=== PATIENT | male | born 1950 | race Caucasian/White ===

== ENCOUNTER 2017-03-13 11:40 | Emergency (ER) | payer MEDICARE, OTHER ==
[2017-03-13 11:40] VITALS: BMI 26.1
[2017-03-13 12:07] VITALS: BP 159/92; PULSE 76; RESP 20; TEMP 97.3; O2SAT 98
--- NOTE | 2017-03-13 12:34 | C.PDOC ---
History Of Present Illness 66 year old patient, with a past medical history of Diabetes, HTN, and renal transplant, presents to the ED requesting a dressing change and wound check for the right foot. Patient is status post first toe amputation on 03/08/17 at [facility]. Patient was advised to get IV antibiotics. Patient is s/p 2 doses at [facility]. Patient states he is pending a follow up appointment at [facility]. Patient denies fever. REQUESTING DRESSING CHANGE, WOUND CHECK R FOOT. S/P 1ST TOE AMPUTATION 03/08 @ [facility]. WAS ADVISED TO GET IV ABX, S/P 2 DOSES @ [facility]. PS PENDING APPOINTMENT FOR FU @ [facility]. NO FEVER. HO RENAL TRANSPLANT EXAM NAD NONTOXIC SKIN R FOOT S/P 1ST TOE AMPUTATION. SUTURES INTACT. +SEMIOPAQUE SLIMEY DC NO SMELL AT WOUND SITE. NO CELLULITIS. Time Seen by Provider: 03/13/17 12:15 Chief Complaint (Nursing): Lower Extremity Problem/Injury History Per: Patient History/Exam Limitations: no limitations Onset/Duration Of Symptoms: Other Current Symptoms Are (Timing): Still Present Location Of Injury: Right: Foot Quality Of Symptoms: Other Severity: None Pain Scale Rating Of: 0 Recent travel outside of the [place]: No Past Medical History Reviewed: Historical Data, Nursing Documentation, Vital Signs Vital Signs: Last Vital Signs Temp 97.3 F L 03/13/17 12:04 Pulse 76 03/13/17 12:04 Resp 20 03/13/17 12:04 BP 159/92 H 03/13/17 12:04 Pulse Ox 98 03/13/17 13:13 - Medical History PMH: Diabetes, HTN, End Stage Renal Disease Surgical History: CABG (2010) - [facility] Procedures CORONAR ARTERIOGR-2 CATH (08/17/13) DX ULTRASOUND-VASCULAR (03/04/13) HEMODIALYSIS (08/17/13) LEFT HEART CARDIAC CATH (08/17/13) LT HEART ANGIOCARDIOGRAM (08/17/13) TETANUS TOXOID ADMINIST (05/10/15) UP LIMB SFT TIS XRAY NEC (03/04/13) VENOUS CATHETERIZATION FOR RENAL DIALYSIS (03/04/13) Family History: States: Unknown Family Hx - Social History Hx Tobacco Use: No Hx Alcohol Use: No Hx Substance Use: No - Immunization History Hx Tetanus Toxoid Vaccination: Yes Hx Influenza Vaccination: Yes Hx Pneumococcal Vaccination: Yes (2013) Review Of Systems Except As Marked, All Systems Reviewed And Found Negative. Constitutional: Negative for: Fever Musculoskeletal: Positive for: Other (right foot wound check s/p 1st toe amputation) Physical Exam - Physical Exam Appears: Non-toxic, No Acute Distress Skin: Warm, Dry, Other (right foot is s/p 1st toe amputation. sutures are intact. (+)semiopaque, slimey discharge. no smell at wound site. no cellulitis.) Cardiovascular: Rhythm Regular Respiratory: Normal Breath Sounds, No Rales, No Rhonchi, No Wheezing ED Course And Treatment O2 Sat by Pulse Oximetry: 98 (room air) Pulse Ox Interpretation: Normal Progress - Re-Evaluation Re-evaluation Note: 03/13/17 12:50 D/W DR MCDANIELS SDE @ [facility]. STATES PT HAD VANCOMYCIN BEADS IMPLANTED , PROBABLE CAUSE OF SLIMEY DC. WILL FU OFFICE - Data Reviewed Data Reviewed: Old records - Continuity of Care Discussed pt. case with applications sales consultant/specialty: Podiatry Disposition Counseled Patient/Family Regarding: Diagnosis, Need For Followup - Disposition Referrals: YOUR,SDE [Other] Disposition: HOME/ ROUTINE Disposition Time: 12:54 Condition: IMPROVED Instructions: Chronic Wound Care (ED) - Clinical Impression Clinical Impression: Visit for wound check - Scribe Statement The provider has reviewed the documentation as recorded by the Scribe Rosalba Treviño Provider Attestation: All medical record entries made by the Scribe were at my direction and personally dictated by me. I have reviewed the chart and agree that the record accurately reflects my personal performance of the history, physical exam, medical decision making, and the department course for this patient. I have also personally directed, reviewed, and agree with the discharge instructions and disposition.
== END 2017-03-13 13:06 | disposition home or self-care (01) ==
LOC: C.ER 11:40
DX: Z48.01 Encounter for change or removal of surgical wound dressing (principal)

== ENCOUNTER 2017-03-27 08:51 | Day surgery (SDC) | payer MEDICARE, OTHER ==
--- NOTE | 2017-03-27 11:06 | CP.SDSHP ---
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 He is referred for PICC placement. Pt. Evaluated Today:Candidate for Anesthesia & Procedure: No - Date & Time Date: 03/27/17 Time: 10:25 Short Stay Discharge - Short Stay Discharge Admitting Diagnosis/Reason for Visit: ABX INFUSION Disposition: HOME/ ROUTINE
--- NOTE | 2017-03-27 11:08 | PCM.SURG1 ---
Surgeon's Initial Post Op Note - Surgeon's Notes Surgeon: Jos Menchaca MD Insurance Agency Sales Manager: NONE Type of Anesthesia: Local Pre-Operative Diagnosis: Poor venous access, subclavian vein occlusion. Operative Findings: Central venogram showed occlusion of the subclavian vein. Basilic and brachial veins are patent. Post-Operative Diagnosis: Poor venous access, subclavian vein occlusion. Operation Performed: 5 mm AIRCRAFT ENGINE MECHANIC SUPERVISOR venous : occluded subclavian vein. Superior venacavagram. Placement of a single lumen picc 5 fr, 39 cm. Tip in SVC. Specimen/Specimens Removed: None Estimated Blood Loss: EBL {In ML}: 5 Blood Products Given: N/A Drains Used: No Drains Post-Op Condition: Good Date of Surgery/Procedure: 03/27/17 Time of Surgery/Procedure: 11:00
[2017-03-27 12:22] VITALS: BP 138/50; PULSE 71; RESP 18; TEMP 97.2; O2SAT 98
== END 2017-03-27 12:29 | disposition home or self-care (01) ==
LOC: C.SPRAD 08:51
PROVIDERS: ATTEND Radiology Vascular & Interventional Radiology
DX: I82.B19 Acute embolism and thrombosis of unspecified subclavian vein (principal)

== ENCOUNTER 2017-04-13 11:31 | Inpatient (IN) | payer MEDICARE, OTHER ==
--- NOTE | 2017-04-13 13:00 | C.PDOC ---
History Of Present Illness The patient, a 66 y/o male with history of right kidney transplant, presents to the ED for evaluation of painful cellulitis to his right foot. He notes his pain is 10/10 severity throughout his entire right foot and radiates towards his mid-calf region. Patient states he had a resection of his right great toe due to the infection and has been going to an infusion center for IV antibiotics everyday and currently has PICC line in place. Patient states he referred to ED to undergo a CT to check for deep infection and possibly for further debridement. Patient states he is unable to follow up at [place] so presents to the ED for further evaluation. Patient denies fever, chills, nausea , vomiting, and headache. Time Seen by Provider: 04/13/17 11:49 Chief Complaint (Nursing): Lower Extremity Problem/Injury History Per: Patient History/Exam Limitations: no limitations Onset/Duration Of Symptoms: Days Current Symptoms Are (Timing): Still Present Severity: Severe Pain Scale Rating Of: 10 Additional History Per: Patient Past Medical History Reviewed: Historical Data, Nursing Documentation, Vital Signs Vital Signs: Last Vital Signs Temp 97.7 F 04/13/17 14:47 Pulse 66 04/13/17 14:47 Resp 18 04/13/17 14:47 BP 179/72 H 04/13/17 14:47 Pulse Ox 100 04/13/17 14:47 - Medical History PMH: Diabetes, HTN, End Stage Renal Disease Surgical History: CABG (2010) - [facility] Procedures CORONAR ARTERIOGR-2 CATH (08/17/13) DX ULTRASOUND-VASCULAR (03/04/13) HEMODIALYSIS (08/17/13) LEFT HEART CARDIAC CATH (08/17/13) LT HEART ANGIOCARDIOGRAM (08/17/13) TETANUS TOXOID ADMINIST (05/10/15) UP LIMB SFT TIS XRAY NEC (03/04/13) VENOUS CATHETERIZATION FOR RENAL DIALYSIS (03/04/13) Family History: States: Unknown Family Hx - Social History Hx Tobacco Use: No Hx Alcohol Use: No - Immunization History Hx Tetanus Toxoid Vaccination: Yes Hx Influenza Vaccination: Yes Hx Pneumococcal Vaccination: Yes (2013) Review Of Systems Constitutional: Negative for: Fever, Chills Gastrointestinal: Negative for: Nausea, Vomiting Musculoskeletal: Positive for: Foot Pain (right, radiating to mid-calf region ) Neurological: Negative for: Headache Physical Exam - Physical Exam Appears: Non-toxic, No Acute Distress Skin: Warm, Dry, Other (Right foot: +foul-odor with purulent discharge. open wound to medial instep with localized swelling,erythema and tenderness) Head: Atraumatic, Normacephalic Eye(s): bilateral: Normal Inspection Oral Mucosa: Moist Neck: Supple Chest: Symmetrical, No Deformity, No Tenderness Cardiovascular: Rhythm Regular, No Murmur Respiratory: Normal Breath Sounds, No Rales, No Rhonchi, No Wheezing Gastrointestinal/Abdominal: Soft, No Tenderness, No Guarding, No Rebound Extremity: Normal ROM, Tenderness (right medial instep ), Capillary Refill ( less than 2 seconds ), No Deformity, Swelling (right medial instep ), Other (+ amputated right great toe) Pulses: Left Dorsalis Pedis: Normal, Right Dorsalis Pedis: Normal Neurological/Psych: Normal Speech, Normal Cognition ED Course And Treatment - Laboratory Results Result Diagrams: 04/13/17 13:27 04/13/17 13:27 O2 Sat by Pulse Oximetry: 100 (on RA ) Pulse Ox Interpretation: Normal Medical Decision Making Medical Decision Making: Impression: 66 y/o male with right foot pain Plan: * labs * CT Lower Extremity * reassess and disposition Progress: labs and CT ordered and reviewed. Attempted to contact siding mechanic in [place], [facility] to reach. Case discussed with Dr. Bauer. ED OBSERVATION Date of observation admission: 04/13/17 Time of observation admission: 13:17 - Observation admission statement Patient is being placed in observation because:: placed in ED obs, pending Podiatry eval Disposition Discussed With DrErick: Tony Treviño Counseled Patient/Family Regarding: Studies Performed, Diagnosis - Disposition Disposition: HOSPITALIZED Disposition Time: 13:14 Condition: GUARDED - Clinical Impression Clinical Impression: Diabetic foot ulcer - Scribe Statement The provider has reviewed the documentation as recorded by the Scribe (Janki Treviño) Provider Attestation: All medical record entries made by the Scribe were at my direction and personally dictated by me. I have reviewed the chart and agree that the record accurately reflects my personal performance of the history, physical exam, medical decision making, and the department course for this patient. I have also personally directed, reviewed, and agree with the discharge instructions and disposition. Decision To Admit - Pt Status Changed To: Hospital Disposition Of: Inpatient - Admit Certification Admit to Inpatient:: After my assessment, the patient will require hospitalization for at least two midnights. This is because of the severity of symptoms shown, intensity of services needed, and/or the medical risk in this patient being treated as an outpatient. - InPatient: Physician Admission Certification: I certify that this patient requires 2 or more midnights of care for the following reason:: deep mid-foot abscess - . Bed Request Type: Regular Patient Diagnosis: Diabetic foot ulcer
[2017-04-13 13:33] LABS: BASO # 0.1 K/uL (0.0-0.2); BASO % 1.1 % (0.0-2.0); EOS # 0.2 K/uL (0.0-0.7); EOS % 3.5 % (0.0-4.0); HEMOGLOBIN 11.4 g/dL (12.0-18.0); LYMPH # 1.5 K/uL (1.0-4.3); LYMPH % 26.1 % (20.0-40.0); MEAN CELL VOLUME 84.3 fL (80.0-94.0); MEAN CORPUSCULAR HEMOGLOBIN 27.4 pg (27.0-31.0); MEAN CORPUSCULAR HGB CONC 32.5 g/dL (33.0-37.0); MEAN PLATELET VOLUME 7.3 fL (7.2-11.7); MONO # 0.6 K/uL (0.0-0.8); MONO % 11.5 % (0.0-10.0); NEUT # 3.2 K/uL (1.8-7.0); NEUT % 57.8 % (50.0-75.0); RBC 4.16 Mil/uL (4.40-5.90); RED CELL DISTRIBUTION WIDTH 14.5 % (11.5-14.5); WHITE BLOOD COUNT 5.6 K/uL (4.8-10.8)
[2017-04-13 13:38] LABS: VENOUS BLOOD GAS BASE EXCESS 0.3 mmol/L (0.0-2.0); VENOUS BLOOD GAS PCO2 45 mmHg (40-60); VENOUS BLOOD GAS PO2 40 mm/Hg (30-55); VENOUS BLOOD PH 7.37 (7.32-7.43)
--- NOTE | 2017-04-13 13:49 | CP.PCM.CON ---
History of Present Illness - History of Present Illness History of Present Illness: 66M with PMHx of kidney transplant, CAD, HTN, HLD, DM, Cataracts seen in the ED by podiatry for right foot s/p 1st ray resection and plantar medial arch circular ulceration with possible abscess formation. Pt states he had surgery on March [address] Jamison at [place] and has since been following up with him there. Pt states he goes to the infusion center to get antibiotics daily at [facility]. Pt states Dr. Jamison created the opening in the middle of his arch last because he suspected an abscess. Pt states that Dr. Jamison advised patient to go to the ED and have a CT scan to rule out the possibility of an abscess. Pt states he would rather come to this ED because it is closer to his home. PSHx: R 1st ray resection, coronary stents, CABG, R kidney transplant All: NKDA Social: denies cigarette use, denies alcohol use, denies drug use Review of Systems - Review of Systems All systems: reviewed and no additional remarkable complaints except (per HPI) Past Patient History - Infectious Disease Hx of Infectious Diseases: None - Past Medical History & Family History Past Medical History?: Yes - Past Social History Smoking Status: Never Smoked - CARDIAC Hx Hypertension: Yes - RENAL Type of Dialysis Access: right arm av shunt Date of Last Dialysis Treatment: 06/03/16 Hx Renal Failure: Yes Other/Comment: Patient doees not get dialysis anymore. He has a kidney transplant since June 04 2016. - HEMATOLOGICAL/ONCOLOGICAL Hx Blood Transfusions: Yes (No reaction) - MUSCULOSKELETAL/RHEUMATOLOGICAL Hx Musculoskeletal Disorders: Yes - SURGICAL HISTORY Hx Coronary Artery Bypass Graft: Yes (2010) - ANESTHESIA Hx Anesthesia: Yes Hx Anesthesia Reactions: No Hx Malignant Hyperthermia: No Meds Allergies/Adverse Reactions: Allergies Allergy/AdvReac Type Severity Reaction Status Date / Time No Known Allergies Allergy Verified 04/13/17 11:36 Physical Exam - Constitutional Appears: Well, Non-toxic, No Acute Distress - Extremities Exam Additional comments: Right lower extremity focused examination Vasc: DP/PT pulses palpable, temperature gradient warm to warm, CFT < 3 sec x 5 , mild edema noted to plantar medial arch in area of proximal open wound Derm: Surgical site noted s/p 1st ray resection with no malodor, no drainage, no purulence, no probe to bone noted. 1x1cm circular open ulceration noted at plantar medial arch with surrounding erythema, purulent drainage. No malodor, no fluctuance, no probe to bone. Neuro: Protective sensation grossly intact Ortho: Tenderness upon palpation of open wounds and wound periphery - Neurological Exam Neurological exam: Alert, Oriented x3 - Psychiatric Exam Psychiatric exam: Normal Affect, Normal Mood Results - Vital Signs Recent Vital Signs: Last Vital Signs Temp 97.4 F L 04/13/17 11:37 Pulse 70 04/13/17 11:37 Resp 16 04/13/17 11:37 BP 205/71 H 04/13/17 11:37 Pulse Ox 100 04/13/17 13:46 - Labs Result Diagrams: 04/13/17 13:27 04/13/17 13:27 Labs: Laboratory Results - last 24 hr 04/13/17 04/13/17 13:27 13:30 WBC 5.6 RBC 4.16 L Hgb 11.4 L Hct 35.1 MCV 84.3 MCH 27.4 MCHC 32.5 L RDW 14.5 Plt Count 216 MPV 7.3 Neut % (Auto) 57.8 Lymph % (Auto) 26.1 Bracken % (Auto) 11.5 H Eos % (Auto) 3.5 Baso % (Auto) 1.1 Neut # 3.2 Lymph # 1.5 Bracken # 0.6 Eos # 0.2 Baso # 0.1 pO2 40 VBG pH 7.37 VBG pCO2 45 VBG HCO3 24.5 VBG Total CO2 27.4 VBG O2 Sat (Calc) 81.1 H VBG Base Excess 0.3 VBG Potassium 4.6 Sodium 134.0 Chloride 102.0 Glucose 418 H* Lactate 1.3 FiO2 21.0 Crit Value Called To Dr dick Crit Value Called By [facility] Crit Value Read Back Y Blood Gas Notified Time 1335 Venous Blood Potassium 4.6 Assessment & Plan - Assessment and Plan (Free Text) Assessment: 66 y/o diabetic male with R foot s/p 1st ray resection with possible plantar medial midfoot abscess Plan: Pt seen and evaluated in ED by podiatry Discussed in detail with attending Dr. Taylor Labs and vitals reviewed- afebrile, WBC 5.6 X-rays R foot reviewed- negative for osteomyelitis 3-4cc purulent drainage elicited up on pressure to R plantar medial midfoot opening CT scan reviewed- possible abscess in R plantar medial midfoot ID consult placed for Dr. Jiang- IV abx recs appreciated MRI of RLE ordered Pt to go to OR Saturday for R foot I&D pending clearance Cardiac clearance requested- thank you Podiatry will continue to follow this patient Thank you for the consult - Date & Time Date: 04/13/17 Time: 14:30
[2017-04-13 14:05] LABS: ALBUMIN 3.4 g/dL (3.5-5.0)
[2017-04-13 14:07] LABS: GFR AFRICAN-AMERICAN > 60; GFR NON-AFRICAN AMERICAN > 60
[2017-04-13 14:08] LABS: ALB/GLOB RATIO 0.9 (1.0-2.1); ALT/SGPT 47 U/L (21-72); AST/SGOT 26 U/L (17-59); BLOOD UREA NITROGEN 13 mg/dL (9-20)
[2017-04-13 14:09] LABS: CALCIUM 9.3 mg/dl (8.6-10.4)
--- NOTE | 2017-04-13 14:39 | CT ---
PROCEDURE: CT of the right foot without contrast. HISTORY: right foot ulcer, osteo? COMPARISON: Comparison is made to the previous x-ray of the right foot dated 01/17/2016 TECHNIQUE: Axial coronal and sagittal CT images of the right foot were obtained without IV contrast administration. FINDINGS: The patient is status post amputation through the mid shaft of the 1st metatarsal bone since the previous exam. There is no CT evidence of acute osteomyelitis at the amputation stump. No evidence of destructive bony lesion in the rest of the right foot. Heterogeneous soft tissue density and soft tissue swelling seen at the plantar aspect of the 1st and 2nd metatarsal bones. There is subcutaneous collection at the plantar aspect of the midfoot at the level of the 2nd and 3rd metatarsal bone measures approximately 3.5 centimeter in the transverse diameter and 1.5 centimeter in thickness. The possibility of abscess formation should be considered. There is also subcutaneous air seen at the plantar aspect of the proximal to mid foot. Diffuse soft tissue edema and skin thickening also seen at the blew plantar aspect of the right foot. Vascular calcifications seen. IMPRESSION: No definite CT evidence of acute osteomyelitis. 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 Soft tissue swelling and suspicious for subcutaneous fluid collection at the plantar aspect of the mid foot. The possibility of abscess formation should be considered.
--- NOTE | 2017-04-13 16:33 | CP.PCM.HP ---
<Godwin Damian R - Last Filed: 04/13/17 20:09> History of Present Illness - History of Present Illness History of Present Illness: PMD: Dr Bauer Code Status: Full Code, no living will, no advanced directive; designates son Karen [phone] as his health care proxy CC: My foot doctor told me to come here HPI: Mr Davis is a 66 yr old man who is s/p right big toe amputation 02/2017 and was referred by his political science chair to come to the [facility] ED for further evaluation of his right foot. The patient states that there has been periodic clear discharge and foul smell emanating from the amputation site since his surgery. He followed up with his political science chair 2 days ago who advised him to go to [place] ED however the patient preferred to come to [facility] ED due to proximity to his home. The patient has been receiving antibiotics daily via right arm PICC line at the [facility] infusion center since his surgery. The patient denies pain, fever, chills. PMD: Dr Bauer Ditch Repairer: Dr Aguirre Etcher Apprentice Photoengraving: Dr Brown (sp?) PMHx: CAD, HTN, HLD, DM, Cataracts b/l PSHx: Right kidney transplant - 2016 Coronary stent placement x4 - 2013 Coronary graft placement 2011 Intraocular lens implantation b/l due to cataracts - 2011 Emergent drainage of left Eye retinal hemorrhage - 2010 Medications: Tacrolimus 1mg po bid mycophenolate 360mg po bid multivitamin po daily coreg 12.5mg po bid crestor 20mg po daily sensipar 30mg po daily aspirin 81mg po daily amlodipine 10mg po daily magnesium oxide 400mg po bid omeprazole 20mg po daily SocialHx: denies smoking, denies alcohol, denies illicit drug use FamHx: Mother: HTN, DM; Father: HTN, DM; Brother: HTN, DM; 2 Sisters: HTN, DM Code Status: Full Code Present on Admission - Present on Admission Any Indicators Present on Admission: No Past Patient History - Infectious Disease Hx of Infectious Diseases: None - Past Medical History & Family History Past Medical History?: Yes - Past Social History Smoking Status: Never Smoked - CARDIAC Hx Hypertension: Yes - RENAL Type of Dialysis Access: right arm av shunt Date of Last Dialysis Treatment: 06/03/16 Hx Renal Failure: Yes Other/Comment: Patient doees not get dialysis anymore. He has a kidney transplant since June 04 2016. - HEMATOLOGICAL/ONCOLOGICAL Hx Blood Transfusions: Yes (No reaction) - MUSCULOSKELETAL/RHEUMATOLOGICAL Hx Musculoskeletal Disorders: Yes - SURGICAL HISTORY Hx Coronary Artery Bypass Graft: Yes (2010) - ANESTHESIA Hx Anesthesia: Yes Hx Anesthesia Reactions: No Hx Malignant Hyperthermia: No Meds Allergies/Adverse Reactions: Allergies Allergy/AdvReac Type Severity Reaction Status Date / Time No Known Allergies Allergy Verified 04/13/17 11:36 Physical Exam - Constitutional Appears: Well, Non-toxic, No Acute Distress - Head Exam Head Exam: ATRAUMATIC, NORMAL INSPECTION, NORMOCEPHALIC - Eye Exam Additional comments: decreased vision. s/p b/l lens insertion 2/2 to cataracts. - ENT Exam ENT Exam: Mucous Membranes Moist - Neck Exam Neck exam: Positive for: Full Rom, Normal Inspection - Respiratory Exam Respiratory Exam: Clear to Auscultation Bilateral, NORMAL BREATHING PATTERN. absent: Rales, Rhonchi, Wheezes - Cardiovascular Exam Cardiovascular Exam: REGULAR RHYTHM, Systolic Murmur - GI/Abdominal Exam GI & Abdominal Exam: Normal Bowel Sounds, Soft. absent: Tenderness - Rectal Exam Rectal Exam: Deferred - Extremities Exam Additional comments: edema of right leg > left leg, of recent onset chronic venous insufficiency, changes likely 2/2 vein harvesting for his cardiac graft procedure - Neurological Exam Neurological exam: Alert, Oriented x3 - Psychiatric Exam Psychiatric exam: Normal Affect, Normal Mood - Skin Skin Exam: Dry, Intact, Normal Color, Warm Results - Vital Signs Recent Vital Signs: Last Vital Signs Temp 97.4 F L 04/13/17 15:57 Pulse 69 04/13/17 15:57 Resp 18 04/13/17 15:57 BP 184/81 H 04/13/17 16:03 Pulse Ox 100 04/13/17 15:57 - Labs Result Diagrams: 04/13/17 13:27 04/13/17 13:27 Labs: Laboratory Results - last 24 hr 04/13/17 04/13/17 04/13/17 13:27 13:27 13:30 WBC 5.6 RBC 4.16 L Hgb 11.4 L Hct 35.1 MCV 84.3 MCH 27.4 MCHC 32.5 L RDW 14.5 Plt Count 216 MPV 7.3 Neut % (Auto) 57.8 Lymph % (Auto) 26.1 [place] % (Auto) 11.5 H Eos % (Auto) 3.5 Baso % (Auto) 1.1 Neut # 3.2 Lymph # 1.5 [place] # 0.6 Eos # 0.2 Baso # 0.1 pO2 40 VBG pH 7.37 VBG pCO2 45 VBG HCO3 24.5 VBG Total CO2 27.4 VBG O2 Sat (Calc) 81.1 H VBG Base Excess 0.3 VBG Potassium 4.6 Glucose 418 H* Lactate 1.3 FiO2 21.0 Crit Value Called To Dr dick Crit Value Called By [facility] Crit Value Read Back Y Blood Gas Notified Time 1335 Sodium 134 134.0 Potassium 4.4 Chloride 99 102.0 Carbon Dioxide 22 Anion Gap 18 BUN 13 Creatinine 0.7 L Est GFR ( Amer) > 60 Est GFR (Non-Af Amer) > 60 Random Glucose 398 H Calcium 9.3 Total Bilirubin 0.5 AST 26 ALT 47 Alkaline Phosphatase 147 H Total Protein 7.0 Albumin 3.4 L Globulin 3.6 Albumin/Globulin Ratio 0.9 L Venous Blood Potassium 4.6 Assessment & Plan (1) Abscess of right foot Assessment and Plan: 04/13: Podiatry, Dr Taylor, consulted. Infectious Disease, Dr Jiang, consulted. 04/13: Zosyn 3.375 gm iv q6. Vancomycin 1gm iv q12. Vancomycin trough 5:30am . 04/13: esr, f/u 04/13: venous duplex scan b/l due to right leg swelling, new onset of 2 days ago Status: Acute (2) Diabetes mellitus Assessment and Plan: 04/12: RISS - High. Accuchecks ACHS. Status: Acute (3) Hypertension Assessment and Plan: coreg 12.5mg po bid amlodipine 10mg po daily Status: Acute (4) CAD (coronary artery disease) Assessment and Plan: 04/12: Cardiology consul, Dr. Aguirre, for cardiac clearance 04/12: aspirin 81mg po once daily - on hold 04/12: EKG ordered Status: Acute (5) Renal transplant, status post Assessment and Plan: 04/12: Tacrolimus 1mg po bid. Mycophenolate 360mg po bid. Valcyte 450mg po bid. Sensipar 30mg po once a day. Status: Acute (6) HLD (hyperlipidemia) Assessment and Plan: crestor 20mg po qhs Status: Acute (7) Prophylactic measure Assessment and Plan: multivitamin po once a day pepcid 20mg po bid magnesium oxide 400mg po bid heparin 5000u sc q8 scd on left leg renal diet 2gran Na, low carb, low fat florastor 250mg po bid Status: Acute <Tony Treviño - Last Filed: 04/13/17 20:51> Results - Vital Signs Recent Vital Signs: Last Vital Signs Temp 97.3 F L 04/13/17 17:00 Pulse 73 04/13/17 17:00 Resp 20 04/13/17 20:31 BP 159/66 H 04/13/17 17:00 Pulse Ox 99 04/13/17 17:00 - Labs Result Diagrams: 04/13/17 13:27 04/13/17 13:27 Labs: Laboratory Results - last 24 hr 04/13/17 04/13/17 04/13/17 13:27 13:27 13:30 WBC 5.6 RBC 4.16 L Hgb 11.4 L Hct 35.1 MCV 84.3 MCH 27.4 MCHC 32.5 L RDW 14.5 Plt Count 216 MPV 7.3 Neut % (Auto) 57.8 Lymph % (Auto) 26.1 [place] % (Auto) 11.5 H Eos % (Auto) 3.5 Baso % (Auto) 1.1 Neut # 3.2 Lymph # 1.5 [place] # 0.6 Eos # 0.2 Baso # 0.1 pO2 40 VBG pH 7.37 VBG pCO2 45 VBG HCO3 24.5 VBG Total CO2 27.4 VBG O2 Sat (Calc) 81.1 H VBG Base Excess 0.3 VBG Potassium 4.6 Glucose 418 H* Lactate 1.3 FiO2 21.0 Crit Value Called To Dr dick Crit Value Called By [facility] Crit Value Read Back Y Blood Gas Notified Time 1335 Sodium 134 134.0 Potassium 4.4 Chloride 99 102.0 Carbon Dioxide 22 Anion Gap 18 BUN 13 Creatinine 0.7 L Est GFR ( Amer) > 60 Est GFR (Non-Af Amer) > 60 POC Glucose (mg/dL) Random Glucose 398 H Calcium 9.3 Total Bilirubin 0.5 AST 26 ALT 47 Alkaline Phosphatase 147 H Total Protein 7.0 Albumin 3.4 L Globulin 3.6 Albumin/Globulin Ratio 0.9 L Venous Blood Potassium 4.6 04/13/17 04/13/17 16:40 17:19 WBC RBC Hgb Hct MCV MCH MCHC RDW Plt Count MPV Neut % (Auto) Lymph % (Auto) [place] % (Auto) Eos % (Auto) Baso % (Auto) Neut # Lymph # [place] # Eos # Baso # pO2 35 VBG pH 7.39 VBG pCO2 42 VBG HCO3 24.3 VBG Total CO2 26.7 VBG O2 Sat (Calc) 74.3 H VBG Base Excess 0.3 VBG Potassium 4.4 Glucose 314 H Lactate 1.5 FiO2 Crit Value Called To Crit Value Called By Crit Value Read Back Blood Gas Notified Time Sodium 136.0 Potassium Chloride 105.0 Carbon Dioxide Anion Gap BUN Creatinine Est GFR ( Amer) Est GFR (Non-Af Amer) POC Glucose (mg/dL) 296 H Random Glucose Calcium Total Bilirubin AST ALT Alkaline Phosphatase Total Protein Albumin Globulin Albumin/Globulin Ratio Venous Blood Potassium 4.4 Attending/Attestation - Attestation I have personally seen and examined this patient.: Yes I have fully participated in the care of the patient.: Yes I have reviewed all pertinent clinical information: Yes Notes (Text): 04/13/17 20:49 Patient was seen and examined at 6:45 PM History, Exam, Assessment and Plan were thoroughly gone over with the Resident Please also note that patient revealed that his Ditch Repairer Dr. Aguirre performed "some tests" about 6 months ago as per patient. Therefore we will await Dr. Aguirre input as to whether patient is cleared from a Cardiology standpoint for likely debridement of the Right Foot. Tony Treviño D.O.
[2017-04-13 16:50] LABS: VENOUS BLOOD GAS BASE EXCESS 0.3 mmol/L (0.0-2.0); VENOUS BLOOD GAS PCO2 42 mmHg (40-60); VENOUS BLOOD GAS PO2 35 mm/Hg (30-55); VENOUS BLOOD PH 7.39 (7.32-7.43)
--- NOTE | 2017-04-13 17:20 | RAD ---
PROCEDURE: Right Foot Radiographs. HISTORY: right foot infection with possible abscess COMPARISON: Comparison is made to 01/17/2016 FINDINGS: BONES: Interval amputation through the mid shaft of the 1st metatarsal bone since the previous exam. JOINTS: Normal. SOFT TISSUES: Vascular calcification. Mild soft tissue swelling seen at the medial aspect of the distal right foot. . OTHER FINDINGS: None. IMPRESSION: Status post amputation through the mid shaft of the 1st metatarsal bone. Soft tissue swelling. No definite evidence of soft tissue pneumatosis.
--- NOTE | 2017-04-13 17:24 | RAD ---
HISTORY: PICC Line placement COMPARISON: Comparison is made to 03/16/2017 FINDINGS: LUNGS: No active pulmonary disease. PLEURA: No significant pleural effusion identified, no pneumothorax apparent. CARDIOVASCULAR: Normal. OSSEOUS STRUCTURES: Sternotomy changes are again noted. VISUALIZED UPPER ABDOMEN: Normal. OTHER FINDINGS: Right-sided PICC line is again seen in place IMPRESSION: No active disease. No significant interval change.
[2017-04-13] MEDS: Saccharomyces Boulardi 250 mg Cap PO SCH (18:31)
[2017-04-13] MEDS: Magnesium Oxide 400 mg Tab UD PO SCH (18:32)
[2017-04-13] MEDS: Piperacillin/Tazobact 3.375 GM in Sodium Chloride 100 ML IVPB SCH (18:39)
[2017-04-13] MEDS: Vancomycin 1 gm/NS 200 ml 1 GM/200 ML BAG IVPB SCH (18:45)
[2017-04-13] MEDS: (Novolin R) Insulin Human Regular 100 units/ml vial SC SCH (22:02)
--- NOTE | 2017-04-13 23:08 | CP.PCM.CON ---
Past Patient History - Infectious Disease Hx of Infectious Diseases: None - Past Medical History & Family History Past Medical History?: Yes - Past Social History Smoking Status: Never Smoked - CARDIAC Hx Hypertension: Yes - NEUROLOGICAL Hx Neurological Disorder: No - HEENT Hx HEENT Problems: Yes Other/Comment: LENS IMPLANTATION B/L CATARACT (2011) - RENAL Type of Dialysis Access: right arm av shunt Date of Last Dialysis Treatment: 06/03/16 Hx Renal Failure: Yes Other/Comment: Patient doees not get dialysis anymore. He has a kidney transplant since June 04 2016. - HEMATOLOGICAL/ONCOLOGICAL Hx Blood Transfusions: Yes (No reaction) - INTEGUMENTARY Hx Dermatological Problems: No - MUSCULOSKELETAL/RHEUMATOLOGICAL Hx Musculoskeletal Disorders: Yes - PSYCHIATRIC Hx Substance Use: No - SURGICAL HISTORY Hx Coronary Artery Bypass Graft: Yes (2010) - ANESTHESIA Hx Anesthesia: Yes Hx Anesthesia Reactions: No Hx Malignant Hyperthermia: No Meds Allergies/Adverse Reactions: Allergies Allergy/AdvReac Type Severity Reaction Status Date / Time No Known Allergies Allergy Verified 04/13/17 11:36 - Medications Medications: Current Medications Cinacalcet (Sensipar) 30 mg PO DAILY [facility] Famotidine (Pepcid) 20 mg PO BID [facility] Last Admin: 04/13/17 18:31 Dose: 20 mg Heparin Sodium (Porcine) (Heparin) 5,000 units SC Q8H [facility] Last Admin: 04/13/17 22:01 Dose: 5,000 units Piperacillin Sod/Tazobactam (Sod 3.375 gm/ Sodium Chloride) 100 mls @ 200 mls/ hr IVPB Q6H [facility] Last Admin: 04/13/17 18:39 Dose: 200 mls/hr Vancomycin/Sodium Chloride (Vancocin) 1 gm in 200 mls @ 133.333 mls/hr IVPB Q12H [facility] Stop: 04/18/17 19:31 Last Admin: 04/13/17 18:45 Dose: 133.333 mls/hr Insulin Human Regular (Novolin R) 0 unit SC ACHS [facility] PRN Reason: Protocol Last Admin: 04/13/17 22:02 Dose: 2 unit Magnesium Oxide (Mag-Ox) 400 mg PO BID [facility] Last Admin: 04/13/17 18:32 Dose: 400 mg Multivitamins (Hexavitamin) 1 tab PO DAILY [facility] Mycophenolate Mofetil (Cellcept Cap) 360 mg PO BID [facility] Rosuvastatin Calcium (Crestor) 20 mg PO HS [facility] Last Admin: 04/13/17 22:01 Dose: 20 mg Saccharomyces Boulardii (Florastor) 250 mg PO BID [facility] Last Admin: 04/13/17 18:31 Dose: 250 mg Tacrolimus (Prograf Cap) 1 mg PO Q12 [facility] Last Admin: 04/13/17 22:01 Dose: 1 mg Results - Vital Signs Recent Vital Signs: Last Vital Signs Temp 97.3 F L 04/13/17 17:00 Pulse 73 04/13/17 17:00 Resp 20 04/13/17 20:31 BP 159/66 H 04/13/17 17:00 Pulse Ox 99 04/13/17 17:00 - Labs Result Diagrams: 04/13/17 13:27 04/13/17 13:27 Labs: Laboratory Results - last 24 hr 04/13/17 04/13/17 04/13/17 13:27 13:27 13:30 WBC 5.6 RBC 4.16 L Hgb 11.4 L Hct 35.1 MCV 84.3 MCH 27.4 MCHC 32.5 L RDW 14.5 Plt Count 216 MPV 7.3 Neut % (Auto) 57.8 Lymph % (Auto) 26.1 [place] % (Auto) 11.5 H Eos % (Auto) 3.5 Baso % (Auto) 1.1 Neut # 3.2 Lymph # 1.5 [place] # 0.6 Eos # 0.2 Baso # 0.1 ESR pO2 40 VBG pH 7.37 VBG pCO2 45 VBG HCO3 24.5 VBG Total CO2 27.4 VBG O2 Sat (Calc) 81.1 H VBG Base Excess 0.3 VBG Potassium 4.6 Glucose 418 H* Lactate 1.3 FiO2 21.0 Crit Value Called To Dr dick Crit Value Called By [facility] Crit Value Read Back Y Blood Gas Notified Time 1335 Sodium 134 134.0 Potassium 4.4 Chloride 99 102.0 Carbon Dioxide 22 Anion Gap 18 BUN 13 Creatinine 0.7 L Est GFR ( Amer) > 60 Est GFR (Non-Af Amer) > 60 POC Glucose (mg/dL) Random Glucose 398 H Calcium 9.3 Total Bilirubin 0.5 AST 26 ALT 47 Alkaline Phosphatase 147 H Total Protein 7.0 Albumin 3.4 L Globulin 3.6 Albumin/Globulin Ratio 0.9 L Venous Blood Potassium 4.6 04/13/17 04/13/17 04/13/17 16:40 17:19 21:18 WBC RBC Hgb Hct MCV MCH MCHC RDW Plt Count MPV Neut % (Auto) Lymph % (Auto) [place] % (Auto) Eos % (Auto) Baso % (Auto) Neut # Lymph # [place] # Eos # Baso # ESR 31 H pO2 35 VBG pH 7.39 VBG pCO2 42 VBG HCO3 24.3 VBG Total CO2 26.7 VBG O2 Sat (Calc) 74.3 H VBG Base Excess 0.3 VBG Potassium 4.4 Glucose 314 H Lactate 1.5 FiO2 Crit Value Called To Crit Value Called By Crit Value Read Back Blood Gas Notified Time Sodium 136.0 Potassium Chloride 105.0 Carbon Dioxide Anion Gap BUN Creatinine Est GFR ( Amer) Est GFR (Non-Af Amer) POC Glucose (mg/dL) 296 H Random Glucose Calcium Total Bilirubin AST ALT Alkaline Phosphatase Total Protein Albumin Globulin Albumin/Globulin Ratio Venous Blood Potassium 4.4 04/13/17 21:22 WBC RBC Hgb Hct MCV MCH MCHC RDW Plt Count MPV Neut % (Auto) Lymph % (Auto) [place] % (Auto) Eos % (Auto) Baso % (Auto) Neut # Lymph # [place] # Eos # Baso # ESR pO2 VBG pH VBG pCO2 VBG HCO3 VBG Total CO2 VBG O2 Sat (Calc) VBG Base Excess VBG Potassium Glucose Lactate FiO2 Crit Value Called To Crit Value Called By Crit Value Read Back Blood Gas Notified Time Sodium Potassium Chloride Carbon Dioxide Anion Gap BUN Creatinine Est GFR ( Amer) Est GFR (Non-Af Amer) POC Glucose (mg/dL) 330 H Random Glucose Calcium Total Bilirubin AST ALT Alkaline Phosphatase Total Protein Albumin Globulin Albumin/Globulin Ratio Venous Blood Potassium
[2017-04-14] MEDS: Piperacillin/Tazobact 3.375 GM in Sodium Chloride 100 ML IVPB SCH ×4 (00:11→18:19)
[2017-04-14] MEDS: Vancomycin 1 gm/NS 200 ml 1 GM/200 ML BAG IVPB SCH ×2 (07:10→19:28)
--- NOTE | 2017-04-14 08:09 | RAD ---
PROCEDURE: CHEST RADIOGRAPH, 1 VIEW HISTORY: need lateral view of chest COMPARISON: Comparison is made to 03/16/2017 and 04/13/2017 FINDINGS: LUNGS: Small bibasilar opacities likely atelectasis. PLEURA: No pneumothorax or pleural fluid seen. CARDIOVASCULAR: The cardiac silhouette is prominent in size. Coronary artery calcification are seen. OSSEOUS STRUCTURES: No significant abnormalities. VISUALIZED UPPER ABDOMEN: Normal. OTHER FINDINGS: None. IMPRESSION: Small bibasilar opacities likely atelectasis
[2017-04-14] MEDS: (Novolin R) Insulin Human Regular 100 units/ml vial SC SCH ×4 (09:23→22:12)
--- NOTE | 2017-04-14 09:37 | CP.PCM.PN ---
<Godwin Damian R - Last Filed: 04/14/17 15:27> Subjective - Date & Time of Evaluation Date of Evaluation: 04/14/17 Time of Evaluation: 10:30 - Subjective Subjective: Patient was seen and examined at bedside. Patient was updated on the plan regarding the OR tomorrow for I&D of his right foot abscess. Patient complained of mild pain to his right foot and ankle. He had not other complaints. He denied fever, nausea, vomiting, abdominal pain, chest pain, chills, cough, bleeding, discharge from wound site. Objective - Vital Signs/Intake and Output Vital Signs (last 24 hours): Temp Pulse Resp BP Pulse Ox 98.0 F 75 20 133/58 L 98 04/14/17 08:26 04/14/17 08:26 04/14/17 08:26 04/14/17 08:26 04/14/17 08:26 Intake and Output: 04/14/17 04/14/17 06:59 18:59 Intake Total 890 Output Total 200 Balance 690 - Medications Medications: Current Medications Cinacalcet (Sensipar) 30 mg PO DAILY [facility] Famotidine (Pepcid) 20 mg PO BID [facility] Last Admin: 04/13/17 18:31 Dose: 20 mg Heparin Sodium (Porcine) (Heparin) 5,000 units SC Q8H [facility] Last Admin: 04/14/17 06:01 Dose: 5,000 units Piperacillin Sod/Tazobactam (Sod 3.375 gm/ Sodium Chloride) 100 mls @ 200 mls/ hr IVPB Q6H [facility] Last Admin: 04/14/17 06:02 Dose: 200 mls/hr Vancomycin/Sodium Chloride (Vancocin) 1 gm in 200 mls @ 133.333 mls/hr IVPB Q12H [facility] Stop: 04/18/17 19:31 Last Admin: 04/14/17 07:10 Dose: 133.333 mls/hr Insulin Human Regular (Novolin R) 0 unit SC ACHS [facility] PRN Reason: Protocol Last Admin: 04/14/17 09:23 Dose: 6 unit Magnesium Oxide (Mag-Ox) 400 mg PO BID [facility] Last Admin: 04/13/17 18:32 Dose: 400 mg Multivitamins (Hexavitamin) 1 tab PO DAILY [facility] Mycophenolate Mofetil (Cellcept Cap) 360 mg PO BID [facility] Rosuvastatin Calcium (Crestor) 20 mg PO HS [facility] Last Admin: 04/13/17 22:01 Dose: 20 mg Saccharomyces Boulardii (Florastor) 250 mg PO BID [facility] Last Admin: 04/13/17 18:31 Dose: 250 mg Tacrolimus (Prograf Cap) 1 mg PO Q12 [facility] Last Admin: 04/13/17 22:01 Dose: 1 mg - Labs Labs: 04/13/17 13:27 04/13/17 13:27 - Constitutional Appears: Well, Non-toxic, No Acute Distress - Head Exam Head Exam: ATRAUMATIC, NORMAL INSPECTION, NORMOCEPHALIC - Eye Exam Eye Exam: EOMI, Normal appearance, PERRL Pupil Exam: absent: NORMAL ACCOMODATION Additional comments: s/p b/l lens insertion 2/2 to cataracts. - ENT Exam ENT Exam: Mucous Membranes Moist, Normal Exam - Neck Exam Neck Exam: Full ROM, Normal Inspection. absent: Lymphadenopathy - Respiratory Exam Respiratory Exam: Clear to Ausculation Bilateral, NORMAL BREATHING PATTERN - Cardiovascular Exam Cardiovascular Exam: REGULAR RHYTHM, +S1, +S2, Murmur - GI/Abdominal Exam GI & Abdominal Exam: Soft, Normal Bowel Sounds. absent: Tenderness - Rectal Exam Rectal Exam: Deferred - Extremities Exam Extremities Exam: Normal Capillary Refill, Pedal Edema Additional comments: edema of right leg > left leg, of recent onset Dressing to foot appears c/d/i. For a more right foot focused exam please see Podiatry note - Neurological Exam Neurological Exam: Alert, Awake, Oriented x3 - Psychiatric Exam Psychiatric exam: Normal Affect, Normal Mood - Skin Additional comments: chronic venous insufficiency, changes likely 2/2 vein harvesting for his cardiac graft procedure Assessment and Plan (1) Abscess of right foot Status: Acute (2) Diabetes mellitus Status: Acute (3) Hypertension Status: Acute (4) CAD (coronary artery disease) Status: Acute (5) Renal transplant, status post Status: Acute (6) HLD (hyperlipidemia) Status: Acute (7) Prophylactic measure Status: Acute - Assessment and Plan (Free Text) Assessment: (1) Abscess of right foot Assessment and Plan: 04/14: wound culture -> gram negative ruslan. MRI's not available on at [facility] ([facility] Plan, per podiatry note, is for OR tomorrow afternoon with Dr. Taylor for I&D of right foot abscess. Dr Aguirre has given cardiac clearance. Will keep NPO after midnight. Will hold levemir and stop heparin prior to OR. 04/13: Podiatry, Dr Taylor, consulted. Infectious Disease, Dr Jiang, consulted. 04/13: Zosyn 3.375 gm iv q6. Vancomycin 1gm iv q12. Vancomycin trough 5:30am . 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 Soft tissue swelling. No definite evidence of soft tissue pneumatosis. 04/13: LE CT: No definite CT evidence of acute osteomyelitis. 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 Soft tissue swelling and suspicious for subcutaneous fluid collection at the plantar aspect of the mid foot. The possibility of abscess formation should be considered. Status: Acute (2) Diabetes mellitus Assessment and Plan: 04/12: RISS - High. Accuchecks ACHS. Status: Acute (3) Hypertension Assessment and Plan: coreg 12.5mg po bid amlodipine 10mg po daily Status: Acute (4) CAD (coronary artery disease) Assessment and Plan: 04/12: Cardiology consul, Dr. Aguirre, for cardiac clearance 04/12: aspirin 81mg po once daily - on hold 04/12: EKG ordered Status: Acute (5) Renal transplant, status post Assessment and Plan: 04/12: Tacrolimus 1mg po bid. Mycophenolate 360mg po bid. Valcyte 450mg po bid. Sensipar 30mg po once a day. Status: Acute (6) HLD (hyperlipidemia) Assessment and Plan: crestor 20mg po qhs Status: Acute (7) Prophylactic measure Assessment and Plan: multivitamin po once a day pepcid 20mg po bid magnesium oxide 400mg po bid heparin 5000u sc q8 scd on left leg renal diet 2gran Na, low carb, low fat florastor 250mg po bid Status: Acute <Tony Treviño - Last Filed: 04/14/17 20:07> Objective - Vital Signs/Intake and Output Vital Signs (last 24 hours): Temp Pulse Resp BP Pulse Ox 97.9 F 76 20 151/68 H 98 04/14/17 15:00 04/14/17 15:00 04/14/17 15:00 04/14/17 15:00 04/14/17 15:00 Intake and Output: 04/14/1717 18:59 06:59 Intake Total 900 Output Total 300 Balance 600 - Medications Medications: Current Medications Cinacalcet (Sensipar) 30 mg PO DAILY [facility] Last Admin: 04/14/17 09:39 Dose: 30 mg Famotidine (Pepcid) 20 mg PO BID [facility] Last Admin: 04/14/17 18:19 Dose: 20 mg Heparin Sodium (Porcine) (Heparin) 5,000 units SC Q8H [facility] Stop: 04/14/17 23:59 Last Admin: 04/14/17 15:31 Dose: 5,000 units Piperacillin Sod/Tazobactam (Sod 3.375 gm/ Sodium Chloride) 100 mls @ 200 mls/ hr IVPB Q6H [facility] Last Admin: 04/14/17 18:19 Dose: 200 mls/hr Vancomycin/Sodium Chloride (Vancocin) 1 gm in 200 mls @ 133.333 mls/hr IVPB Q12H [facility] Stop: 04/18/17 19:31 Last Admin: 04/14/17 19:28 Dose: 133.333 mls/hr Insulin Detemir (Levemir) 37 unit SC HS [facility] Insulin Detemir (Levemir) 37 unit SC ACB [facility] Insulin Human Regular (Novolin R) 0 unit SC ACHS [facility] PRN Reason: Protocol Last Admin: 04/14/17 16:38 Dose: Not Given Magnesium Oxide (Mag-Ox) 400 mg PO BID [facility] Last Admin: 04/14/17 19:28 Dose: 400 mg Multivitamins (Hexavitamin) 1 tab PO DAILY [facility] Last Admin: 04/14/17 09:39 Dose: 1 tab Mycophenolate Mofetil (Cellcept Cap) 360 mg PO BID [facility] Rosuvastatin Calcium (Crestor) 20 mg PO HS [facility] Last Admin: 04/13/17 22:01 Dose: 20 mg Saccharomyces Boulardii (Florastor) 250 mg PO BID [facility] Last Admin: 04/14/17 18:19 Dose: 250 mg Tacrolimus (Prograf Cap) 1 mg PO Q12 [facility] Last Admin: 04/14/17 13:21 Dose: 1 mg - Labs Labs: 04/14/17 10:50 04/14/17 10:50 Attending/Attestation - Attestation I have personally seen and examined this patient.: Yes I have fully participated in the care of the patient.: Yes I have reviewed all pertinent clinical information, including history, physical exam and plan: Yes Notes (Text): 04/14/17 19:54 Patient was seen and examined at 9:50 AM 04/14/17. Please note that patient is NOT on Valcyte. Notified today that MRIs are not performed at this hospital on Sundays therefore MRI Right Foot will be done 04/15/17. For his history of DM 1 as his Insulin not carried by our pharmacy I have added Levemir based upon weight (1 Unit per Kg per day). Therefore based upon a weight of 75 kg he will require 75 Units in 24 hours. Therefore Levemir 37 units SC AC Breakfast and Levemir 37 units SC HS was ordered. However, as patient is scheduled for OR for I&D of the Right Foot 04/15/17, this should be reordered after patient comes back from the OR on 04/15/17 morning. Heparin will be discontinued after tonight 04/14/17 dose at 10 PM. This should be reordered after patient achieves hemostasis after Right Foot I&D and if ok with Podiatry Team. Vascular Surgeon Consult Dr. Stephan Allison was also ordered for recommendations on feasibility of Right Foot Amputation should this be required. I spoke with Road Manager Dr. Aguirre (who also follows patient as an outpatient) and he has cleared patient from Cardiology standpoint for I&D of Right Foot on 04/15/17 and patient is also cleared from a Medicine standpoint as well. 04/14/17 20:05
[2017-04-14] MEDS: Multiple Vitamins Tab PO SCH (09:39)
[2017-04-14] MEDS: Saccharomyces Boulardi 250 mg Cap PO SCH ×2 (09:40→18:19)
[2017-04-14 10:54] LABS: BASO % 0.9 % (0.0-2.0); EOS # 0.3 K/uL (0.0-0.7); HEMOGLOBIN 11.4 g/dL (12.0-18.0); LYMPH # 1.3 K/uL (1.0-4.3); LYMPH % 25.2 % (20.0-40.0); MEAN CELL VOLUME 83.4 fL (80.0-94.0); MEAN CORPUSCULAR HEMOGLOBIN 27.7 pg (27.0-31.0); MEAN CORPUSCULAR HGB CONC 33.2 g/dL (33.0-37.0); MEAN PLATELET VOLUME 7.2 fL (7.2-11.7); MONO # 0.5 K/uL (0.0-0.8); MONO % 8.9 % (0.0-10.0); NEUT # 3.1 K/uL (1.8-7.0); NRBC % 0.1 % (0.0-2.0); RBC 4.12 Mil/uL (4.40-5.90); RED CELL DISTRIBUTION WIDTH 14.3 % (11.5-14.5); WHITE BLOOD COUNT 5.2 K/uL (4.8-10.8)
[2017-04-14 11:01] LABS: ALBUMIN 3.2 g/dL (3.5-5.0)
[2017-04-14 11:03] LABS: GFR AFRICAN-AMERICAN > 60; GFR NON-AFRICAN AMERICAN > 60
[2017-04-14 11:04] LABS: ALT/SGPT 44 U/L (21-72); AST/SGOT 17 U/L (17-59); BLOOD UREA NITROGEN 14 mg/dL (9-20)
[2017-04-14 11:05] LABS: CALCIUM 9.3 mg/dl (8.6-10.4); MAGNESIUM 1.5 mg/dL (1.6-2.3)
[2017-04-14] MEDS: Magnesium Oxide 400 mg Tab UD PO SCH ×2 (11:45→19:28)
--- NOTE | 2017-04-14 13:07 | CP.PCM.PN ---
Subjective - Date & Time of Evaluation Date of Evaluation: 04/14/17 Time of Evaluation: 12:30 - Subjective Subjective: 66 yo male pt seen at bedside today regarding right diabetic foot infection. Pt is pleasant and conversational. Pt seen resting comfortably in bed at time of visit. Does complain of some mild pain to the foot today. Denies f/n/v/c/sob/cp at this time. Says he is concerned about his foot today. Objective - Vital Signs/Intake and Output Vital Signs (last 24 hours): Temp Pulse Resp BP Pulse Ox 98.0 F 75 20 133/58 L 98 04/14/17 08:26 04/14/17 08:26 04/14/17 08:26 04/14/17 08:26 04/14/17 08:26 Intake and Output: 04/14/17 04/14/17 06:59 18:59 Intake Total 890 Output Total 200 Balance 690 - Medications Medications: Current Medications Cinacalcet (Sensipar) 30 mg PO DAILY [facility] Last Admin: 04/14/17 09:39 Dose: 30 mg Famotidine (Pepcid) 20 mg PO BID [facility] Last Admin: 04/14/17 09:40 Dose: 20 mg Heparin Sodium (Porcine) (Heparin) 5,000 units SC Q8H [facility] Last Admin: 04/14/17 06:01 Dose: 5,000 units Piperacillin Sod/Tazobactam (Sod 3.375 gm/ Sodium Chloride) 100 mls @ 200 mls/ hr IVPB Q6H [facility] Last Admin: 04/14/17 12:40 Dose: 200 mls/hr Vancomycin/Sodium Chloride (Vancocin) 1 gm in 200 mls @ 133.333 mls/hr IVPB Q12H [facility] Stop: 04/18/17 19:31 Last Admin: 04/14/17 07:10 Dose: 133.333 mls/hr Insulin Detemir (Levemir) 37 unit SC HS [facility] Insulin Detemir (Levemir) 37 unit SC ACB [facility] Insulin Human Regular (Novolin R) 0 unit SC ACHS [facility] PRN Reason: Protocol Last Admin: 04/14/17 11:35 Dose: 6 unit Magnesium Oxide (Mag-Ox) 400 mg PO BID [facility] Last Admin: 04/14/17 11:45 Dose: 400 mg Multivitamins (Hexavitamin) 1 tab PO DAILY [facility] Last Admin: 04/14/17 09:39 Dose: 1 tab Mycophenolate Mofetil (Cellcept Cap) 360 mg PO BID [facility] Rosuvastatin Calcium (Crestor) 20 mg PO HS [facility] Last Admin: 04/13/17 22:01 Dose: 20 mg Saccharomyces Boulardii (Florastor) 250 mg PO BID [facility] Last Admin: 04/14/17 09:40 Dose: 250 mg Tacrolimus (Prograf Cap) 1 mg PO Q12 [facility] Last Admin: 04/14/17 12:53 Dose: Not Given - Labs Labs: 04/14/17 10:50 04/14/17 10:50 - Constitutional Appears: Non-toxic, No Acute Distress - Extremities Exam Extremities Exam: absent: Calf Tenderness Additional comments: Right foot focused: Dressing to foot appears c/d/i. Vasc: DP/PT pulses palpable, skim temp runs warm to warm, CFT < 3 sec x 5, moderate edema noted to plantar medial arch in area of proximal open wound Derm: Surgical site noted s/p 1st ray resection with no malodor, no drainage, no purulence, no probe to bone noted. 1x1cm circular open ulceration noted at plantar medial arch with surrounding erythema, 3 cc purulent drainage noted on compression, neg prob to bone, medial arch does feel fluctuant Neuro: protective pedal sensation is diminished however pt is sensate to pain Ortho: Tenderness upon palpation of open wounds and wound periphery - Neurological Exam Neurological Exam: Alert, Awake, Oriented x3 - Psychiatric Exam Psychiatric exam: Normal Affect, Normal Mood Assessment and Plan - Assessment and Plan (Free Text) Assessment: 66 y/o diabetic male with R foot s/p 1st ray resection w/ abscess of right foot Plan: Pt S&E at bedside Plan discussed in detail with attendings Dr. Taylor and Dr. Yvette Treviño Chart labs and vitals reviewed: afebrile, WBC 5.2 today, ESR 30 X-rays R foot reviewed- negative for osteomyelitis Low ext CT: no definitive evidence of acute OM, + soft tissue edema with subcutaneous fluid collection MRI right foot: pending c/w IV abx as per Dr Jiang. Plan for OR tomorrow afternoon with Dr. Taylor for I&D of right foot abscess pending cardiac clx (Dr. Aguirre) NPO past midnight Podiatry will follow.
--- NOTE | 2017-04-14 15:50 | CP.PCM.CON ---
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 The patient states that there has been periodic clear discharge and foul smell emanating from the amputation site since his surgery. He followed up with his elementary school counselor 2 days ago who advised him to go to [facility] however the patient preferred to come to [facility] ED due to proximity to his home. The patient has been receiving antibiotics daily via right arm PICC line at the [facility] since his surgery. The patient denies pain, fever, chills. PMD: Dr Bauer Cradle Slide Maker: Dr Aguirre Engineering Illustrator: PMHx: CAD, HTN, HLD, DM, Cataracts b/l PSHx: Right kidney transplant - 2016 Coronary stent placement x4 - 2013 Coronary graft placement 2011 Intraocular lens implantation b/l due to cataracts - 2011 Emergent drainage of left Eye retinal hemorrhage - 2010 Medications: Tacrolimus 1mg po bid mycophenolate 360mg po bid multivitamin po daily coreg 12.5mg po bid crestor 20mg po daily sensipar 30mg po daily aspirin 81mg po daily amlodipine 10mg po daily magnesium oxide 400mg po bid omeprazole 20mg po daily SocialHx: denies smoking, denies alcohol, denies illicit drug use FamHx: Mother: HTN, DM; Father: HTN, DM; Brother: HTN, DM; 2 Sisters: HTN, DM Code Status: Full Code Review of Systems - Review of Systems All systems: reviewed and no additional remarkable complaints except - Constitutional Constitutional: As Per HPI - EENT Eyes: absent: As Per HPI, Blind Spots, Blurred Vision, Change in Vision, Decreased Night Vision, Diplopia, Discharge, Dry Eye, Exophthalmos, Floaters, Irritation, Itchy Eyes, Loss of Peripheral Vision, Pain, Photophobia, Requires Corrective Lenses, Sees Flashes, Spots in Vision, Tunnel Vision, Other Visual Disturbances, Loss of Vision, Other Ears: absent: As Per HPI, Decreased Hearing, Ear Discharge, Ear Pain, Tinnitus, Abnormal Hearing, Disequilibrium, Dizziness, Other Nose/Mouth/Throat: absent: As Per HPI, Epistaxis, Nasal Congestion, Nasal Discharge, Nasal Obstruction, Nasal Trauma, Nose Pain, Post Nasal Drip, Sinus Pain, Sinus Pressure, Bleeding Gums, Change in Voice, Dental Pain, Dry Mouth, Dysphagia, Halitosis, Hoarsness, Lip Swelling, Mouth Lesions, Mouth Pain, Odynophagia, Sore Throat, Throat Swelling, Tongue Swelling, Facial Pain, Neck Pain, Neck Mass, Other - Cardiovascular Cardiovascular: absent: As Per HPI, Acrocyanosis, Chest Pain, Chest Pain at Rest , Chest Pain with Activity, Claudication, Diaphoresis, Dyspnea, Dyspnea on Exertion, Edema, Irregular Heart Rhythm, Pain Radiating to Arm/Neck/Jaw, Leg Edema, Leg Ulcers, Lightheadedness, Orthopnea, Palpitations, Paroxysmal Nocturnal Dyspnea, Pedal Edema, Radiating Pain, Rapid Heart Rate, Slow Heart Rate, Syncope, Other - Respiratory Respiratory: absent: As Per HPI, Cough, Dyspnea, Hemoptysis, Dyspnea on Exertion , Wheezing, Snoring, Stridor, Pain on Inspiration, Chest Congestion, Excessive Mucous Production, Change in Mucous Color, Pain with Coughing, Other - Gastrointestinal Gastrointestinal: absent: As Per HPI, Abdominal Pain, Belching, Bloating, Change in Bowel Habits, Change in Stool Character, Coffee Ground Emesis, Constipation, Cramping, Diarrhea, Dyspepsia, Dysphagia, Early Satiety, Excessive Flatus, Fecal Incontinence, Heartburn, Hematemesis, Hematochezia, Loose Stools, Melena, Nausea, Odynophagia, Temesmus, Vomiting, Other - Genitourinary Genitourinary: absent: As Per HPI, Change in Urinary Stream, Difficulty Urinating, Dysuria, Flank Pain, Hematuria, Pyuria, Nocturia, Urinary Incontinence, Urinary Frequency, Urinary Hesitance, Urinary Urgency, Voiding Freq/Small Amts, Freq UTI, Hx Renal/Bladder Calculi, Hx /Renal Surgery, Bladder Distension, Other - Musculoskeletal Musculoskeletal: As Per HPI - Integumentary Integumentary: As Per HPI, Skin Pain, Wounds - Neurological Neurological: As Per HPI, Abnormal Gait - Psychiatric Psychiatric: absent: As Per HPI, Abnormal Sleep Pattern, Anhedonia, Anxiety, Auditory Hallucinations, Behavioral Changes, Change in Appetite, Change in Libido, Confusion, Depression, Difficulty Concentrating, Hallucinations, Homicidal Ideation, Hopelessness, Irritability, Memory Loss, Mood Swings, Panic Attacks, Paranoia, Suicidal Ideation, Visual Hallucinations, Tactile Hallucinations, Other - Endocrine Endocrine: absent: As Per HPI, Change in Body Appearance, Change in Libido, Cold Intolorance, Deepening of Voice, Excessive Sweating, Fatigue, Flushing, Heat Intolorance, Increase in Ring/Shoe/Hat Size, Palpitations, Polydipsia, Polyphagia, Polyuria, Other - Hematologic/Lymphatic Hematologic: absent: As Per HPI, Easy Bleeding, Easy Bruising, Lymphadenopathy, Other Past Patient History - Infectious Disease Hx of Infectious Diseases: None - Past Medical History & Family History Past Medical History?: Yes - Past Social History Smoking Status: Never Smoked - CARDIAC Hx Hypertension: Yes - NEUROLOGICAL Hx Neurological Disorder: No - HEENT Hx HEENT Problems: Yes Other/Comment: LENS IMPLANTATION B/L CATARACT (2011) - RENAL Type of Dialysis Access: right arm av shunt Date of Last Dialysis Treatment: 06/03/16 Hx Renal Failure: Yes Other/Comment: Patient doees not get dialysis anymore. He has a kidney transplant since June 04 2016. - HEMATOLOGICAL/ONCOLOGICAL Hx Blood Transfusions: Yes (No reaction) - INTEGUMENTARY Hx Dermatological Problems: No - MUSCULOSKELETAL/RHEUMATOLOGICAL Hx Musculoskeletal Disorders: Yes - PSYCHIATRIC Hx Substance Use: No - SURGICAL HISTORY Hx Coronary Artery Bypass Graft: Yes (2010) - ANESTHESIA Hx Anesthesia: Yes Hx Anesthesia Reactions: No Hx Malignant Hyperthermia: No Meds Allergies/Adverse Reactions: Allergies Allergy/AdvReac Type Severity Reaction Status Date / Time No Known Allergies Allergy Verified 04/13/17 11:36 - Medications Medications: Current Medications Cinacalcet (Sensipar) 30 mg PO DAILY [facility] Last Admin: 04/14/17 09:39 Dose: 30 mg Famotidine (Pepcid) 20 mg PO BID [facility] Last Admin: 04/14/17 09:40 Dose: 20 mg Heparin Sodium (Porcine) (Heparin) 5,000 units SC Q8H [facility] Last Admin: 04/14/17 15:31 Dose: 5,000 units Piperacillin Sod/Tazobactam (Sod 3.375 gm/ Sodium Chloride) 100 mls @ 200 mls/ hr IVPB Q6H [facility] Last Admin: 04/14/17 12:40 Dose: 200 mls/hr Vancomycin/Sodium Chloride (Vancocin) 1 gm in 200 mls @ 133.333 mls/hr IVPB Q12H [facility] Stop: 04/18/17 19:31 Last Admin: 04/14/17 07:10 Dose: 133.333 mls/hr Insulin Detemir (Levemir) 37 unit SC HS [facility] Insulin Detemir (Levemir) 37 unit SC ACB [facility] Insulin Human Regular (Novolin R) 0 unit SC ACHS [facility] PRN Reason: Protocol Last Admin: 04/14/17 11:35 Dose: 6 unit Magnesium Oxide (Mag-Ox) 400 mg PO BID [facility] Last Admin: 04/14/17 11:45 Dose: 400 mg Multivitamins (Hexavitamin) 1 tab PO DAILY [facility] Last Admin: 04/14/17 09:39 Dose: 1 tab Mycophenolate Mofetil (Cellcept Cap) 360 mg PO BID [facility] Rosuvastatin Calcium (Crestor) 20 mg PO HS [facility] Last Admin: 04/13/17 22:01 Dose: 20 mg Saccharomyces Boulardii (Florastor) 250 mg PO BID [facility] Last Admin: 04/14/17 09:40 Dose: 250 mg Tacrolimus (Prograf Cap) 1 mg PO Q12 [facility] Last Admin: 04/14/17 13:21 Dose: 1 mg Physical Exam - Constitutional Appears: Non-toxic, Chronically Ill - Head Exam Head Exam: NORMOCEPHALIC - Eye Exam Eye Exam: PERRL. absent: Scleral icterus - ENT Exam ENT Exam: Mucous Membranes Dry, Normal External Ear Exam, Normal Oropharynx - Neck Exam Neck exam: Negative for: Lymphadenopathy, Thyromegaly - Respiratory Exam Respiratory Exam: Decreased Breath Sounds, Clear to Auscultation Bilateral - Cardiovascular Exam Cardiovascular Exam: REGULAR RHYTHM, +S1, +S2 - GI/Abdominal Exam GI & Abdominal Exam: Diminished Bowel Sounds, Soft. absent: Tenderness - Rectal Exam Rectal Exam: Deferred - Exam Exam: NORMAL INSPECTION - Extremities Exam Extremities exam: Positive for: pedal pulses present. Negative for: calf tenderness Additional comments: Right lower extremity focused examination Vasc: DP/PT pulses palpable, temperature gradient warm to warm, CFT < 3 sec x 5 , mild edema noted to plantar medial arch in area of proximal open wound Derm: Surgical site noted s/p 1st ray resection with no malodor, no drainage, no purulence, no probe to bone noted. 1x1cm circular open ulceration noted at plantar medial arch with surrounding erythema, purulent drainage. No malodor, no fluctuance, no probe to bone. Neuro: Protective sensation grossly intact Ortho: Tenderness upon palpation of open wounds and wound periphery - Back Exam Back exam: absent: CVA tenderness (L), CVA tenderness (R), paraspinal tenderness - Neurological Exam Neurological exam: Alert, CN II-XII Intact, Oriented x3, Reflexes Normal - Psychiatric Exam Psychiatric exam: Normal Mood - Skin Skin Exam: Dry Results - Vital Signs Recent Vital Signs: Last Vital Signs Temp 98.0 F 04/14/17 08:26 Pulse 75 04/14/17 08:26 Resp 20 04/14/17 08:26 BP 133/58 L 04/14/17 08:26 Pulse Ox 98 04/14/17 08:26 - Labs Result Diagrams: 04/14/17 10:50 04/14/17 10:50 Labs: Laboratory Results - last 24 hr 04/13/17 04/13/17 04/13/17 16:40 17:19 21:18 WBC RBC Hgb Hct MCV MCH MCHC RDW Plt Count MPV Neut % (Auto) Lymph % (Auto) [place] % (Auto) Eos % (Auto) Baso % (Auto) Neut # Lymph # Grand # Eos # Baso # ESR 31 H pO2 35 VBG pH 7.39 VBG pCO2 42 VBG HCO3 24.3 VBG Total CO2 26.7 VBG O2 Sat (Calc) 74.3 H VBG Base Excess 0.3 VBG Potassium 4.4 Sodium 136.0 Chloride 105.0 Glucose 314 H Lactate 1.5 Potassium Carbon Dioxide Anion Gap BUN Creatinine Est GFR ( Amer) Est GFR (Non-Af Amer) POC Glucose (mg/dL) 296 H Random Glucose Calcium Phosphorus Magnesium Total Bilirubin AST ALT Alkaline Phosphatase Total Protein Albumin Globulin Albumin/Globulin Ratio Venous Blood Potassium 4.4 04/13/17 04/14/17 04/14/17 21:22 07:08 10:50 WBC 5.2 RBC 4.12 L Hgb 11.4 L Hct 34.4 L MCV 83.4 MCH 27.7 MCHC 33.2 RDW 14.3 Plt Count 183 MPV 7.2 Neut % (Auto) 60.0 Lymph % (Auto) 25.2 [place] % (Auto) 8.9 Eos % (Auto) 5.0 H Baso % (Auto) 0.9 Neut # 3.1 Lymph # 1.3 [place] # 0.5 Eos # 0.3 Baso # 0.0 ESR 30 H pO2 VBG pH VBG pCO2 VBG HCO3 VBG Total CO2 VBG O2 Sat (Calc) VBG Base Excess VBG Potassium Sodium Chloride Glucose Lactate Potassium Carbon Dioxide Anion Gap BUN Creatinine Est GFR ( Amer) Est GFR (Non-Af Amer) POC Glucose (mg/dL) 330 H 262 H Random Glucose Calcium Phosphorus Magnesium Total Bilirubin AST ALT Alkaline Phosphatase Total Protein Albumin Globulin Albumin/Globulin Ratio Venous Blood Potassium 04/14/17 04/14/17 10:50 11:27 WBC RBC Hgb Hct MCV MCH MCHC RDW Plt Count MPV Neut % (Auto) Lymph % (Auto) [place] % (Auto) Eos % (Auto) Baso % (Auto) Neut # Lymph # [place] # Eos # Baso # ESR pO2 VBG pH VBG pCO2 VBG HCO3 VBG Total CO2 VBG O2 Sat (Calc) VBG Base Excess VBG Potassium Sodium 135 Chloride 100 Glucose Lactate Potassium 4.2 Carbon Dioxide 24 Anion Gap 16 BUN 14 Creatinine 0.7 L Est GFR ( Amer) > 60 Est GFR (Non-Af Amer) > 60 POC Glucose (mg/dL) 233 H Random Glucose 312 H Calcium 9.3 Phosphorus 2.3 L Magnesium 1.5 L Total Bilirubin 0.6 AST 17 D ALT 44 Alkaline Phosphatase 123 Total Protein 6.5 Albumin 3.2 L Globulin 3.3 Albumin/Globulin Ratio 1.0 Venous Blood Potassium Assessment & Plan (1) Abscess of right foot Status: Acute (2) CAD (coronary artery disease) Status: Acute (3) Diabetes mellitus Status: Acute (4) Diabetic foot ulcer Status: Acute (5) Renal transplant, status post Status: Acute - Assessment and Plan (Free Text) Assessment: await cultures and MRI right consider vascular consult and arterial dopplers cont empiric iv antibiotics may need debridement prognosis for limb salvage guarded
--- NOTE | 2017-04-14 19:46 | CP.PCM.PN ---
Subjective - Date & Time of Evaluation Date of Evaluation: 04/14/17 Time of Evaluation: 18:30 - Subjective Subjective: Patient seen and evaluated Denies chest pain and dyspnea Since last Coronary revascularization patient without cardiac symptoms Normal EF This patient assessed as low risk for cardiac events for Foot debrediment or Incission and drainage surgey under local or general anaesthesia Discussed with the patient Thank you Objective - Vital Signs/Intake and Output Vital Signs (last 24 hours): Temp Pulse Resp BP Pulse Ox 97.9 F 76 20 151/68 H 98 04/14/17 15:00 04/14/17 15:00 04/14/17 15:00 04/14/17 15:00 04/14/17 15:00 Intake and Output: 04/14/17 04/15/17 18:59 06:59 Intake Total 900 Output Total 300 Balance 600 - Medications Medications: Current Medications Cinacalcet (Sensipar) 30 mg PO DAILY [facility] Last Admin: 04/14/17 09:39 Dose: 30 mg Famotidine (Pepcid) 20 mg PO BID [facility] Last Admin: 04/14/17 18:19 Dose: 20 mg Heparin Sodium (Porcine) (Heparin) 5,000 units SC Q8H [facility] Stop: 04/14/17 23:59 Last Admin: 04/14/17 15:31 Dose: 5,000 units Piperacillin Sod/Tazobactam (Sod 3.375 gm/ Sodium Chloride) 100 mls @ 200 mls/ hr IVPB Q6H [facility] Last Admin: 04/14/17 18:19 Dose: 200 mls/hr Vancomycin/Sodium Chloride (Vancocin) 1 gm in 200 mls @ 133.333 mls/hr IVPB Q12H [facility] Stop: 04/18/17 19:31 Last Admin: 04/14/17 19:28 Dose: 133.333 mls/hr Insulin Detemir (Levemir) 37 unit SC HS [facility] Insulin Detemir (Levemir) 37 unit SC ACB [facility] Insulin Human Regular (Novolin R) 0 unit SC ACHS [facility] PRN Reason: Protocol Last Admin: 04/14/17 16:38 Dose: Not Given Magnesium Oxide (Mag-Ox) 400 mg PO BID [facility] Last Admin: 04/14/17 19:28 Dose: 400 mg Multivitamins (Hexavitamin) 1 tab PO DAILY [facility] Last Admin: 04/14/17 09:39 Dose: 1 tab Mycophenolate Mofetil (Cellcept Cap) 360 mg PO BID [facility] Rosuvastatin Calcium (Crestor) 20 mg PO HS [facility] Last Admin: 04/13/17 22:01 Dose: 20 mg Saccharomyces Boulardii (Florastor) 250 mg PO BID [facility] Last Admin: 04/14/17 18:19 Dose: 250 mg Tacrolimus (Prograf Cap) 1 mg PO Q12 [facility] Last Admin: 04/14/17 13:21 Dose: 1 mg - Labs Labs: 04/14/17 10:50 04/14/17 10:50
[2017-04-14] MEDS ORDERED: Insulin Detemir 100 units/ml Vial (Levemir) SC SCH (22:00)
[2017-04-15] MEDS: Piperacillin/Tazobact 3.375 GM in Sodium Chloride 100 ML IVPB SCH ×4 (00:36→18:00)
[2017-04-15 06:57] LABS: INR 1.1; PROTHROMBIN TIME 11.8 SECONDS (9.7-12.2)
--- NOTE | 2017-04-15 06:57 | CP.PCM.CON ---
History of Present Illness - History of Present Illness History of Present Illness: Surgery: Dr. Allison CC: R foot abscess HPI: 66M with PMHx of kidney transplant, CAD, HTN, HLD, DM, Cataracts presents to have RLE evaluated. Pt underwent right great toe amputation with Dr. Jamison on March 09 at [place]. Pt states that following the surgery he's had continuous drainage from the surgical site. Pt states that the drainage and thick and has an odor. He denies F/C. He states that he's been going to infusion center at [facility] daily for abx treatment. Pt is scheduled for I&D of the foot w. podiatry today. An MRI has been ordered to r/o osteomyelitis. Surgery has been consulted for vascular assessment. PMH: kidney transplant, CAD, HTN, HLD, DM, Cataracts PSHx: R 1st ray resection, coronary stents, CABG, R kidney transplant NKDA Meds: MAR reviewed Social: No ETOH/tobacco/drugs Fhx: non-contributory Review of Systems - Review of Systems All systems: reviewed and no additional remarkable complaints except (HPI) Past Patient History - Infectious Disease Hx of Infectious Diseases: None - Past Medical History & Family History Past Medical History?: Yes - Past Social History Smoking Status: Never Smoked - CARDIAC Hx Hypertension: Yes - NEUROLOGICAL Hx Neurological Disorder: No - HEENT Hx HEENT Problems: Yes Other/Comment: LENS IMPLANTATION B/L CATARACT (2011) - RENAL Type of Dialysis Access: right arm av shunt Date of Last Dialysis Treatment: 06/03/16 Hx Renal Failure: Yes Other/Comment: Patient doees not get dialysis anymore. He has a kidney transplant since June 04 2016. - HEMATOLOGICAL/ONCOLOGICAL Hx Blood Transfusions: Yes (No reaction) - INTEGUMENTARY Hx Dermatological Problems: No - MUSCULOSKELETAL/RHEUMATOLOGICAL Hx Musculoskeletal Disorders: Yes - PSYCHIATRIC Hx Substance Use: No - SURGICAL HISTORY Hx Coronary Artery Bypass Graft: Yes (2010) - ANESTHESIA Hx Anesthesia: Yes Hx Anesthesia Reactions: No Hx Malignant Hyperthermia: No Meds Allergies/Adverse Reactions: Allergies Allergy/AdvReac Type Severity Reaction Status Date / Time No Known Allergies Allergy Verified 04/13/17 11:36 - Medications Medications: Current Medications Amlodipine Besylate (Norvasc) 1 mg PO DAILY [facility] Aspirin (Ecotrin) 1 mg PO DAILY [facility] Carvedilol (Coreg) 12.5 mg PO BID [facility] Cinacalcet (Sensipar) 30 mg PO DAILY [facility] Last Admin: 04/14/17 09:39 Dose: 30 mg Famotidine (Pepcid) 20 mg PO BID [facility] Last Admin: 04/14/17 18:19 Dose: 20 mg Piperacillin Sod/Tazobactam (Sod 3.375 gm/ Sodium Chloride) 100 mls @ 200 mls/ hr IVPB Q6H [facility] Last Admin: 04/15/17 05:57 Dose: 200 mls/hr Vancomycin/Sodium Chloride (Vancocin) 1 gm in 200 mls @ 133.333 mls/hr IVPB Q12H [facility] Stop: 04/18/17 19:31 Last Admin: 04/14/17 19:28 Dose: 133.333 mls/hr Insulin Human Regular (Novolin R) 0 unit SC ACHS [facility] PRN Reason: Protocol Last Admin: 04/14/17 22:12 Dose: Not Given Magnesium Oxide (Mag-Ox) 400 mg PO BID [facility] Last Admin: 04/14/17 19:28 Dose: 400 mg Multivitamins (Hexavitamin) 1 tab PO DAILY [facility] Last Admin: 04/14/17 09:39 Dose: 1 tab Mycophenolate Mofetil (Cellcept Cap) 360 mg PO BID [facility] Rosuvastatin Calcium (Crestor) 20 mg PO HS [facility] Last Admin: 04/14/17 22:07 Dose: 20 mg Saccharomyces Boulardii (Florastor) 250 mg PO BID [facility] Last Admin: 04/14/17 18:19 Dose: 250 mg Tacrolimus (Prograf Cap) 1 mg PO Q12 [facility] Last Admin: 04/14/17 22:08 Dose: 1 mg Physical Exam - Constitutional Appears: Non-toxic, In Acute Distress - Head Exam Head Exam: ATRAUMATIC, NORMOCEPHALIC - Eye Exam Eye Exam: EOMI - ENT Exam ENT Exam: Mucous Membranes Moist, Normal External Ear Exam - Neck Exam Neck exam: Positive for: Full Rom - Respiratory Exam Respiratory Exam: NORMAL BREATHING PATTERN. absent: Accessory Muscle Use, Respiratory Distress - Extremities Exam Additional comments: RLE, dressing in place, C/D/I, leg warm, sensation/motor fxn intact. - Neurological Exam Neurological exam: Alert, Oriented x3 Results - Vital Signs Recent Vital Signs: Last Vital Signs Temp 98.5 F 04/14/17 23:31 Pulse 84 04/14/17 23:31 Resp 20 04/14/17 23:31 BP 154/63 H 04/14/17 23:31 Pulse Ox 96 04/14/17 23:31 - Labs Result Diagrams: 04/14/17 10:50 04/14/17 10:50 Labs: Laboratory Results - last 24 hr 04/14/17 04/14/17 04/14/17 07:08 10:50 10:50 WBC 5.2 RBC 4.12 L Hgb 11.4 L Hct 34.4 L MCV 83.4 MCH 27.7 MCHC 33.2 RDW 14.3 Plt Count 183 MPV 7.2 Neut % (Auto) 60.0 Lymph % (Auto) 25.2 [place] % (Auto) 8.9 Eos % (Auto) 5.0 H Baso % (Auto) 0.9 Neut # 3.1 Lymph # 1.3 [place] # 0.5 Eos # 0.3 Baso # 0.0 ESR 30 H Sodium 135 Potassium 4.2 Chloride 100 Carbon Dioxide 24 Anion Gap 16 BUN 14 Creatinine 0.7 L Est GFR ( Amer) > 60 Est GFR (Non-Af Amer) > 60 POC Glucose (mg/dL) 262 H Random Glucose 312 H Calcium 9.3 Phosphorus 2.3 L Magnesium 1.5 L Total Bilirubin 0.6 AST 17 D ALT 44 Alkaline Phosphatase 123 Total Protein 6.5 Albumin 3.2 L Globulin 3.3 Albumin/Globulin Ratio 1.0 04/14/17 04/14/17 04/14/17 11:27 16:16 17:28 WBC RBC Hgb Hct MCV MCH MCHC RDW Plt Count MPV Neut % (Auto) Lymph % (Auto) [place] % (Auto) Eos % (Auto) Baso % (Auto) Neut # Lymph # [place] # Eos # Baso # ESR Sodium Potassium Chloride Carbon Dioxide Anion Gap BUN Creatinine Est GFR ( Amer) Est GFR (Non-Af Amer) POC Glucose (mg/dL) 233 H 72 110 Random Glucose Calcium Phosphorus Magnesium Total Bilirubin AST ALT Alkaline Phosphatase Total Protein Albumin Globulin Albumin/Globulin Ratio 04/14/17 04/15/17 21:12 01:46 WBC RBC Hgb Hct MCV MCH MCHC RDW Plt Count MPV Neut % (Auto) Lymph % (Auto) [place] % (Auto) Eos % (Auto) Baso % (Auto) Neut # Lymph # [place] # Eos # Baso # ESR Sodium Potassium Chloride Carbon Dioxide Anion Gap BUN Creatinine Est GFR ( Amer) Est GFR (Non-Af Amer) POC Glucose (mg/dL) 243 H 248 H Random Glucose Calcium Phosphorus Magnesium Total Bilirubin AST ALT Alkaline Phosphatase Total Protein Albumin Globulin Albumin/Globulin Ratio Assessment & Plan - Assessment and Plan (Free Text) Assessment: 66M w. abscess of R foot -To [place] w. podiatry for I&D today -F/U arterial studies -will d/w attending Mami PGY3
[2017-04-15 07:00] LABS: BASO % 0.9 % (0.0-2.0); EOS # 0.3 K/uL (0.0-0.7); EOS % 5.9 % (0.0-4.0); HEMOGLOBIN 12.1 g/dL (12.0-18.0); LYMPH # 1.6 K/uL (1.0-4.3); LYMPH % 30.2 % (20.0-40.0); MEAN CORPUSCULAR HEMOGLOBIN 27.7 pg (27.0-31.0); MEAN CORPUSCULAR HGB CONC 33.4 g/dL (33.0-37.0); MEAN PLATELET VOLUME 7.3 fL (7.2-11.7); MONO # 0.6 K/uL (0.0-0.8); MONO % 10.6 % (0.0-10.0); NEUT # 2.8 K/uL (1.8-7.0); NEUT % 52.4 % (50.0-75.0); NRBC % 0.1 % (0.0-2.0); RBC 4.38 Mil/uL (4.40-5.90); RED CELL DISTRIBUTION WIDTH 14.4 % (11.5-14.5); WHITE BLOOD COUNT 5.3 K/uL (4.8-10.8)
[2017-04-15 07:05] LABS: ALBUMIN 3.3 g/dL (3.5-5.0); ALT/SGPT 43 U/L (21-72); AST/SGOT 15 U/L (17-59); BLOOD UREA NITROGEN 12 mg/dL (9-20); CALCIUM 9.3 mg/dl (8.6-10.4); GFR AFRICAN-AMERICAN > 60; GFR NON-AFRICAN AMERICAN > 60; MAGNESIUM 1.5 mg/dL (1.6-2.3)
[2017-04-15] MEDS ORDERED: Insulin Detemir 100 units/ml Vial (Levemir) SC SCH (07:30)
[2017-04-15] MEDS: Vancomycin 1 gm/NS 200 ml 1 GM/200 ML BAG IVPB SCH ×3 (07:30→20:29)
[2017-04-15] MEDS: (Novolin R) Insulin Human Regular 100 units/ml vial SC SCH ×4 (07:34→21:41)
[2017-04-15] MEDS: Multiple Vitamins Tab PO SCH (10:05)
[2017-04-15] MEDS: Saccharomyces Boulardi 250 mg Cap PO SCH ×2 (10:05→20:25)
[2017-04-15] MEDS: Magnesium Oxide 400 mg Tab UD PO SCH ×2 (10:05→20:27)
--- NOTE | 2017-04-15 10:15 | CP.PCM.PN ---
Subjective - Date & Time of Evaluation Date of Evaluation: 04/15/17 Time of Evaluation: 09:20 - Subjective Subjective: Medicine note ( PGY 1) : Dr. Brown's service Patient was seen and examined. Patient reports that his symptom is improving. Patient denies chest pain, sob, nausea, vomiting, fever and chills. Patient is tolerating diet and able to ambulate. Objective - Vital Signs/Intake and Output Vital Signs (last 24 hours): Temp Pulse Resp BP Pulse Ox 97.4 F L 82 20 137/74 98 04/15/17 08:34 04/15/17 08:34 04/15/17 08:34 04/15/17 08:34 04/15/17 08:34 Intake and Output: 04/15/17 04/15/17 06:59 18:59 Intake Total 200 Balance 200 - Medications Medications: Current Medications Amlodipine Besylate (Norvasc) 5 mg PO DAILY [facility] Last Admin: 04/15/17 09:40 Dose: 5 mg Aspirin (Ecotrin) 81 mg PO DAILY [facility] Last Admin: 04/15/17 10:05 Dose: Not Given Carvedilol (Coreg) 12.5 mg PO BID [facility] Last Admin: 04/15/17 10:04 Dose: Not Given Cinacalcet (Sensipar) 30 mg PO DAILY [facility] Last Admin: 04/15/17 10:05 Dose: Not Given Famotidine (Pepcid) 20 mg PO BID [facility] Last Admin: 04/15/17 10:05 Dose: Not Given Piperacillin Sod/Tazobactam (Sod 3.375 gm/ Sodium Chloride) 100 mls @ 200 mls/ hr IVPB Q6H [facility] Last Admin: 04/15/17 05:57 Dose: 200 mls/hr Vancomycin/Sodium Chloride (Vancocin) 1 gm in 200 mls @ 133.333 mls/hr IVPB Q12H [facility] Stop: 04/18/17 19:31 Last Admin: 04/14/17 19:28 Dose: 133.333 mls/hr Insulin Human Regular (Novolin R) 0 unit SC ACHS [facility] PRN Reason: Protocol Last Admin: 04/15/17 07:34 Dose: Not Given Magnesium Oxide (Mag-Ox) 400 mg PO BID [facility] Last Admin: 04/15/17 10:05 Dose: Not Given Multivitamins (Hexavitamin) 1 tab PO DAILY [facility] Last Admin: 04/15/17 10:05 Dose: Not Given Mycophenolate Mofetil (Cellcept Cap) 360 mg PO BID [facility] Rosuvastatin Calcium (Crestor) 20 mg PO HS [facility] Last Admin: 04/14/17 22:07 Dose: 20 mg Saccharomyces Boulardii (Florastor) 250 mg PO BID [facility] Last Admin: 04/15/17 10:05 Dose: Not Given Tacrolimus (Prograf Cap) 1 mg PO Q12 [facility] Last Admin: 04/15/17 10:05 Dose: Not Given - Labs Labs: 04/15/17 06:00 04/15/17 06:38 PT 11.8 SECONDS (9.7-12.2) 04/15/17 06:00 INR 1.1 04/15/17 06:00 APTT 30 SECONDS (21-34) 04/15/17 06:00 - Constitutional Appears: Well, No Acute Distress - Head Exam Head Exam: NORMAL INSPECTION - Eye Exam Eye Exam: EOMI, Normal appearance - ENT Exam ENT Exam: Mucous Membranes Moist, Normal Exam - Respiratory Exam Respiratory Exam: Clear to Ausculation Bilateral, NORMAL BREATHING PATTERN - Cardiovascular Exam Cardiovascular Exam: REGULAR RHYTHM, +S1, +S2 - GI/Abdominal Exam GI & Abdominal Exam: Soft, Normal Bowel Sounds - Extremities Exam Extremities Exam: Tenderness - Neurological Exam Neurological Exam: Alert, Awake, Oriented x3 - Psychiatric Exam Psychiatric exam: Normal Affect, Normal Mood - Skin Skin Exam: Dry, Normal Color, Warm Assessment and Plan (1) Abscess of right foot Assessment & Plan: On admission: Afebrile WBC: WNL Wound culture: (+) for proteus mirabilis Blood culture: no growth to date (04/13/17) : Chest X-ray: Small opacities likely atelactasis (04/13/17) Foot X-ray: 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 Soft tissue swelling. No definite evidence of soft tissue pneumatosis. (04/13/17) Lower Extremity CT: No definite CT evidence of acute osteomyelitis. 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 Soft tissue swelling and suspicious for subcutaneous fluid collection at the plantar aspect of the mid foot. The possibility of abscess formation should be considered. (04/13/17)Duplex scan of lower extremity: No evidence of deep or superficial venous thrombosis b/l (04/15/17) Lower extremity U/S: No evidence of hemodynamically significant arterial insufficiency (04/15/17) Lower extremity MRI: Resection of the 1st digit to the metatarsal base. Signal abnormality within the residual marrow of the 1st metatarsal base demonstrating decreased T1 signal and increased STIR signal concerning for acute osteomyelitis. * Prominent fluid and air collection seen within the volar medial midfoot measuring 7.3 x 2.5 x 1.4 centimeters suggestive for an abscess with possible gas gangrene and or phlegmonous collection. * Signal changes seen centered at the 2nd and 3rd MTP joint spaces with signal abnormality seen at the heads of the 2nd and 3rd metatarsal bones and corresponding 2nd and 3rd bases of the proximal phalanges with patchy decreased T1 signal and increased STIR signal suggestive for acute and or developing acute osteomyelitic changes, this is most prominent at the 2nd MTP joint space. Fluid and edema noted within the joint spaces at these levels. * Signal abnormality with patchy decreased T1 signal and increased STIR signal seen at the lateral aspect of the cuboid bone at its volar aspect suggestive for acute and or developing acute osteomyelitis. * Fraying with increased signal seen at the visualized Lisfranc ligament suggest for partial tearing and or moderate grade sprain * Degenerative changes noted at the base of the 2nd metatarsal bone and corresponding middle cuneiform bone suggestive for degenerative changes * On the axial sequences, there is signal abnormality within the 5th middle and distal phalanges with increased STIR signal. It is unclear whether this is the sequelae of failure of fat suppression versus developing acute infectious and or inflammatory changes. Clinical correlation * Minimal nonspecific patchy reactive edema seen at the base the 4th metatarsal bone and distal aspect of the cuboid bone and lateral aspect of the medial cuneiform bone, nonspecific Podiatry Consult ( Dr. Taylor)----> Help appreciated * S/P I&D day 0 ID consult (Dr. Jiang) ---> help appreciated * Zosyn 3.375gm IV Q6H (started 04/13/17) * Vanco 1gm IVPB q12H ( Started 04/13/17) Status: Acute (2) Diabetes mellitus Assessment & Plan: 04/12: RISS - High. Accuchecks ACHS Monitor Status: Acute (3) History of coronary artery disease Assessment & Plan: 04/12: Cardiology consul, Dr. Aguirre, for cardiac clearance 04/12: aspirin 81mg po once daily - on hold 04/12: EKG ordered Cardiac stent x4 (2012) Coronary graft (2010) Status: Acute (4) Renal transplant, status post Assessment & Plan: Right kidney transplant (2015) Tacrolimus 1mg po bid. Mycophenolate 360mg po bid. Sensipar 30mg po once a day. Status: Acute (5) HLD (hyperlipidemia) Assessment & Plan: Crestor 20mg po qhs Status: Acute (6) Prophylactic measure Assessment & Plan: scd on left leg multivitamin po once a day pepcid 20mg po bid magnesium oxide 400mg po bid heparin 5000u sc q8 renal diet 2gran Na, low carb, low fat florastor 250mg po bid Status: Acute
--- NOTE | 2017-04-15 11:28 | CP.PCM.PN ---
Objective - Vital Signs/Intake and Output Vital Signs (last 24 hours): Temp Pulse Resp BP Pulse Ox 97.4 F L 82 20 137/74 98 04/15/17 08:34 04/15/17 08:34 04/15/17 08:34 04/15/17 08:34 04/15/17 08:34 Intake and Output: 04/15/17 04/15/17 06:59 18:59 Intake Total 200 Balance 200 - Medications Medications: Current Medications Amlodipine Besylate (Norvasc) 5 mg PO DAILY [facility] Last Admin: 04/15/17 09:40 Dose: 5 mg Aspirin (Ecotrin) 81 mg PO DAILY [facility] Last Admin: 04/15/17 10:05 Dose: Not Given Carvedilol (Coreg) 12.5 mg PO BID [facility] Last Admin: 04/15/17 10:04 Dose: Not Given Cinacalcet (Sensipar) 30 mg PO DAILY [facility] Last Admin: 04/15/17 10:05 Dose: Not Given Famotidine (Pepcid) 20 mg PO BID [facility] Last Admin: 04/15/17 10:05 Dose: Not Given Piperacillin Sod/Tazobactam (Sod 3.375 gm/ Sodium Chloride) 100 mls @ 200 mls/ hr IVPB Q6H [facility] Last Admin: 04/15/17 05:57 Dose: 200 mls/hr Vancomycin/Sodium Chloride (Vancocin) 1 gm in 200 mls @ 133.333 mls/hr IVPB Q12H [facility] Stop: 04/18/17 19:31 Last Admin: 04/14/17 19:28 Dose: 133.333 mls/hr Insulin Human Regular (Novolin R) 0 unit SC [facility] PRN Reason: Protocol Last Admin: 04/15/17 07:34 Dose: Not Given Magnesium Oxide (Mag-Ox) 400 mg PO BID [facility] Last Admin: 04/15/17 10:05 Dose: Not Given Multivitamins (Hexavitamin) 1 tab PO DAILY [facility] Last Admin: 04/15/17 10:05 Dose: Not Given Mycophenolate Mofetil (Cellcept Cap) 360 mg PO BID [facility] Rosuvastatin Calcium (Crestor) 20 mg PO HS [facility] Last Admin: 04/14/17 22:07 Dose: 20 mg Saccharomyces Boulardii (Florastor) 250 mg PO BID [facility] Last Admin: 04/15/17 10:05 Dose: Not Given Tacrolimus (Prograf Cap) 1 mg PO Q12 [facility] Last Admin: 04/15/17 10:05 Dose: Not Given - Labs Labs: 04/15/17 06:00 04/15/17 06:38 PT 11.8 SECONDS (9.7-12.2) 04/15/17 06:00 INR 1.1 04/15/17 06:00 APTT 30 SECONDS (21-34) 04/15/17 06:00
--- NOTE | 2017-04-15 12:34 | CP.PCM.PN ---
Subjective - Date & Time of Evaluation Date of Evaluation: 04/15/17 Time of Evaluation: 09:00 - Subjective Subjective: wound growing gram neg- proteus Objective - Vital Signs/Intake and Output Vital Signs (last 24 hours): Temp Pulse Resp BP Pulse Ox 97.4 F L 82 20 137/74 98 04/15/17 08:34 04/15/17 08:34 04/15/17 08:34 04/15/17 08:34 04/15/17 08:34 Intake and Output: 04/15/17 04/15/17 06:59 18:59 Intake Total 200 Balance 200 - Medications Medications: Current Medications Amlodipine Besylate (Norvasc) 5 mg PO DAILY [facility] Last Admin: 04/15/17 09:40 Dose: 5 mg Aspirin (Ecotrin) 81 mg PO DAILY [facility] Last Admin: 04/15/17 10:05 Dose: Not Given Carvedilol (Coreg) 12.5 mg PO BID [facility] Last Admin: 04/15/17 10:04 Dose: Not Given Cinacalcet (Sensipar) 30 mg PO DAILY [facility] Last Admin: 04/15/17 10:05 Dose: Not Given Famotidine (Pepcid) 20 mg PO BID [facility] Last Admin: 04/15/17 10:05 Dose: Not Given Piperacillin Sod/Tazobactam (Sod 3.375 gm/ Sodium Chloride) 100 mls @ 200 mls/ hr IVPB Q6H [facility] Last Admin: 04/15/17 05:57 Dose: 200 mls/hr Vancomycin/Sodium Chloride (Vancocin) 1 gm in 200 mls @ 133.333 mls/hr IVPB Q12H [facility] Stop: 04/18/17 19:31 Last Admin: 04/15/17 07:30 Dose: 133.333 mls/hr Insulin Human Regular (Novolin R) 0 unit SC ACHS [facility] PRN Reason: Protocol Last Admin: 04/15/17 07:34 Dose: Not Given Magnesium Oxide (Mag-Ox) 400 mg PO BID [facility] Last Admin: 04/15/17 10:05 Dose: Not Given Multivitamins (Hexavitamin) 1 tab PO DAILY [facility] Last Admin: 04/15/17 10:05 Dose: Not Given Mycophenolate Mofetil (Cellcept Cap) 360 mg PO BID [facility] Rosuvastatin Calcium (Crestor) 20 mg PO [facility] Last Admin: 04/14/17 22:07 Dose: 20 mg Saccharomyces Boulardii (Florastor) 250 mg PO BID [facility] Last Admin: 04/15/17 10:05 Dose: Not Given Tacrolimus (Prograf Cap) 1 mg PO Q12 [facility] Last Admin: 04/15/17 10:05 Dose: Not Given - Labs Labs: 04/15/17 06:00 04/15/17 06:38 PT 11.8 SECONDS (9.7-12.2) 04/15/17 06:00 INR 1.1 04/15/17 06:00 APTT 30 SECONDS (21-34) 04/15/17 06:00 - Constitutional Appears: Non-toxic, Chronically Ill - Head Exam Head Exam: NORMOCEPHALIC - Eye Exam Eye Exam: PERRL - ENT Exam ENT Exam: Mucous Membranes Dry - Neck Exam Neck Exam: absent: Lymphadenopathy - Respiratory Exam Respiratory Exam: Decreased Breath Sounds, Clear to Ausculation Bilateral - Cardiovascular Exam Cardiovascular Exam: REGULAR RHYTHM Assessment and Plan (1) Abscess of right foot Status: Acute (2) CAD (coronary artery disease) Status: Acute (3) Diabetes mellitus Status: Acute (4) Diabetic foot ulcer Status: Acute (5) Renal transplant, status post Status: Acute
--- NOTE | 2017-04-15 13:25 | VASCLAB ---
PROCEDURE: Lower Extremity Venous Duplex Exam. HISTORY: right leg swelling onset 2 days ago PRIORS: None. TECHNIQUE: Bilateral common femoral, femoral, popliteal and posterior tibial, peroneal and great saphenous veins were evaluated. Flow was assessed with color Doppler, compressibility, assessment of phasic flow and augmentation response. Report prepared by Sarkis Yanez, JADE, RVT FINDINGS: RIGHT: 1. Common Femoral Vein: 1.1. Compressibility - Fully compressible: Thrombus - None : Flow - Phasic: Augmentation -Normal: Reflux - None. 2. Femoral Vein: 2.1. Compressibility - Fully compressible: Thrombus - None : Flow - Phasic: Augmentation -Normal: Reflux - None. 3. Popliteal Vein: 3.1. Compressibility - Fully compressible: Thrombus - None : Flow - Phasic: Augmentation -Normal: Reflux - None. 4. Posterior Tibial Vein: 4.1. Compressibility - Fully compressible: Thrombus - None: Flow - Phasic: Augmentation -Normal: Reflux - None. 5. Peroneal Vein: 5.1. Compressibility - Fully compressible: Thrombus - None: Flow - Phasic: Augmentation -Normal: Reflux - None. 6. Great Saphenous Vein: 6.1. Compressibility - Fully compressible: Thrombus - None: Flow - Phasic: Augmentation - Normal: Reflux - None. LEFT: 1. Common Femoral Vein: 1.1. Compressibility - Fully compressible: Thrombus - None: Flow - Phasic: Augmentation -Normal: Reflux - None. 2. Femoral Vein: 2.1. Compressibility - Fully compressible: Thrombus - None: Flow - Phasic: Augmentation -Normal: Reflux - None. 3. Popliteal Vein: 3.1. Compressibility - Fully compressible: Thrombus - None : Flow - Phasic: Augmentation -Normal: Reflux - None. 4. Posterior Tibial Vein: 4.1. Compressibility - Fully compressible: Thrombus - None: Flow - Phasic: Augmentation -Normal: Reflux - None. 5. Peroneal Vein: 5.1. Compressibility - Fully compressible: Thrombus - None: Flow - Phasic: Augmentation -Normal: Reflux - None. 6. Great Saphenous Vein: 6.1. Compressibility - : Thrombus - : Flow - : Augmentation - : Reflux - . OTHER FINDINGS: Right: None significant. Left: The left greater saphenous vein has been previously removed. IMPRESSION: Right: No evidence of deep or superficial vein thrombosis of the right lower extremity. Normal valve function noted of the right side. Left: No evidence of deep or superficial vein thrombosis of the left lower extremity. Normal valve function noted of the left side.
--- NOTE | 2017-04-15 13:31 | VASCLAB ---
STUDY DESCRIPTION: HISTORY: PVD PRIORS: None. TECHNIQUE: Pulse volume recording waveforms and segmental pressures of bilateral lower extremities at multiple levels were obtained. Ankle Brachial Indices (ABIs) were calculated. Report prepared by JADE Trevino, RVT RIGHT LOWER EXTREMITY: * Brachial artery: Pressure - 164 mmHg. * High thigh: Pressure - 220 mmHg: Ratio - NC: PVR waveform - Pulsatile * Low thigh: Pressure - 196 mmHg: Ratio - 1.20 PVR waveform: Pulsatile * Calf: Pressure - 250 mmHg: Ratio - 1.25 PVR waveform: Pulsatile * Posterior tibial Artery: Pressure - 192 mmHg: Ratio - 1.17 PVR waveform: Pulsatile * Dorsalis pedis Artery: Pressure - 170 mmHg: Ratio - 1.04 PVR waveform: Pulsatile * Great toe: Pressure - mmHg: Ratio - PVR waveform: Ankle brachial index (DIANE): 1.17 LEFT LOWER EXTREMITY: * Brachial artery: Pressure - mmHg. * High thigh: Pressure - 204 mmHg: Ratio - 1.24: PVR waveform - Pulsatile * Low thigh: Pressure - 206 mmHg: Ratio - 1.26 PVR waveform: Pulsatile * Calf: Pressure - 220 mmHg: Ratio - NC PVR waveform: Pulsatile * Posterior tibial Artery: Pressure - 191 mmHg: Ratio - 1.16 PVR waveform: Pulsatile * Dorsalis pedis Artery: Pressure - 196 mmHg: Ratio - 1.20 PVR waveform: Pulsatile * Great toe: Pressure - mmHg: Ratio - PVR waveform: Ankle brachial index (DIANE): 1.20 OTHER FINDINGS: Right: Left: IMPRESSION: Right: There was no evidence of hemodynamically significant arterial insufficiency in the right lower extremity. Left: There was no evidence of hemodynamically significant arterial insufficiency in the left lower extremity.
--- NOTE | 2017-04-15 13:49 | MRI ---
MRI right foot History: Abscess. Evaluate for osteomyelitis. Comparison: X-ray dated 04/13/2017 Findings: Prominent fluid and air collection seen within the volar medial midfoot measuring 7.3 x 2.5 x 1.4 centimeters suggestive for an abscess with possible gas gangrene and or phlegmonous collection. Resection of the 1st digit to the metatarsal base. Signal abnormality within the residual marrow of the 1st metatarsal base demonstrating decreased T1 signal and increased STIR signal concerning for acute osteomyelitis. Signal changes seen centered at the 2nd and 3rd MTP joint spaces with signal abnormality seen at the heads of the 2nd and 3rd metatarsal bones and corresponding 2nd and 3rd bases of the proximal phalanges with patchy decreased T1 signal and increased STIR signal suggestive for acute and or developing acute osteomyelitic changes, this is most prominent at the 2nd MTP joint space. Fluid and edema noted within the joint spaces at these levels. Signal abnormality with patchy decreased T1 signal and increased STIR signal seen at the lateral aspect of the cuboid bone at its volar aspect suggestive for acute and or developing acute osteomyelitis. Fraying with increased signal seen at the visualized Lisfranc ligament suggest for partial tearing and or moderate grade sprain. Degenerative changes noted at the base of the 2nd metatarsal bone and corresponding middle cuneiform bone suggestive for degenerative changes. On the axial sequences, there is signal abnormality within the 5th middle and distal phalanges with increased STIR signal. It is unclear whether this is the sequelae of failure of fat suppression versus developing acute infectious and or inflammatory changes. Clinical correlation. Minimal nonspecific patchy reactive edema seen at the base the 4th metatarsal bone and distal aspect of the cuboid bone and lateral aspect of the medial cuneiform bone, nonspecific. Disruption of the 1st flexor tendon likely postsurgical. Impression: 1. Prominent fluid and air collection seen within the volar medial midfoot measuring 7.3 x 2.5 x 1.4 centimeters suggestive for an abscess with possible gas gangrene and or phlegmonous collection. 2. Resection of the 1st digit to the metatarsal base. Signal abnormality within the residual marrow of the 1st metatarsal base demonstrating decreased T1 signal and increased STIR signal concerning for acute osteomyelitis. 3. Signal changes seen centered at the 2nd and 3rd MTP joint spaces with signal abnormality seen at the heads of the 2nd and 3rd metatarsal bones and corresponding 2nd and 3rd bases of the proximal phalanges with patchy decreased T1 signal and increased STIR signal suggestive for acute and or developing acute osteomyelitic changes, this is most prominent at the 2nd MTP joint space. Fluid and edema noted within the joint spaces at these levels. 4. Signal abnormality with patchy decreased T1 signal and increased STIR signal seen at the lateral aspect of the cuboid bone at its volar aspect suggestive for acute and or developing acute osteomyelitis. 5. Fraying with increased signal seen at the visualized Lisfranc ligament suggest for partial tearing and or moderate grade sprain. 6. Degenerative changes noted at the base of the 2nd metatarsal bone and corresponding middle cuneiform bone suggestive for degenerative changes. 7. On the axial sequences, there is signal abnormality within the 5th middle and distal phalanges with increased STIR signal. It is unclear whether this is the sequelae of failure of fat suppression versus developing acute infectious and or inflammatory changes. Clinical correlation. 8. Disruption of the 1st flexor tendon likely postsurgical. 9.Minimal nonspecific patchy reactive edema seen at the base the 4th metatarsal bone and distal aspect of the cuboid bone and lateral aspect of the medial cuneiform bone, nonspecific.
[2017-04-15] MEDS ORDERED: Bacitracin 150,000 UNIT in Sodium Chloride 0.9% Irrig 3,000 ML IR SCH (15:15)
[2017-04-15] MEDS ORDERED: Sodium Chloride 0.9% 1,000 ML IV ONE (16:20)
[2017-04-15] MEDS ORDERED: Bupivacaine HCl 0.5% PF (10 ml) Inj ONE (16:31)
[2017-04-15] MEDS ORDERED: Lidocaine 1% Inj (20ml) ONE (16:31)
[2017-04-15] MEDS ORDERED: Midazolam 2 MG/2 ML VIAL ONE ×2 (16:34→17:38)
[2017-04-15] MEDS ORDERED: Propofol 10 mg/ml Inj (20 ML) ONE ×2 (16:35→17:39)
[2017-04-15] MEDS ORDERED: HYDROmorphone 0.5 mg/0.5 ml ISec IVP PRN ×2 (17:28→18:15)
--- NOTE | 2017-04-15 17:55 | CP.PCM.PN ---
Objective - Vital Signs/Intake and Output Vital Signs (last 24 hours): Temp Pulse Resp BP Pulse Ox 97.4 F L 82 20 137/74 98 04/15/17 08:34 04/15/17 08:34 04/15/17 08:34 04/15/17 08:34 04/15/17 08:34 - Medications Medications: Current Medications Amlodipine Besylate (Norvasc) 5 mg PO DAILY [facility] Last Admin: 04/15/17 09:40 Dose: 5 mg Aspirin (Ecotrin) 81 mg PO DAILY [facility] Last Admin: 04/15/17 10:05 Dose: Not Given Carvedilol (Coreg) 12.5 mg PO BID [facility] Last Admin: 04/15/17 10:04 Dose: Not Given Cinacalcet (Sensipar) 30 mg PO DAILY [facility] Last Admin: 04/15/17 10:05 Dose: Not Given Famotidine (Pepcid) 20 mg PO BID [facility] Last Admin: 04/15/17 10:05 Dose: Not Given Home Med (Patient's Own Control Medication) 360 tab PO BID [facility] Hydromorphone HCl (Dilaudid) 0.5 mg IVP Q15M PRN PRN Reason: Pain, severe (8-10) Stop: 04/15/17 19:00 Piperacillin Sod/Tazobactam (Sod 3.375 gm/ Sodium Chloride) 100 mls @ 200 mls/ hr IVPB Q6H [facility] Last Admin: 04/15/17 12:52 Dose: 200 mls/hr Vancomycin/Sodium Chloride (Vancocin) 1 gm in 200 mls @ 133.333 mls/hr IVPB Q12H [facility] Stop: 04/18/17 19:31 Last Admin: 04/15/17 13:14 Dose: Not Given Insulin Human Regular (Novolin R) 0 unit SC ACHS [facility] PRN Reason: Protocol Last Admin: 04/15/17 17:10 Dose: Not Given Magnesium Oxide (Mag-Ox) 400 mg PO BID [facility] Last Admin: 04/15/17 10:05 Dose: Not Given Multivitamins (Hexavitamin) 1 tab PO DAILY [facility] Last Admin: 04/15/17 10:05 Dose: Not Given Ondansetron HCl (Zofran Inj) 4 mg IVP ONCE PRN PRN Reason: Nausea/Vomiting Stop: 04/15/17 19:17 Rosuvastatin Calcium (Crestor) 20 mg PO HS [facility] Last Admin: 04/14/17 22:07 Dose: 20 mg Saccharomyces Boulardii (Florastor) 250 mg PO BID [facility] Last Admin: 04/15/17 10:05 Dose: Not Given Tacrolimus (Prograf Cap) 1 mg PO Q12 [facility] Last Admin: 04/15/17 10:05 Dose: Not Given - Labs Labs: PT 11.8 SECONDS (9.7-12.2) 04/15/17 06:00 INR 1.1 04/15/17 06:00 APTT 30 SECONDS (21-34) 04/15/17 06:00
[2017-04-15] MEDS ORDERED: Patient's Own Control Med PO SCH (18:00)
[2017-04-15] MEDS ORDERED: Sodium Chloride 0.9% 500 ML IV ONE (18:04)
[2017-04-15] MEDS ORDERED: Oxycodone/Acetaminophen 5/325 mg Tab PO PRN ×2 (18:25)
--- NOTE | 2017-04-15 18:32 | PCM.SURG1 ---
Surgeon's Initial Post Op Note - Surgeon's Notes Surgeon: Dr. Brandi Taylor Sole Rougher: Dr. Salas PGY-2, Dr. Arambula PGY-1 Type of Anesthesia: IV Sedation, Local Anesthesia Administered By: Dr. Mtz Pre-Operative Diagnosis: right foot abscess Operative Findings: see dictation. 20mL 1% lidocaine plain, 0.5%marcaine plain. 10mL 0.5%marcaine plain. 3-0 nylon. MARYAM drain. surgiccel Post-Operative Diagnosis: right foot gas gangrene Operation Performed: right foot incision and drainage with resection of 1st metatarsal Specimen/Specimens Removed: bone Estimated Blood Loss: EBL {In ML}: 600 Blood Products Given: N/A Drains Used: [place] Post-Op Condition: Good Date of Surgery/Procedure: 04/15/17 Time of Surgery/Procedure: 16:00
[2017-04-15 19:36] LABS: HEMOGLOBIN 10.6 g/dL (12.0-18.0)
--- NOTE | 2017-04-15 23:00 | CP.PCM.PN ---
Subjective - Date & Time of Evaluation Date of Evaluation: 04/15/17 Time of Evaluation: 08:30 - Subjective Subjective: Patient seen and evaluated For surgery today Objective - Vital Signs/Intake and Output Vital Signs (last 24 hours): Temp Pulse Resp BP Pulse Ox 98.0 F 71 18 114/71 100 04/15/17 20:00 04/15/17 20:00 04/15/17 20:00 04/15/17 20:26 04/15/17 20:00 Intake and Output: 04/15/17 04/16/17 18:59 06:59 Output Total 0 Balance 0 - Medications Medications: Current Medications Acetaminophen (Tylenol 325mg Tab) 650 mg PO Q6 PRN PRN Reason: Pain, Mild (1-3) Amlodipine Besylate (Norvasc) 5 mg PO DAILY [facility] Last Admin: 04/15/17 09:40 Dose: 5 mg Aspirin (Ecotrin) 81 mg PO DAILY [facility] Last Admin: 04/15/17 10:05 Dose: Not Given Carvedilol (Coreg) 12.5 mg PO BID [facility] Last Admin: 04/15/17 20:26 Dose: 12.5 mg Cinacalcet (Sensipar) 30 mg PO DAILY [facility] Last Admin: 04/15/17 10:05 Dose: Not Given Famotidine (Pepcid) 20 mg PO BID [facility] Last Admin: 04/15/17 20:26 Dose: 20 mg Home Med (Patient's Own Control Medication) 360 tab PO BID [facility] Piperacillin Sod/Tazobactam (Sod 3.375 gm/ Sodium Chloride) 100 mls @ 200 mls/ hr IVPB Q6H [facility] Last Admin: 04/15/17 18:00 Dose: 100 mls Vancomycin/Sodium Chloride (Vancocin) 1 gm in 200 mls @ 133.333 mls/hr IVPB Q12H [facility] Stop: 04/18/17 19:31 Last Admin: 04/15/17 20:29 Dose: 133.333 mls/hr Insulin Human Regular (Novolin R) 0 unit SC ACHS [facility] PRN Reason: Protocol Last Admin: 04/15/17 21:41 Dose: Not Given Magnesium Oxide (Mag-Ox) 400 mg PO BID [facility] Last Admin: 04/15/17 20:27 Dose: 400 mg Multivitamins (Hexavitamin) 1 tab PO DAILY [facility] Last Admin: 04/15/17 10:05 Dose: Not Given Oxycodone/Acetaminophen (Percocet 5/325 Mg Tab) 1 tab PO Q4H PRN PRN Reason: Pain, moderate (4-7) Stop: 04/18/17 18:26 Oxycodone/Acetaminophen (Percocet 5/325 Mg Tab) 2 tab PO Q4H PRN PRN Reason: Pain, severe (8-10) Stop: 04/18/17 18:26 Rosuvastatin Calcium (Crestor) 20 mg PO HS [facility] Last Admin: 04/15/17 21:41 Dose: 20 mg Saccharomyces Boulardii (Florastor) 250 mg PO BID [facility] Last Admin: 04/15/17 20:25 Dose: 250 mg Tacrolimus (Prograf Cap) 1 mg PO Q12 [facility] Last Admin: 04/15/17 21:41 Dose: 1 mg - Labs Labs: 04/15/17 19:33 PT 11.8 SECONDS (9.7-12.2) 04/15/17 06:00 INR 1.1 04/15/17 06:00 APTT 30 SECONDS (21-34) 04/15/17 06:00
[2017-04-16 00:11] VITALS: RESP 20
[2017-04-16] MEDS: Piperacillin/Tazobact 3.375 GM in Sodium Chloride 100 ML IVPB SCH ×4 (00:21→18:02)
[2017-04-16] MEDS: (Novolin R) Insulin Human Regular 100 units/ml vial SC SCH ×4 (08:13→22:19)
--- NOTE | 2017-04-16 08:31 | CP.PCM.PN ---
Subjective - Date & Time of Evaluation Date of Evaluation: 04/16/17 Time of Evaluation: 07:30 - Subjective Subjective: Vascular sx progress note for Dr. Wandy Campbell, PGY-1 Pt S & E at bedside. Pt reports that surgical intervention with podiatry yesterday. Pt w/o complaints at this time. Denies N/V/F/C, SOB, CP, ab pain, leg pain, changes in sensation. Objective - Vital Signs/Intake and Output Vital Signs (last 24 hours): Temp Pulse Resp BP Pulse Ox 97.9 F 81 20 134/78 96 04/16/17 08:00 04/16/17 08:00 04/16/17 08:00 04/16/17 08:00 04/16/17 08:00 Intake and Output: 04/16/17 04/16/17 06:59 18:59 Intake Total 380 Balance 380 - Medications Medications: Current Medications Acetaminophen (Tylenol 325mg Tab) 650 mg PO Q6 PRN PRN Reason: Pain, Mild (1-3) Amlodipine Besylate (Norvasc) 5 mg PO DAILY [facility] Last Admin: 04/15/17 09:40 Dose: 5 mg Aspirin (Ecotrin) 81 mg PO DAILY [facility] Last Admin: 04/15/17 10:05 Dose: Not Given Carvedilol (Coreg) 12.5 mg PO BID [facility] Last Admin: 04/15/17 20:26 Dose: 12.5 mg Cinacalcet (Sensipar) 30 mg PO DAILY [facility] Last Admin: 04/15/17 10:05 Dose: Not Given Famotidine (Pepcid) 20 mg PO BID [facility] Last Admin: 04/15/17 20:26 Dose: 20 mg Home Med (Patient's Own Control Medication) 360 tab PO BID [facility] Piperacillin Sod/Tazobactam (Sod 3.375 gm/ Sodium Chloride) 100 mls @ 200 mls/ hr IVPB Q6H [facility] Last Admin: 04/16/17 05:40 Dose: 200 mls/hr Vancomycin/Sodium Chloride (Vancocin) 1 gm in 200 mls @ 133.333 mls/hr IVPB Q12H [facility] Stop: 04/18/17 19:31 Last Admin: 04/15/17 20:29 Dose: 133.333 mls/hr Insulin Human Regular (Novolin R) 0 unit SC [facility] PRN Reason: Protocol Last Admin: 04/16/17 08:13 Dose: 8 unit Magnesium Oxide (Mag-Ox) 400 mg PO BID [facility] Last Admin: 04/15/17 20:27 Dose: 400 mg Multivitamins (Hexavitamin) 1 tab PO DAILY [facility] Last Admin: 04/15/17 10:05 Dose: Not Given Oxycodone/Acetaminophen (Percocet 5/325 Mg Tab) 1 tab PO Q4H PRN PRN Reason: Pain, moderate (4-7) Stop: 04/18/17 18:26 Last Admin: 04/16/17 00:26 Dose: 1 tab Oxycodone/Acetaminophen (Percocet 5/325 Mg Tab) 2 tab PO Q4H PRN PRN Reason: Pain, severe (8-10) Stop: 04/18/17 18:26 Rosuvastatin Calcium (Crestor) 20 mg PO HS [facility] Last Admin: 04/15/17 21:41 Dose: 20 mg Saccharomyces Boulardii (Florastor) 250 mg PO BID [facility] Last Admin: 04/15/17 20:25 Dose: 250 mg Tacrolimus (Prograf Cap) 1 mg PO Q12 [facility] Last Admin: 04/15/17 21:41 Dose: 1 mg - Labs Labs: 04/15/17 19:33 PT 11.8 SECONDS (9.7-12.2) 04/15/17 06:00 INR 1.1 04/15/17 06:00 APTT 30 SECONDS (21-34) 04/15/17 06:00 - Constitutional Appears: Non-toxic, No Acute Distress - Head Exam Head Exam: ATRAUMATIC, NORMAL INSPECTION, NORMOCEPHALIC - Eye Exam Eye Exam: EOMI, Normal appearance - ENT Exam ENT Exam: Mucous Membranes Moist, Normal Exam - Neck Exam Neck Exam: Full ROM - Respiratory Exam Respiratory Exam: Clear to Ausculation Bilateral, NORMAL BREATHING PATTERN - Cardiovascular Exam Cardiovascular Exam: REGULAR RHYTHM - GI/Abdominal Exam GI & Abdominal Exam: Soft, Normal Bowel Sounds. absent: Tenderness - Extremities Exam Extremities Exam: absent: Tenderness Additional comments: Right foot/ankle with dressing place- C/D/I, MARYAM dressing with ~5 cc dark sanginous output, palpable popliteal pulse over RLE. - Neurological Exam Neurological Exam: Alert, Awake, CN II-XII Intact, Oriented x3 - Psychiatric Exam Psychiatric exam: Normal Affect, Normal Mood - Skin Skin Exam: Dry, Normal Color, Warm Assessment and Plan - Assessment and Plan (Free Text) Assessment: 66M w/Right foot abscess s/p I & D with podiatry POD#1 Plan: -DIANE 1.2 for left, 1.17 for right lower extremity -No hemodynamic compromise identified on study -No vascular surgical intervention at this time -Wound care as per podiatry -Pain mgmt as per primary team BRY attending Shannan, PGY-1
[2017-04-16 08:42] LABS: BASO # 0.1 K/uL (0.0-0.2); BASO % 0.6 % (0.0-2.0); EOS # 0.2 K/uL (0.0-0.7); EOS % 1.9 % (0.0-4.0); HEMOGLOBIN 9.6 g/dL (12.0-18.0); LYMPH # 1.7 K/uL (1.0-4.3); LYMPH % 20.1 % (20.0-40.0); MEAN CELL VOLUME 83.7 fL (80.0-94.0); MEAN CORPUSCULAR HEMOGLOBIN 27.5 pg (27.0-31.0); MEAN CORPUSCULAR HGB CONC 32.9 g/dL (33.0-37.0); MEAN PLATELET VOLUME 7.5 fL (7.2-11.7); MONO # 0.7 K/uL (0.0-0.8); MONO % 8.5 % (0.0-10.0); NEUT # 5.8 K/uL (1.8-7.0); NEUT % 68.9 % (50.0-75.0); RBC 3.5 Mil/uL (4.40-5.90); RED CELL DISTRIBUTION WIDTH 14.4 % (11.5-14.5); WHITE BLOOD COUNT 8.5 K/uL (4.8-10.8)
[2017-04-16 08:57] LABS: AST/SGOT 17 U/L (17-59); GFR AFRICAN-AMERICAN > 60; GFR NON-AFRICAN AMERICAN > 60
[2017-04-16 08:58] LABS: ALT/SGPT 39 U/L (21-72); BLOOD UREA NITROGEN 18 mg/dL (9-20); MAGNESIUM 1.6 mg/dL (1.6-2.3)
--- NOTE | 2017-04-16 10:07 | CP.PCM.PN ---
Subjective - Date & Time of Evaluation Date of Evaluation: 04/16/17 Time of Evaluation: 10:04 - Subjective Subjective: 66 yo male pt seen at bedside today 1 day s/p right foot I&D with first metatarsal resection. Patient denies any acute events overnight. He denies any pain in his foot overnight. Patient's dressing and drain remains intact to right foot. Denies f/n/v/c/sob/cp at this time. Objective - Vital Signs/Intake and Output Vital Signs (last 24 hours): Temp Pulse Resp BP Pulse Ox 97.9 F 81 20 134/78 96 04/16/17 08:00 04/16/17 08:00 04/16/17 08:00 04/16/17 08:00 04/16/17 08:00 Intake and Output: 04/16/17 04/16/17 06:59 18:59 Intake Total 380 Balance 380 - Medications Medications: Current Medications Acetaminophen (Tylenol 325mg Tab) 650 mg PO Q6 PRN PRN Reason: Pain, Mild (1-3) Amlodipine Besylate (Norvasc) 5 mg PO DAILY [facility] Last Admin: 04/15/17 09:40 Dose: 5 mg Aspirin (Ecotrin) 81 mg PO DAILY [facility] Last Admin: 04/15/17 10:05 Dose: Not Given Carvedilol (Coreg) 12.5 mg PO BID [facility] Last Admin: 04/15/17 20:26 Dose: 12.5 mg Cinacalcet (Sensipar) 30 mg PO DAILY [facility] Last Admin: 04/15/17 10:05 Dose: Not Given Famotidine (Pepcid) 20 mg PO BID [facility] Last Admin: 04/15/17 20:26 Dose: 20 mg Home Med (Patient's Own Control Medication) 360 tab PO BID [facility] Piperacillin Sod/Tazobactam (Sod 3.375 gm/ Sodium Chloride) 100 mls @ 200 mls/ hr IVPB Q6H [facility] Last Admin: 04/16/17 05:40 Dose: 200 mls/hr Vancomycin/Sodium Chloride (Vancocin) 1 gm in 200 mls @ 133.333 mls/hr IVPB Q12H [facility] Stop: 04/18/17 19:31 Last Admin: 04/15/17 20:29 Dose: 133.333 mls/hr Insulin Human Regular (Novolin R) 0 unit SC ACHS [facility] PRN Reason: Protocol Last Admin: 04/16/17 08:13 Dose: 8 unit Magnesium Oxide (Mag-Ox) 400 mg PO BID [facility] Last Admin: 04/15/17 20:27 Dose: 400 mg Multivitamins (Hexavitamin) 1 tab PO DAILY [facility] Last Admin: 04/15/17 10:05 Dose: Not Given Oxycodone/Acetaminophen (Percocet 5/325 Mg Tab) 1 tab PO Q4H PRN PRN Reason: Pain, moderate (4-7) Stop: 04/18/17 18:26 Last Admin: 04/16/17 00:26 Dose: 1 tab Oxycodone/Acetaminophen (Percocet 5/325 Mg Tab) 2 tab PO Q4H PRN PRN Reason: Pain, severe (8-10) Stop: 04/18/17 18:26 Rosuvastatin Calcium (Crestor) 20 mg PO HS [facility] Last Admin: 04/15/17 21:41 Dose: 20 mg Saccharomyces Boulardii (Florastor) 250 mg PO BID [facility] Last Admin: 04/15/17 20:25 Dose: 250 mg Tacrolimus (Prograf Cap) 1 mg PO Q12 [facility] Last Admin: 04/15/17 21:41 Dose: 1 mg - Labs Labs: 04/16/17 08:22 04/16/17 08:22 PT 11.8 SECONDS (9.7-12.2) 04/15/17 06:00 INR 1.1 04/15/17 06:00 APTT 30 SECONDS (21-34) 04/15/17 06:00 - Constitutional Appears: Well, Non-toxic, No Acute Distress - Extremities Exam Additional comments: Right foot focused: Dressing to foot appears c/d/i. Vasc: DP/PT pulses palpable, skim temp runs warm to warm, CFT < 3 sec x 5, moderate edema noted to plantar medial arch in area of proximal open wound Derm: surgical incision site intact, sutures intact, localized edema and erythema along incision site, drain intact, no purulence, no malodor, no active bleeding, no ascending cellulitis, no fluctuance Neuro: protective pedal sensation is diminished however pt is sensate to pain Ortho: Tenderness upon palpation of open wounds and wound periphery - Neurological Exam Neurological Exam: Alert, Awake, Oriented x3 - Psychiatric Exam Psychiatric exam: Normal Affect, Normal Mood Assessment and Plan - Assessment and Plan (Free Text) Assessment: 66 y/o diabetic male with R foot 1 day s/p 1st ray resection with incision and drainage Plan: Pt S&E at bedside Plan discussed in detail with attendings Dr. Taylor Chart labs and vitals reviewed: afebrile, WBC 8.5 today dressing to right foot applied with gauze, kerlix, ABD, BEATRIS, drain in place c/w IV abx as per Dr Jiang. monitor H&H Podiatry will follow.
[2017-04-16] MEDS: Magnesium Oxide 400 mg Tab UD PO SCH ×2 (11:09→18:02)
[2017-04-16] MEDS: Multiple Vitamins Tab PO SCH (11:09)
[2017-04-16] MEDS: Saccharomyces Boulardi 250 mg Cap PO SCH ×2 (11:15→18:00)
[2017-04-16] MEDS ORDERED: (Novolin R) Insulin Human Regular 100 units/ml vial SC ONE (12:20)
[2017-04-16] MEDS: Vancomycin 1 gm/NS 200 ml 1 GM/200 ML BAG IVPB SCH ×2 (12:32→19:53)
--- NOTE | 2017-04-16 12:32 | CP.PCM.PN ---
Subjective - Date & Time of Evaluation Date of Evaluation: 04/16/17 Time of Evaluation: 08:00 - Subjective Subjective: s/p right foot I&D with first metatarsal resection. MRI reviewed cont iv rx Objective - Vital Signs/Intake and Output Vital Signs (last 24 hours): Temp Pulse Resp BP Pulse Ox 97.9 F 81 20 134/78 96 04/16/17 08:00 04/16/17 08:00 04/16/17 08:00 04/16/17 11:09 04/16/17 08:00 Intake and Output: 04/16/17 04/16/17 06:59 18:59 Intake Total 380 Balance 380 - Medications Medications: Current Medications Acetaminophen (Tylenol 325mg Tab) 650 mg PO Q6 PRN PRN Reason: Pain, Mild (1-3) Amlodipine Besylate (Norvasc) 5 mg PO DAILY [facility] Last Admin: 04/16/17 11:10 Dose: 5 mg Aspirin (Ecotrin) 81 mg PO DAILY [facility] Last Admin: 04/16/17 11:09 Dose: 81 mg Carvedilol (Coreg) 12.5 mg PO BID [facility] Last Admin: 04/16/17 11:09 Dose: 12.5 mg Cinacalcet (Sensipar) 30 mg PO DAILY [facility] Last Admin: 04/16/17 11:09 Dose: 30 mg Famotidine (Pepcid) 20 mg PO BID [facility] Last Admin: 04/16/17 11:10 Dose: 20 mg Home Med (Patient's Own Control Medication) 360 tab PO BID [facility] Piperacillin Sod/Tazobactam (Sod 3.375 gm/ Sodium Chloride) 100 mls @ 200 mls/ hr IVPB Q6H [facility] Last Admin: 04/16/17 05:40 Dose: 200 mls/hr Vancomycin/Sodium Chloride (Vancocin) 1 gm in 200 mls @ 133.333 mls/hr IVPB Q12H [facility] Stop: 04/18/17 19:31 Last Admin: 04/15/17 20:29 Dose: 133.333 mls/hr Insulin Human Regular (Novolin R) 0 unit SC ACHS [facility] PRN Reason: Protocol Last Admin: 04/16/17 08:13 Dose: 8 unit Magnesium Oxide (Mag-Ox) 400 mg PO BID [facility] Last Admin: 04/16/17 11:09 Dose: 400 mg Multivitamins (Hexavitamin) 1 tab PO DAILY [facility] Last Admin: 04/16/17 11:09 Dose: 1 tab Oxycodone/Acetaminophen (Percocet 5/325 Mg Tab) 1 tab PO Q4H PRN PRN Reason: Pain, moderate (4-7) Stop: 04/18/17 18:26 Last Admin: 04/16/17 00:26 Dose: 1 tab Oxycodone/Acetaminophen (Percocet 5/325 Mg Tab) 2 tab PO Q4H PRN PRN Reason: Pain, severe (8-10) Stop: 04/18/17 18:26 Rosuvastatin Calcium (Crestor) 20 mg PO HS [facility] Last Admin: 04/15/17 21:41 Dose: 20 mg Saccharomyces Boulardii (Florastor) 250 mg PO BID [facility] Last Admin: 04/16/17 11:15 Dose: 250 mg Tacrolimus (Prograf Cap) 1 mg PO Q12 [facility] Last Admin: 04/16/17 11:10 Dose: 1 mg - Labs Labs: 04/16/17 08:22 04/16/17 08:22 PT 11.8 SECONDS (9.7-12.2) 04/15/17 06:00 INR 1.1 04/15/17 06:00 APTT 30 SECONDS (21-34) 04/15/17 06:00 - Constitutional Appears: Non-toxic, Chronically Ill - Head Exam Head Exam: NORMOCEPHALIC - Eye Exam Eye Exam: PERRL. absent: Scleral icterus - ENT Exam ENT Exam: Mucous Membranes Dry, Normal External Ear Exam - Neck Exam Neck Exam: absent: Lymphadenopathy - Respiratory Exam Respiratory Exam: Decreased Breath Sounds, Clear to Ausculation Bilateral - Cardiovascular Exam Cardiovascular Exam: REGULAR RHYTHM, +S1, +S2 - GI/Abdominal Exam GI & Abdominal Exam: Distended, Soft Assessment and Plan (1) Abscess of right foot Status: Acute (2) CAD (coronary artery disease) Status: Acute (3) Diabetes mellitus Status: Acute (4) Diabetic foot ulcer Status: Acute (5) Renal transplant, status post Status: Acute
--- NOTE | 2017-04-16 15:08 | CP.PCM.PN ---
Subjective - Date & Time of Evaluation Date of Evaluation: 04/16/17 Time of Evaluation: 07:30 - Subjective Subjective: Medicine note ( PGY 1) : Dr. Brown's Service Patient was seen and examined at bedside. Patient is s/p day 1 of I&D and resection of the first metatarsal. Patient was resting comfortably in his bed while his right foot dressing was being changed by podiatry resident. Patient states that he is doing well and had no acute events overnight. Patient denies chest pain, sob, fever, chills, nausea and vomiting but admits to very minimal pain at the incision site. Objective - Vital Signs/Intake and Output Vital Signs (last 24 hours): Temp Pulse Resp BP Pulse Ox 97.9 F 81 20 134/78 96 04/16/17 08:00 04/16/17 08:00 04/16/17 08:00 04/16/17 11:09 04/16/17 08:00 Intake and Output: 04/16/17 04/16/17 06:59 18:59 Intake Total 1160 Balance 1160 - Medications Medications: Current Medications Acetaminophen (Tylenol 325mg Tab) 650 mg PO Q6 PRN PRN Reason: Pain, Mild (1-3) Amlodipine Besylate (Norvasc) 5 mg PO DAILY [facility] Last Admin: 04/16/17 11:10 Dose: 5 mg Aspirin (Ecotrin) 81 mg PO DAILY [facility] Last Admin: 04/16/17 11:09 Dose: 81 mg Carvedilol (Coreg) 12.5 mg PO BID [facility] Last Admin: 04/16/17 11:09 Dose: 12.5 mg Cinacalcet (Sensipar) 30 mg PO DAILY [facility] Last Admin: 04/16/17 11:09 Dose: 30 mg Famotidine (Pepcid) 20 mg PO BID [facility] Last Admin: 04/16/17 11:10 Dose: 20 mg Home Med (Patient's Own Control Medication) 360 tab PO BID [facility] Piperacillin Sod/Tazobactam (Sod 3.375 gm/ Sodium Chloride) 100 mls @ 200 mls/ hr IVPB Q6H [facility] Last Admin: 04/16/17 12:33 Dose: 200 mls/hr Vancomycin/Sodium Chloride (Vancocin) 1 gm in 200 mls @ 133.333 mls/hr IVPB Q12H [facility] Stop: 04/18/17 19:31 Last Admin: 04/16/17 12:32 Dose: 133.333 mls/hr Insulin Human Regular (Novolin R) 0 unit SC ACHS [facility] PRN Reason: Protocol Last Admin: 04/16/17 12:32 Dose: 12 unit Magnesium Oxide (Mag-Ox) 400 mg PO BID [facility] Last Admin: 04/16/17 11:09 Dose: 400 mg Multivitamins (Hexavitamin) 1 tab PO DAILY [facility] Last Admin: 04/16/17 11:09 Dose: 1 tab Oxycodone/Acetaminophen (Percocet 5/325 Mg Tab) 1 tab PO Q4H PRN PRN Reason: Pain, moderate (4-7) Stop: 04/18/17 18:26 Last Admin: 04/16/17 00:26 Dose: 1 tab Oxycodone/Acetaminophen (Percocet 5/325 Mg Tab) 2 tab PO Q4H PRN PRN Reason: Pain, severe (8-10) Stop: 04/18/17 18:26 Rosuvastatin Calcium (Crestor) 20 mg PO HS [facility] Last Admin: 04/15/17 21:41 Dose: 20 mg Saccharomyces Boulardii (Florastor) 250 mg PO BID [facility] Last Admin: 04/16/17 11:15 Dose: 250 mg Tacrolimus (Prograf Cap) 1 mg PO Q12 [facility] Last Admin: 04/16/17 11:10 Dose: 1 mg - Labs Labs: 04/16/17 08:22 04/16/17 08:22 PT 11.8 SECONDS (9.7-12.2) 04/15/17 06:00 INR 1.1 04/15/17 06:00 APTT 30 SECONDS (21-34) 04/15/17 06:00 - Constitutional Appears: Well, No Acute Distress - Head Exam Head Exam: ATRAUMATIC - Eye Exam Eye Exam: EOMI, Normal appearance - ENT Exam ENT Exam: Mucous Membranes Moist, Normal Exam - Respiratory Exam Respiratory Exam: Clear to Ausculation Bilateral, NORMAL BREATHING PATTERN - Cardiovascular Exam Cardiovascular Exam: REGULAR RHYTHM, +S1, +S2, Murmur - GI/Abdominal Exam GI & Abdominal Exam: Soft, Normal Bowel Sounds - Neurological Exam Neurological Exam: Alert, Awake, Oriented x3 - Psychiatric Exam Psychiatric exam: Normal Affect, Normal Mood - Skin Skin Exam: Dry, Normal Color, Warm Assessment and Plan (1) Osteomyelitis of right foot Assessment & Plan: Stable Osteomyelitis of the right hallux On admission: Afebrile WBC: WNL Wound culture: (+) for proteus mirabilis Blood culture: no growth to date (04/13/17) : Chest X-ray: Small opacities likely atelactasis (04/13/17) Foot X-ray: Status post amputation through the mid shaft of the 1st metatarsal bone. Soft tissue swelling. No definite evidence of soft tissue pneumatosis. (04/13/17) Lower Extremity CT: No definite CT evidence of acute osteomyelitis. 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 Soft tissue swelling and suspicious for subcutaneous fluid collection at the plantar aspect of the mid foot. The possibility of abscess formation should be considered. (04/13/17)Duplex scan of lower extremity: No evidence of deep or superficial venous thrombosis b/l (04/15/17) Lower extremity U/S: No evidence of hemodynamically significant arterial insufficiency (04/15/17) Lower extremity MRI: Resection of the 1st digit to the metatarsal base. Signal abnormality within the residual marrow of the 1st metatarsal base demonstrating decreased T1 signal and increased STIR signal concerning for acute osteomyelitis. * Prominent fluid and air collection seen within the volar medial midfoot measuring 7.3 x 2.5 x 1.4 centimeters suggestive for an abscess with possible gas gangrene and or phlegmonous collection. * Signal changes seen centered at the 2nd and 3rd MTP joint spaces with signal abnormality seen at the heads of the 2nd and 3rd metatarsal bones and corresponding 2nd and 3rd bases of the proximal phalanges with patchy decreased T1 signal and increased STIR signal suggestive for acute and or developing acute osteomyelitic changes, this is most prominent at the 2nd MTP joint space. Fluid and edema noted within the joint spaces at these levels. * Signal abnormality with patchy decreased T1 signal and increased STIR signal seen at the lateral aspect of the cuboid bone at its volar aspect suggestive for acute and or developing acute osteomyelitis. * Fraying with increased signal seen at the visualized Lisfranc ligament suggest for partial tearing and or moderate grade sprain * Degenerative changes noted at the base of the 2nd metatarsal bone and corresponding middle cuneiform bone suggestive for degenerative changes * On the axial sequences, there is signal abnormality within the 5th middle and distal phalanges with increased STIR signal. It is unclear whether this is the sequelae of failure of fat suppression versus developing acute infectious and or inflammatory changes. Clinical correlation * Minimal nonspecific patchy reactive edema seen at the base the 4th metatarsal bone and distal aspect of the cuboid bone and lateral aspect of the medial cuneiform bone, nonspecific Podiatry Consult (Dr. Taylor)----> Help appreciated * S/P I&D and first metatarsal resection day 0 (04/15/17) * S/P I&D and first metatarsal resection day 1 (04/16/17) - Continue to monitor H/H due to blood loss during procedure. H/H is stable as of 04/16/17 Surgery Consult (Dr. Allison): Help appreciated * DIANE 1.2 for left, 1.17 for right lower extremity * No hemodynamic compromise identified on study * No vascular surgical intervention at this time * Wound care as per podiatry * Pain management as per primary team ID consult (Dr. Jiang) ---> help appreciated * Zosyn 3.375gm IV Q6H (started 04/13/17) * Vanco 1gm IVPB q12H ( Started 04/13/17) Status: Acute (2) Diabetes mellitus Assessment & Plan: 04/12: Accuchecks ACHS RISS - High. Started on home medication Novolog 70/30 12 units TIDAC (04/16/17) Monitor Status: Acute (3) History of coronary artery disease Assessment & Plan: 04/12: Cardiology consul, Dr. Aguirre, for cardiac clearance 04/12: aspirin 81mg po once daily - on hold 08/17/13: Echocardiogram: EF 60-65%, Aortic valve sclerosis moderate with no regurgitation. Borderline left ventricular hypertrophy Cardiac stent x4 (2012) Coronary graft x3 (2010) Status: Acute (4) Renal transplant, status post Assessment & Plan: Right kidney transplant (2016) Tacrolimus 1mg po bid. Mycophenolate 360mg po bid. Sensipar 30mg po once a day. Status: Acute (5) HLD (hyperlipidemia) Assessment & Plan: Crestor 20mg po qhs Status: Acute (6) Prophylactic measure Assessment & Plan: SCD on left leg multivitamin po once a day pepcid 20mg po bid magnesium oxide 400mg po bid heparin 5000u sc q8 renal diet 2gran Na, low carb, low fat florastor 250mg po bid Status: Acute
--- NOTE | 2017-04-16 22:42 | CP.PCM.PN ---
Subjective - Date & Time of Evaluation Date of Evaluation: 04/16/17 Time of Evaluation: 15:05 - Subjective Subjective: Patient seen and evaluated Denies chest pain and dyspnea s/p foot surgery No cardiac events noted Objective - Vital Signs/Intake and Output Vital Signs (last 24 hours): Temp Pulse Resp BP Pulse Ox 98.4 F 76 20 121/49 L 99 04/16/17 15:00 04/16/17 15:00 04/16/17 15:00 04/16/17 18:01 04/16/17 15:00 Intake and Output: 04/16/17 04/17/17 18:59 06:59 Intake Total 1160 Output Total 20 Balance 1140 - Medications Medications: Current Medications Acetaminophen (Tylenol 325mg Tab) 650 mg PO Q6 PRN PRN Reason: Pain, Mild (1-3) Amlodipine Besylate (Norvasc) 5 mg PO DAILY [facility] Last Admin: 04/16/17 11:10 Dose: 5 mg Aspirin (Ecotrin) 81 mg PO DAILY [facility] Last Admin: 04/16/17 11:09 Dose: 81 mg Carvedilol (Coreg) 12.5 mg PO BID [facility] Last Admin: 04/16/17 18:01 Dose: 12.5 mg Cinacalcet (Sensipar) 30 mg PO DAILY [facility] Last Admin: 04/16/17 11:09 Dose: 30 mg Famotidine (Pepcid) 20 mg PO BID [facility] Last Admin: 04/16/17 18:01 Dose: 20 mg Home Med (Patient's Own Control Medication) 360 tab PO BID [facility] Piperacillin Sod/Tazobactam (Sod 3.375 gm/ Sodium Chloride) 100 mls @ 200 mls/ hr IVPB Q6H [facility] Last Admin: 04/16/17 18:02 Dose: 200 mls/hr Vancomycin/Sodium Chloride (Vancocin) 1 gm in 200 mls @ 133.333 mls/hr IVPB Q12H [facility] Stop: 04/18/17 19:31 Last Admin: 04/16/17 19:53 Dose: 133.333 mls/hr Insulin Aspart (Novolog Mix 70/30 (70/30 Units/Ml)) 12 units SC TIDAC [facility] Insulin Human Regular (Novolin R) 0 unit SC ACHS [facility] PRN Reason: Protocol Last Admin: 07/18/17 22:19 Dose: Not Given Magnesium Oxide (Mag-Ox) 400 mg PO BID [facility] Last Admin: 04/16/17 18:02 Dose: 400 mg Multivitamins (Hexavitamin) 1 tab PO DAILY [facility] Last Admin: 04/16/17 11:09 Dose: 1 tab Oxycodone/Acetaminophen (Percocet 5/325 Mg Tab) 1 tab PO Q4H PRN PRN Reason: Pain, moderate (4-7) Stop: 04/18/17 18:26 Last Admin: 04/16/17 00:26 Dose: 1 tab Oxycodone/Acetaminophen (Percocet 5/325 Mg Tab) 2 tab PO Q4H PRN PRN Reason: Pain, severe (8-10) Stop: 04/18/17 18:26 Rosuvastatin Calcium (Crestor) 20 mg PO HS [facility] Last Admin: 04/16/17 22:01 Dose: 20 mg Saccharomyces Boulardii (Florastor) 250 mg PO BID [facility] Last Admin: 04/16/17 18:00 Dose: 250 mg Tacrolimus (Prograf Cap) 1 mg PO Q12 [facility] Last Admin: 04/16/17 22:01 Dose: 1 mg - Labs Labs: 04/16/17 08:22 04/16/17 08:22 PT 11.8 SECONDS (9.7-12.2) 04/15/17 06:00 INR 1.1 04/15/17 06:00 APTT 30 SECONDS (21-34) 04/15/17 06:00
--- NOTE | 2017-04-16 23:05 | OP ---
PROCEDURE DATE: 04/15/2017 PREOPERATIVE DIAGNOSIS: Right foot abscess with osteomyelitis of the first metatarsal. POSTOPERATIVE DIAGNOSIS: Right foot abscess with osteomyelitis of the first metatarsal. PROCEDURE: Right foot incision and drainage with partial first ray resection. SURGEON: Dr. Tyalor. PACKAGING SALES REPRESENTATIVE: 1. Kristina Salas, CURTM, PGY2. 2. Uriel Arambula DPM, PGY1. TYPE OF ANESTHESIA: IV sedation with local. ANESTHESIA ADMINISTERED BY: Dr. Mtz. INDICATIONS: The patient is a 66-year-old male with the above diagnosis. The patient has exhausted all conservative treatment at this time and now requires surgical intervention. The patient signed the consent after careful explanation of risks, benefits, complications and alternatives for surgical procedure. No guarantees were given or implied. PREPARATION: The patient was brought to the operating room and placed on the operating room table in a supine position. A time out was performed for identification of the correct patient and procedure. After induction of IV sedation, the patient received a total of 20 mL of 1:1 mixture of 1% lidocaine plain and 0.5% Marcaine plain in a local block type fashion at the right foot. Once local anesthesia was achieved, the right foot was then prepped and draped in a normal sterile manner and the procedure began. DESCRIPTION OF PROCEDURE: Right foot partial first ray resection. Attention was then directed to the right first metatarsal around 8 cm linear longitudinal incision was made on the medial aspect of the right foot down to level of medial cuneiform extending distally to the digits using a #15 blade. The incision was then extended down to the subcutaneous layer down to the level of bone. Using a bone cramp to stabilize the first metatarsal, the first metatarsal was then disarticulated from the foot at the level of the medial cuneiform. This specimen was then passed from the operative field and sent to pathology. Using a #15 blade, all necrotic and nonviable tissue was excisionally debrided from the surgical site. Due to bleeding, Surgicel was then applied topically for hemostasis. The surgical site was then irrigated with copious amount of normal saline. The skin was then reapproximated with 3-0 Nylon. MARYAM drain was then inserted at the proximal incision site to allow for drainage. 10 mL of 0.5% Marcaine was then injected around the surgical incision site. The right foot was then dressed with Adaptic, 4x4 gauze, Juliet, Ced, ABD, and ____. POSTOPERATIVE CONDITION: The patient tolerated the anesthesia and procedure well and was escorted to the recovery room with vital signs stable and neurovascular status intact to right foot. The patient is to remain nonweightbearing to the right foot and podiatry will continue to follow the patient while and will follow with Dr. Taylor upon discharge. Kristina Salas DPM
[2017-04-17] MEDS: Piperacillin/Tazobact 3.375 GM in Sodium Chloride 100 ML IVPB SCH ×4 (00:21→18:41)
[2017-04-17 08:19] LABS: BASO # 0.1 K/uL (0.0-0.2); BASO % 0.8 % (0.0-2.0); EOS # 0.2 K/uL (0.0-0.7); EOS % 2.7 % (0.0-4.0); HEMOGLOBIN 9.1 g/dL (12.0-18.0); LYMPH # 1.6 K/uL (1.0-4.3); LYMPH % 24.8 % (20.0-40.0); MEAN CELL VOLUME 83.4 fL (80.0-94.0); MEAN CORPUSCULAR HEMOGLOBIN 27.9 pg (27.0-31.0); MEAN CORPUSCULAR HGB CONC 33.5 g/dL (33.0-37.0); MEAN PLATELET VOLUME 7.7 fL (7.2-11.7); MONO # 0.6 K/uL (0.0-0.8); MONO % 9.9 % (0.0-10.0); NEUT # 3.9 K/uL (1.8-7.0); NEUT % 61.8 % (50.0-75.0); RBC 3.24 Mil/uL (4.40-5.90); RED CELL DISTRIBUTION WIDTH 14.2 % (11.5-14.5); WHITE BLOOD COUNT 6.3 K/uL (4.8-10.8)
[2017-04-17 08:42] LABS: AST/SGOT 23 U/L (17-59); GFR AFRICAN-AMERICAN > 60; GFR NON-AFRICAN AMERICAN > 60
[2017-04-17 08:43] LABS: ALT/SGPT 44 U/L (21-72); BLOOD UREA NITROGEN 10 mg/dL (9-20); CALCIUM 9.1 mg/dl (8.6-10.4); MAGNESIUM 1.6 mg/dL (1.6-2.3)
[2017-04-17] MEDS: Magnesium Oxide 400 mg Tab UD PO SCH ×2 (09:32→18:26)
[2017-04-17] MEDS: Multiple Vitamins Tab PO SCH (09:32)
[2017-04-17] MEDS: Saccharomyces Boulardi 250 mg Cap PO SCH ×2 (09:33→18:23)
[2017-04-17] MEDS: (Novolin R) Insulin Human Regular 100 units/ml vial SC SCH ×4 (09:35→22:33)
[2017-04-17] MEDS: Vancomycin 1 gm/NS 200 ml 1 GM/200 ML BAG IVPB SCH (09:37)
--- NOTE | 2017-04-17 11:03 | CP.PCM.PN ---
Subjective - Date & Time of Evaluation Date of Evaluation: 04/17/17 Time of Evaluation: 11:00 - Subjective Subjective: 66 yo male pt seen at bedside today 2 days s/p right foot I&D with first metatarsal resection. Patient denies any acute events overnight. He denies any pain in his foot overnight. Patient's dressing and drain remains intact to right foot. Denies f/n/v/c/sob/cp at this time. Objective - Vital Signs/Intake and Output Vital Signs (last 24 hours): Temp Pulse Resp BP Pulse Ox 98.1 F 78 20 156/84 H 97 04/17/17 07:32 04/17/17 07:32 04/17/17 07:32 04/17/17 09:32 04/17/17 07:32 Intake and Output: 04/17/17 04/17/17 06:59 18:59 Intake Total 380 Output Total 820 Balance -440 - Medications Medications: Current Medications Acetaminophen (Tylenol 325mg Tab) 650 mg PO Q6 PRN PRN Reason: Pain, Mild (1-3) Amlodipine Besylate (Norvasc) 5 mg PO DAILY [facility] Last Admin: 04/17/17 09:33 Dose: 5 mg Aspirin (Ecotrin) 81 mg PO DAILY [facility] Last Admin: 04/17/17 09:32 Dose: 81 mg Carvedilol (Coreg) 12.5 mg PO BID [facility] Last Admin: 04/17/17 09:32 Dose: 12.5 mg Cinacalcet (Sensipar) 30 mg PO DAILY [facility] Last Admin: 04/17/17 09:34 Dose: 30 mg Famotidine (Pepcid) 20 mg PO BID [facility] Last Admin: 04/17/17 09:32 Dose: 20 mg Home Med (Patient's Own Control Medication) 360 tab PO BID [facility] Piperacillin Sod/Tazobactam (Sod 3.375 gm/ Sodium Chloride) 100 mls @ 200 mls/ hr IVPB Q6H [facility] Last Admin: 04/17/17 05:56 Dose: 200 mls/hr Vancomycin/Sodium Chloride (Vancocin) 1 gm in 200 mls @ 133.333 mls/hr IVPB Q12H [facility] Stop: 04/18/17 19:31 Last Admin: 04/17/17 09:37 Dose: 133.333 mls/hr Insulin Aspart (Novolog Mix 70/30 (70/30 Units/Ml)) 12 units SC TIDAC [facility] Insulin Human Regular (Novolin R) 0 unit SC ACHS [facility] PRN Reason: Protocol Last Admin: 04/17/17 09:35 Dose: 6 unit Magnesium Oxide (Mag-Ox) 400 mg PO BID [facility] Last Admin: 04/17/17 09:32 Dose: 400 mg Multivitamins (Hexavitamin) 1 tab PO DAILY [facility] Last Admin: 04/17/17 09:32 Dose: 1 tab Oxycodone/Acetaminophen (Percocet 5/325 Mg Tab) 1 tab PO Q4H PRN PRN Reason: Pain, moderate (4-7) Stop: 04/18/17 18:26 Last Admin: 04/16/17 00:26 Dose: 1 tab Oxycodone/Acetaminophen (Percocet 5/325 Mg Tab) 2 tab PO Q4H PRN PRN Reason: Pain, severe (8-10) Stop: 04/18/17 18:26 Rosuvastatin Calcium (Crestor) 20 mg PO HS [facility] Last Admin: 04/16/17 22:01 Dose: 20 mg Saccharomyces Boulardii (Florastor) 250 mg PO BID [facility] Last Admin: 04/17/17 09:33 Dose: 250 mg Tacrolimus (Prograf Cap) 1 mg PO Q12 [facility] Last Admin: 04/17/17 09:32 Dose: 1 mg - Labs Labs: 04/17/17 08:05 04/17/17 08:05 PT 11.8 SECONDS (9.7-12.2) 04/15/17 06:00 INR 1.1 04/15/17 06:00 APTT 30 SECONDS (21-34) 04/15/17 06:00 - Constitutional Appears: Well, Non-toxic, No Acute Distress - Extremities Exam Additional comments: Right foot focused: Dressing to foot appears c/d/i. Vasc: DP/PT pulses palpable, skim temp runs warm to warm, CFT < 3 sec x 5, moderate edema noted to plantar medial arch in area of proximal open wound Derm: surgical incision site intact, sutures intact, localized edema along incision site, drain intact, no purulence, no malodor, no active bleeding, no ascending cellulitis, no fluctuance Neuro: protective pedal sensation is diminished however pt is sensate to pain Ortho: Tenderness upon palpation of open wounds and wound periphery - Neurological Exam Neurological Exam: Alert, Awake, Oriented x3 - Psychiatric Exam Psychiatric exam: Normal Affect, Normal Mood Assessment and Plan - Assessment and Plan (Free Text) Assessment: 66 y/o diabetic male with R foot 2 day s/p 1st ray resection with incision and drainage Plan: Pt S&E at bedside Plan discussed in detail with attendings Dr. Taylor Chart labs and vitals reviewed: afebrile, WBC 6.3 today dressing to right foot applied with gauze, kerlix, ABD, BEATRIS, drain in place 20CC of serosanguinous fluid noted in drain overnight drain remains in place, will remove tomorrow picc line in place- will need prolonged IV abx as per ID recommendations monitor H&H Podiatry will follow.
[2017-04-17] MEDS: (Novolog Mix 70/30) Insulin Aspart/Insulin Aspar 100 units/ml SC SCH ×3 (12:17→18:26)
--- NOTE | 2017-04-17 12:39 | CP.PCM.PN ---
<Bautista Cee - Last Filed: 04/17/17 19:45> Subjective - Date & Time of Evaluation Date of Evaluation: 04/17/17 Time of Evaluation: 12:37 - Subjective Subjective: PGY-[address] Hercules's Service: Patient was seen and examined at bedside. Nursing reports no acute events overnight. Patient is POD#2 day 2 of I&D and resection of the first metatarsal. He is found in no acute distress and resting comfortably in bed. Patient is feeling well overall but he states that he is still experiencing pain in the right foot when tries to move his leg and ambulate to the bathroom, therefore, patient states that he tries not to move his leg if necessary. Patient states that he is eating and sleeping well. Patient denies chest pain, sob, fever, chills, nausea and vomiting but admits to very minimal pain at the incision site. Objective - Vital Signs/Intake and Output Vital Signs (last 24 hours): Temp Pulse Resp BP Pulse Ox 98.1 F 78 20 156/84 H 97 04/17/17 07:32 04/17/17 07:32 04/17/17 07:32 04/17/17 09:32 04/17/17 07:32 Intake and Output: 04/17/17 04/17/17 06:59 18:59 Intake Total 380 Output Total 820 Balance -440 - Medications Medications: Current Medications Acetaminophen (Tylenol 325mg Tab) 650 mg PO Q6 PRN PRN Reason: Pain, Mild (1-3) Amlodipine Besylate (Norvasc) 5 mg PO DAILY [facility] Last Admin: 04/17/17 09:33 Dose: 5 mg Aspirin (Ecotrin) 81 mg PO DAILY [facility] Last Admin: 04/17/17 09:32 Dose: 81 mg Carvedilol (Coreg) 12.5 mg PO BID [facility] Last Admin: 04/17/17 09:32 Dose: 12.5 mg Cinacalcet (Sensipar) 30 mg PO DAILY [facility] Last Admin: 04/17/17 09:34 Dose: 30 mg Famotidine (Pepcid) 20 mg PO BID [facility] Last Admin: 04/17/17 09:32 Dose: 20 mg Heparin Sodium (Porcine) (Heparin) 5,000 units SC Q12H [facility] Home Med (Patient's Own Control Medication) 360 tab PO BID [facility] Piperacillin Sod/Tazobactam (Sod 3.375 gm/ Sodium Chloride) 100 mls @ 200 mls/ hr IVPB Q6H [facility] Last Admin: 04/17/17 12:19 Dose: 200 mls/hr Vancomycin/Sodium Chloride (Vancocin) 1 gm in 200 mls @ 133.333 mls/hr IVPB Q12H [facility] Stop: 04/18/17 19:31 Last Admin: 04/17/17 09:37 Dose: 133.333 mls/hr Insulin Aspart (Novolog Mix 70/30 (70/30 Units/Ml)) 12 units SC TIDAC [facility] Last Admin: 04/17/17 12:17 Dose: Not Given Insulin Human Regular (Novolin R) 0 unit SC ACHS [facility] PRN Reason: Protocol Last Admin: 04/17/17 12:21 Dose: 10 unit Magnesium Oxide (Mag-Ox) 400 mg PO BID [facility] Last Admin: 04/17/17 09:32 Dose: 400 mg Multivitamins (Hexavitamin) 1 tab PO DAILY [facility] Last Admin: 04/17/17 09:32 Dose: 1 tab Oxycodone/Acetaminophen (Percocet 5/325 Mg Tab) 1 tab PO Q4H PRN PRN Reason: Pain, moderate (4-7) Stop: 04/18/17 18:26 Last Admin: 04/16/17 00:26 Dose: 1 tab Oxycodone/Acetaminophen (Percocet 5/325 Mg Tab) 2 tab PO Q4H PRN PRN Reason: Pain, severe (8-10) Stop: 04/18/17 18:26 Rosuvastatin Calcium (Crestor) 20 mg PO HS [facility] Last Admin: 04/16/17 22:01 Dose: 20 mg Saccharomyces Boulardii (Florastor) 250 mg PO BID [facility] Last Admin: 04/17/17 09:33 Dose: 250 mg Tacrolimus (Prograf Cap) 1 mg PO Q12 [facility] Last Admin: 04/17/17 09:32 Dose: 1 mg - Labs Labs: 04/17/17 08:05 04/17/17 08:05 PT 11.8 SECONDS (9.7-12.2) 04/15/17 06:00 INR 1.1 04/15/17 06:00 APTT 30 SECONDS (21-34) 04/15/17 06:00 - Constitutional Appears: Non-toxic, No Acute Distress - Head Exam Head Exam: ATRAUMATIC, NORMAL INSPECTION, NORMOCEPHALIC - Eye Exam Eye Exam: EOMI, Normal appearance Pupil Exam: PERRL - ENT Exam ENT Exam: Mucous Membranes Moist - Neck Exam Neck Exam: Full ROM - Respiratory Exam Respiratory Exam: Clear to Ausculation Bilateral, NORMAL BREATHING PATTERN - Cardiovascular Exam Cardiovascular Exam: REGULAR RHYTHM, +S1, +S2 - GI/Abdominal Exam GI & Abdominal Exam: Soft, Normal Bowel Sounds. absent: Tenderness - Extremities Exam Extremities Exam: Normal Inspection - Back Exam Back Exam: absent: CVA tenderness (L), CVA tenderness (R) - Neurological Exam Neurological Exam: Alert, Awake, Oriented x3 Additional comments: Dressing on right foot. Recently changed, C/D/I. Pt able to wiggle toes on command and light touch intact on right foot and through dermatomes tested to knee. MARYAM bulb drain noted with 20CC of serosanguinous fluid overnight per nursing - Psychiatric Exam Psychiatric exam: Normal Affect, Normal Mood - Skin Skin Exam: Normal Color, Warm Assessment and Plan - Assessment and Plan (Free Text) Plan: (1) Osteomyelitis of right foot Assessment & Plan: Osteomyelitis of the right hallux Afebrile, No leukocytosis Wound culture (04/13/17): (+) for proteus mirabilis - repeat wound culture (04/15/17): + for proteus mirabilis and gram positive cocci Blood culture (04/13/17): no growth x 3 days (04/13/17) Foot X-ray: Status post amputation through the mid shaft of the 1st metatarsal bone. Soft tissue swelling. No definite evidence of soft tissue pneumatosis. (04/13/17) Lower Extremity CT: No definite CT evidence of acute osteomyelitis. 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 Soft tissue swelling and suspicious for subcutaneous fluid collection at the plantar aspect of the mid foot. The possibility of abscess formation should be considered. (04/13/17)Duplex scan of lower extremity: No evidence of deep or superficial venous thrombosis b/l (04/15/17) Lower extremity U/S: No evidence of hemodynamically significant arterial insufficiency (04/15/17) Lower extremity MRI: Resection of the 1st digit to the metatarsal base. Signal abnormality within the residual marrow of the 1st metatarsal base demonstrating decreased T1 signal and increased STIR signal concerning for acute osteomyelitis. * Prominent fluid and air collection seen within the volar medial midfoot measuring 7.3 x 2.5 x 1.4 centimeters suggestive for an abscess with possible gas gangrene and or phlegmonous collection. * Signal changes seen centered at the 2nd and 3rd MTP joint spaces with signal abnormality seen at the heads of the 2nd and 3rd metatarsal bones and corresponding 2nd and 3rd bases of the proximal phalanges with patchy decreased T1 signal and increased STIR signal suggestive for acute and or developing acute osteomyelitic changes, this is most prominent at the 2nd MTP joint space. Fluid and edema noted within the joint spaces at these levels. * Signal abnormality with patchy decreased T1 signal and increased STIR signal seen at the lateral aspect of the cuboid bone at its volar aspect suggestive for acute and or developing acute osteomyelitis. * Fraying with increased signal seen at the visualized Lisfranc ligament suggest for partial tearing and or moderate grade sprain * Degenerative changes noted at the base of the 2nd metatarsal bone and corresponding middle cuneiform bone suggestive for degenerative changes * On the axial sequences, there is signal abnormality within the 5th middle and distal phalanges with increased STIR signal. It is unclear whether this is the sequelae of failure of fat suppression versus developing acute infectious and or inflammatory changes. Clinical correlation * Minimal nonspecific patchy reactive edema seen at the base the 4th metatarsal bone and distal aspect of the cuboid bone and lateral aspect of the medial cuneiform bone, nonspecific Podiatry Consult (Dr. Taylor)----> Help appreciated * S/P I&D and first metatarsal resection day 0 (04/15/17) * S/P I&D and first metatarsal resection day 1 (04/16/17) Surgery Consult (Dr. Allison): Help appreciated * DIANE 1.2 for left, 1.17 for right lower extremity * No hemodynamic compromise identified on study * No vascular surgical intervention at this time * Wound care as per podiatry * Pain management as per primary team ID consult (Dr. Jiang) ---> help appreciated PICC Line placed for chcf antibiotics * Zosyn 3.375gm IV Q6H (started 04/13/17) * Vanco 1gm IVPB q12H ( Started 04/13/17) Status: Acute (2) Diabetes mellitus Assessment & Plan: Accuchecks ACHS RISS - High Started on home medication Novolog 70/30 12 units TIDAC (04/16/17) f/u A1C (3) History of coronary artery disease Assessment & Plan: 04/12: Cardiology consul, Dr. Aguirre, for cardiac clearance - low risk for procedure 08/17/13: Echocardiogram: EF 60-65%, Aortic valve sclerosis moderate with no regurgitation. Borderline left ventricular hypertrophy Cardiac stent x4 (2012) Coronary graft x3 (2010) Status: Acute (4) Renal transplant, status post Assessment & Plan: Right kidney transplant (2015) Nephro consult: Dr. Butterfield, help appreciated -f/u tacrolimus level Tacrolimus 1mg po bid. Mycophenolate 360mg po bid. Sensipar 30mg po once a day. Status: Acute (5) HLD (hyperlipidemia) Assessment & Plan: Crestor 20mg po qhs Status: Acute (6) Prophylactic measure Assessment & Plan: SCD on left leg multivitamin po once a day pepcid 20mg po bid magnesium oxide 400mg po bid heparin 5000u sc q8 renal diet 2gran Na, low carb, low fat florastor 250mg po bid Status: Acute <Roxanne Hercules V - Last Filed: 04/17/17 20:00> Objective - Vital Signs/Intake and Output Vital Signs (last 24 hours): Temp Pulse Resp BP Pulse Ox 98.1 F 78 20 156/84 H 97 04/17/17 07:32 04/17/17 07:32 04/17/17 07:32 04/17/17 13:45 04/17/17 07:32 Intake and Output: 04/17/17 04/17/17 06:59 18:59 Intake Total 380 Output Total 820 Balance -440 - Medications Medications: Current Medications Acetaminophen (Tylenol 325mg Tab) 650 mg PO Q6 PRN PRN Reason: Pain, Mild (1-3) Amlodipine Besylate (Norvasc) 5 mg PO DAILY [facility] Last Admin: 04/17/17 09:33 Dose: 5 mg Aspirin (Ecotrin) 81 mg PO DAILY [facility] Last Admin: 04/17/17 09:32 Dose: 81 mg Carvedilol (Coreg) 12.5 mg PO BID [facility] Last Admin: 04/17/17 09:32 Dose: 12.5 mg Cinacalcet (Sensipar) 30 mg PO DAILY [facility] Last Admin: 04/17/17 09:34 Dose: 30 mg Famotidine (Pepcid) 20 mg PO BID [facility] Last Admin: 04/17/17 09:32 Dose: 20 mg Home Med (Patient's Own Control Medication) 360 tab PO BID [facility] Piperacillin Sod/Tazobactam (Sod 3.375 gm/ Sodium Chloride) 100 mls @ 200 mls/ hr IVPB Q6H [facility] Last Admin: 04/17/17 12:19 Dose: 200 mls/hr Vancomycin/Sodium Chloride (Vancocin) 1 gm in 200 mls @ 133.333 mls/hr IVPB Q12H [facility] Stop: 04/18/17 19:31 Last Admin: 04/17/17 09:37 Dose: 133.333 mls/hr Insulin Aspart (Novolog Mix 70/30 (70/30 Units/Ml)) 12 units SC TIDAC [facility] Last Admin: 04/17/17 13:36 Dose: 12 units Insulin Human Regular (Novolin R) 0 unit SC ACHS [facility] PRN Reason: Protocol Last Admin: 04/17/17 12:21 Dose: 10 unit Magnesium Oxide (Mag-Ox) 400 mg PO BID [facility] Last Admin: 04/17/17 09:32 Dose: 400 mg Multivitamins (Hexavitamin) 1 tab PO DAILY [facility] Last Admin: 04/17/17 09:32 Dose: 1 tab Oxycodone/Acetaminophen (Percocet 5/325 Mg Tab) 1 tab PO Q4H PRN PRN Reason: Pain, moderate (4-7) Stop: 04/18/17 18:26 Last Admin: 04/16/17 00:26 Dose: 1 tab Oxycodone/Acetaminophen (Percocet 5/325 Mg Tab) 2 tab PO Q4H PRN PRN Reason: Pain, severe (8-10) Stop: 04/18/17 18:26 Rosuvastatin Calcium (Crestor) 20 mg PO HS [facility] Last Admin: 04/16/17 22:01 Dose: 20 mg Saccharomyces Boulardii (Florastor) 250 mg PO BID [facility] Last Admin: 04/17/17 09:33 Dose: 250 mg Tacrolimus (Prograf Cap) 1 mg PO Q12 [facility] Last Admin: 04/17/17 09:32 Dose: 1 mg - Labs Labs: 04/17/17 08:05 04/17/17 08:05 PT 11.8 SECONDS (9.7-12.2) 04/15/17 06:00 INR 1.1 04/15/17 06:00 APTT 30 SECONDS (21-34) 04/15/17 06:00 Attending/Attestation - Attestation I have personally seen and examined this patient.: Yes I have fully participated in the care of the patient.: Yes I have reviewed all pertinent clinical information, including history, physical exam and plan: Yes Notes (Text): Patient seen, examined, and case discussed with day-time resident. Patient has prior PICC line wherein he reports he had received IV abx a month prior to his resection. Patient is s/p right foot abscess with osteomyelitis of the first metatarsal POD 2; 04/15/17 Wound culture (prelim): Proteus Mirabilis; Gram positive cocci. Patient is currently on day five of IV antibiotics. Awaiting finalization of wound culture from 04/15/17. Patient has a PICC line. Awaiting final culture to determine antibiotic therapy-->Discussed with ID given finalization; recommended Meropenem IV; Cipro has interaction for immunosuppresant drug Nephrology consult placed; discussed with Dr. Lee. 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 Assessment/Plan (1) Osteomyelitis of right foot Assessment & Plan: Review of Imaging: (04/13/17) Chest X-ray: Small opacities likely atelactasis (04/13/17) Foot X-ray: Status post amputation through the mid shaft of the 1st metatarsal bone. Soft tissue swelling. No definite evidence of soft tissue pneumatosis. (04/13/17) Lower Extremity CT: No definite CT evidence of acute osteomyelitis. 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 Soft tissue swelling and suspicious for subcutaneous fluid collection at the plantar aspect of the mid foot. The possibility of abscess formation should be considered. (04/13/17) Duplex scan of lower extremity: No evidence of deep or superficial venous thrombosis b/l (04/15/17) Lower extremity U/S: No evidence of hemodynamically significant arterial insufficiency (04/15/17) Lower extremity MRI: Resection of the 1st digit to the metatarsal base. Signal abnormality within the residual marrow of the 1st metatarsal base demonstrating decreased T1 signal and increased STIR signal concerning for acute osteomyelitis. * Prominent fluid and air collection seen within the volar medial midfoot measuring 7.3 x 2.5 x 1.4 centimeters suggestive for an abscess with possible gas gangrene and or phlegmonous collection. * Signal changes seen centered at the 2nd and 3rd MTP joint spaces with signal abnormality seen at the heads of the 2nd and 3rd metatarsal bones and corresponding 2nd and 3rd bases of the proximal phalanges with patchy decreased T1 signal and increased STIR signal suggestive for acute and or developing acute osteomyelitic changes, this is most prominent at the 2nd MTP joint space. Fluid and edema noted within the joint spaces at these levels. * Signal abnormality with patchy decreased T1 signal and increased STIR signal seen at the lateral aspect of the cuboid bone at its volar aspect suggestive for acute and or developing acute osteomyelitis. * Fraying with increased signal seen at the visualized Lisfranc ligament suggest for partial tearing and or moderate grade sprain * Degenerative changes noted at the base of the 2nd metatarsal bone and corresponding middle cuneiform bone suggestive for degenerative changes * On the axial sequences, there is signal abnormality within the 5th middle and distal phalanges with increased STIR signal. It is unclear whether this is the sequelae of failure of fat suppression versus developing acute infectious and or inflammatory changes. Clinical correlation * Minimal nonspecific patchy reactive edema seen at the base the 4th metatarsal bone and distal aspect of the cuboid bone and lateral aspect of the medial cuneiform bone, nonspecific Podiatry Consult (Dr. Taylor)----> Help appreciated * s/p right foot abscess with osteomyelitis of the first metatarsal POD 2 * 04/13/17 Wound Culture: Proteus Mirabilis * 04/15/17 Wound culture: Proteus Mirabilis; Gram positive cocci-->resistant to ampicillin/rocephin; ID recommended for Meropenem or Invanz * 04/13/17 Blood Culture X2: No growth after 3 days X2 Surgery Consult (Dr. Allison): Help appreciated * DIANE 1.2 for left, 1.17 for right lower extremity * No hemodynamic compromise identified on study * No vascular surgical intervention at this time * Wound care as per podiatry * Pain management as per primary team Infectious disease consult (Dr. Jiang) ---> help appreciated * Zosyn 3.375gm IV Q6H (started 04/13/17; day 5 * Vancomycin 1gm IVPB q12H ( Started 04/13/17; day 5) * Will discontinue-->Ordered for Meropenem IV by infectious disease Pain PRN: * Percocet 5/325mg 1 tab PO Q 4hour PRN moderate * Percocet 5/325 2 tab PO Q 4hour PRN severe pain Status: Acute (2) Diabetes mellitus Assessment & Plan: * Pending [id number] * Accuchecks ACHS * Novolog 70/30 12 units TIDAC * Carbohydrate consistent diet Status: Chronic (3) History of coronary artery disease Assessment & Plan: * Cardiology consult, Dr. Aguirre, for cardiac clearance * Per cardiology, patient is low risk for cardiac events for Foot debrediment or Incission and drainage surgey under local or general anaesthesia * 08/17/13: Echocardiogram: EF 60-65%, Aortic valve sclerosis moderate with no regurgitation. Borderline left ventricular hypertrophy * Cardiac stent x4 (2012) * Coronary graft x3 (2010) * Aspirin 81mg Po daily * Coreg 12.5mg PO bid * Norvasc 5mg PO daily Status: Chronic (4) Renal transplant, status post Assessment & Plan: * Nephrology (Dr. Lee) on board-->help appreciated * Right kidney transplant (2015) * Tacrolimus 1mg po bid. * Mycophenolate 360mg po bid. * Sensipar 30mg po once a day. Status: Chronic (5) HLD (hyperlipidemia) Assessment & Plan: * Crestor 20mg po qhs Status: Chronic (6) Anemia Assessment & Plan: * Monitor H/H Status: Chronic (7) Prophylactic measure Assessment & Plan: * SCD on left leg * multivitamin po once a day * pepcid 20mg po bid for GI ppx * Heparin 5000u sc [id number] for DVT ppx * Moderate carb consistent diet * florastor 250mg po bid * PICC line * Case management: patient accepted for [facility] Status: Acute Disposition: Awaiting final wound culture from 04/15/17 to determine antibiotics and duration of antibiotics to cover for osteomyelitis; ID suggesting Meropenem or Ivanz.
--- NOTE | 2017-04-17 18:39 | CP.PCM.PN ---
Subjective - Date & Time of Evaluation Date of Evaluation: 04/17/17 Time of Evaluation: 08:00 - Subjective Subjective: s/p debridement gangrene of foot rx in progress cultures pending Objective - Vital Signs/Intake and Output Vital Signs (last 24 hours): Temp Pulse Resp BP Pulse Ox 98.0 F 79 20 142/68 96 04/17/17 17:00 04/17/17 17:00 04/17/17 17:00 04/17/17 18:23 04/17/17 17:00 Intake and Output: 04/17/17 04/17/17 06:59 18:59 Intake Total 1180 Output Total 825 Balance 355 - Medications Medications: Current Medications Acetaminophen (Tylenol 325mg Tab) 650 mg PO Q6 PRN PRN Reason: Pain, Mild (1-3) Amlodipine Besylate (Norvasc) 5 mg PO DAILY [facility] Last Admin: 04/17/17 09:33 Dose: 5 mg Aspirin (Ecotrin) 81 mg PO DAILY [facility] Last Admin: 04/17/17 09:32 Dose: 81 mg Carvedilol (Coreg) 12.5 mg PO BID [facility] Last Admin: 04/17/17 18:23 Dose: 12.5 mg Cinacalcet (Sensipar) 30 mg PO DAILY [facility] Last Admin: 04/17/17 09:34 Dose: 30 mg Famotidine (Pepcid) 20 mg PO BID [facility] Last Admin: 04/17/17 18:26 Dose: 20 mg Home Med (Patient's Own Control Medication) 360 tab PO BID [facility] Piperacillin Sod/Tazobactam (Sod 3.375 gm/ Sodium Chloride) 100 mls @ 200 mls/ hr IVPB Q6H [facility] Last Admin: 04/17/17 12:19 Dose: 200 mls/hr Vancomycin/Sodium Chloride (Vancocin) 1 gm in 200 mls @ 133.333 mls/hr IVPB Q12H [facility] Stop: 04/18/17 19:31 Last Admin: 04/17/17 09:37 Dose: 133.333 mls/hr Magnesium Sulfate/Dextrose (Magnesium Sulfate 1 Gm/100 Ml D5w) 1 gm in 100 mls @ 200 mls/hr IVPB ONCE ONE Stop: 04/17/17 18:20 Insulin Aspart (Novolog Mix 70/30 (70/30 Units/Ml)) 12 units SC TIDAC [facility] Last Admin: 04/17/17 18:26 Dose: 12 units Insulin Human Regular (Novolin R) 0 unit SC ACHS [facility] PRN Reason: Protocol Last Admin: 04/17/17 18:27 Dose: 2 unit Magnesium Oxide (Mag-Ox) 400 mg PO BID [facility] Last Admin: 04/17/17 18:26 Dose: 400 mg Multivitamins (Hexavitamin) 1 tab PO DAILY [facility] Last Admin: 04/17/17 09:32 Dose: 1 tab Oxycodone/Acetaminophen (Percocet 5/325 Mg Tab) 1 tab PO Q4H PRN PRN Reason: Pain, moderate (4-7) Stop: 04/18/17 18:26 Last Admin: 04/16/17 00:26 Dose: 1 tab Oxycodone/Acetaminophen (Percocet 5/325 Mg Tab) 2 tab PO Q4H PRN PRN Reason: Pain, severe (8-10) Stop: 04/18/17 18:26 Rosuvastatin Calcium (Crestor) 20 mg PO HS [facility] Last Admin: 04/16/17 22:01 Dose: 20 mg Saccharomyces Boulardii (Florastor) 250 mg PO BID [facility] Last Admin: 04/17/17 18:23 Dose: 250 mg Tacrolimus (Prograf Cap) 1 mg PO Q12 [facility] Last Admin: 04/17/17 09:32 Dose: 1 mg - Labs Labs: 04/17/17 08:05 04/17/17 08:05 PT 11.8 SECONDS (9.7-12.2) 04/15/17 06:00 INR 1.1 04/15/17 06:00 APTT 30 SECONDS (21-34) 04/15/17 06:00 - Constitutional Appears: Non-toxic, Chronically Ill - Head Exam Head Exam: NORMOCEPHALIC - Eye Exam Eye Exam: PERRL. absent: Scleral icterus - ENT Exam ENT Exam: Mucous Membranes Dry - Neck Exam Neck Exam: absent: Lymphadenopathy - Respiratory Exam Respiratory Exam: Decreased Breath Sounds, Clear to Ausculation Bilateral - Cardiovascular Exam Cardiovascular Exam: REGULAR RHYTHM - GI/Abdominal Exam GI & Abdominal Exam: Distended, Soft - Rectal Exam Rectal Exam: Deferred - Exam Exam: NORMAL INSPECTION - Extremities Exam Extremities Exam: Pedal Edema. absent: Calf Tenderness, Tenderness Assessment and Plan (1) Abscess of right foot Status: Deleted (2) CAD (coronary artery disease) Status: Acute (3) Diabetes mellitus Status: Acute (4) Diabetic foot ulcer Status: Acute (5) Renal transplant, status post Status: Acute
[2017-04-17] MEDS ORDERED: Magnesium Sulfate 1 gm in D5W 1 GM/100 ML BAG IVPB ONE (19:15)
[2017-04-17] MEDS ORDERED: Ciprofloxacin 400mg/200ml D5W 400 MG/200 ML BAG IVPB SCH (19:30)
--- NOTE | 2017-04-17 21:03 | CP.PCM.CON ---
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/2016), admitted with R foot recurrent infection; nephrology service being consulted for transplant immunosuppression management; Patient underwent R 1st toe amputation last month (at [facility]) and subsequently underwent plantar arch surgical opening due to concern for abcess formation; patient reports having been on daily IV rocephin since that time but continued having whitish drainage from surgical site and was advised to come to ED; MRI of R foot showed large air/fluid collection suspicious for gas gangrene; furthermore, 1st MTP base, and 2nd and 3rd MTP joint spaces showed signal abnormalities concerning for acute osteomyelitis; Patient therefore underwent I&D of abcess as well as 1st ray partial resection of R foot 2 days ago; Wound cultures are growing Proteus, resistant to cipro; Patient otherwise denies fevers/chills; says he is compliant with all his meds; Denies ever having rejection of renal allograft; denies BK nephropathy or CMV viremia; says his allograft has been functioning well and has been on stable immunosuppression regimen; Review of Systems - Constitutional Constitutional: absent: Chills, Fever - EENT Eyes: absent: Change in Vision Nose/Mouth/Throat: Sinus Pain. absent: Sore Throat - Cardiovascular Cardiovascular: absent: Chest Pain, Dyspnea on Exertion, Leg Edema - Respiratory Respiratory: absent: Cough - Gastrointestinal Gastrointestinal: absent: Diarrhea, Nausea, Vomiting - Genitourinary Genitourinary: Urinary Frequency. absent: Change in Urinary Stream, Difficulty Urinating - Integumentary Integumentary: absent: Pruritus, Rash - Neurological Neurological: absent: Dizziness, Headaches - Hematologic/Lymphatic Hematologic: absent: Easy Bruising Past Patient History - Infectious Disease Hx of Infectious Diseases: None - Past Medical History & Family History Past Medical History?: Yes Pertinent Family History: Parents - htn, dm - Past Social History Smoking Status: Never Smoked - CARDIAC Hx Cardiac Disorders: Yes (CABG, CAD) Hx Hypertension: Yes - NEUROLOGICAL Hx Neurological Disorder: No - HEENT Hx HEENT Problems: Yes Other/Comment: LENS IMPLANTATION B/L CATARACT (2011) - RENAL Hx Renal Failure: Yes (ESRD) - ENDOCRINE/METABOLIC Hx Diabetes Mellitus Type 2: Yes - HEMATOLOGICAL/ONCOLOGICAL Hx Blood Transfusions: Yes (No reaction) - INTEGUMENTARY Hx Dermatological Problems: No - MUSCULOSKELETAL/RHEUMATOLOGICAL Hx Musculoskeletal Disorders: Yes - PSYCHIATRIC Hx Substance Use: No - SURGICAL HISTORY Hx Coronary Artery Bypass Graft: Yes (2010) - ANESTHESIA Hx Anesthesia: Yes Hx Anesthesia Reactions: No Hx Malignant Hyperthermia: No Meds Allergies/Adverse Reactions: Allergies Allergy/AdvReac Type Severity Reaction Status Date / Time No Known Allergies Allergy Verified 04/13/17 11:36 - Medications Medications: Current Medications Acetaminophen (Tylenol 325mg Tab) 650 mg PO Q6 PRN PRN Reason: Pain, Mild (1-3) Amlodipine Besylate (Norvasc) 5 mg PO DAILY [facility] Last Admin: 04/17/17 09:33 Dose: 5 mg Aspirin (Ecotrin) 81 mg PO DAILY [facility] Last Admin: 04/17/17 09:32 Dose: 81 mg Carvedilol (Coreg) 12.5 mg PO BID [facility] Last Admin: 04/17/17 18:23 Dose: 12.5 mg Cinacalcet (Sensipar) 30 mg PO DAILY [facility] Last Admin: 04/17/17 09:34 Dose: 30 mg Famotidine (Pepcid) 20 mg PO BID [facility] Last Admin: 04/17/17 18:26 Dose: 20 mg Home Med (Patient's Own Control Medication) 360 tab PO BID [facility] Insulin Aspart (Novolog Mix 70/30 (70/30 Units/Ml)) 12 units SC TIDAC [facility] Last Admin: 04/17/17 18:26 Dose: 12 units Insulin Human Regular (Novolin R) 0 unit SC ACHS [facility] PRN Reason: Protocol Last Admin: 04/17/17 18:27 Dose: 2 unit Magnesium Oxide (Mag-Ox) 400 mg PO BID [facility] Last Admin: 04/17/17 18:26 Dose: 400 mg Multivitamins (Hexavitamin) 1 tab PO DAILY [facility] Last Admin: 04/17/17 09:32 Dose: 1 tab Oxycodone/Acetaminophen (Percocet 5/325 Mg Tab) 1 tab PO Q4H PRN PRN Reason: Pain, moderate (4-7) Stop: 04/18/17 18:26 Last Admin: 04/16/17 00:26 Dose: 1 tab Oxycodone/Acetaminophen (Percocet 5/325 Mg Tab) 2 tab PO Q4H PRN PRN Reason: Pain, severe (8-10) Stop: 04/18/17 18:26 Rosuvastatin Calcium (Crestor) 20 mg PO HS [facility] Last Admin: 04/16/17 22:01 Dose: 20 mg Saccharomyces Boulardii (Florastor) 250 mg PO BID [facility] Last Admin: 04/17/17 18:23 Dose: 250 mg Tacrolimus (Prograf Cap) 1 mg PO Q12 [facility] Last Admin: 04/17/17 09:32 Dose: 1 mg Physical Exam - Constitutional Appears: Non-toxic, No Acute Distress - Head Exam Head Exam: NORMOCEPHALIC - Eye Exam Eye Exam: Normal appearance. absent: Scleral icterus - ENT Exam ENT Exam: Mucous Membranes Moist - Neck Exam Neck exam: Positive for: Normal Inspection. Negative for: Lymphadenopathy - Respiratory Exam Respiratory Exam: Clear to Auscultation Bilateral, NORMAL BREATHING PATTERN - Cardiovascular Exam Cardiovascular Exam: RRR, +S1, +S2 - GI/Abdominal Exam GI & Abdominal Exam: Soft. absent: Distended - Exam Exam: absent: Bladder Distension - Extremities Exam Extremities exam: Positive for: normal capillary refill Additional comments: no leg edema; - Neurological Exam Neurological exam: Alert - Psychiatric Exam Psychiatric exam: Normal Affect, Normal Mood - Skin Skin Exam: Normal Color, Warm Results - Vital Signs Recent Vital Signs: Last Vital Signs Temp 98.0 F 04/17/17 17:00 Pulse 79 04/17/17 17:00 Resp 20 04/17/17 17:00 BP 142/68 04/17/17 18:23 Pulse Ox 96 04/17/17 17:00 - Labs Result Diagrams: 04/18/17 06:26 04/17/17 08:05 Labs: Laboratory Results - last 24 hr 04/16/17 04/17/17 04/17/17 21:06 07:13 08:05 WBC 6.3 RBC 3.24 L Hgb 9.1 L Hct 27.0 L MCV 83.4 MCH 27.9 MCHC 33.5 RDW 14.2 Plt Count 189 MPV 7.7 Neut % (Auto) 61.8 Lymph % (Auto) 24.8 [place] % (Auto) 9.9 Eos % (Auto) 2.7 Baso % (Auto) 0.8 Neut # 3.9 Lymph # 1.6 Erie # 0.6 Eos # 0.2 Baso # 0.1 Sodium Potassium Chloride Carbon Dioxide Anion Gap BUN Creatinine Est GFR ( Amer) Est GFR (Non-Af Amer) POC Glucose (mg/dL) 179 H 279 H Random Glucose Calcium Phosphorus Magnesium Total Bilirubin AST ALT Alkaline Phosphatase Total Protein Albumin Globulin Albumin/Globulin Ratio 04/17/17 04/17/17 04/17/17 08:05 08:51 11:22 WBC RBC Hgb Hct MCV MCH MCHC RDW Plt Count MPV Neut % (Auto) Lymph % (Auto) [place] % (Auto) Eos % (Auto) Baso % (Auto) Neut # Lymph # [place] # Eos # Baso # Sodium 137 Potassium 4.1 Chloride 101 Carbon Dioxide 23 Anion Gap 17 BUN 10 Creatinine 0.8 Est GFR ( Amer) > 60 Est GFR (Non-Af Amer) > 60 POC Glucose (mg/dL) 265 H 388 H Random Glucose 223 H Calcium 9.1 Phosphorus 2.2 L Magnesium 1.6 Total Bilirubin 0.6 AST 23 ALT 44 Alkaline Phosphatase 104 Total Protein 6.2 L Albumin 3.0 L Globulin 3.1 Albumin/Globulin Ratio 1.0 04/17/17 16:07 WBC RBC Hgb Hct MCV MCH MCHC RDW Plt Count MPV Neut % (Auto) Lymph % (Auto) [place] % (Auto) Eos % (Auto) Baso % (Auto) Neut # Lymph # [place] # Eos # Baso # Sodium Potassium Chloride Carbon Dioxide Anion Gap BUN Creatinine Est GFR ( Amer) Est GFR (Non-Af Amer) POC Glucose (mg/dL) 199 H Random Glucose Calcium Phosphorus Magnesium Total Bilirubin AST ALT Alkaline Phosphatase Total Protein Albumin Globulin Albumin/Globulin Ratio - Imaging and Cardiology Chest x-ray Status: Image reviewed by me Additional comment: CXR clear; Assessment & Plan - Assessment and Plan (Free Text) Assessment: 1- s/p Renal Allograft - Renal function appears well; stable electrolyte and volume status; reports no episodes of rejection; continue to monitor renal function daily in the setting of being on multiple antibiotics; 2- Transplant immunosuppression - On tacrolimus 1 mg q12h and myfortic 360 mg q12h, prednisone free; patient with severe R foot infection and osteomyelitis, now s/p I&D of abcess, but will likely need care home IV antibiotics for osteomyelitis; still having serosanguinous drainage (20 cc reported in drain); -continue tacrolimus as above -holding myfortic for now, will discuss with ID/podiatry regarding any further abcess; 3- HTN - BP mildly elevated but may be due to pain; continue norvasc 5 mg daily and coreg 12.5 mg bid; 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
--- NOTE | 2017-04-17 22:19 | CP.PCM.PN ---
Subjective - Date & Time of Evaluation Date of Evaluation: 04/17/17 Time of Evaluation: 08:00 - Subjective Subjective: Patient seen and evaluated No cardiac events Objective - Vital Signs/Intake and Output Vital Signs (last 24 hours): Temp Pulse Resp BP Pulse Ox 98.0 F 79 20 142/68 96 04/17/17 17:00 04/17/17 17:00 04/17/17 17:00 04/17/17 18:23 04/17/17 17:00 Intake and Output: 04/17/17 04/18/17 18:59 06:59 Intake Total 1180 Output Total 825 Balance 355 - Medications Medications: Current Medications Acetaminophen (Tylenol 325mg Tab) 650 mg PO Q6 PRN PRN Reason: Pain, Mild (1-3) Amlodipine Besylate (Norvasc) 5 mg PO DAILY [facility] Last Admin: 04/17/17 09:33 Dose: 5 mg Aspirin (Ecotrin) 81 mg PO DAILY [facility] Last Admin: 04/17/17 09:32 Dose: 81 mg Carvedilol (Coreg) 12.5 mg PO BID [facility] Last Admin: 04/17/17 18:23 Dose: 12.5 mg Cinacalcet (Sensipar) 30 mg PO DAILY [facility] Last Admin: 04/17/17 09:34 Dose: 30 mg Famotidine (Pepcid) 20 mg PO BID [facility] Last Admin: 04/17/17 18:26 Dose: 20 mg Home Med (Patient's Own Control Medication) 360 tab PO BID [facility] Meropenem 500 mg/ Sodium (Chloride) 100 mls @ 100 mls/hr IVPB Q6H [facility] Insulin Aspart (Novolog Mix 70/30 (70/30 Units/Ml)) 12 units SC TIDAC [facility] Last Admin: 04/17/17 18:26 Dose: 12 units Insulin Human Regular (Novolin R) 0 unit SC ACHS [facility] PRN Reason: Protocol Last Admin: 04/17/17 18:27 Dose: 2 unit Magnesium Oxide (Mag-Ox) 400 mg PO BID [facility] Last Admin: 04/17/17 18:26 Dose: 400 mg Multivitamins (Hexavitamin) 1 tab PO DAILY [facility] Last Admin: 04/17/17 09:32 Dose: 1 tab Oxycodone/Acetaminophen (Percocet 5/325 Mg Tab) 1 tab PO Q4H PRN PRN Reason: Pain, moderate (4-7) Stop: 04/18/17 18:26 Last Admin: 04/16/17 00:26 Dose: 1 tab Oxycodone/Acetaminophen (Percocet 5/325 Mg Tab) 2 tab PO Q4H PRN PRN Reason: Pain, severe (8-10) Stop: 04/18/17 18:26 Rosuvastatin Calcium (Crestor) 20 mg PO HS [facility] Last Admin: 04/16/17 22:01 Dose: 20 mg Saccharomyces Boulardii (Florastor) 250 mg PO BID [facility] Last Admin: 04/17/17 18:23 Dose: 250 mg Tacrolimus (Prograf Cap) 1 mg PO Q12 [facility] Last Admin: 04/17/17 09:32 Dose: 1 mg - Labs Labs: 04/17/17 08:05 04/17/17 08:05 PT 11.8 SECONDS (9.7-12.2) 04/15/17 06:00 INR 1.1 04/15/17 06:00 APTT 30 SECONDS (21-34) 04/15/17 06:00
[2017-04-17] MEDS: Meropenem 500 MG in Sodium Chloride 0.9% 100 ML IVPB SCH (22:33)
[2017-04-18] MEDS: Meropenem 500 MG in Sodium Chloride 0.9% 100 ML IVPB SCH ×3 (04:06→17:14)
[2017-04-18 06:37] LABS: BASO % 0.7 % (0.0-2.0); EOS # 0.3 K/uL (0.0-0.7); EOS % 4.8 % (0.0-4.0); HEMOGLOBIN 9.1 g/dL (12.0-18.0); LYMPH # 1.5 K/uL (1.0-4.3); LYMPH % 25.6 % (20.0-40.0); MEAN CELL VOLUME 82.9 fL (80.0-94.0); MEAN CORPUSCULAR HEMOGLOBIN 28.2 pg (27.0-31.0); MEAN PLATELET VOLUME 7.5 fL (7.2-11.7); MONO # 0.7 K/uL (0.0-0.8); MONO % 11.4 % (0.0-10.0); NEUT # 3.3 K/uL (1.8-7.0); NEUT % 57.5 % (50.0-75.0); NRBC % 0.1 % (0.0-2.0); RBC 3.23 Mil/uL (4.40-5.90); RED CELL DISTRIBUTION WIDTH 14.8 % (11.5-14.5); WHITE BLOOD COUNT 5.8 K/uL (4.8-10.8)
[2017-04-18 07:28] LABS: ALB/GLOB RATIO 0.9 (1.0-2.1); GFR AFRICAN-AMERICAN > 60; GFR NON-AFRICAN AMERICAN > 60
[2017-04-18 07:29] LABS: ALT/SGPT 47 U/L (21-72); AST/SGOT 22 U/L (17-59); BLOOD UREA NITROGEN 7 mg/dL (9-20); CALCIUM 9.4 mg/dl (8.6-10.4)
[2017-04-18 07:30] LABS: MAGNESIUM 1.8 mg/dL (1.6-2.3)
--- NOTE | 2017-04-18 07:39 | CP.PCM.PN ---
Subjective - Date & Time of Evaluation Date of Evaluation: 04/18/17 Time of Evaluation: 07:34 - Subjective Subjective: PGY-[address] Hercules's Service: Patient was seen and examined at bedside. Nursing reports no acute events overnight. Patient is POD#2 day 3 of I&D and resection of the first metatarsal. Objective - Vital Signs/Intake and Output Vital Signs (last 24 hours): Temp Pulse Resp BP Pulse Ox 98.1 F 85 20 146/76 95 04/17/17 23:45 04/17/17 23:45 04/17/17 23:45 04/17/17 23:45 04/17/17 23:45 Intake and Output: 04/18/17 04/18/17 06:59 18:59 Intake Total 1000 Output Total 2 Balance 998 - Medications Medications: Current Medications Acetaminophen (Tylenol 325mg Tab) 650 mg PO Q6 PRN PRN Reason: Pain, Mild (1-3) Last Admin: 04/17/17 22:26 Dose: 650 mg Amlodipine Besylate (Norvasc) 5 mg PO DAILY [facility] Last Admin: 04/17/17 09:33 Dose: 5 mg Aspirin (Ecotrin) 81 mg PO DAILY [facility] Last Admin: 04/17/17 09:32 Dose: 81 mg Carvedilol (Coreg) 12.5 mg PO BID [facility] Last Admin: 04/17/17 18:23 Dose: 12.5 mg Cinacalcet (Sensipar) 30 mg PO DAILY [facility] Last Admin: 04/17/17 09:34 Dose: 30 mg Famotidine (Pepcid) 20 mg PO BID [facility] Last Admin: 04/17/17 18:26 Dose: 20 mg Home Med (Patient's Own Control Medication) 360 tab PO BID [facility] Meropenem 500 mg/ Sodium (Chloride) 100 mls @ 100 mls/hr IVPB Q6H [facility] Last Admin: 04/18/17 04:06 Dose: 100 mls/hr Insulin Aspart (Novolog Mix 70/30 (70/30 Units/Ml)) 12 units SC TIDAC [facility] Last Admin: 04/17/17 18:26 Dose: 12 units Insulin Human Regular (Novolin R) 0 unit SC ACHS [facility] PRN Reason: Protocol Last Admin: 04/17/17 22:33 Dose: 2 unit Magnesium Oxide (Mag-Ox) 400 mg PO BID [facility] Last Admin: 04/17/17 18:26 Dose: 400 mg Multivitamins (Hexavitamin) 1 tab PO DAILY [facility] Last Admin: 04/17/17 09:32 Dose: 1 tab Oxycodone/Acetaminophen (Percocet 5/325 Mg Tab) 1 tab PO Q4H PRN PRN Reason: Pain, moderate (4-7) Stop: 04/18/17 18:26 Last Admin: 04/16/17 00:26 Dose: 1 tab Oxycodone/Acetaminophen (Percocet 5/325 Mg Tab) 2 tab PO Q4H PRN PRN Reason: Pain, severe (8-10) Stop: 04/18/17 18:26 Rosuvastatin Calcium (Crestor) 20 mg PO HS [facility] Last Admin: 04/17/17 22:28 Dose: 20 mg Saccharomyces Boulardii (Florastor) 250 mg PO BID [facility] Last Admin: 04/17/17 18:23 Dose: 250 mg Tacrolimus (Prograf Cap) 1 mg PO Q12 [facility] Last Admin: 04/17/17 22:28 Dose: 1 mg - Labs Labs: 04/18/17 06:26 04/17/17 08:05 PT 11.8 SECONDS (9.7-12.2) 04/15/17 06:00 INR 1.1 04/15/17 06:00 APTT 30 SECONDS (21-34) 04/15/17 06:00 - Constitutional Appears: Non-toxic, No Acute Distress - Head Exam Head Exam: ATRAUMATIC, NORMOCEPHALIC - Eye Exam Eye Exam: EOMI. absent: Scleral icterus Pupil Exam: PERRL - ENT Exam ENT Exam: Mucous Membranes Moist - Neck Exam Neck Exam: absent: Lymphadenopathy - Respiratory Exam Respiratory Exam: Clear to Ausculation Bilateral, NORMAL BREATHING PATTERN. absent: Rales, Rhonchi, Wheezes - Cardiovascular Exam Cardiovascular Exam: REGULAR RHYTHM, +S1, +S2 - Extremities Exam Additional comments: MARYAM bulb drain removed this AM - Neurological Exam Neurological Exam: Alert, Awake, Oriented x3 - Psychiatric Exam Psychiatric exam: Normal Affect, Normal Mood - Skin Skin Exam: Normal Color, Warm Assessment and Plan - Assessment and Plan (Free Text) Plan: (1) Osteomyelitis of right foot Assessment & Plan: Osteomyelitis of the right hallux Afebrile, No leukocytosis Wound culture (04/13/17): (+) for proteus mirabilis - repeat wound culture (04/15/17): + for proteus mirabilis and gram positive cocci Blood culture (04/13/17): no growth x 3 days (04/13/17) Foot X-ray: Status post amputation through the mid shaft of the 1st metatarsal bone. Soft tissue swelling. No definite evidence of soft tissue pneumatosis. (04/13/17) Lower Extremity CT: No definite CT evidence of acute osteomyelitis. 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 Soft tissue swelling and suspicious for subcutaneous fluid collection at the plantar aspect of the mid foot. The possibility of abscess formation should be considered. (04/13/17)Duplex scan of lower extremity: No evidence of deep or superficial venous thrombosis b/l (04/15/17) Lower extremity U/S: No evidence of hemodynamically significant arterial insufficiency (04/15/17) Lower extremity MRI: Resection of the 1st digit to the metatarsal base. Signal abnormality within the residual marrow of the 1st metatarsal base demonstrating decreased T1 signal and increased STIR signal concerning for acute osteomyelitis. * Prominent fluid and air collection seen within the volar medial midfoot measuring 7.3 x 2.5 x 1.4 centimeters suggestive for an abscess with possible gas gangrene and or phlegmonous collection. * Signal changes seen centered at the 2nd and 3rd MTP joint spaces with signal abnormality seen at the heads of the 2nd and 3rd metatarsal bones and corresponding 2nd and 3rd bases of the proximal phalanges with patchy decreased T1 signal and increased STIR signal suggestive for acute and or developing acute osteomyelitic changes, this is most prominent at the 2nd MTP joint space. Fluid and edema noted within the joint spaces at these levels. * Signal abnormality with patchy decreased T1 signal and increased STIR signal seen at the lateral aspect of the cuboid bone at its volar aspect suggestive for acute and or developing acute osteomyelitis. * Fraying with increased signal seen at the visualized Lisfranc ligament suggest for partial tearing and or moderate grade sprain * Degenerative changes noted at the base of the 2nd metatarsal bone and corresponding middle cuneiform bone suggestive for degenerative changes * On the axial sequences, there is signal abnormality within the 5th middle and distal phalanges with increased STIR signal. It is unclear whether this is the sequelae of failure of fat suppression versus developing acute infectious and or inflammatory changes. Clinical correlation * Minimal nonspecific patchy reactive edema seen at the base the 4th metatarsal bone and distal aspect of the cuboid bone and lateral aspect of the medial cuneiform bone, nonspecific Podiatry Consult (Dr. Taylor)----> Help appreciated * S/P I&D and first metatarsal resection day 0 (04/15/17) * S/P I&D and first metatarsal resection day 1 (04/16/17) Surgery Consult (Dr. Allison): Help appreciated * DIANE 1.2 for left, 1.17 for right lower extremity * No hemodynamic compromise identified on study * No vascular surgical intervention at this time * Wound care as per podiatry * Pain management as per primary team ID consult (Dr. Jiang) ---> help appreciated PICC Line placed for mcfp antibiotics Start Merrem 500mg IVPB Q6H (first dose 04/17) * Discontinued Zosyn, Vanco Status: Acute (2) Diabetes mellitus Assessment & Plan: Accuchecks ACHS RISS - High Started on home medication Novolog 70/30 12 units TIDAC (04/16/17) f/u A1C (3) History of coronary artery disease Assessment & Plan: 04/12: Cardiology consul, Dr. Aguirre, for cardiac clearance - low risk for procedure 08/17/13: Echocardiogram: EF 60-65%, Aortic valve sclerosis moderate with no regurgitation. Borderline left ventricular hypertrophy Cardiac stent x4 (2012) Coronary graft x3 (2010) Status: Acute (4) Renal transplant, status post Assessment & Plan: Right kidney transplant (2016) Nephro consult: Dr. Butterfield, help appreciated -f/u tacrolimus level Tacrolimus 1mg po bid. Mycophenolate 360mg po bid. Sensipar 30mg po once a day. Status: Acute (5) HLD (hyperlipidemia) Assessment & Plan: Crestor 20mg po qhs Status: Acute (6) Prophylactic measure Assessment & Plan: SCD on left leg multivitamin po once a day pepcid 20mg po bid magnesium oxide 400mg po bid heparin 5000u sc q8 renal diet 2gran Na, low carb, low fat florastor 250mg po bid Status: Acute
--- NOTE | 2017-04-18 08:01 | CP.PCM.PN ---
Subjective - Date & Time of Evaluation Date of Evaluation: 04/18/17 Time of Evaluation: 07:58 - Subjective Subjective: 66 yo male pt seen at bedside today 3 days s/p right foot I&D with first metatarsal resection. Patient denies any acute events overnight. He denies any pain in his foot overnight. Patient's dressing and drain remains intact to right foot. Denies f/n/v/c/sob/cp at this time. Objective - Vital Signs/Intake and Output Vital Signs (last 24 hours): Temp Pulse Resp BP Pulse Ox 98.1 F 85 20 146/76 95 04/17/17 23:45 04/17/17 23:45 04/17/17 23:45 04/17/17 23:45 04/17/17 23:45 Intake and Output: 04/18/17 04/18/17 06:59 18:59 Intake Total 1000 280 Output Total 2 805 Balance 998 -525 - Medications Medications: Current Medications Acetaminophen (Tylenol 325mg Tab) 650 mg PO Q6 PRN PRN Reason: Pain, Mild (1-3) Last Admin: 04/17/17 22:26 Dose: 650 mg Amlodipine Besylate (Norvasc) 5 mg PO DAILY [facility] Last Admin: 04/17/17 09:33 Dose: 5 mg Aspirin (Ecotrin) 81 mg PO DAILY [facility] Last Admin: 04/17/17 09:32 Dose: 81 mg Carvedilol (Coreg) 12.5 mg PO BID [facility] Last Admin: 04/17/17 18:23 Dose: 12.5 mg Cinacalcet (Sensipar) 30 mg PO DAILY [facility] Last Admin: 04/17/17 09:34 Dose: 30 mg Famotidine (Pepcid) 20 mg PO BID [facility] Last Admin: 04/17/17 18:26 Dose: 20 mg Home Med (Patient's Own Control Medication) 360 tab PO BID [facility] Meropenem 500 mg/ Sodium (Chloride) 100 mls @ 100 mls/hr IVPB Q6H [facility] Last Admin: 04/18/17 04:06 Dose: 100 mls/hr Insulin Aspart (Novolog Mix 70/30 (70/30 Units/Ml)) 15 units SC TIDAC [facility] Insulin Human Regular (Novolin R) 0 unit SC ACHS [facility] PRN Reason: Protocol Last Admin: 04/17/17 22:33 Dose: 2 unit Magnesium Oxide (Mag-Ox) 400 mg PO BID [facility] Last Admin: 04/17/17 18:26 Dose: 400 mg Multivitamins (Hexavitamin) 1 tab PO DAILY [facility] Last Admin: 04/17/17 09:32 Dose: 1 tab Oxycodone/Acetaminophen (Percocet 5/325 Mg Tab) 1 tab PO Q4H PRN PRN Reason: Pain, moderate (4-7) Stop: 04/18/17 18:26 Last Admin: 04/16/17 00:26 Dose: 1 tab Oxycodone/Acetaminophen (Percocet 5/325 Mg Tab) 2 tab PO Q4H PRN PRN Reason: Pain, severe (8-10) Stop: 04/18/17 18:26 Rosuvastatin Calcium (Crestor) 20 mg PO HS [facility] Last Admin: 04/17/17 22:28 Dose: 20 mg Saccharomyces Boulardii (Florastor) 250 mg PO BID [facility] Last Admin: 04/17/17 18:23 Dose: 250 mg Tacrolimus (Prograf Cap) 1 mg PO Q12 [facility] Last Admin: 04/17/17 22:28 Dose: 1 mg - Labs Labs: 04/18/17 06:26 04/18/17 06:26 PT 11.8 SECONDS (9.7-12.2) 04/15/17 06:00 INR 1.1 04/15/17 06:00 APTT 30 SECONDS (21-34) 04/15/17 06:00 - Constitutional Appears: Well, Non-toxic, No Acute Distress - Extremities Exam Additional comments: Right foot focused: Dressing to foot appears c/d/i. Vasc: DP/PT pulses palpable, skim temp runs warm to warm, CFT < 3 sec x 5, moderate edema noted to plantar medial arch in area of proximal open wound Derm: surgical incision site intact, sutures intact, localized edema along incision site, drain intact, no purulence, no malodor, no active bleeding, no ascending cellulitis, no fluctuance Neuro: protective pedal sensation is diminished however pt is sensate to pain Ortho: Tenderness upon palpation of open wounds and wound periphery - Neurological Exam Neurological Exam: Alert, Awake, Oriented x3 - Psychiatric Exam Psychiatric exam: Normal Affect, Normal Mood Assessment and Plan - Assessment and Plan (Free Text) Assessment: 66 y/o diabetic male with R foot 3 days s/p 1st ray resection with incision and drainage Plan: Pt S&E at bedside Plan discussed in detail with attendings Dr. Taylor Chart labs and vitals reviewed: afebrile, WBC 5.8 today 5CC of serosanguinous drainage noted overnight Drain pulled this am dressing to right foot applied with betadine, gauze, kerlix, ABD, BEATRIS picc line in place- started on merrem yesterday as per ID patient stable from podiatry standpoint patient to follow up at [facility] podiatry clinic on 04/22/[address] Taylor patient to keep dresisng c/d/i. Podiatry will follow.
[2017-04-18] MEDS: (Novolog Mix 70/30) Insulin Aspart/Insulin Aspar 100 units/ml SC SCH ×3 (08:22→17:12)
[2017-04-18] MEDS: (Novolin R) Insulin Human Regular 100 units/ml vial SC SCH ×3 (08:22→17:12)
[2017-04-18] MEDS: Multiple Vitamins Tab PO SCH (10:17)
[2017-04-18] MEDS: Magnesium Oxide 400 mg Tab UD PO SCH ×2 (10:17→17:38)
[2017-04-18] MEDS: Saccharomyces Boulardi 250 mg Cap PO SCH ×2 (10:17→17:38)
[2017-04-18 16:55] VITALS: PULSE 75; TEMP 97.8; O2SAT 96
[2017-04-18 17:39] VITALS: BP 161/70
--- NOTE | 2017-04-18 19:15 | CP.PCM.PN ---
Subjective - Date & Time of Evaluation Date of Evaluation: 04/18/17 Time of Evaluation: 13:00 - Subjective Subjective: Patient feeling well; says wound drainage had been decreasing, drain removed earlier; Objective - Vital Signs/Intake and Output Vital Signs (last 24 hours): Temp Pulse Resp BP Pulse Ox 97.8 F 75 20 161/70 H 96 04/18/17 16:00 04/18/17 16:00 04/18/17 16:00 04/18/17 17:39 04/18/17 16:00 Intake and Output: 04/18/17 04/19/17 18:59 06:59 Intake Total 280 Output Total 805 Balance -525 - Medications Medications: Current Medications Acetaminophen (Tylenol 325mg Tab) 650 mg PO Q6 PRN PRN Reason: Pain, Mild (1-3) Last Admin: 04/17/17 22:26 Dose: 650 mg Amlodipine Besylate (Norvasc) 5 mg PO DAILY [facility] Last Admin: 04/18/17 10:17 Dose: 5 mg Aspirin (Ecotrin) 81 mg PO DAILY [facility] Last Admin: 04/18/17 10:17 Dose: 81 mg Carvedilol (Coreg) 12.5 mg PO BID [facility] Last Admin: 04/18/17 17:39 Dose: 12.5 mg Cinacalcet (Sensipar) 30 mg PO DAILY [facility] Last Admin: 04/18/17 10:00 Dose: 30 mg Famotidine (Pepcid) 20 mg PO BID [facility] Last Admin: 04/18/17 17:38 Dose: 20 mg Home Med (Patient's Own Control Medication) 360 tab PO BID [facility] Meropenem 500 mg/ Sodium (Chloride) 100 mls @ 100 mls/hr IVPB Q6H [facility] Last Admin: 04/18/17 17:14 Dose: 100 mls/hr Insulin Aspart (Novolog Mix 70/30 (70/30 Units/Ml)) 15 units SC TIDAC [facility] Last Admin: 04/18/17 17:12 Dose: Not Given Insulin Human Regular (Novolin R) 0 unit SC ACHS [facility] PRN Reason: Protocol Last Admin: 04/18/17 17:12 Dose: Not Given Magnesium Oxide (Mag-Ox) 400 mg PO BID [facility] Last Admin: 04/18/17 17:38 Dose: 400 mg Multivitamins (Hexavitamin) 1 tab PO DAILY [facility] Last Admin: 04/18/17 10:17 Dose: 1 tab Rosuvastatin Calcium (Crestor) 20 mg PO HS [facility] Last Admin: 04/17/17 22:28 Dose: 20 mg Saccharomyces Boulardii (Florastor) 250 mg PO BID [facility] Last Admin: 04/18/17 17:38 Dose: 250 mg Tacrolimus (Prograf Cap) 1 mg PO Q12 [facility] Last Admin: 04/18/17 10:17 Dose: 1 mg - Labs Labs: 04/18/17 06:26 04/18/17 06:26 PT 11.8 SECONDS (9.7-12.2) 04/15/17 06:00 INR 1.1 04/15/17 06:00 APTT 30 SECONDS (21-34) 04/15/17 06:00 - Constitutional Appears: Well, No Acute Distress - Head Exam Head Exam: NORMAL INSPECTION - Eye Exam Eye Exam: Normal appearance. absent: Scleral icterus - ENT Exam ENT Exam: Mucous Membranes Moist - Respiratory Exam Respiratory Exam: Clear to Ausculation Bilateral, NORMAL BREATHING PATTERN. absent: Rales, Rhonchi, Wheezes, Respiratory Distress - Cardiovascular Exam Cardiovascular Exam: REGULAR RHYTHM, +S1, +S2 - GI/Abdominal Exam GI & Abdominal Exam: Soft. absent: Distended, Tenderness - Exam Exam: absent: Bladder Distension - Extremities Exam Extremities Exam: Normal Capillary Refill Additional comments: no leg edema; L foot wound bandage dry; L upper arm AVF with good thrill, good radial pulse; - Neurological Exam Neurological Exam: Alert, Awake - Psychiatric Exam Psychiatric exam: Normal Affect, Normal Mood - Skin Skin Exam: Normal Color, Warm. absent: Cyanosis Assessment and Plan (1) Immunosuppressive management encounter following kidney transplant Assessment & Plan: Patient on tacrolimus 1 mg q12h and myfortic 360 mg q12h; as wound infection appears controlled, continue same regimen; Status: Chronic (2) Diabetes mellitus Assessment & Plan: Sugars elevated in setting of osteomyelitis; patient advised to keep strict glycemic control to avoid microvascular diabetic related changes and for better infection treatment; Status: Chronic (3) Hypertension Assessment & Plan: BP controlled; continue current anti-htn regimen (coreg 12.5 mg bid and amlodipine 5 mg daily); Status: Chronic (4) Osteomyelitis of right foot Assessment & Plan: On meropenem 500 mg q6h, no renal dose adjustment needed; Status: Acute (5) Renal transplant, status post Assessment & Plan: Stable allograft status; good renal function; continue to monitor serum creatinine periodically; Status: Chronic (6) Hyperparathyroidism Assessment & Plan: Tertiary, on cinacalcet 30 mg daily, continue same; Status: Chronic
--- NOTE | 2017-04-18 19:40 | CP.PCM.DIS ---
Provider - Provider Date of Admission: 04/15/17 15:18 Attending physician: Roxanne Hercules DO Primary care physician: Dr. Bauer Consults: Dr. Taylor (podiatry) Dr. Jiang (ID) Dr. Butterfield (nephrology) Dr. Allison ([facility]) Dr. Aguirre (cardiology) Time Spent in preparation of Discharge (in minutes): 45 Diagnosis - Discharge Diagnosis (1) Diabetic foot ulcer Status: Chronic Comment: see hosptial course (2) Osteomyelitis of right foot Status: Acute Comment: see hospital course (3) Diabetes mellitus Status: Chronic Hospital Course - Lab Results Lab Results: Micro Results 04/15/17 18:30 Foot - Right Gram Stain - Final 04/15/17 18:30 Foot - Right Wound Culture - Final Proteus Mirabilis Enterococcus Faecalis Most Recent Lab Values WBC 5.8 K/uL (4.8-10.8) 04/18/17 06:26 RBC 3.23 Mil/uL (4.40-5.90) L 04/18/17 06:26 Hgb 9.1 g/dL (12.0-18.0) L 04/18/17 06:26 Hct 26.8 % (35.0-51.0) L 04/18/17 06:26 MCV 82.9 fL (80.0-94.0) 04/18/17 06:26 MCH 28.2 pg (27.0-31.0) 04/18/17 06:26 MCHC 34.0 g/dL (33.0-37.0) 04/18/17 06:26 RDW 14.8 % (11.5-14.5) H 04/18/17 06:26 Plt Count 181 K/uL (130-400) 04/18/17 06:26 MPV 7.5 fL (7.2-11.7) 04/18/17 06:26 Neut % (Auto) 57.5 % (50.0-75.0) 04/18/17 06:26 Lymph % (Auto) 25.6 % (20.0-40.0) 04/18/17 06:26 Ford % (Auto) 11.4 % (0.0-10.0) H 04/18/17 06:26 Eos % (Auto) 4.8 % (0.0-4.0) H 04/18/17 06:26 Baso % (Auto) 0.7 % (0.0-2.0) 04/18/17 06:26 Neut # 3.3 K/uL (1.8-7.0) 04/18/17 06:26 Lymph # 1.5 K/uL (1.0-4.3) 04/18/17 06:26 Ford # 0.7 K/uL (0.0-0.8) 04/18/17 06:26 Eos # 0.3 K/uL (0.0-0.7) 04/18/17 06:26 Baso # 0.0 K/uL (0.0-0.2) 04/18/17 06:26 ESR 30 mm/hr (0-15) H 04/14/17 10:50 PT 11.8 SECONDS (9.7-12.2) 04/15/17 06:00 INR 1.1 04/15/17 06:00 APTT 30 SECONDS (21-34) 04/15/17 06:00 pO2 35 mm/Hg (30-55) 04/13/17 16:40 VBG pH 7.39 (7.32-7.43) 04/13/17 16:40 VBG pCO2 42 mmHg (40-60) 04/13/17 16:40 VBG HCO3 24.3 mmol/L 04/13/17 16:40 VBG Total CO2 26.7 mmol/L (22-28) 04/13/17 16:40 VBG O2 Sat (Calc) 74.3 % (40-65) H 04/13/17 16:40 VBG Base Excess 0.3 mmol/L (0.0-2.0) 04/13/17 16:40 VBG Potassium 4.4 mmol/L (3.6-5.2) 04/13/17 16:40 Sodium 136.0 mmol/l (132-148) 04/13/17 16:40 Chloride 105.0 mmol/L (98-107) 04/13/17 16:40 Glucose 314 mg/dl (75-110) H 04/13/17 16:40 Lactate 1.5 mmol/L (0.7-2.1) 04/13/17 16:40 FiO2 21.0 % 04/13/17 13:30 Crit Value Called To Dr dick 04/13/17 13:30 Crit Value Called By Nirmal jurado 04/13/17 13:30 Crit Value Read Back Y 04/13/17 13:30 Blood Gas Notified Time 1335 04/13/17 13:30 Sodium 139 mmol/L (132-148) 04/18/17 06:26 Potassium 3.9 mmol/L (3.6-5.2) 04/18/17 06:26 Chloride 103 mmol/L (98-107) 04/18/17 06:26 Carbon Dioxide 24 mmol/L (22-30) 04/18/17 06:26 Anion Gap 16 (10-20) 04/18/17 06:26 BUN 7 mg/dL (9-20) L 04/18/17 06:26 Creatinine 0.7 MG/DL (0.8-1.5) L 04/18/17 06:26 Est GFR ( Amer) > 60 04/18/17 06:26 Est GFR (Non-Af Amer) > 60 04/18/17 06:26 POC Glucose (mg/dL) 185 mg/dL (65-110) H 04/18/17 17:43 Random Glucose 170 mg/dL (75-110) H 04/18/17 06:26 Calcium 9.4 mg/dl (8.6-10.4) 04/18/17 06:26 Phosphorus 2.9 mg/dL (2.5-4.5) 04/18/17 06:26 Magnesium 1.8 mg/dL (1.6-2.3) 04/18/17 06:26 Total Bilirubin 0.5 mg/dL (0.2-1.3) 04/18/17 06:26 AST 22 U/L (17-59) 04/18/17 06:26 ALT 47 U/L (21-72) 04/18/17 06:26 Alkaline Phosphatase 101 U/L (38-126) 04/18/17 06:26 Total Protein 6.2 g/dL (6.3-8.3) L 04/18/17 06:26 Albumin 3.0 g/dL (3.5-5.0) L 04/18/17 06:26 Globulin 3.2 gm/dL (2.2-3.9) 04/18/17 06:26 Albumin/Globulin Ratio 0.9 (1.0-2.1) L 04/18/17 06:26 Venous Blood Potassium 4.4 mmol/L (3.6-5.2) 04/13/17 16:40 Vancomycin Trough 10.8 ug/mL (5.0-10.0) H 04/16/17 08:22 Blood Type O NEGATIVE 04/15/17 20:17 Antibody Screen Negative 04/15/17 20:17 - Hospital Course Hospital Course: On admission: CC: My foot doctor told me to come here HPI: Mr Davis is a 66 yr old man who is s/p right big toe amputation 02/2017 and was referred by his training and development assistant to come to the [facility] ED for further evaluation of his right foot. The patient states that there has been periodic clear discharge and foul smell emanating from the amputation site since his surgery. He followed up with his training and development assistant 2 days ago who advised him to go to [facility] however the patient preferred to come to [facility] ED due to proximity to his home. The patient has been receiving antibiotics daily via right arm PICC line at the [facility] infusion center since his surgery. The patient denies pain, fever, chills. PMD: Dr Bauer Slat Basket Maker: Dr Aguirre Automatic Quilling Machine Operator: Dr Brown (sp?) PMHx: CAD, HTN, HLD, DM, Cataracts b/l PSHx: Right kidney transplant - 2016 Coronary stent placement x4 - 2013 Coronary graft placement 2011 Intraocular lens implantation b/l due to cataracts - 2012 Emergent drainage of left Eye retinal hemorrhage - 2010 Medications: Tacrolimus 1mg po bid mycophenolate 360mg po bid multivitamin po daily coreg 12.5mg po bid crestor 20mg po daily sensipar 30mg po daily aspirin 81mg po daily amlodipine 10mg po daily magnesium oxide 400mg po bid omeprazole 20mg po daily SocialHx: denies smoking, denies alcohol, denies illicit drug use FamHx: Mother: HTN, DM; Father: HTN, DM; Brother: HTN, DM; 2 Sisters: HTN, DM Code Status: Full Code Hospital course: Pt admitted 04/13 for right foot non-healing ulcer s/p big toe amputation in . Dr. Taylor, Podiatry, and Dr. Jiang, ID, consulted. Pt started on IV Zosyn and Vanco. consulted for cardiac clearance. XR and CT showed no definite osteomyelitis. Vasuclar surgery consulted for right foot hemodynamic evaluation. DIANE WNL, pulses intact, so no vascular surgical intervention performed. Pt had I&D on 04/[address] Taylor. MRI showed multiple areas of signal abnormalities suggesting osteomyletis at several points in pt foot (see EMR MRI report). Wound culture positive for proteus mirabils, gram positive cocci. Pt started on Merrem by Dr. Jiang which he will continue at [facility] for 6 weeks. Pt deemed stable for discharge on 04/18/17. Pts chronic conditions of hypertension, CAD, and renal transplant immunosuppression treated with patients home meds. For renal transplant pt takes tacrolimus and mycophenolate, valcyte, and sensipar. Discharge Exam - Additional Findings Additional findings: - Constitutional Appears: Non-toxic, No Acute Distress - Head Exam Head Exam: ATRAUMATIC, NORMOCEPHALIC - Eye Exam Eye Exam: EOMI. absent: Scleral icterus Pupil Exam: PERRL - ENT Exam ENT Exam: Mucous Membranes Moist - Neck Exam Neck Exam: absent: Lymphadenopathy - Respiratory Exam Respiratory Exam: Clear to Ausculation Bilateral, NORMAL BREATHING PATTERN. absent: Rales, Rhonchi, Wheezes - Cardiovascular Exam Cardiovascular Exam: REGULAR RHYTHM, +S1, +S2 - Extremities Exam Additional comments: MARYAM bulb drain removed this AM DP/PT pulses palpable on right foot; pt able to feel sensation of touch at exposed toes. No signs of active drainage - Neurological Exam Neurological Exam: Alert, Awake, Oriented x3 - Psychiatric Exam Psychiatric exam: Normal Affect, Normal Mood - Skin Skin Exam: Normal Color, Warm Discharge Plan - Follow Up Plan Condition: GUARDED Disposition: REHAB FACILITY/REHAB UNIT Instructions: Diabetic Foot Care (DC), Meal Planning with Diabetes Exchanges ( DC), Diabetic Foot Ulcers (DC) Additional Instructions: Patient stable for discharge to [facility] when bed available for Dr. Hercules. He will continue his home meds as per medical reconciliation. He will be prescribed the IV antibiotic Merrem for 6 weeks. Patient should follow up with the Podiatry Clinic at [facility]. He has an appointment on Saturday, April 22 and will need transport from [facility] to [facility] for 9 AM appointment He is advised to return to the emergency department if symptoms return or worsen. These instructions were given to the pt, and pts family at bedside, in [place]. Patient expressed verbal understanding of these instructions. PICC line in place and functioning. Prescribed medications: Merrem 500mg IV Daily, x 6 weeks
== END 2017-04-18 19:05 | DRG 987 ==
LOC: C.ER 11:31 → C.9OBSV 13:17 → C.9E 13:17 → C.3T 15:49 → OBSVTOIN 04-15 15:18
PROVIDERS: ADMIT Hospitalist; ATTEND Hospitalist
PROC: 0Y9M00Z Drainage of Right Foot with Drainage Device, Open Approach (ICD-10-PCS; 2017-04-15)
PROC: 0QTN0ZZ Resection of Right Metatarsal, Open Approach (ICD-10-PCS; principal; 2017-04-15 20:30)
DX: E11.69 Type 2 diabetes mellitus with other specified complication (principal); A48.0 Gas gangrene; M86.171 Other acute osteomyelitis, right ankle and foot; E11.628 Type 2 diabetes mellitus with other skin complications; E11.22 Type 2 diabetes mellitus with diabetic chronic kidney disease; I12.0 Hypertensive chronic kidney disease with stage 5 chronic kidney disease or end stage renal disease; L03.115 Cellulitis of right lower limb; N18.6 End stage renal disease; Z94.0 Kidney transplant status; Z99.2 Dependence on renal dialysis; Z79.4 Long term (current) use of insulin; E10.621 Type 1 diabetes mellitus with foot ulcer; L97.509 Non-pressure chronic ulcer of other part of unspecified foot with unspecified severity; E78.5 Hyperlipidemia, unspecified; I25.10 Atherosclerotic heart disease of native coronary artery without angina pectoris; B96.4 Proteus (mirabilis) (morganii) as the cause of diseases classified elsewhere; Z95.1 Presence of aortocoronary bypass graft; E21.2 Other hyperparathyroidism; D64.9 Anemia, unspecified

== ENCOUNTER 2017-06-20 06:29 | Day surgery (SDC) | payer MEDICARE, OTHER ==
[2017-06-19 13:39] VITALS: BMI 27.1
[2017-06-20] MEDS ORDERED: Midazolam 2 MG/2 ML VIAL ONE (07:36)
[2017-06-20] MEDS ORDERED: Propofol 10 mg/ml Inj (20 ML) ONE (07:36)
--- NOTE | 2017-06-20 07:36 | CP.PCM.PN ---
Subjective - Date & Time of Evaluation Date of Evaluation: 06/20/17 Time of Evaluation: 07:33 - Subjective Subjective: 67 y/o diabetic male seen in [facility] prior to right foot I&D at 7:45AM with Dr. Taylor. Pt confirms NPO status after midnight last night. Pt is feeling generally well today. Pt denies any F/C/N/V/SOB. Objective - Vital Signs/Intake and Output Vital Signs (last 24 hours): Temp Pulse Resp BP Pulse Ox 97.6 F 70 18 113/67 99 06/20/17 06:44 06/20/17 06:44 06/20/17 06:44 06/20/17 06:44 06/20/17 06:44 - Constitutional Appears: Well, Non-toxic, No Acute Distress - Extremities Exam Additional comments: Dressing to R foot is clean, dry and intact - Neurological Exam Neurological Exam: Alert, Awake, Oriented x3 - Psychiatric Exam Psychiatric exam: Normal Affect, Normal Mood Assessment and Plan - Assessment and Plan (Free Text) Assessment: 67 y/o male in [facility] for incision and drainage of right midfoot plantar abscess secondary to DM Plan: Pt seen and evaluated in [facility] Pt NPO status confirmed All questions and concerns of patient addressed and answered Dressing to R foot clean dry and intact upon arrival to hospital Pt to be D/C later today following recovery from anesthesia Pt to F/U in [facility] podiatry clinic with Dr. Taylor within 1 week
[2017-06-20] MEDS ORDERED: Lidocaine 2% Inj (20ml) ONE (07:42)
[2017-06-20] MEDS ORDERED: Bupivacaine 0.5% Inj(30mL) ONE (07:42)
[2017-06-20] MEDS ORDERED: ceFAZolin IV 1 gm in Dextrose 1 GM/50 ML BAG IVPB ONE (07:43)
[2017-06-20] MEDS ORDERED: Lactated Ringer's 1,000 ML IV ONE (07:57)
[2017-06-20] MEDS ORDERED: Lidocaine Hydrochloride 5 ML INJ ONE (08:14)
[2017-06-20] MEDS ORDERED: Bacitracin 50,000 UNIT in Sodium Chloride 0.9% Irrig 1,000 ML IR SCH (08:15)
[2017-06-20] MEDS ORDERED: HYDROmorphone 0.5 mg/0.5 ml ISec IVP PRN (08:58)
--- NOTE | 2017-06-20 09:56 | PCM.SURG1 ---
Surgeon's Initial Post Op Note - Surgeon's Notes Surgeon: Dr. Brandi Taylor Melting Operator: Ela Wallace PGY-1, Tommy Espino PGY-3 Type of Anesthesia: IV Sedation, Local Anesthesia Administered By: Dr. Castellanos Pre-Operative Diagnosis: right foot abscess Operative Findings: see operative report. I: 15 cc 1:1 mixture 2% Lidocaine and 0.5% Marcaine plain. M: 2-0 prolene Post-Operative Diagnosis: same Operation Performed: I&D of R foot abscess Specimen/Specimens Removed: none Estimated Blood Loss: EBL {In ML}: 15 Blood Products Given: N/A Drains Used: No Drains Post-Op Condition: Good Date of Surgery/Procedure: 06/20/17 Time of Surgery/Procedure: 08:00
[2017-06-20] MEDS ORDERED: Oxycodone/Acetaminophen 5/325 mg Tab PO PRN ×2 (11:00)
[2017-06-20 12:36] VITALS: O2SAT 100
[2017-06-20 12:40] VITALS: BP 129/59; PULSE 61; RESP 18; TEMP 97.7
--- NOTE | 2017-06-22 06:05 | OP ---
PROCEDURE DATE: 06/20/2017 PREOPERATIVE DIAGNOSIS: Right foot abscess. POSTOPERATIVE DIAGNOSIS: Right foot abscess. NAME OF PROCEDURE: I and D of abscess of right foot. SURGEON: Brandi Taylor DPM FRONT DESK LEAD: Ela Wallace DPM TYPE OF ANESTHESIA: IV sedation with local. ANESTHESIOLOGIST: Kieran Castellanos MD INDICATIONS: The patient is a 67-year-old male with the above diagnosis. The patient has exhausted all conservative treatment at this time and now requires surgical intervention. The patient signed the consent after careful explanation of risks, benefits, complications and alternatives for surgical procedure. No guarantees were given nor implied. DESCRIPTION OF PROCEDURE: The patient was brought into the operating room and placed on the operating room table in a supine position. Time out was performed for identification of the correct patient and procedure. After induction of IV sedation, the patient received a total of 15 mL of 1:1 mixture of 2% lidocaine plain and 0.5% Marcaine plain in Sams block fashion to the right forefoot. Once local anesthesia was achieved, the right foot was then prepped and draped in normal sterile manner. No tourniquet was used during the procedure. Incision and drainage of abscess of right foot: Attention was directed to the medial aspect of the right forefoot at the site of the abscess. Next, using a #15 blade, a Y-shaped incision was made with the long arm of the Y measuring approximately 2.5 cm in the shorter arm and approximately 1 cm each in length. The incision was deepened to subcutaneous tissue using a #15 blade and hemostat. All vital neurovascular structures were ligated and cauterized as necessary. A wound culture was obtained and sent for pathology. Pressure was applied, but no drainage was exuded from the tissue. Subcutaneous tissue appeared healthy and granular. A pulse lavage was utilized to copiously irrigate the abscess site using Bacitracin and saline solution. A second wound culture was taken to obtain a proximal margin. The wound was then dressed and Betadine soaked Adaptic, 4 x 4 gauze, Kerlix and an german bandage after skin edges were approximated with 2-0 Prolene suture. POSTOPERATIVE CONDITION: The patient tolerated the anesthesia and procedure well and was escorted to the recovery room with vital signs stable and neurovascular status intact to the right foot. The patient will follow up with Dr. Taylor in [facility] within one week. Ela Wallace DPM Brandi Taylor DPM
== END 2017-06-20 11:18 | disposition home or self-care (01) ==
LOC: C.SDS 06:29
PROVIDERS: ATTEND Podiatrist Foot & Ankle Surgery
DX: E11.628 Type 2 diabetes mellitus with other skin complications (principal); L02.611 Cutaneous abscess of right foot; B95.61 Methicillin susceptible Staphylococcus aureus infection as the cause of diseases classified elsewhere
CPT/HCPCS: 10061; 82948; 87070; 87181; 97116; 97161; G8978; G8979; G8980; J0690; J2250; J2704; J3010; J7120

== ENCOUNTER 2017-07-08 14:27 | Emergency (ER) | payer MEDICARE, OTHER ==
[2017-07-08] MEDS ORDERED: Dextrose 50% SYRINGE Inj (50 ml) ONE (14:35)
[2017-07-08] MEDS ORDERED: Dextrose 50% SYRINGE Inj (50 ml) IVP STA (14:42)
--- NOTE | 2017-07-08 14:42 | C.PDOC ---
History Of Present Illness 67 Y/O MALE BROUGHT TO ER STATUS POST RAPID RESPONSE IN THE CLINIC. PT FOUND TO BE DIAPHORETIC, ALTERED MENTAL. HISTORY OF DIABETES. PT GIVEN ORANGE JUICE AND SUGAR TABLETS, WITH MINIMAL IMPROVEMENT, AND POST FINGERSTICK 40. Time Seen by Provider: 07/08/17 14:39 Chief Complaint (Nursing): Dizziness/Lightheaded History Per: Patient History/Exam Limitations: clinical condition Onset/Duration Of Symptoms: Hrs Current Symptoms Are (Timing): Still Present Current Diabetic Medications: Insulin Treatment Prior To Provider Evaluation: Other (SUGAR TABS, ORANGE JUICE) Recent travel outside of the [place]: No Past Medical History Reviewed: Historical Data, Nursing Documentation, Vital Signs Vital Signs: Last Vital Signs Temp 97.9 F 07/08/17 14:38 Pulse 67 07/08/17 15:53 Resp 20 07/08/17 15:53 BP 153/79 H 07/08/17 15:53 Pulse Ox 97 07/08/17 15:53 - Medical History PMH: Anemia, Diabetes, HTN, End Stage Renal Disease, Chronic Kidney Disease ( kidney transplant 2014) Surgical History: CABG (2010), Coronary Stent (x4 (2012)), Endoscopy Denies: Appendectomy - [facility] CORONAR ARTERIOGR-2 CATH (08/17/13) DRAINAGE OF RIGHT FOOT WITH DRAINAGE DEVICE, OPEN APPROACH (04/15/17) DX ULTRASOUND-VASCULAR (03/04/13) HEMODIALYSIS (08/17/13) LEFT HEART CARDIAC CATH (08/17/13) LT HEART ANGIOCARDIOGRAM (08/17/13) RESECTION OF RIGHT METATARSAL, OPEN APPROACH (04/15/17) TETANUS TOXOID ADMINIST (05/10/15) UP LIMB SFT TIS XRAY NEC (03/04/13) VENOUS CATHETERIZATION FOR RENAL DIALYSIS (03/04/13) Family History: States: Unknown Family Hx - Social History Hx Tobacco Use: No Hx Alcohol Use: No Hx Substance Use: No - Immunization History Hx Tetanus Toxoid Vaccination: Yes Hx Influenza Vaccination: Yes Hx Pneumococcal Vaccination: Yes (2013) Review Of Systems Review Of Systems: ROS cannot be obtained secondary to pt's inabilty to answer questions. Physical Exam - Physical Exam Appears: Non-toxic, Other ( AAO X 3, SLURRED SPEECH) Skin: Warm, Diaphoretic Head: Atraumatic, Normacephalic Chest: Symmetrical Cardiovascular: Rhythm Regular Respiratory: Normal Breath Sounds, No Rales, No Rhonchi, No Wheezing Gastrointestinal/Abdominal: Soft, No Tenderness Extremity: Normal ROM, Other (WRAPPING TO RIGHT FOOT) Neurological/Psych: Oriented x3 ED Course And Treatment O2 Sat by Pulse Oximetry: 98 (BPM) Progress - Re-Evaluation Re-evaluation Note: 07/08/17 14:35 STATUS POST D50, MUCH IMPROVED VS. INITIAL, CLEAR SPEECH AND THOUGHT, IMPROVED INTERACTION. PT STATES HE GAVE HIMSELF INSULIN AROUND 1100, STATES FIRST SYRINGE APPEARED DEFECTIVE AND GAVE HIMSELF A SECOND DOSE. ALSO NOTES HE ATE A FULL LUNCH. NO FEVER, CP. (+) CHRONIC ULCER RIGHT FOOT. 07/08/17 16:26 EXAM [facility] PRIOR APPEARS COMFORTABLE NAD. DC - Data Reviewed Data Reviewed: Lab, Diagnostic imaging, EKG, Old records - Critical Care Citical Care: Excluding Proc Time Critical Care Time: 90 minutes Disposition Counseled Patient/Family Regarding: Diagnosis, Need For Followup - Disposition Referrals: [facility] [Outside] at [facility] [Outside] Disposition: HOME/ ROUTINE Disposition Time: 16:26 Condition: IMPROVED Instructions: Diabetic Hypoglycemia (ED) Forms: [facility] (Divehi) - Clinical Impression Clinical Impression: Hypoglycemia - Scribe Statement The provider has reviewed the documentation as recorded by the Scribadan Cason All medical record entries made by the Scribe were at my direction and personally dictated by me. I have reviewed the chart and agree that the record accurately reflects my personal performance of the history, physical exam, medical decision making, and the department course for this patient. I have also personally directed, reviewed, and agree with the discharge instructions and disposition.
[2017-07-08 14:44] VITALS: TEMP 97.9
[2017-07-08 14:45] VITALS: BMI 27.4
[2017-07-08 15:58] VITALS: BP 153/79; PULSE 67; RESP 20
[2017-07-08 16:27] VITALS: O2SAT 98
== END 2017-07-08 16:47 | disposition home or self-care (01) ==
LOC: C.ER 14:27
DX: E11.649 Type 2 diabetes mellitus with hypoglycemia without coma (principal); Z79.4 Long term (current) use of insulin

== ENCOUNTER 2017-08-31 13:31 | Emergency (ER) | payer MEDICARE, OTHER ==
[2017-08-31 13:32] VITALS: BMI 27.4
[2017-08-31 13:50] VITALS: BP 137/54; PULSE 65; RESP 18; TEMP 97.2; O2SAT 100
--- NOTE | 2017-08-31 13:51 | C.PDOC ---
History Of Present Illness 67 year old male with a Hx of DM, kidney transplant is brought to the ED after passing out due to his sugar being low. Patient states that while at the store he started feeling dizzy, tried to eat some candy and chocolate went back home and passed out. He states he does not remember anything after getting home until he realized he was in the hospital. Patient states his brother yesterday and because of that he has not been eating anything since then. Upon arrival to the ED patient states he is feeling better is AOx3 and has wrapped healing wound on his right foot. Patient denies sweats, headache, head injury, nausea, vomit, abdominal pain. Time Seen by Provider: 08/31/17 13:37 Chief Complaint (Nursing): Dizziness/Lightheaded History Per: Patient, EMS History/Exam Limitations: no limitations Onset/Duration Of Symptoms: Hrs Current Symptoms Are (Timing): Gone Number Of Syncopal Episodes: 1 Activity At Onset Of Symptoms: Standing Associated Symptoms Preceding Syncopal Episode: Lightheadedness Seizure Or Post-ictal Symptoms: None Possible Causative Factor(s): Decreased PO Intake Fall Associated With With Symptoms: No Recent travel outside of the [place]: No Additional History Per: Patient, EMS Past Medical History Reviewed: Historical Data, Nursing Documentation, Vital Signs Vital Signs: Last Vital Signs Temp 97.2 F L 08/31/17 13:40 Pulse 65 08/31/17 13:40 Resp 18 08/31/17 13:40 BP 137/54 L 08/31/17 13:40 Pulse Ox 100 08/31/17 14:03 - Medical History PMH: Anemia, Diabetes, HTN, End Stage Renal Disease, Chronic Kidney Disease ( kidney transplant 2014) Denies: Atrial Fibrillation Surgical History: CABG (2010), Coronary Stent (x4 (2013)), Endoscopy Denies: Appendectomy - [facility] Procedures CORONAR ARTERIOGR-2 CATH (08/17/13) DRAINAGE OF RIGHT FOOT WITH DRAINAGE DEVICE, OPEN APPROACH (04/15/17) DX ULTRASOUND-VASCULAR (03/04/13) HEMODIALYSIS (08/17/13) LEFT HEART CARDIAC CATH (08/17/13) LT HEART ANGIOCARDIOGRAM (08/17/13) RESECTION OF RIGHT METATARSAL, OPEN APPROACH (04/15/17) TETANUS TOXOID ADMINIST (05/10/15) UP LIMB SFT TIS XRAY NEC (03/04/13) VENOUS CATHETERIZATION FOR RENAL DIALYSIS (03/04/13) Family History: States: Unknown Family Hx - Social History Hx Tobacco Use: No Hx Alcohol Use: No Hx Substance Use: No - Immunization History Hx Tetanus Toxoid Vaccination: Yes Hx Influenza Vaccination: Yes Hx Pneumococcal Vaccination: Yes (2013) Review Of Systems Constitutional: Negative for: Fever, Chills, Sweats Eyes: Negative for: Vision Change Cardiovascular: Negative for: Chest Pain, Palpitations Respiratory: Negative for: Cough, Shortness of Breath Gastrointestinal: Negative for: Nausea, Vomiting, Abdominal Pain Musculoskeletal: Negative for: Neck Pain Skin: Negative for: Rash Neurological: Negative for: Weakness, Numbness, Headache Physical Exam - Physical Exam Appears: Non-toxic, No Acute Distress Skin: Normal Color, Warm, Dry Head: Atraumatic, Normacephalic Eye(s): bilateral: Normal Inspection, PERRL, EOMI Ear(s): Bilateral: Normal Nose: No Discharge, No Deformity Oral Mucosa: Moist, No Drooling Throat: Normal, No Erythema, No Exudate Neck: Normal ROM, Supple Chest: Symmetrical Cardiovascular: Rhythm Regular, No Murmur Respiratory: Normal Breath Sounds, No Rales, No Rhonchi, No Wheezing Gastrointestinal/Abdominal: Soft, No Tenderness, No Mass, No Distention, No Guarding, No Rebound Back: No CVA Tenderness Extremity: Normal ROM, No Calf Tenderness, No Deformity, No Swelling, Other ( wrapped healing wound to rigth foot) Neurological/Psych: Oriented x3, Normal Speech, Normal Cognition, Normal Motor, Normal Sensation ED Course And Treatment - Laboratory Results Result Diagrams: 08/31/17 14:01 08/31/17 14:01 O2 Sat by Pulse Oximetry: 100 (On RA) Pulse Ox Interpretation: Normal Progress Note: Plan: -EKG ordered. -Blood work ordered Disposition Doctor Will See Patient In The: Office Counseled Patient/Family Regarding: Diagnosis, Need For Followup - Disposition Disposition: HOME/ ROUTINE Disposition Time: 14:40 Condition: STABLE Forms: [facility] (Slovenian) - Clinical Impression Clinical Impression: Hypoglycemia, Hypoglycemia due to insulin - Scribe Statement The provider has reviewed the documentation as recorded by the Scribe Montana Duque All medical record entries made by the Scribadan were at my direction and personally dictated by me. I have reviewed the chart and agree that the record accurately reflects my personal performance of the history, physical exam, medical decision making, and the department course for this patient. I have also personally directed, reviewed, and agree with the discharge instructions and disposition.
[2017-08-31 14:10] LABS: BASO # 0.1 K/uL (0.0-0.2); BASO % 0.7 % (0.0-2.0); EOS # 0.2 K/uL (0.0-0.7); EOS % 2.5 % (0.0-4.0); HEMATOCRIT 40.3 % (35.0-51.0); LYMPH # 1.1 K/uL (1.0-4.3); LYMPH % 13.6 % (20.0-40.0); MEAN CORPUSCULAR HEMOGLOBIN 29.5 pg (27.0-31.0); MEAN CORPUSCULAR HGB CONC 34.3 g/dL (33.0-37.0); MEAN PLATELET VOLUME 7.5 fL (7.2-11.7); MONO # 0.5 K/uL (0.0-0.8); MONO % 6.3 % (0.0-10.0); NRBC % 0.1 % (0.0-2.0); RED CELL DISTRIBUTION WIDTH 14.4 % (11.5-14.5); WHITE BLOOD COUNT 8.2 K/uL (4.8-10.8)
[2017-08-31 14:22] LABS: ALKALINE PHOSPHATASE 102 U/L (38-126); ALT/SGPT 49 U/L (21-72); AST/SGOT 28 U/L (17-59); BILIRUBIN,TOTAL 0.7 mg/dL (0.2-1.3); BLOOD UREA NITROGEN 16 mg/dL (9-20); CALCIUM 9.1 mg/dl (8.6-10.4); CARBON DIOXIDE 30 mmol/L (22-30); CHLORIDE 105 mmol/L (98-107); GFR AFRICAN-AMERICAN > 60; GLUCOSE,RANDOM 127 mg/dL (75-110); POTASSIUM 4.6 mmol/L (3.6-5.2); SODIUM 141 mmol/L (132-148); TOTAL PROTEIN 8.4 g/dL (6.3-8.3)
== END 2017-08-31 15:02 | disposition home or self-care (01) ==
LOC: C.ER 13:31
DX: E11.649 Type 2 diabetes mellitus with hypoglycemia without coma (principal); T38.3X5A Adverse effect of insulin and oral hypoglycemic [antidiabetic] drugs, initial encounter; I12.0 Hypertensive chronic kidney disease with stage 5 chronic kidney disease or end stage renal disease; N18.6 End stage renal disease; Z94.0 Kidney transplant status

== ENCOUNTER 2017-12-11 21:49 | Emergency (ER) | payer MEDICARE, OTHER ==
[2017-12-11 21:49] VITALS: BMI 27.4
[2017-12-11 23:35] LABS: BASO # 0.1 K/uL (0.0-0.2); BASO % 0.8 % (0.0-2.0); EOS # 0.3 K/uL (0.0-0.7); EOS % 4.6 % (0.0-4.0); HEMOGLOBIN 13.6 g/dL (12.0-18.0); LYMPH # 1.5 K/uL (1.0-4.3); LYMPH % 20.4 % (20.0-40.0); MEAN CELL VOLUME 85.4 fL (80.0-94.0); MEAN CORPUSCULAR HEMOGLOBIN 29.7 pg (27.0-31.0); MEAN CORPUSCULAR HGB CONC 34.7 g/dL (33.0-37.0); MONO # 0.8 K/uL (0.0-0.8); MONO % 10.2 % (0.0-10.0); NEUT # 4.7 K/uL (1.8-7.0); NRBC % 0.1 % (0.0-2.0); RBC 4.58 Mil/uL (4.40-5.90); RED CELL DISTRIBUTION WIDTH 13.9 % (11.5-14.5); WHITE BLOOD COUNT 7.4 K/uL (4.8-10.8)
--- NOTE | 2017-12-11 23:40 | CP.PCM.CON ---
History of Present Illness - History of Present Illness History of Present Illness: 67 year old male with PMHx DM2 with multiple ulcerations to b/l feet with subsequent osteomyelitis seen at bedside complaining of a wound to his right second digit. Patient states that three days ago he noticed a blister on the dorsal aspect of his toe after walking in new shoes. This morning while inspecting his foot he noticed that the blister had popped and that there was a wound present on the foot. Patient states that he noticed moderate amounts of serous drainage from the wound. He denies any periwound erythema, malodor, purulent drainage or other clinical signs of infection. He states that he dressed the wound with betadine and DSD before coming to the ED. He states that his last blood sugar reading was 115 mg/dL this morning. Per patient's chart, previous wound cultures have been positive for MRSA. Patient denies any further pedal complaints at this time. Denies any recent systemic signs of infection including N/V/F/C/CP/SOB/D. Denies posterior calf pain when squeezed. 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) Hx Cataracts: Yes (bilat iol ) - RENAL Hx Chronic Kidney Disease: Yes (kidney transplant 2014) - HEMATOLOGICAL/ONCOLOGICAL Hx Anemia: Yes - INTEGUMENTARY Hx Dermatological Problems: Yes (ulcer right foot) - MUSCULOSKELETAL/RHEUMATOLOGICAL Hx Musculoskeletal Disorders: Yes Hx Back Pain: Yes - GASTROINTESTINAL Hx Gastrointestinal Disorders: Yes Hx Gastroesophageal Reflux: Yes - GENITOURINARY/GYNECOLOGICAL Hx Genitourinary Disorders: No - PSYCHIATRIC Hx Psychophysiologic Disorder: No Hx Substance Use: No - SURGICAL HISTORY Hx Appendectomy: No Hx Coronary Artery Bypass Graft: Yes (2010) Hx Coronary Stent: Yes (x4 (2013)) - ANESTHESIA Hx Anesthesia: Yes Hx Anesthesia Reactions: No Hx Malignant Hyperthermia: No Meds Home Medications: Home Medication List Medication Instructions Recorded Confirmed Type Clindamycin [Cleocin] 300 mg PO TID #21 cap 12/12/17 Rx Allergies/Adverse Reactions: Allergies Allergy/AdvReac Type Severity Reaction Status Date / Time No Known Allergies Allergy Verified 08/31/17 13:42 Physical Exam - Constitutional Appears: Well, Non-toxic, No Acute Distress - Extremities Exam Additional comments: LE focused exam: Vasc- DP pulses palpable 1/4 b/l. Skin temperature warm to warm from proximal to distal. CFT < 3 seconds to all digits b/l. Moderate edema noted to right second digit. Neuro: Epicritic and protective sensation grossly diminished b/l Derm: Open wound with macerated border measuring roughly 1 cm x 1 cm and probing to bone noted to dorsal aspect of patient's right second digit. Moderate serous drainage noted to wound. No purulent drainage, malodor, periwound erythema or other clinical signs of infection noted. Multiple cicatrix noted to b/l feet secondary to digital amputation, bypass procedures and healed wounds noted. Subdermal hematoma noted to plantar right foot at level of second metatarsal head, stable. Otherwise no other open lesions, wounds maceration, xerosis, abnormal pigmentations or abnormal growths noted b/ l. MSK: No POP to ulceration site of right second digit. Fully healed first ray resection noted to right foot. - Neurological Exam Neurological exam: Alert, Oriented x3 - Psychiatric Exam Psychiatric exam: Normal Affect, Normal Mood Results - Vital Signs Recent Vital Signs: Last Vital Signs Temp 97.2 F L 12/11/17 22:04 Pulse 77 12/11/17 22:04 Resp 18 12/11/17 22:04 BP 165/73 H 12/11/17 22:04 Pulse Ox 98 12/11/17 22:04 - Labs Result Diagrams: 12/11/17 23:33 Assessment & Plan - Assessment and Plan (Free Text) Assessment: 67 year old male with PMHx diabetes seen for ulceration of dorsal right second digit x 3 days Plan: Patient seen and evaluated Plan discussed with attending Dr. Taylor Afebrile, absent leukocytosis Xray of right foot displayed no acute evidence of OM to second digit Wound cx taken and sent to lab Patient's foot cleansed with saline and dressed with betadine, DSD Rx Clindamycin 300 mg TID dispensed x 7 days because previous wound cx (+) for MRSA with resistance to Bactrim Patient advised to purchase probiotics and eat lots of yogurt while taking Clindamycin Patient advised to where surgical shoe that had previously been dispensed to him on his right foot at all times while ambulating Patient instructed on how to change his dressings properly and instructed to change dressings daily Patient to follow up in Podiatry clinic with Dr. Taylor at [facility] on - Date & Time Date: 12/11/17 Time: 23:30
--- NOTE | 2017-12-12 00:13 | C.PDOC ---
History Of Present Illness 67 year old male presents to the ED for evaluation of a wound noted to the dorsum of his left 2nd toe for the past 3 days. Patient notes he started wearing new sneakers and has had some rubbing. Patient has history of peripheral neuropathy, DM, and HTN. Surgical history includes left great toe amputation. Patient denies fever, chills, or direct injury/trauma to the affected area. Time Seen by Provider: 12/11/17 22:28 Chief Complaint (Nursing): Lower Extremity Problem/Injury History Per: Patient History/Exam Limitations: no limitations Onset/Duration Of Symptoms: Days (3) Current Symptoms Are (Timing): Still Present Additional History Per: Patient - Ankle/Foot Description Of Injury: denies: Fell, Struck With Object, Struck Against Object, Twisted Past Medical History Reviewed: Historical Data, Nursing Documentation, Vital Signs Vital Signs: Last Vital Signs Temp 97.6 F 12/12/17 01:10 Pulse 76 12/12/17 01:10 Resp 20 12/12/17 01:10 BP 152/68 H 12/12/17 01:10 Pulse Ox 96 12/12/17 01:10 - Medical History PMH: Anemia, Diabetes, HTN, End Stage Renal Disease, Chronic Kidney Disease ( kidney transplant 2014) Denies: Atrial Fibrillation Surgical History: CABG (2010), Coronary Stent (x4 (2012)), Endoscopy Denies: Appendectomy - [facility] Procedures CORONAR ARTERIOGR-2 CATH (08/17/13) DRAINAGE OF RIGHT FOOT WITH DRAINAGE DEVICE, OPEN APPROACH (04/15/17) DX ULTRASOUND-VASCULAR (03/04/13) HEMODIALYSIS (08/17/13) LEFT HEART CARDIAC CATH (08/17/13) LT HEART ANGIOCARDIOGRAM (08/17/13) RESECTION OF RIGHT METATARSAL, OPEN APPROACH (04/15/17) TETANUS TOXOID ADMINIST (05/10/15) UP LIMB SFT TIS XRAY NEC (03/04/13) VENOUS CATHETERIZATION FOR RENAL DIALYSIS (03/04/13) Family History: States: Unknown Family Hx - Social History Hx Tobacco Use: No Hx Alcohol Use: No Hx Substance Use: No - Immunization History Hx Tetanus Toxoid Vaccination: Yes Hx Influenza Vaccination: Yes Hx Pneumococcal Vaccination: Yes (2013) Review Of Systems Constitutional: Negative for: Fever, Chills Skin: Positive for: Other (wound to dorsum of left 2nd toe ) Physical Exam - Physical Exam Appears: Non-toxic, No Acute Distress Skin: Normal Color, Warm, Dry, Other (1x1cm ulcer to dorsal aspect of left 2nd toe ) Extremity: Normal ROM, Capillary Refill (less than 2 seconds ) Neurological/Psych: Oriented x3, Normal Speech, Normal Cognition Gait: Steady ED Course And Treatment - Laboratory Results Result Diagrams: 12/11/17 23:33 O2 Sat by Pulse Oximetry: 98 (on RA) Pulse Ox Interpretation: Normal - Other Rad left foot 2nd digit X-Ray: Interpreted by Me (neg) Progress Note: Left second digit XR ordered. Results are negative. Patient's WBC count is within normal limits. Patient was evaluated by podiatry resident at bedside. Wound culture obtained and found to be positive for MRSA, resistent to Bactrim and sensitive to Clindamycin. Medical Decision Making Medical Decision Making: L 2nd toe dorsum wound/ulcer seen and eval by Podiatry Dada, much appreciated outpatient Clinda Rx by Pod and opt f/u planned for Saturday w Dr. Taylor's office. Disposition Doctor Will See Patient In The: Office Counseled Patient/Family Regarding: Studies Performed, Diagnosis - Disposition Referrals: Guillermo Taylor DPM [Medical Doctor] - Disposition: HOME/ ROUTINE Disposition Time: 00:12 Condition: GOOD Additional Instructions: sigue Clindamycin 300 mg rubio veces al connie por 7 sprague Sigue con Dra Taylor en jenkins oficina el Lunes [place]al Pepcid 20 mg en la noche para la molestia del estomado debido al Clindamycina. Continue Clindamycin 300 mg three times a day for 7 days follow-up with Dr. Taylor in her office on Saturday- Take Pepcid 20 mg at night in case of stomach irritation from the Clindamycin. Prescriptions: Clindamycin [Cleocin] 300 mg PO TID #21 cap Instructions: Diabetic Foot Ulcers (ED) Forms: [facility] (Bulgarian) Print Language: MACEDONIAN - Clinical Impression Clinical Impression: Diabetic foot ulcer - Scribe Statement The provider has reviewed the documentation as recorded by the Scribe (Janki Treviño) Provider Attestation: All medical record entries made by the Scribe were at my direction and personally dictated by me. I have reviewed the chart and agree that the record accurately reflects my personal performance of the history, physical exam, medical decision making, and the department course for this patient. I have also personally directed, reviewed, and agree with the discharge instructions and disposition.
[2017-12-12 01:12] VITALS: BP 152/68; PULSE 76; RESP 20; TEMP 97.6
[2017-12-12 06:41] VITALS: O2SAT 98
--- NOTE | 2017-12-12 08:40 | RAD ---
PROCEDURE: HISTORY: L 2nd toe infected COMPARISON: 04/13/2017 TECHNIQUE: Three views FINDINGS: Second hammertoe -dorsal superficial ulcer noted. No subjacent periosteal reaction or cortical interruption to suggest osteomyelitis. Dorsal and medial subluxation 2nd proximal phalanx relative to 2nd metatarsal Interval amputation -medial cuneiform- 1st metatarsal base level. Atherosclerotic vascular calcifications present. . Ossific debris near interval amputation level IMPRESSION: No osteomyelitis appreciated. Soft tissue ulcer and cellulitis changes.
== END 2017-12-12 01:12 | disposition home or self-care (01) ==
LOC: C.ER 21:49
DX: E11.621 Type 2 diabetes mellitus with foot ulcer (principal); I12.0 Hypertensive chronic kidney disease with stage 5 chronic kidney disease or end stage renal disease; N18.6 End stage renal disease; Z94.0 Kidney transplant status

== ENCOUNTER 2017-12-24 16:42 | Inpatient (IN) | payer MEDICARE, OTHER ==
[2017-12-24 16:43] VITALS: BMI 27.4
[2017-12-24] MEDS ORDERED: Piperacillin/Tazobact 3.375 GM in Sodium Chloride 100 ML IVPB STA (19:22)
--- NOTE | 2017-12-24 19:25 | C.PDOC ---
History Of Present Illness 67 yo male, hx of dm, presnts with toe pain. as pe rpt, sent by unbundler for eval. pt had ulcer, not improving outpt. no fevers, no other complaints. pt has h/o of toe amputation. Time Seen by Provider: 12/24/17 19:15 Chief Complaint (Nursing): Lower Extremity Problem/Injury Past Medical History Reviewed: Historical Data, Nursing Documentation, Vital Signs Vital Signs: Last Vital Signs Temp 97.4 F L 12/24/17 16:46 Pulse 78 12/24/17 16:46 Resp 20 12/24/17 16:46 BP 164/73 H 12/24/17 16:46 Pulse Ox 99 12/24/17 19:25 - Medical History PMH: Anemia, Diabetes, HTN, Hypercholesterolemia, End Stage Renal Disease, Chronic Kidney Disease (kidney transplant 2014) Denies: Atrial Fibrillation Surgical History: CABG (2010), Coronary Stent (x4 (2012)), Endoscopy Denies: Appendectomy - [facility] Procedures CORONAR ARTERIOGR-2 CATH (08/17/13) DRAINAGE OF RIGHT FOOT WITH DRAINAGE DEVICE, OPEN APPROACH (04/15/17) DX ULTRASOUND-VASCULAR (03/04/13) HEMODIALYSIS (08/17/13) LEFT HEART CARDIAC CATH (08/17/13) LT HEART ANGIOCARDIOGRAM (08/17/13) RESECTION OF RIGHT METATARSAL, OPEN APPROACH (04/15/17) TETANUS TOXOID ADMINIST (05/10/15) UP LIMB SFT TIS XRAY NEC (03/04/13) VENOUS CATHETERIZATION FOR RENAL DIALYSIS (03/04/13) Family History: States: Unknown Family Hx - Social History Hx Tobacco Use: No Hx Alcohol Use: No Hx Substance Use: No - Immunization History Hx Tetanus Toxoid Vaccination: Yes Hx Influenza Vaccination: Yes (2017) Hx Pneumococcal Vaccination: Yes (2013) Review Of Systems Musculoskeletal: Positive for: Foot Pain Physical Exam - Physical Exam Appears: Well, No Acute Distress Skin: Normal Color, Warm, Dry Eye(s): bilateral: Normal Inspection, PERRL, EOMI Nose: Normal Throat: Normal Neck: Normal Cardiovascular: Rhythm Regular Respiratory: Normal Breath Sounds Gastrointestinal/Abdominal: Normal Exam Back: Normal Inspection Extremity: Normal ROM, Other (2nd toe purlent dc ulcer, right) ED Course And Treatment - Laboratory Results Result Diagrams: 12/24/17 19:45 12/24/17 19:45 O2 Sat by Pulse Oximetry: 99 Medical Decision Making Medical Decision Making: ro osteo- labs imaging pending labs unremarkable. not imnproving outpt. discussed with dr bauer. accepts Disposition - Disposition Disposition: HOSPITALIZED Disposition Time: 20:53 Condition: STABLE - Clinical Impression Clinical Impression: Diabetic foot ulcer Decision To Admit - Pt Status Changed To: Hospital Disposition Of: Inpatient - Admit Certification Admit to Inpatient:: After my assessment, the patient will require hospitalization for at least two midnights. This is because of the severity of symptoms shown, intensity of services needed, and/or the medical risk in this patient being treated as an outpatient. - InPatient: Physician Admission Certification: I certify that this patient requires 2 or more midnights of care for the following reason:: failure of outpt - . Bed Request Type: Regular Admitting Physician: Cori Bauer Patient Diagnosis: Diabetic foot ulcer
[2017-12-24] MEDS ORDERED: Vancomycin 1 gm/NS 200 ml 1 GM/200 ML BAG IVPB STA (19:40)
[2017-12-24 19:48] LABS: BASO # 0.1 K/uL (0.0-0.2); BASO % 0.7 % (0.0-2.0); EOS # 0.3 K/uL (0.0-0.7); EOS % 3.5 % (0.0-4.0); HEMOGLOBIN 12.8 g/dL (12.0-18.0); LYMPH # 1.7 K/uL (1.0-4.3); LYMPH % 21.5 % (20.0-40.0); MEAN CELL VOLUME 85.2 fL (80.0-94.0); MEAN CORPUSCULAR HEMOGLOBIN 29.7 pg (27.0-31.0); MEAN CORPUSCULAR HGB CONC 34.9 g/dL (33.0-37.0); MEAN PLATELET VOLUME 8.1 fL (7.2-11.7); MONO # 0.8 K/uL (0.0-0.8); MONO % 10.5 % (0.0-10.0); NEUT # 4.9 K/uL (1.8-7.0); NEUT % 63.8 % (50.0-75.0); NRBC % 0.1 % (0.0-2.0); RBC 4.32 Mil/uL (4.40-5.90); RED CELL DISTRIBUTION WIDTH 13.4 % (11.5-14.5); WHITE BLOOD COUNT 7.7 K/uL (4.8-10.8)
[2017-12-24 19:56] LABS: INR 1.2; PROTHROMBIN TIME 13.1 SECONDS (9.7-12.2)
[2017-12-24 20:01] LABS: ALB/GLOB RATIO 1.2 (1.0-2.1); ALT/SGPT 36 U/L (21-72); AST/SGOT 20 U/L (17-59); BLOOD UREA NITROGEN 27 mg/dL (9-20); CALCIUM 9.2 mg/dl (8.6-10.4); GFR AFRICAN-AMERICAN > 60; GFR NON-AFRICAN AMERICAN > 60
[2017-12-24] MEDS: (Lantus) Insulin Glargine, Recombinant SC SCH (22:34)
[2017-12-25] MEDS: Piperacillin/Tazobact 3.375 GM in Sodium Chloride 0.9% 100 ML IVPB SCH ×3 (03:52→16:00)
--- NOTE | 2017-12-25 08:08 | RAD ---
PROCEDURE: Right Foot Radiographs. HISTORY: toe swelling COMPARISON: Right foot radiographs dated 12/11/2017. FINDINGS: BONES: First digit transmetatarsal amputation redemonstrated. Erosive change with questionable periosteal reaction at the head of the 2nd proximal phalanx. JOINTS: Stable appearance of median 2nd digit subluxation at the level of the metatarsophalangeal joint. Hammertoe deformities. SOFT TISSUES: Dorsal ulcer overlying 2nd digit proximal interphalangeal joint. OTHER FINDINGS: Inferior plantar calcaneal spur. Trace Achilles enthesophyte. IMPRESSION: Soft tissue ulcer overlying the 2nd proximal interphalangeal joint with subjacent erosive change in the head of the 2nd proximal phalanx and questionable periosteal reaction suspicious for osteomyelitis. Contrast-enhanced MRI of the forefoot or nuclear medicine three-phase bone scan can be obtained for further evaluation as clinically warranted. Patient admitted.
--- NOTE | 2017-12-25 08:53 | CP.PCM.CON ---
History of Present Illness - History of Present Illness History of Present Illness: INFECTIOUS DISEASE CONSULT; HPI; 67-year-old male with history of diabetes mellitus-2, HTN, hypercholesterolemia , chronic kidney disease S/P right kidney transplant 2014 on immunosuppressive medications including Prograf 1 mg by mouth twice a day was admitted on 12/24/17 after podiatry saw him and referred him to the ER for nonhealing ulcer on the second toe right foot. Patient's reports that he wants new shoes and walked too much which may have exacerbated or precipitated a small ulcer to form in his second digit right foot. Patient has history of amputation of the first big toe in 2016. Patient has been taking by mouth antibiotics at home with no improvement. X-rays of the right foot showed first digit TM-amputation with erosive changes and periosteal reaction head of the second proximal phalanx suspicious for osteomyelitis. Patient was empirically started on IV antibiotics as noted.presently on IV Zosyn /and received 1 dose of vancomycin 1 g on 12/24/16. Infectious disease consultation requested by PMD for possible osteomyelitis right foot second digit. PMH: Anemia, Diabetes, HTN, Hypercholesterolemia, End Stage Renal Disease, Chronic Kidney Disease (kidney transplant 2014) Denies: Atrial Fibrillation Surgical History: CABG (2010), Coronary Stent (x4 (2012)), Endoscopy Denies: Appendectomy - [facility] Procedures CORONAR ARTERIOGR-2 CATH (08/17/13) DRAINAGE OF RIGHT FOOT WITH DRAINAGE DEVICE, OPEN APPROACH (04/15/17) DX ULTRASOUND-VASCULAR (03/04/13) HEMODIALYSIS (08/17/13) LEFT HEART CARDIAC CATH (08/17/13) LT HEART ANGIOCARDIOGRAM (08/17/13) RESECTION OF RIGHT METATARSAL, OPEN APPROACH (04/15/17) TETANUS TOXOID ADMINIST (05/10/15) UP LIMB SFT TIS XRAY NEC (03/04/13) VENOUS CATHETERIZATION FOR RENAL DIALYSIS (03/04/13) Family History: States: Unknown Family Hx - Social History Hx Tobacco Use: No Hx Alcohol Use: No Hx Substance Use: No - Immunization History Hx Tetanus Toxoid Vaccination: Yes Hx Influenza Vaccination: Yes (2016) Hx Pneumococcal Vaccination: Yes (2013) ALLERGY; NKA MEDS; SEE MARS. ON IV ZOSYN 3.375 EVERY 6 HOURLY.12/24/17 PATIENT GOT 1 DOSE OF VANCOMYCIN 1 G 12/24/17. Review of Systems - Constitutional Constitutional: absent: Chills, Fever - EENT Eyes: Loss of Vision (left eye blind.) Nose/Mouth/Throat: absent: Mouth Lesions, Odynophagia - Cardiovascular Cardiovascular: Pedal Edema. absent: Chest Pain, Dyspnea - Respiratory Respiratory: absent: Cough - Gastrointestinal Gastrointestinal: absent: Abdominal Pain, Diarrhea, Nausea, Vomiting - Genitourinary Genitourinary: absent: Dysuria, Urinary Frequency, Freq UTI - Integumentary Integumentary: Skin Ulcer (right foot second digit.) - Neurological Neurological: absent: Headaches, Paresthesias - Hematologic/Lymphatic Hematologic: As Per HPI. absent: Easy Bleeding, Easy Bruising Past Patient History - Infectious Disease Hx of Infectious Diseases: None - Past Medical History & Family History Past Medical History?: Yes - Past Social History Smoking Status: Never Smoked - CARDIAC Hx Atrial Fibrillation: No Hx Hypercholesterolemia: Yes Hx Hypertension: Yes - PULMONARY Hx Respiratory Disorders: No - NEUROLOGICAL Hx Neurological Disorder: No - HEENT Hx HEENT Problems: Yes (retina problem bleeding ) Hx Blind: Yes (left eye) Hx Cataracts: Yes (bilat iol ) - RENAL Hx Chronic Kidney Disease: Yes (kidney transplant 2014) Hx Dialysis: Yes (2012) Type of Dialysis Access: lt.av shunt - ENDOCRINE/METABOLIC Hx Endocrine Disorders: Yes Hx Diabetes Mellitus Type 2: Yes - HEMATOLOGICAL/ONCOLOGICAL Hx Anemia: Yes Hx Blood Transfusions: Yes Hx Blood Transfusion Reaction: No - INTEGUMENTARY Hx Dermatological Problems: Yes (ulcer right foot) - MUSCULOSKELETAL/RHEUMATOLOGICAL Hx Falls: No - GASTROINTESTINAL Hx Gastrointestinal Disorders: Yes Hx Gastroesophageal Reflux: Yes - GENITOURINARY/GYNECOLOGICAL Hx Genitourinary Disorders: No - PSYCHIATRIC Hx Substance Use: No - SURGICAL HISTORY Hx Appendectomy: Yes Hx Coronary Artery Bypass Graft: Yes (2009) Hx Coronary Stent: Yes (x4 (2013)) Hx Kidney Transplant: Yes (2015) - ANESTHESIA Hx Anesthesia: Yes Hx Anesthesia Reactions: No Hx Malignant Hyperthermia: No Meds Allergies/Adverse Reactions: Allergies Allergy/AdvReac Type Severity Reaction Status Date / Time No Known Allergies Allergy Verified 12/24/17 16:51 - Medications Medications: Current Medications Acetaminophen (Tylenol 325mg Tab) 325 mg PO Q6H PRN PRN Reason: Pain, Mild (1-3) Amlodipine Besylate (Norvasc) 5 mg PO DAILY [facility] Aspirin (Ecotrin) 81 mg PO DAILY [facility] Carvedilol (Coreg) 12.5 mg PO BID [facility] Cinacalcet (Sensipar) 30 mg PO HS [facility] Last Admin: 12/24/17 22:33 Dose: 30 mg Gabapentin (Neurontin) 300 mg PO DAILY [facility] Heparin Sodium (Porcine) (Heparin) 5,000 units SC Q8 [facility] Last Admin: 12/25/17 05:06 Dose: 5,000 units Home Med (Insulin Lispro Protamin/Lispro [Humalog Mix 75-25 Kwikpen]) 10 units SC TID [facility] Piperacillin Sod/Tazobactam (Sod 3.375 gm/ Sodium Chloride) 100 mls @ 200 mls/ hr IVPB Q6H [facility] PRN Reason: Protocol Last Admin: 12/25/17 03:52 Dose: 200 mls/hr Insulin Glargine (Lantus) 20 unit SC [facility] Last Admin: 12/24/17 22:34 Dose: 20 u Losartan Potassium (Cozaar) 50 mg PO DAILY [facility] Magnesium Oxide (Mag-Ox) 400 mg PO BID [facility] Pantoprazole Sodium (Protonix Ec Tab) 40 mg PO DAILY [facility] Rosuvastatin Calcium (Crestor) 20 mg PO [facility] Last Admin: 12/24/17 22:38 Dose: 20 mg Tacrolimus (Prograf Cap) 1 mg PO Q12 [facility] Last Admin: 12/24/17 22:33 Dose: 1 mg Physical Exam - Constitutional Appears: No Acute Distress - Eye Exam Eye Exam: EOMI, PERRL - ENT Exam ENT Exam: Normal Oropharynx - Neck Exam Neck exam: Positive for: Normal Inspection - Respiratory Exam Respiratory Exam: Clear to Auscultation Bilateral - Cardiovascular Exam Cardiovascular Exam: REGULAR RHYTHM, +S1, +S2 - GI/Abdominal Exam GI & Abdominal Exam: Normal Bowel Sounds, Soft. absent: Organomegaly (scar of surgery right side.) - Extremities Exam Extremities exam: Positive for: pedal edema, pedal pulses present. Negative for : calf tenderness Additional comments: right foot with an ulceration on the second digit with seropurulent drainage. First digit Trans- metatarsal amputation. Mild edema and soft tissue edema foot noted. Pedal pulses weak. - Neurological Exam Neurological exam: Alert, CN II-XII Intact, Oriented x3, Reflexes Normal - Psychiatric Exam Psychiatric exam: Normal Mood - Skin Skin Exam: Normal Color, Warm Results - Vital Signs Recent Vital Signs: Last Vital Signs Temp 98.0 F 12/25/17 07:53 Pulse 79 12/25/17 07:53 Resp 20 12/25/17 07:53 BP 127/80 12/25/17 07:53 Pulse Ox 98 12/25/17 07:53 - Labs Result Diagrams: 12/24/17 19:45 12/24/17 19:45 Labs: Laboratory Results - last 24 hr 12/24/17 12/24/17 12/24/17 19:45 19:45 19:45 WBC 7.7 RBC 4.32 L Hgb 12.8 Hct 36.8 MCV 85.2 MCH 29.7 MCHC 34.9 RDW 13.4 Plt Count 191 MPV 8.1 Neut % (Auto) 63.8 Lymph % (Auto) 21.5 [place] % (Auto) 10.5 H Eos % (Auto) 3.5 Baso % (Auto) 0.7 Neut # (Auto) 4.9 Lymph # (Auto) 1.7 [place] # (Auto) 0.8 Eos # (Auto) 0.3 Baso # (Auto) 0.1 PT 13.1 H INR 1.2 APTT 31 Sodium 138 Potassium 5.0 Chloride 99 Carbon Dioxide 27 Anion Gap 17 BUN 27 H Creatinine 0.8 Est GFR ( Amer) > 60 Est GFR (Non-Af Amer) > 60 POC Glucose (mg/dL) Random Glucose 348 H Calcium 9.2 Total Bilirubin 0.7 AST 20 ALT 36 Alkaline Phosphatase 122 Total Protein 7.4 Albumin 4.0 Globulin 3.4 Albumin/Globulin Ratio 1.2 12/24/17 12/25/17 22:18 07:21 WBC RBC Hgb Hct MCV MCH MCHC RDW Plt Count MPV Neut % (Auto) Lymph % (Auto) [place] % (Auto) Eos % (Auto) Baso % (Auto) Neut # (Auto) Lymph # (Auto) [place] # (Auto) Eos # (Auto) Baso # (Auto) PT INR APTT Sodium Potassium Chloride Carbon Dioxide Anion Gap BUN Creatinine Est GFR ( Amer) Est GFR (Non-Af Amer) POC Glucose (mg/dL) 245 H 196 H Random Glucose Calcium Total Bilirubin AST ALT Alkaline Phosphatase Total Protein Albumin Globulin Albumin/Globulin Ratio - Imaging and Cardiology x-ray right foot 3 view Status: Report reviewed by me Assessment & Plan (1) Diabetic foot ulcer Status: Chronic (2) Osteomyelitis of right foot Status: Acute (3) Diabetes mellitus Status: Chronic (4) Hypertension Status: Chronic (5) CAD (coronary artery disease) Status: Acute (6) Renal transplant recipient Assessment and Plan: right renal transplant 2014. Status: Acute - Assessment and Plan (Free Text) Plan: IMPRESSION; DIABETIC FOOT ULCER. RIGHT SECOND DIGIT TOE NONHEALING ULCER/? OSTEOMYELITIS SUSPECTED. CAD , CABG S/P STENTS X4 HTN. DM -2 RT. KIDNEY TRANSPLANT (2014 )ON IMMUNOSUPPRESSIVE S/P TM- AMPUTATION RT BIG TOE. PLAN; PANCULTURES. ESR. CRP. [id number] DIGIT ULCER WOUND CULTURE PATIENT FOR MRI RIGHT FOOT TODAY PER PODIATRY. CONTINUE IV ZOSYN 3.375 EVERY 8 HOURLY (DECREASE DOSE ) 12/24/17. CONTINUE iv VANCOMYCIN 1 G ONCE A DAY DAILY WHILE AWAITING CULTURES. 12/24/17. FOLLOW-UP VANCO TROUGH LEVEL PRIOR TO THE 4TH DOSE AND KEEP BETWEEN 10 AND 20. fOLLOW-UP RENAL FUNCTIONS CLOSELY. LOCAL WOUND CARE PER PODIATRY.. WILL FOLLOW MRI OF THE RIGHT FOOT/AND CULTURES AND MAKE FURTHER RECOMMENDATIONS NEEDED. THANK YOU VERY MUCH FOR ALLOWING ME TO PARTICIPATE IN THE CARE OF YOUR PATIENT.
[2017-12-25] MEDS: Pantoprazole 40 mg EC Tab PO SCH (09:16)
[2017-12-25] MEDS: Magnesium Oxide 400 mg Tab UD PO SCH ×2 (09:16→17:47)
[2017-12-25] MEDS ORDERED: INSULIN LISPRO PROTAMIN SC SCH (10:00)
[2017-12-25] MEDS ORDERED: LISPRO SC SCH (10:00)
--- NOTE | 2017-12-25 11:20 | MRI ---
MRI right forefoot History: Cellulitis. Osteomyelitis. Comparison: X-ray dated 12/24/2017 Technique: Multi-echo multiplanar sequences were performed through the right forefoot without the use of intravenous contrast. Findings: Resection of the 1st digit to the medial cuneiform bone. Prominent subluxation of the 2nd proximal phalanx in relationship to the metatarsal head. Extensive vascular calcifications. Extensive signal abnormality seen within the 2nd digit throughout the metatarsal bone as well as the proximal and middle phalanges with decreased T1 signal and increased STIR signal concerning for acute osteomyelitis. Additional signal change in the adjacent marrow of the base of the 2nd distal phalanx which may represent an early acute and or developing acute osteomyelitis. Prominent signal changes noted at the distal articular surface of the middle cuneiform bone with decreased T1 signal and increased STIR signal. This may represent severe osteochondral change with associated subchondral osseous injury versus the sequelae of acute infectious and or inflammatory changes. Clinical correlation. Extensive signal abnormality seen centered at the 3rd MTP joint space with decreased T1 signal and increased STIR signal seen throughout the 3rd proximal phalanx as well as throughout the 3rd metatarsal bone also concerning for a prominent acute osteomyelitis. Milder signal changes noted at the medial aspect of the 4th metatarsal head as well as the base of the 4th proximal phalanx with mild patchy decreased T1 signal and increased STIR signal which may represent some early acute and or developing acute osteomyelitic changes. Nonspecific patchy reactive bone marrow edema seen at the lateral aspect of the of the cuboid bone. Reticulation and edema seen within the intrinsic musculature of the volar aspect of the foot suggestive for a myositis. Diffuse reticulation and edema seen throughout the subcutaneous soft tissues suggestive for an underlying cellulitis. Impression: 1. Extensive signal abnormality seen within the 2nd digit throughout the metatarsal bone as well as the proximal and middle phalanges with decreased T1 signal and increased STIR signal concerning for acute osteomyelitis. Additional signal change in the adjacent marrow of the base of the 2nd distal phalanx which may represent an early acute and or developing acute osteomyelitis. 2. Prominent signal changes noted at the distal articular surface of the middle cuneiform bone with decreased T1 signal and increased STIR signal. This may represent severe osteochondral change with associated subchondral osseous injury versus the sequelae of acute infectious and or inflammatory changes. Clinical correlation. 3. Extensive signal abnormality seen centered at the 3rd MTP joint space with decreased T1 signal and increased STIR signal seen throughout the 3rd proximal phalanx as well as throughout the 3rd metatarsal bone also concerning for a prominent acute osteomyelitis. 4. Milder signal changes noted at the medial aspect of the 4th metatarsal head as well as the base of the 4th proximal phalanx with mild patchy decreased T1 signal and increased STIR signal which may represent some early acute and or developing acute osteomyelitic changes. 5. Nonspecific patchy reactive bone marrow edema seen at the lateral aspect of the of the cuboid bone. 6. Reticulation and edema seen within the intrinsic musculature of the volar aspect of the foot suggestive for a myositis. 7. Diffuse reticulation and edema seen throughout the subcutaneous soft tissues suggestive for an underlying cellulitis. 8. Resection of the 1st digit to the medial cuneiform bone. 9. Prominent subluxation of the 2nd proximal phalanx in relationship to the metatarsal head. 10. Extensive vascular calcifications.
[2017-12-25] MEDS: (Novolin R) Insulin Human Regular 100 units/ml vial SC SCH ×2 (12:28→16:30)
[2017-12-25] MEDS ORDERED: Aluminum Hydroxide/Magnesium Hydroxide Susp (30 mL) PO ONE (14:19)
--- NOTE | 2017-12-25 15:26 | CP.PCM.HP ---
History of Present Illness - History of Present Illness History of Present Illness: CC: infected foot Pt is a 67 year old male well known to me. He was sent to the ER by back maker with suspection of osteomyelitis for IV anbx. Pt had been taking po antibiotics at home with no improvement. Pt reports having been wearing some new shoes which may have exacerbated or precipitated a small ulcer to form in his right foot. PMHx: kidney transplant HTN Athscl heart disease Coronary artery disease Hypercholesterolemia Chronic Kidney disease Diabetes Type 2 Radiculopathy Surgical Hx: Cataract surgery CABG Family Hx: Mother- asthma, HTN, DM Father- DM, HTN, Asthma Social Hx: Neg smoke Neg ETOH Neg Drugs Allergies: NKDA Meds: Losartan 25 Tylenol 325 Neurontin 300 magnesium oxide 400 Omeprazole 20 Myfortic 360 Prograf 1 Sensipar 30 Crestor 10 Aspirin 81 Coreg 12.5 Humalog insulin Santyl 250 Bepreve 1.5 drops Present on Admission - Present on Admission Any Indicators Present on Admission: No Review of Systems - Constitutional Constitutional: absent: Anorexia, Chills, Frequent Falls - Cardiovascular Cardiovascular: absent: Chest Pain, Edema, Orthopnea - Respiratory Respiratory: absent: Cough, Dyspnea - Gastrointestinal Gastrointestinal: absent: Abdominal Pain - Genitourinary Genitourinary: absent: Change in Urinary Stream - Musculoskeletal Musculoskeletal: absent: Abnormal Gait Past Patient History - Infectious Disease Hx of Infectious Diseases: None - Past Medical History & Family History Past Medical History?: Yes - Past Social History Smoking Status: Never Smoked - CARDIAC Hx Atrial Fibrillation: No Hx Hypercholesterolemia: Yes Hx Hypertension: Yes - PULMONARY Hx Respiratory Disorders: No - NEUROLOGICAL Hx Neurological Disorder: No - HEENT Hx HEENT Problems: Yes (retina problem bleeding ) Hx Blind: Yes (left eye) Hx Cataracts: Yes (bilat iol ) - RENAL Hx Chronic Kidney Disease: Yes (kidney transplant 2014) Hx Dialysis: Yes (2012) Type of Dialysis Access: lt.av shunt - ENDOCRINE/METABOLIC Hx Endocrine Disorders: Yes Hx Diabetes Mellitus Type 2: Yes - HEMATOLOGICAL/ONCOLOGICAL Hx Anemia: Yes Hx Blood Transfusions: Yes Hx Blood Transfusion Reaction: No - INTEGUMENTARY Hx Dermatological Problems: Yes (ulcer right foot) - MUSCULOSKELETAL/RHEUMATOLOGICAL Hx Falls: No - GASTROINTESTINAL Hx Gastrointestinal Disorders: Yes Hx Gastroesophageal Reflux: Yes - GENITOURINARY/GYNECOLOGICAL Hx Genitourinary Disorders: No - PSYCHIATRIC Hx Substance Use: No - SURGICAL HISTORY Hx Appendectomy: Yes Hx Coronary Artery Bypass Graft: Yes (2009) Hx Coronary Stent: Yes (x4 (2013)) Hx Kidney Transplant: Yes (2016) - ANESTHESIA Hx Anesthesia: Yes Hx Anesthesia Reactions: No Hx Malignant Hyperthermia: No Meds Allergies/Adverse Reactions: Allergies Allergy/AdvReac Type Severity Reaction Status Date / Time No Known Allergies Allergy Verified 12/24/17 16:51 Physical Exam - Constitutional Appears: Non-toxic - Eye Exam Eye Exam: Normal appearance - ENT Exam ENT Exam: Mucous Membranes Moist - Respiratory Exam Respiratory Exam: Clear to Auscultation Bilateral. absent: Chest Wall Tenderness - Cardiovascular Exam Cardiovascular Exam: REGULAR RHYTHM, RRR, +S1, +S2. absent: JVD, Rubs - GI/Abdominal Exam GI & Abdominal Exam: Normal Bowel Sounds - Extremities Exam Extremities exam: Negative for: calf tenderness (right foot dressing) Results - Vital Signs Recent Vital Signs: Last Vital Signs Temp 98.0 F 12/25/17 07:53 Pulse 79 12/25/17 07:53 Resp 20 12/25/17 07:53 BP 156/72 H 12/25/17 09:16 Pulse Ox 98 12/25/17 07:53 - Labs Result Diagrams: 12/24/17 19:45 12/24/17 19:45 Labs: Laboratory Results - last 24 hr 12/24/17 12/24/17 12/24/17 19:45 19:45 19:45 WBC 7.7 RBC 4.32 L Hgb 12.8 Hct 36.8 MCV 85.2 MCH 29.7 MCHC 34.9 RDW 13.4 Plt Count 191 MPV 8.1 Neut % (Auto) 63.8 Lymph % (Auto) 21.5 [place] % (Auto) 10.5 H Eos % (Auto) 3.5 Baso % (Auto) 0.7 Neut # (Auto) 4.9 Lymph # (Auto) 1.7 [place] # (Auto) 0.8 Eos # (Auto) 0.3 Baso # (Auto) 0.1 ESR PT 13.1 H INR 1.2 APTT 31 Sodium 138 Potassium 5.0 Chloride 99 Carbon Dioxide 27 Anion Gap 17 BUN 27 H Creatinine 0.8 Est GFR ( Amer) > 60 Est GFR (Non-Af Amer) > 60 POC Glucose (mg/dL) Random Glucose 348 H Calcium 9.2 Total Bilirubin 0.7 AST 20 ALT 36 Alkaline Phosphatase 122 C-Reactive Protein Total Protein 7.4 Albumin 4.0 Globulin 3.4 Albumin/Globulin Ratio 1.2 12/24/17 12/25/17 12/25/17 22:18 07:21 08:07 WBC RBC Hgb Hct MCV MCH MCHC RDW Plt Count MPV Neut % (Auto) Lymph % (Auto) [place] % (Auto) Eos % (Auto) Baso % (Auto) Neut # (Auto) Lymph # (Auto) [place] # (Auto) Eos # (Auto) Baso # (Auto) ESR 40 H PT INR APTT Sodium Potassium Chloride Carbon Dioxide Anion Gap BUN Creatinine Est GFR ( Amer) Est GFR (Non-Af Amer) POC Glucose (mg/dL) 245 H 196 H Random Glucose Calcium Total Bilirubin AST ALT Alkaline Phosphatase C-Reactive Protein Total Protein Albumin Globulin Albumin/Globulin Ratio 12/25/17 12/25/17 12/25/17 08:07 09:33 11:15 WBC RBC Hgb Hct MCV MCH MCHC RDW Plt Count MPV Neut % (Auto) Lymph % (Auto) [place] % (Auto) Eos % (Auto) Baso % (Auto) Neut # (Auto) Lymph # (Auto) [place] # (Auto) Eos # (Auto) Baso # (Auto) ESR PT INR APTT Sodium Potassium Chloride Carbon Dioxide Anion Gap BUN Creatinine Est GFR ( Amer) Est GFR (Non-Af Amer) POC Glucose (mg/dL) 291 H 278 H Random Glucose Calcium Total Bilirubin AST ALT Alkaline Phosphatase C-Reactive Protein 8.80 Total Protein Albumin Globulin Albumin/Globulin Ratio Assessment & Plan - Assessment and Plan (Free Text) Assessment: osteomyelitis abx id and podiatry consulted bone bx per podiatry will discuss plans dm; meds check finger sticks Renal sp tranplant cont meds \bp is good
[2017-12-25] MEDS: Piperacillin/Tazobact 3.375 GM in Sodium Chloride 100 ML IVPB SCH (18:55)
[2017-12-25] MEDS: Vancomycin 1 gm/NS 200 ml 1 GM/200 ML BAG IVPB SCH (20:30)
[2017-12-25] MEDS: (Lantus) Insulin Glargine, Recombinant SC SCH (21:41)
[2017-12-26] MEDS: Piperacillin/Tazobact 3.375 GM in Sodium Chloride 100 ML IVPB SCH ×3 (03:00→19:30)
[2017-12-26] MEDS: (Novolin R) Insulin Human Regular 100 units/ml vial SC SCH ×3 (08:30→16:30)
--- NOTE | 2017-12-26 08:36 | CP.PCM.CON ---
History of Present Illness - History of Present Illness History of Present Illness: 67 y/o male with pmhx of Anemia, Diabetes, HTN, Hypercholesterolemia, End Stage Renal Disease, Chronic Kidney Disease (kidney transplant 2014), seen at bedside this morning for right foot infection. patient was seen in the podiatry clinic on saturday and was sent to the hospital for further evaluation of 2nd digit infection with possible osteomyelitis. Patient states that about 2 weeks ago he noticed drainage and swelling from his right foot and went to the ED. Patient states that he has been taking antibiotics for the infection. patient denies any pain in his foot. Patient states that he had an MRI taken yesterday. Patient denies any n/f/v/c/d/sob. Review of Systems - Constitutional Constitutional: As Per HPI Past Patient History - Infectious Disease Hx of Infectious Diseases: None - Past Medical History & Family History Past Medical History?: Yes - Past Social History Smoking Status: Never Smoked - CARDIAC Hx Atrial Fibrillation: No Hx Hypercholesterolemia: Yes Hx Hypertension: Yes - PULMONARY Hx Respiratory Disorders: No - NEUROLOGICAL Hx Neurological Disorder: No - HEENT Hx HEENT Problems: Yes (retina problem bleeding ) Hx Blind: Yes (left eye) Hx Cataracts: Yes (bilat iol ) - RENAL Hx Chronic Kidney Disease: Yes (kidney transplant 2014) Hx Dialysis: Yes (2012) Type of Dialysis Access: lt.av shunt - ENDOCRINE/METABOLIC Hx Endocrine Disorders: Yes Hx Diabetes Mellitus Type 2: Yes - HEMATOLOGICAL/ONCOLOGICAL Hx Anemia: Yes Hx Blood Transfusions: Yes Hx Blood Transfusion Reaction: No - INTEGUMENTARY Hx Dermatological Problems: Yes (ulcer right foot) - MUSCULOSKELETAL/RHEUMATOLOGICAL Hx Falls: No - GASTROINTESTINAL Hx Gastrointestinal Disorders: Yes Hx Gastroesophageal Reflux: Yes - GENITOURINARY/GYNECOLOGICAL Hx Genitourinary Disorders: No - PSYCHIATRIC Hx Substance Use: No - SURGICAL HISTORY Hx Appendectomy: Yes Hx Coronary Artery Bypass Graft: Yes (2009) Hx Coronary Stent: Yes (x4 (2013)) Hx Kidney Transplant: Yes (2015) - ANESTHESIA Hx Anesthesia: Yes Hx Anesthesia Reactions: No Hx Malignant Hyperthermia: No Meds Allergies/Adverse Reactions: Allergies Allergy/AdvReac Type Severity Reaction Status Date / Time No Known Allergies Allergy Verified 12/24/17 16:51 - Medications Medications: Current Medications Acetaminophen (Tylenol 325mg Tab) 325 mg PO Q6H PRN PRN Reason: Pain, Mild (1-3) Amlodipine Besylate (Norvasc) 5 mg PO DAILY [facility] Last Admin: 12/25/17 09:19 Dose: 5 mg Aspirin (Ecotrin) 81 mg PO DAILY [facility] Last Admin: 12/25/17 09:16 Dose: 81 mg Carvedilol (Coreg) 12.5 mg PO BID [facility] Last Admin: 12/25/17 21:46 Dose: 12.5 mg Cinacalcet (Sensipar) 30 mg PO [facility] Last Admin: 12/25/17 21:32 Dose: 30 mg Gabapentin (Neurontin) 300 mg PO DAILY [facility] Last Admin: 12/25/17 09:16 Dose: 300 mg Heparin Sodium (Porcine) (Heparin) 5,000 units SC Q8 [facility] Last Admin: 12/26/17 05:45 Dose: 5,000 units Piperacillin Sod/Tazobactam (Sod 3.375 gm/ Sodium Chloride) 100 mls @ 200 mls/ hr IVPB Q8H [facility] PRN Reason: Protocol Last Admin: 12/26/17 03:00 Dose: 200 mls/hr Vancomycin/Sodium Chloride (Vancomycin 1 Gm/Ns 200 Ml) 1 gm in 200 mls @ 133.333 mls/hr IVPB Q24H [facility] PRN Reason: Protocol Stop: 12/30/17 20:31 Last Admin: 12/25/17 20:30 Dose: 133.333 mls/hr Insulin Glargine (Lantus) 20 unit SC HS [facility] Last Admin: 12/25/17 21:41 Dose: 20 u Insulin Human Regular (Novolin R) 10 unit SC AC [facility] Last Admin: 12/25/17 16:30 Dose: 10 unit Losartan Potassium (Cozaar) 50 mg PO DAILY [facility] Last Admin: 12/25/17 09:16 Dose: 50 mg Magnesium Oxide (Mag-Ox) 400 mg PO BID [facility] Last Admin: 12/25/17 17:47 Dose: 400 mg Pantoprazole Sodium (Protonix Ec Tab) 40 mg PO DAILY [facility] Last Admin: 12/25/17 09:16 Dose: 40 mg Rosuvastatin Calcium (Crestor) 20 mg PO HS [facility] Last Admin: 12/25/17 21:31 Dose: 20 mg Tacrolimus (Prograf Cap) 2 mg PO DAILY [facility] Tacrolimus (Prograf Cap) 1 mg PO [facility] Last Admin: 12/25/17 21:38 Dose: 1 mg Physical Exam - Constitutional Appears: Well, Non-toxic, No Acute Distress - Extremities Exam Additional comments: Right lower extremity focused: Vasc: lightly palpable pedal pulses, TG wnl, CFT < 4 sec to all digits Neuro: grossly diminished derm: nonpitting edema noted to 2nd digit, diffuse edema noted to right foot, open lesion to dorsal aspect of right 2nd digit measuring 1cm x1.5cm x 0.5cm with serous drainage, fibrous base, no malodor, no purulent drainage, no ascending cellulitis ortho: no pain on palpation to 2nd digit - Neurological Exam Neurological exam: Alert, Oriented x3 - Psychiatric Exam Psychiatric exam: Normal Affect, Normal Mood Results - Vital Signs Recent Vital Signs: Last Vital Signs Temp 98.4 F 12/26/17 07:41 Pulse 72 12/26/17 07:41 Resp 20 12/26/17 07:41 BP 159/79 H 12/26/17 07:41 Pulse Ox 98 12/26/17 07:41 - Labs Result Diagrams: 12/24/17 19:45 12/24/17 19:45 Labs: Laboratory Results - last 24 hr 12/25/17 12/25/17 12/25/17 08:07 08:07 09:33 ESR 40 H POC Glucose (mg/dL) 291 H C-Reactive Protein 8.80 12/25/17 12/25/17 12/25/17 11:15 16:23 20:57 ESR POC Glucose (mg/dL) 278 H 195 H 98 C-Reactive Protein 12/26/17 12/26/17 02:45 07:37 ESR POC Glucose (mg/dL) 126 H 132 H C-Reactive Protein Assessment & Plan - Assessment and Plan (Free Text) Assessment: 67 y/o male with pmhx of Anemia, Diabetes, HTN, Hypercholesterolemia, End Stage Renal Disease, Chronic Kidney Disease (kidney transplant 2014), seen at bedside for right foot 2nd digit infection Plan: patient evaluated and chart reviewed discussed in detail with attending Dr. Taylor labs and vitals reviewed; afebrile, ESR 40 MRI of lower extremity reviewed and shows OM of 2nd digit, 3rd digit and possible 4th Will likely be taken to OR tomorrow for 2nd digit amputation vs. TMA f/u medical optimization cont. abx as recommended applied betadine, DSD to right foot f/u wound cx NPO after midnight podiatry will continue to follow while patient remains in house
[2017-12-26] MEDS: Pantoprazole 40 mg EC Tab PO SCH (09:29)
[2017-12-26] MEDS: Magnesium Oxide 400 mg Tab UD PO SCH ×2 (09:29→17:35)
--- NOTE | 2017-12-26 17:32 | CP.PCM.PN ---
Subjective - Date & Time of Evaluation Date of Evaluation: 12/26/17 Time of Evaluation: 17:32 - Subjective Subjective: Pt feels well no fever no pain awaiting surgery Denies chest pain or sob Objective - Vital Signs/Intake and Output Vital Signs (last 24 hours): Temp Pulse Resp BP Pulse Ox 97.6 F 77 20 120/54 L 99 12/26/17 15:00 12/26/17 15:00 12/26/17 15:00 12/26/17 15:00 12/26/17 15:00 Intake and Output: 12/26/17 12/26/17 06:59 18:59 Intake Total 1000 580 Balance 1000 580 - Medications Medications: Current Medications Acetaminophen (Tylenol 325mg Tab) 325 mg PO Q6H PRN PRN Reason: Pain, Mild (1-3) Amlodipine Besylate (Norvasc) 5 mg PO DAILY [facility] Last Admin: 12/26/17 09:29 Dose: 5 mg Aspirin (Ecotrin) 81 mg PO DAILY [facility] Last Admin: 12/26/17 09:29 Dose: 81 mg Carvedilol (Coreg) 12.5 mg PO BID [facility] Last Admin: 12/26/17 09:29 Dose: 12.5 mg Cinacalcet (Sensipar) 30 mg PO HS [facility] Last Admin: 12/25/17 21:32 Dose: 30 mg Gabapentin (Neurontin) 300 mg PO DAILY [facility] Last Admin: 12/26/17 09:29 Dose: 300 mg Heparin Sodium (Porcine) (Heparin) 5,000 units SC Q8 [facility] Last Admin: 12/26/17 05:45 Dose: 5,000 units Piperacillin Sod/Tazobactam (Sod 3.375 gm/ Sodium Chloride) 100 mls @ 200 mls/ hr IVPB Q8H [facility] PRN Reason: Protocol Last Admin: 12/26/17 11:56 Dose: 200 mls/hr Vancomycin/Sodium Chloride (Vancomycin 1 Gm/Ns 200 Ml) 1 gm in 200 mls @ 133.333 mls/hr IVPB Q24H [facility] PRN Reason: Protocol Stop: 12/30/17 20:31 Last Admin: 12/25/17 20:30 Dose: 133.333 mls/hr Insulin Glargine (Lantus) 20 unit SC [facility] Last Admin: 12/25/17 21:41 Dose: 20 u Insulin Human Regular (Novolin R) 10 unit SC AC [facility] Last Admin: 12/26/17 11:56 Dose: 10 unit Losartan Potassium (Cozaar) 50 mg PO DAILY [facility] Last Admin: 12/26/17 09:29 Dose: 50 mg Magnesium Oxide (Mag-Ox) 400 mg PO BID [facility] Last Admin: 12/26/17 09:29 Dose: 400 mg Pantoprazole Sodium (Protonix Ec Tab) 40 mg PO DAILY [facility] Last Admin: 12/26/17 09:29 Dose: 40 mg Rosuvastatin Calcium (Crestor) 20 mg PO HS [facility] Last Admin: 12/25/17 21:31 Dose: 20 mg Tacrolimus (Prograf Cap) 2 mg PO DAILY [facility] Last Admin: 12/26/17 09:29 Dose: 2 mg Tacrolimus (Prograf Cap) 1 mg PO HS [facility] Last Admin: 12/25/17 21:38 Dose: 1 mg - Labs Labs: 12/24/17 19:45 12/24/17 19:45 PT 13.1 SECONDS (9.7-12.2) H 12/24/17 19:45 INR 1.2 12/24/17 19:45 APTT 31 SECONDS (21-34) 12/24/17 19:45 - Constitutional Appears: Well, Non-toxic - Eye Exam Eye Exam: Normal appearance - ENT Exam ENT Exam: Mucous Membranes Moist - Respiratory Exam Respiratory Exam: Clear to Ausculation Bilateral - Cardiovascular Exam Cardiovascular Exam: REGULAR RHYTHM, RRR, +S1, +S2. absent: JVD, Rubs - GI/Abdominal Exam GI & Abdominal Exam: Soft, Normal Bowel Sounds. absent: Tenderness - Extremities Exam Extremities Exam: Full ROM Assessment and Plan - Assessment and Plan (Free Text) Assessment: OSteo ; for amputation tomorrow sp renal transplant doing well bmp and cbc in am bp is stable diabetes; hold am sugar meds as will be npo Patient is medically stable for OR tomorrow. Awaiting cardiac imput
[2017-12-26] MEDS: Vancomycin 1 gm/NS 200 ml 1 GM/200 ML BAG IVPB SCH (20:24)
[2017-12-26] MEDS: (Lantus) Insulin Glargine, Recombinant SC SCH (21:32)
--- NOTE | 2017-12-26 22:27 | CP.PCM.PN ---
Subjective - Date & Time of Evaluation Date of Evaluation: 12/26/17 Time of Evaluation: 22:27 - Subjective Subjective: CHIEF COMPLAINTS TODAY : afebrile. offers no new complaints. MRI RT FOOT RESULTS NOTED. +VE OSTEOMYLITIS. AWAITING SURGERY. ROS. HEENT : N. Resp : No cough, wheezing ,pleuritic CP ,or hemoptysis Cardio : No anginal CP, PND, orthopnea, palpitation GI : No abd.pain, n/v ,diarrhea or GI bleeding . BACON SKINNER : No headache, vertigo, focal deficit. Musculoskel : No joint swelling , Derm : No rash Psych : Normal affect. Ext : No swelling ,calf pain PE. Pt. is alert awake in no distress. V.S As noted in the chart Head ,ear nose,throat and eyes : Normal. Neck : Supple with normal carotids. Lungs: Clear air entry. Heart : S1 & S2 normal with S4. No murmur. Abd : Soft non tender with normal bowel sounds. Neuro : Moves all ext. with no localized deficit. Ext : RT .FOOT IN DRESSING +VE EDEMA FOOT with intact pulses.Non tender calves Derm : No rashes or decubitus ulcer. LABS/RADIOLOGY: NOTED ASSESSMENT/PLAN : IMPRESSION; DIABETIC FOOT ULCER. RIGHT SECOND DIGIT TOE NONHEALING ULCER/? OSTEOMYELITIS SUSPECTED. CAD , CABG S/P STENTS X4 HTN. DM -2 RT. KIDNEY TRANSPLANT (2014 )ON IMMUNOSUPPRESSIVE S/P TM- AMPUTATION RT BIG TOE. PLAN; [id number] DIGIT ULCER WOUND CULTURE-P PATIENT FOR SURGERY PER PODIATRY AFTER CARDIAC CLEARANCE. CONTINUE IV ZOSYN 3.375 EVERY 8 HOURLY (DECREASE DOSE ) 12/24/17. CONTINUE iv VANCOMYCIN 1 G ONCE A DAY DAILY WHILE AWAITING CULTURES. 12/24/17. FOLLOW-UP VANCO TROUGH LEVEL PRIOR TO THE 4TH DOSE AND KEEP BETWEEN 10 AND 20. fOLLOW-UP RENAL FUNCTIONS CLOSELY. CARDIOLOGY CLEARANCE IN PROGRESS. LOCAL WOUND CARE PER PODIATRY.. Objective - Vital Signs/Intake and Output Vital Signs (last 24 hours): Temp Pulse Resp BP Pulse Ox 97.6 F 77 20 120/80 99 12/26/17 15:00 12/26/17 15:00 12/26/17 15:00 12/26/17 17:35 12/26/17 15:00 Intake and Output: 12/26/17 12/27/17 18:59 06:59 Intake Total 580 Balance 580 - Medications Medications: Current Medications Acetaminophen (Tylenol 325mg Tab) 325 mg PO Q6H PRN PRN Reason: Pain, Mild (1-3) Amlodipine Besylate (Norvasc) 5 mg PO DAILY [facility] Last Admin: 12/26/17 09:29 Dose: 5 mg Aspirin (Ecotrin) 81 mg PO DAILY [facility] Last Admin: 12/26/17 09:29 Dose: 81 mg Carvedilol (Coreg) 12.5 mg PO BID [facility] Last Admin: 12/26/17 17:35 Dose: 12.5 mg Cinacalcet (Sensipar) 30 mg PO [facility] Last Admin: 12/26/17 21:31 Dose: 30 mg Gabapentin (Neurontin) 300 mg PO DAILY [facility] Last Admin: 12/26/17 09:29 Dose: 300 mg Heparin Sodium (Porcine) (Heparin) 5,000 units SC Q8 [facility] Last Admin: 12/26/17 05:45 Dose: 5,000 units Piperacillin Sod/Tazobactam (Sod 3.375 gm/ Sodium Chloride) 100 mls @ 200 mls/ hr IVPB Q8H [facility] PRN Reason: Protocol Last Admin: 12/26/17 19:30 Dose: 200 mls/hr Vancomycin/Sodium Chloride (Vancomycin 1 Gm/Ns 200 Ml) 1 gm in 200 mls @ 133.333 mls/hr IVPB Q24H [facility] PRN Reason: Protocol Stop: 12/30/17 20:31 Last Admin: 12/26/17 20:24 Dose: 133.333 mls/hr Insulin Glargine (Lantus) 20 unit SC HS [facility] Last Admin: 12/26/17 21:32 Dose: Not Given Insulin Human Regular (Novolin R) 10 unit SC AC [facility] Last Admin: 12/26/17 16:30 Dose: 10 unit Losartan Potassium (Cozaar) 50 mg PO DAILY [facility] Last Admin: 12/26/17 09:29 Dose: 50 mg Magnesium Oxide (Mag-Ox) 400 mg PO BID [facility] Last Admin: 12/26/17 17:35 Dose: 400 mg Pantoprazole Sodium (Protonix Ec Tab) 40 mg PO DAILY [facility] Last Admin: 12/26/17 09:29 Dose: 40 mg Rosuvastatin Calcium (Crestor) 20 mg PO [facility] Last Admin: 12/26/17 21:34 Dose: 20 mg Tacrolimus (Prograf Cap) 2 mg PO DAILY [facility] Last Admin: 12/26/17 09:29 Dose: 2 mg Tacrolimus (Prograf Cap) 1 mg PO HS [facility] Last Admin: 12/26/17 21:31 Dose: 1 mg - Labs Labs: 12/24/17 19:45 12/24/17 19:45 PT 13.1 SECONDS (9.7-12.2) H 12/24/17 19:45 INR 1.2 12/24/17 19:45 APTT 31 SECONDS (21-34) 12/24/17 19:45 Assessment and Plan (1) Diabetic foot ulcer Status: Chronic (2) Osteomyelitis of right foot Status: Acute (3) Diabetes mellitus Status: Chronic (4) Hypertension Status: Chronic (5) CAD (coronary artery disease) Status: Acute (6) Renal transplant recipient Status: Acute
--- NOTE | 2017-12-26 23:24 | CP.PCM.CON ---
History of Present Illness - History of Present Illness History of Present Illness: 67 M with recent abnormal stress test and intermittent chest pressure requires cardiac cath prior to the planned surgery Scheduled for cath at 8am tomorrow 67 yo male, hx of dm, presnts with toe pain. 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 pt had ulcer, not improving outpt. no fevers, no other complaints. pt has h/o of toe amputation. Chief Complaint: Foot infection Review Of Systems Musculoskeletal: Positive for: Foot Pain Physical Exam - Physical Exam Appears: Well, No Acute Distress Skin: Normal Color, Warm, Dry Eye(s): bilateral: Normal Inspection, PERRL, EOMI Nose: Normal Throat: Normal Neck: Normal Cardiovascular: Rhythm Regular Respiratory: Normal Breath Sounds Gastrointestinal/Abdominal: Normal Exam Back: Normal Inspection Extremity: Normal ROM, Other (2nd toe purlent dc ulcer, right) Past Patient History - Infectious Disease Hx of Infectious Diseases: None - Past Medical History & Family History Past Medical History?: Yes - Past Social History Smoking Status: Never Smoked - CARDIAC Hx Atrial Fibrillation: No Hx Hypercholesterolemia: Yes Hx Hypertension: Yes - PULMONARY Hx Respiratory Disorders: No - NEUROLOGICAL Hx Neurological Disorder: No - HEENT Hx HEENT Problems: Yes (retina problem bleeding ) Hx Blind: Yes (left eye) Hx Cataracts: Yes (bilat iol ) - RENAL Hx Chronic Kidney Disease: Yes (kidney transplant 2014) Hx Dialysis: Yes (2012) Type of Dialysis Access: lt.av shunt - ENDOCRINE/METABOLIC Hx Endocrine Disorders: Yes Hx Diabetes Mellitus Type 2: Yes - HEMATOLOGICAL/ONCOLOGICAL Hx Anemia: Yes Hx Blood Transfusions: Yes Hx Blood Transfusion Reaction: No - INTEGUMENTARY Hx Dermatological Problems: Yes (ulcer right foot) - MUSCULOSKELETAL/RHEUMATOLOGICAL Hx Falls: No - GASTROINTESTINAL Hx Gastrointestinal Disorders: Yes Hx Gastroesophageal Reflux: Yes - GENITOURINARY/GYNECOLOGICAL Hx Genitourinary Disorders: No - PSYCHIATRIC Hx Substance Use: No - SURGICAL HISTORY Hx Appendectomy: Yes Hx Coronary Artery Bypass Graft: Yes (2009) Hx Coronary Stent: Yes (x4 (2013)) Hx Kidney Transplant: Yes (2015) - ANESTHESIA Hx Anesthesia: Yes Hx Anesthesia Reactions: No Hx Malignant Hyperthermia: No Meds Allergies/Adverse Reactions: Allergies Allergy/AdvReac Type Severity Reaction Status Date / Time No Known Allergies Allergy Verified 12/24/17 16:51 - Medications Medications: Current Medications Acetaminophen (Tylenol 325mg Tab) 325 mg PO Q6H PRN PRN Reason: Pain, Mild (1-3) Amlodipine Besylate (Norvasc) 5 mg PO DAILY [facility] Last Admin: 12/26/17 09:29 Dose: 5 mg Aspirin (Ecotrin) 81 mg PO DAILY [facility] Last Admin: 12/26/17 09:29 Dose: 81 mg Carvedilol (Coreg) 12.5 mg PO BID [facility] Last Admin: 12/26/17 17:35 Dose: 12.5 mg Cinacalcet (Sensipar) 30 mg PO [facility] Last Admin: 12/26/17 21:31 Dose: 30 mg Gabapentin (Neurontin) 300 mg PO DAILY [facility] Last Admin: 12/26/17 09:29 Dose: 300 mg Heparin Sodium (Porcine) (Heparin) 5,000 units SC Q8 [facility] Last Admin: 12/26/17 05:45 Dose: 5,000 units Piperacillin Sod/Tazobactam (Sod 3.375 gm/ Sodium Chloride) 100 mls @ 200 mls/ hr IVPB Q8H [facility] PRN Reason: Protocol Last Admin: 12/26/17 19:30 Dose: 200 mls/hr Vancomycin/Sodium Chloride (Vancomycin 1 Gm/Ns 200 Ml) 1 gm in 200 mls @ 133.333 mls/hr IVPB Q24H [facility] PRN Reason: Protocol Stop: 12/30/17 20:31 Last Admin: 12/26/17 20:24 Dose: 133.333 mls/hr Insulin Glargine (Lantus) 20 unit SC HS [facility] Last Admin: 12/26/17 21:32 Dose: Not Given Insulin Human Regular (Novolin R) 10 unit SC AC [facility] Last Admin: 12/26/17 16:30 Dose: 10 unit Losartan Potassium (Cozaar) 50 mg PO DAILY [facility] Last Admin: 12/26/17 09:29 Dose: 50 mg Magnesium Oxide (Mag-Ox) 400 mg PO BID [facility] Last Admin: 12/26/17 17:35 Dose: 400 mg Pantoprazole Sodium (Protonix Ec Tab) 40 mg PO DAILY [facility] Last Admin: 12/26/17 09:29 Dose: 40 mg Rosuvastatin Calcium (Crestor) 20 mg PO HS [facility] Last Admin: 12/26/17 21:34 Dose: 20 mg Tacrolimus (Prograf Cap) 2 mg PO DAILY [facility] Last Admin: 12/26/17 09:29 Dose: 2 mg Tacrolimus (Prograf Cap) 1 mg PO HS [facility] Last Admin: 12/26/17 21:31 Dose: 1 mg Results - Vital Signs Recent Vital Signs: Last Vital Signs Temp 97.8 F 12/26/17 23:17 Pulse 72 12/26/17 23:17 Resp 20 12/26/17 23:17 BP 158/73 H 12/26/17 23:17 Pulse Ox 96 12/26/17 23:17 - Labs Result Diagrams: 12/27/17 07:30 12/27/17 07:30 Labs: Laboratory Results - last 24 hr 12/26/17 12/26/17 12/26/17 02:45 07:37 11:01 POC Glucose (mg/dL) 126 H 132 H 227 H 12/26/17 12/26/17 16:22 21:02 POC Glucose (mg/dL) 189 H 426 H* Assessment & Plan - Assessment and Plan (Free Text) Assessment: 67 M with recent abnormal stress test and intermittent chest pressure requires cardiac cath prior to the planned surgery Scheduled for cath at 8am tomorrow 67 yo male, hx of dm, presnts with toe pain. 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 p
[2017-12-27] MEDS: Piperacillin/Tazobact 3.375 GM in Sodium Chloride 100 ML IVPB SCH ×3 (02:43→18:55)
[2017-12-27 07:45] LABS: HEMOGLOBIN 12.7 g/dL (12.0-18.0); MEAN CORPUSCULAR HEMOGLOBIN 29.4 pg (27.0-31.0); MEAN CORPUSCULAR HGB CONC 34.6 g/dL (33.0-37.0); MEAN PLATELET VOLUME 8.2 fL (7.2-11.7); RBC 4.33 Mil/uL (4.40-5.90); RED CELL DISTRIBUTION WIDTH 13.5 % (11.5-14.5); WHITE BLOOD COUNT 5.1 K/uL (4.8-10.8)
[2017-12-27] MEDS: (Novolin R) Insulin Human Regular 100 units/ml vial SC SCH ×3 (07:49→17:13)
[2017-12-27 07:59] LABS: BLOOD UREA NITROGEN 16 mg/dL (9-20); CALCIUM 9.1 mg/dl (8.6-10.4); GFR AFRICAN-AMERICAN > 60; GFR NON-AFRICAN AMERICAN > 60
[2017-12-27] MEDS ORDERED: Midazolam 2 MG/2 ML VIAL ONE (11:05)
[2017-12-27] MEDS ORDERED: Iodixanol 320 MG/ML 200 ML BOTTLE IV ONE (11:06)
[2017-12-27] MEDS: Magnesium Oxide 400 mg Tab UD PO SCH ×2 (11:09→21:35)
[2017-12-27] MEDS: Pantoprazole 40 mg EC Tab PO SCH (11:10)
[2017-12-27] MEDS ORDERED: Sodium Chloride 0.45% 1,000 ML IV SCH (14:30)
--- NOTE | 2017-12-27 14:31 | CP.PCM.PN ---
Subjective - Date & Time of Evaluation Date of Evaluation: 12/27/17 - Subjective Subjective: Last 24 unremarkable having cath pre op as recommened by Dr. Aguirre Objective - Vital Signs/Intake and Output Vital Signs (last 24 hours): Temp Pulse Resp BP Pulse Ox 97.7 F 70 20 153/72 H 97 12/27/17 07:51 12/27/17 07:51 12/27/17 07:51 12/27/17 08:17 12/27/17 07:51 Intake and Output: 12/27/17 12/27/17 06:59 18:59 Intake Total 100 Balance 100 - Medications Medications: Current Medications Acetaminophen (Tylenol 325mg Tab) 325 mg PO Q6H PRN PRN Reason: Pain, Mild (1-3) Amlodipine Besylate (Norvasc) 5 mg PO DAILY [facility] Last Admin: 12/27/17 11:09 Dose: Not Given Aspirin (Ecotrin) 81 mg PO DAILY [facility] Last Admin: 12/27/17 11:09 Dose: Not Given Carvedilol (Coreg) 12.5 mg PO BID [facility] Last Admin: 12/27/17 11:00 Dose: Not Given Cinacalcet (Sensipar) 30 mg PO HS [facility] Last Admin: 12/26/17 21:31 Dose: 30 mg Gabapentin (Neurontin) 300 mg PO DAILY [facility] Last Admin: 12/27/17 11:09 Dose: Not Given Heparin Sodium (Porcine) (Heparin) 5,000 units SC Q8 [facility] Last Admin: 12/26/17 05:45 Dose: 5,000 units Piperacillin Sod/Tazobactam (Sod 3.375 gm/ Sodium Chloride) 100 mls @ 200 mls/ hr IVPB Q8H [facility] PRN Reason: Protocol Last Admin: 12/27/17 12:30 Dose: Not Given Vancomycin/Sodium Chloride (Vancomycin 1 Gm/Ns 200 Ml) 1 gm in 200 mls @ 133.333 mls/hr IVPB Q24H [facility] PRN Reason: Protocol Stop: 12/30/17 20:31 Last Admin: 12/26/17 20:24 Dose: 133.333 mls/hr Sodium Chloride (Sodium Chloride 0.45%) 1,000 mls @ 50 mls/hr IV .Q20H [facility] Stop: 12/28/17 10:29 Insulin Glargine (Lantus) 20 unit SC [facility] Last Admin: 12/26/17 21:32 Dose: Not Given Insulin Human Regular (Novolin R) 10 unit SC AC [facility] Last Admin: 12/27/17 12:30 Dose: Not Given Losartan Potassium (Cozaar) 50 mg PO DAILY [facility] Last Admin: 12/27/17 11:00 Dose: Not Given Magnesium Oxide (Mag-Ox) 400 mg PO BID [facility] Last Admin: 12/27/17 11:09 Dose: Not Given Pantoprazole Sodium (Protonix Ec Tab) 40 mg PO DAILY [facility] Last Admin: 12/27/17 11:10 Dose: Not Given Rosuvastatin Calcium (Crestor) 20 mg PO HS [facility] Last Admin: 12/26/17 21:34 Dose: 20 mg Tacrolimus (Prograf Cap) 2 mg PO DAILY [facility] Last Admin: 12/27/17 11:10 Dose: Not Given Tacrolimus (Prograf Cap) 1 mg PO HS [facility] Last Admin: 12/26/17 21:31 Dose: 1 mg - Labs Labs: 12/27/17 07:30 12/27/17 07:30 PT 13.1 SECONDS (9.7-12.2) H 12/24/17 19:45 INR 1.2 12/24/17 19:45 APTT 31 SECONDS (21-34) 12/24/17 19:45 Assessment and Plan - Assessment and Plan (Free Text) Assessment: Osteo ; being evaluated for cad before surgery cont abx dm; cont insulin sp renal transplant oredered fluids post cath
--- NOTE | 2017-12-27 15:52 | CP.PCM.CON ---
History of Present Illness - History of Present Illness History of Present Illness: CC: infected foot Pt is a 67 year old male well known to me. [facility] suspection of osteomyelitis for IV antibiotics. Pt had been taking po antibiotics at home with no improvement. Pt reports having been wearing some new shoes which may have exacerbated or precipitated a small ulcer to form in his right foot. Due to CPs underwent repeat cardiac cath prior to planned surgeries on infected foot ulcers. PMHx: kidney transplant-05/2016 HTN Athscl heart disease- post CABG Coronary artery disease Hypercholesterolemia Chronic Kidney disease Diabetes Type 2 Radiculopathy PVD Surgical Hx: Cataract surgery CABG donor renal transplant Family Hx: Mother- asthma, HTN, DM Father- DM, HTN, Asthma Social Hx: Neg smoke Neg ETOH Neg Drugs Allergies: NKDA Review of Systems - Constitutional Constitutional: Fatigue, Weakness - EENT Eyes: absent: As Per HPI, Blind Spots, Blurred Vision, Change in Vision, Decreased Night Vision, Diplopia, Discharge, Dry Eye, Exophthalmos, Floaters, Irritation, Itchy Eyes, Loss of Peripheral Vision, Pain, Photophobia, Requires Corrective Lenses, Sees Flashes, Spots in Vision, Tunnel Vision, Other Visual Disturbances, Loss of Vision, Other Ears: absent: As Per HPI, Decreased Hearing, Ear Discharge, Ear Pain, Tinnitus, Abnormal Hearing, Disequilibrium, Dizziness, Other Nose/Mouth/Throat: absent: As Per HPI, Epistaxis, Nasal Congestion, Nasal Discharge, Nasal Obstruction, Nasal Trauma, Nose Pain, Post Nasal Drip, Sinus Pain, Sinus Pressure, Bleeding Gums, Change in Voice, Dental Pain, Dry Mouth, Dysphagia, Halitosis, Hoarsness, Lip Swelling, Mouth Lesions, Mouth Pain, Odynophagia, Sore Throat, Throat Swelling, Tongue Swelling, Facial Pain, Neck Pain, Neck Mass, Other - Cardiovascular Cardiovascular: Chest Pain with Activity, Dyspnea on Exertion - Respiratory Respiratory: absent: As Per HPI, Cough, Dyspnea, Hemoptysis, Dyspnea on Exertion , Wheezing, Snoring, Stridor, Pain on Inspiration, Chest Congestion, Excessive Mucous Production, Change in Mucous Color, Pain with Coughing, Other - Gastrointestinal Gastrointestinal: absent: As Per HPI, Abdominal Pain, Belching, Bloating, Change in Bowel Habits, Change in Stool Character, Coffee Ground Emesis, Constipation, Cramping, Diarrhea, Dyspepsia, Dysphagia, Early Satiety, Excessive Flatus, Fecal Incontinence, Heartburn, Hematemesis, Hematochezia, Loose Stools, Melena, Nausea, Odynophagia, Temesmus, Vomiting, Other - Genitourinary Genitourinary: Voiding Freq/Small Amts - Musculoskeletal Musculoskeletal: Muscle Cramps, Myalgias - Integumentary Integumentary: absent: As Per HPI, Acne, Alopecia, Bleeding Lesions, Change in Hair, Change in Nails, Change in Pigmentation, Changing Lesions, Dry Skin, Erythema, Furuncle, Hirsutism, Lesions, New Lesions, Non-Healing Lesions, Photosensitivity, Pruritus, Rash, Skin Pain, Skin Ulcer, Sores, Striae, Swelling , Unusual Bruising, Wounds, Jaundice, Other - Neurological Neurological: absent: As Per HPI, Abnormal Gait, Abnormal Hearing, Abnormal Movements, Abnormal Speech, Behavioral Changes, Burning Sensations, Confusion, Convulsions, Disequilibrium, Dizziness, Numbness, Focal Weakness, Frequent Falls , Headaches, Lack of Coordination, Loss of Vision, Memory Loss, Paresthesias, Radicular Pain, Restless Legs, Sensory Deficit, Syncope, Tingling, Tremor, Vertigo, Weakness, Other Visual Disturbances, Other Past Patient History - Infectious Disease Hx of Infectious Diseases: None - Past Medical History & Family History Past Medical History?: Yes Past Family History: Reviewed and not pertinent - Past Social History Smoking Status: Never Smoked Chewing Tobacco Use: No Cigar Use: No Alcohol: None Drugs: Denies Home Situation {Lives}: With Family - CARDIAC Hx Atrial Fibrillation: No Hx Hypercholesterolemia: Yes Hx Hypertension: Yes - PULMONARY Hx Respiratory Disorders: No - NEUROLOGICAL Hx Neurological Disorder: No - HEENT Hx HEENT Problems: Yes (retina problem bleeding ) Hx Blind: Yes (left eye) Hx Cataracts: Yes (bilat iol ) - RENAL Hx Chronic Kidney Disease: Yes (kidney transplant 2014) Hx Dialysis: Yes (2012) Type of Dialysis Access: lt.av shunt - ENDOCRINE/METABOLIC Hx Endocrine Disorders: Yes Hx Diabetes Mellitus Type 2: Yes - HEMATOLOGICAL/ONCOLOGICAL Hx Anemia: Yes Hx Blood Transfusions: Yes Hx Blood Transfusion Reaction: No - INTEGUMENTARY Hx Dermatological Problems: Yes (ulcer right foot) - MUSCULOSKELETAL/RHEUMATOLOGICAL Hx Falls: No - GASTROINTESTINAL Hx Gastrointestinal Disorders: Yes Hx Gastroesophageal Reflux: Yes - GENITOURINARY/GYNECOLOGICAL Hx Genitourinary Disorders: No - PSYCHIATRIC Hx Substance Use: No - SURGICAL HISTORY Hx Appendectomy: Yes Hx Coronary Artery Bypass Graft: Yes (2009) Hx Coronary Stent: Yes (x4 (2013)) Hx Kidney Transplant: Yes (2015) - ANESTHESIA Hx Anesthesia: Yes Hx Anesthesia Reactions: No Hx Malignant Hyperthermia: No Meds Allergies/Adverse Reactions: Allergies Allergy/AdvReac Type Severity Reaction Status Date / Time No Known Allergies Allergy Verified 12/24/17 16:51 - Medications Medications: Current Medications Acetaminophen (Tylenol 325mg Tab) 325 mg PO Q6H PRN PRN Reason: Pain, Mild (1-3) Amlodipine Besylate (Norvasc) 5 mg PO DAILY [facility] Last Admin: 12/27/17 14:45 Dose: 5 mg Aspirin (Ecotrin) 81 mg PO DAILY [facility] Last Admin: 12/27/17 11:09 Dose: Not Given Carvedilol (Coreg) 12.5 mg PO BID [facility] Last Admin: 12/27/17 11:00 Dose: Not Given Cinacalcet (Sensipar) 30 mg PO HS [facility] Last Admin: 12/26/17 21:31 Dose: 30 mg Gabapentin (Neurontin) 300 mg PO DAILY [facility] Last Admin: 12/27/17 11:09 Dose: Not Given Heparin Sodium (Porcine) (Heparin) 5,000 units SC Q8 [facility] Last Admin: 12/27/17 14:46 Dose: 5,000 units Piperacillin Sod/Tazobactam (Sod 3.375 gm/ Sodium Chloride) 100 mls @ 200 mls/ hr IVPB Q8H [facility] PRN Reason: Protocol Last Admin: 12/27/17 12:30 Dose: Not Given Vancomycin/Sodium Chloride (Vancomycin 1 Gm/Ns 200 Ml) 1 gm in 200 mls @ 133.333 mls/hr IVPB Q24H [facility] PRN Reason: Protocol Stop: 12/30/17 20:31 Last Admin: 12/26/17 20:24 Dose: 133.333 mls/hr Sodium Chloride (Sodium Chloride 0.45%) 1,000 mls @ 50 mls/hr IV .Q20H [facility] Stop: 12/28/17 10:29 Last Admin: 12/27/17 14:47 Dose: 50 mls/hr Insulin Glargine (Lantus) 20 unit SC [facility] Last Admin: 12/26/17 21:32 Dose: Not Given Insulin Human Regular (Novolin R) 10 unit SC AC [facility] Last Admin: 12/27/17 12:30 Dose: Not Given Losartan Potassium (Cozaar) 50 mg PO DAILY [facility] Last Admin: 12/27/17 11:00 Dose: Not Given Magnesium Oxide (Mag-Ox) 400 mg PO BID [facility] Last Admin: 12/27/17 11:09 Dose: Not Given Pantoprazole Sodium (Protonix Ec Tab) 40 mg PO DAILY [facility] Last Admin: 12/27/17 11:10 Dose: Not Given Rosuvastatin Calcium (Crestor) 20 mg PO [facility] Last Admin: 12/26/17 21:34 Dose: 20 mg Tacrolimus (Prograf Cap) 2 mg PO DAILY [facility] Last Admin: 12/27/17 14:46 Dose: 2 mg Tacrolimus (Prograf Cap) 1 mg PO [facility] Last Admin: 12/26/17 21:31 Dose: 1 mg Physical Exam - Constitutional Appears: No Acute Distress, Chronically Ill - Head Exam Head Exam: ATRAUMATIC, NORMAL INSPECTION - Eye Exam Eye Exam: EOMI, Normal appearance - Neck Exam Neck exam: Positive for: Normal Inspection. Negative for: Tenderness - Respiratory Exam Respiratory Exam: Clear to Auscultation Bilateral, NORMAL BREATHING PATTERN - Cardiovascular Exam Cardiovascular Exam: REGULAR RHYTHM, +S1 - GI/Abdominal Exam GI & Abdominal Exam: Soft. absent: Tenderness - Extremities Exam Extremities exam: Positive for: normal inspection. Negative for: tenderness - Neurological Exam Neurological exam: CN II-XII Intact, Oriented x3 - Skin Skin Exam: Dry, Warm Results - Vital Signs Recent Vital Signs: Last Vital Signs Temp 97.4 F L 12/27/17 14:45 Pulse 62 12/27/17 14:45 Resp 20 12/27/17 14:45 BP 155/74 H 12/27/17 14:45 Pulse Ox 99 12/27/17 14:45 - Labs Result Diagrams: 12/27/17 07:30 12/27/17 07:30 Labs: Laboratory Results - last 24 hr 12/26/17 12/26/17 12/27/17 16:22 21:02 06:23 WBC RBC Hgb Hct MCV MCH MCHC RDW Plt Count MPV Sodium Potassium Chloride Carbon Dioxide Anion Gap BUN Creatinine Est GFR ( Amer) Est GFR (Non-Af Amer) POC Glucose (mg/dL) 189 H 426 H* 209 H Random Glucose Calcium 12/27/17 12/27/17 12/27/17 07:16 07:30 07:30 WBC 5.1 RBC 4.33 L Hgb 12.7 Hct 36.8 MCV 85.0 MCH 29.4 MCHC 34.6 RDW 13.5 Plt Count 165 MPV 8.2 Sodium 139 Potassium 4.5 Chloride 104 Carbon Dioxide 24 Anion Gap 15 BUN 16 Creatinine 0.9 Est GFR ( Amer) > 60 Est GFR (Non-Af Amer) > 60 POC Glucose (mg/dL) 201 H Random Glucose 207 H Calcium 9.1 12/27/17 14:53 WBC RBC Hgb Hct MCV MCH MCHC RDW Plt Count MPV Sodium Potassium Chloride Carbon Dioxide Anion Gap BUN Creatinine Est GFR ( Amer) Est GFR (Non-Af Amer) POC Glucose (mg/dL) 193 H Random Glucose Calcium Assessment & Plan (1) History of kidney transplant Status: Acute (2) CAD (coronary artery disease) Status: Acute (3) Diabetic foot ulcer Status: Chronic - Assessment and Plan (Free Text) Plan: resume transplant meds check FK level Agree with fluids at time of cardiac cath
[2017-12-27] MEDS: Vancomycin 1 gm/NS 200 ml 1 GM/200 ML BAG IVPB SCH (21:30)
[2017-12-27] MEDS: (Lantus) Insulin Glargine, Recombinant SC SCH (21:36)
--- NOTE | 2017-12-27 22:27 | CP.PCM.PN ---
Subjective - Date & Time of Evaluation Date of Evaluation: 12/27/17 Time of Evaluation: 13:10 - Subjective Subjective: Patient s/p Cath Moderate LAD and RCA disease Normal EF CAD management as out patient Likely cardiac risk for foot surgery is intermediate and not high risk Recommend to proceed with the needed foot surgery Will follow Objective - Vital Signs/Intake and Output Vital Signs (last 24 hours): Temp Pulse Resp BP Pulse Ox 97.5 F L 67 20 144/65 96 12/27/17 16:00 12/27/17 16:00 12/27/17 16:00 12/27/17 17:12 12/27/17 16:00 Intake and Output: 12/27/17 12/28/17 18:59 06:59 Intake Total 245 Output Total 325 Balance -80 - Medications Medications: Current Medications Acetaminophen (Tylenol 325mg Tab) 325 mg PO Q6H PRN PRN Reason: Pain, Mild (1-3) Amlodipine Besylate (Norvasc) 5 mg PO DAILY [facility] Last Admin: 12/27/17 14:45 Dose: 5 mg Aspirin (Ecotrin) 81 mg PO DAILY [facility] Last Admin: 12/27/17 11:09 Dose: Not Given Carvedilol (Coreg) 12.5 mg PO BID [facility] Last Admin: 12/27/17 17:12 Dose: 12.5 mg Cinacalcet (Sensipar) 30 mg PO HS [facility] Last Admin: 12/27/17 21:33 Dose: 30 mg Gabapentin (Neurontin) 300 mg PO DAILY [facility] Last Admin: 12/27/17 11:09 Dose: Not Given Heparin Sodium (Porcine) (Heparin) 5,000 units SC Q8 [facility] Last Admin: 12/27/17 21:34 Dose: 5,000 units Piperacillin Sod/Tazobactam (Sod 3.375 gm/ Sodium Chloride) 100 mls @ 200 mls/ hr IVPB Q8H [facility] PRN Reason: Protocol Last Admin: 12/27/17 18:55 Dose: 200 mls/hr Vancomycin/Sodium Chloride (Vancomycin 1 Gm/Ns 200 Ml) 1 gm in 200 mls @ 133.333 mls/hr IVPB Q24H [facility] PRN Reason: Protocol Stop: 12/30/17 20:31 Last Admin: 12/27/17 21:30 Dose: 133.333 mls/hr Sodium Chloride (Sodium Chloride 0.45%) 1,000 mls @ 50 mls/hr IV .Q20H [facility] Stop: 12/28/17 10:29 Last Admin: 12/27/17 14:47 Dose: 50 mls/hr Insulin Glargine (Lantus) 20 unit SC HS [facility] Last Admin: 12/27/17 21:36 Dose: 20 u Insulin Human Regular (Novolin R) 10 unit SC AC [facility] Last Admin: 12/27/17 17:13 Dose: 10 unit Losartan Potassium (Cozaar) 50 mg PO DAILY [facility] Last Admin: 12/27/17 11:00 Dose: Not Given Magnesium Oxide (Mag-Ox) 400 mg PO BID [facility] Last Admin: 12/27/17 21:35 Dose: 400 mg Mycophenolate Mofetil (Cellcept) 500 mg PO BID [facility] Last Admin: 12/27/17 17:12 Dose: 500 mg Pantoprazole Sodium (Protonix Ec Tab) 40 mg PO DAILY [facility] Last Admin: 12/27/17 11:10 Dose: Not Given Rosuvastatin Calcium (Crestor) 20 mg PO HS [facility] Last Admin: 12/27/17 21:34 Dose: 20 mg Tacrolimus (Prograf Cap) 2 mg PO DAILY [facility] Last Admin: 12/27/17 14:46 Dose: 2 mg Tacrolimus (Prograf Cap) 1 mg PO HS [facility] Last Admin: 12/27/17 21:34 Dose: 1 mg - Labs Labs: 12/27/17 07:30 12/27/17 07:30 PT 13.1 SECONDS (9.7-12.2) H 12/24/17 19:45 INR 1.2 12/24/17 19:45 APTT 31 SECONDS (21-34) 12/24/17 19:45
--- NOTE | 2017-12-27 22:41 | CP.PCM.PN ---
Subjective - Date & Time of Evaluation Date of Evaluation: 12/27/17 Time of Evaluation: 22:41 - Subjective Subjective: CHIEF COMPLAINTS TODAY : afebrile. AAO S/P CARDIAC CATHETERIZATION TODAY 12/27/17 --PRIOR TO FOOT SURGERY ROS. HEENT : N. Resp : No cough, wheezing ,pleuritic CP ,or hemoptysis Cardio : No anginal CP, PND, orthopnea, palpitation GI : No abd.pain, n/v ,diarrhea or GI bleeding . LOCKMAKER : No headache, vertigo, focal deficit. Musculoskel : No joint swelling , Derm : No rash Psych : Normal affect. Ext : No swelling ,calf pain RT FOOT IN DRESSING. PE. Pt. is alert awake in no distress. V.S As noted in the chart Head ,ear nose,throat and eyes : Normal. Neck : Supple with normal carotids. Lungs: Clear air entry. Heart : S1 & S2 normal with S4. No murmur. Abd : Soft non tender with normal bowel sounds. Neuro : Moves all ext. with no localized deficit. Ext : RT .FOOT IN DRESSING +VE EDEMA FOOT with intact pulses.Non tender calves Derm : No rashes or decubitus ulcer. LABS/RADIOLOGY: MRI RT FOOT RESULTS NOTED. +VE OSTEOMYLITIS OF 2ND DIGIT, 3RD DIGIT AND POSSIBLE 4TH . WOUND CULTURE -VE GROWTH SO FAR. ASSESSMENT/PLAN : IMPRESSION; DIABETIC FOOT ULCER. RIGHT FOOT 2ND, 3RD,?4TH DIGIT OSTEOMYELITIS. CAD , CABG S/P STENTS X4 S/P CCATH. TODAY12/27/17. HTN. DM -2 RT. KIDNEY TRANSPLANT (2014 )ON IMMUNOSUPPRESSIVE S/P TM- AMPUTATION RT BIG TOE. PLAN; PATIENT FOR SURGERY- AMPUTATION TMA VS 2ND DIGIT PER PODIATRY AFTER CARDIAC CLEARANCE. CONTINUE IV ZOSYN 3.375 EVERY 8 HOURLY (DECREASE DOSE ) 12/24/17. CONTINUE iv VANCOMYCIN 1 G ONCE A DAY DAILY WHILE AWAITING CULTURES. 12/24/17. FOLLOW-UP VANCO TROUGH LEVEL PRIOR TO THE 4TH DOSE AND KEEP BETWEEN 10 AND 20. PT ON IMMUNOSUPPRESSIVES PER RENAL. LOCAL WOUND CARE PER PODIATRY.. Objective - Vital Signs/Intake and Output Vital Signs (last 24 hours): Temp Pulse Resp BP Pulse Ox 97.5 F L 67 20 144/65 96 12/27/17 16:00 12/27/17 16:00 12/27/17 16:00 12/27/17 17:12 12/27/17 16:00 Intake and Output: 12/27/17 12/28/17 18:59 06:59 Intake Total 245 Output Total 325 Balance -80 - Medications Medications: Current Medications Acetaminophen (Tylenol 325mg Tab) 325 mg PO Q6H PRN PRN Reason: Pain, Mild (1-3) Amlodipine Besylate (Norvasc) 5 mg PO DAILY [facility] Last Admin: 12/27/17 14:45 Dose: 5 mg Aspirin (Ecotrin) 81 mg PO DAILY [facility] Last Admin: 12/27/17 11:09 Dose: Not Given Carvedilol (Coreg) 12.5 mg PO BID [facility] Last Admin: 12/27/17 17:12 Dose: 12.5 mg Cinacalcet (Sensipar) 30 mg PO HS [facility] Last Admin: 12/27/17 21:33 Dose: 30 mg Gabapentin (Neurontin) 300 mg PO DAILY [facility] Last Admin: 12/27/17 11:09 Dose: Not Given Heparin Sodium (Porcine) (Heparin) 5,000 units SC Q8 [facility] Last Admin: 12/27/17 21:34 Dose: 5,000 units Piperacillin Sod/Tazobactam (Sod 3.375 gm/ Sodium Chloride) 100 mls @ 200 mls/ hr IVPB Q8H [facility] PRN Reason: Protocol Last Admin: 12/27/17 18:55 Dose: 200 mls/hr Vancomycin/Sodium Chloride (Vancomycin 1 Gm/Ns 200 Ml) 1 gm in 200 mls @ 133.333 mls/hr IVPB Q24H [facility] PRN Reason: Protocol Stop: 12/30/17 20:31 Last Admin: 12/27/17 21:30 Dose: 133.333 mls/hr Sodium Chloride (Sodium Chloride 0.45%) 1,000 mls @ 50 mls/hr IV .Q20H [facility] Stop: 12/28/17 10:29 Last Admin: 12/27/17 14:47 Dose: 50 mls/hr Insulin Glargine (Lantus) 20 unit SC HS [facility] Last Admin: 12/27/17 21:36 Dose: 20 u Insulin Human Regular (Novolin R) 10 unit SC AC [facility] Last Admin: 12/27/17 17:13 Dose: 10 unit Losartan Potassium (Cozaar) 50 mg PO DAILY [facility] Last Admin: 12/27/17 11:00 Dose: Not Given Magnesium Oxide (Mag-Ox) 400 mg PO BID [facility] Last Admin: 12/27/17 21:35 Dose: 400 mg Mycophenolate Mofetil (Cellcept) 500 mg PO BID [facility] Last Admin: 12/27/17 17:12 Dose: 500 mg Pantoprazole Sodium (Protonix Ec Tab) 40 mg PO DAILY [facility] Last Admin: 12/27/17 11:10 Dose: Not Given Rosuvastatin Calcium (Crestor) 20 mg PO HS [facility] Last Admin: 12/27/17 21:34 Dose: 20 mg Tacrolimus (Prograf Cap) 2 mg PO DAILY [facility] Last Admin: 12/27/17 14:46 Dose: 2 mg Tacrolimus (Prograf Cap) 1 mg PO HS [facility] Last Admin: 12/27/17 21:34 Dose: 1 mg - Labs Labs: 12/27/17 07:30 12/27/17 07:30 PT 13.1 SECONDS (9.7-12.2) H 12/24/17 19:45 INR 1.2 12/24/17 19:45 APTT 31 SECONDS (21-34) 12/24/17 19:45 Assessment and Plan (1) Diabetic foot ulcer Status: Chronic (2) Osteomyelitis of right foot Status: Acute (3) Diabetes mellitus Status: Chronic (4) Hypertension Status: Chronic (5) CAD (coronary artery disease) Status: Acute (6) Renal transplant recipient Status: Acute
[2017-12-28] MEDS: Piperacillin/Tazobact 3.375 GM in Sodium Chloride 100 ML IVPB SCH ×3 (03:30→19:00)
[2017-12-28 07:17] LABS: ALBUMIN 3.4 g/dL (3.5-5.0); ALT/SGPT 40 U/L (21-72); AST/SGOT 25 U/L (17-59); BLOOD UREA NITROGEN 15 mg/dL (9-20); CALCIUM 9.3 mg/dl (8.6-10.4); GFR AFRICAN-AMERICAN > 60; GFR NON-AFRICAN AMERICAN > 60
[2017-12-28] MEDS: (Novolin R) Insulin Human Regular 100 units/ml vial SC SCH ×3 (08:04→18:04)
--- NOTE | 2017-12-28 08:52 | CP.PCM.PN ---
Subjective - Date & Time of Evaluation Date of Evaluation: 12/28/17 Time of Evaluation: 08:50 - Subjective Subjective: output 1875 creatinine .8 today lytes ok bp stable afebrile ate entire breakfast comfortable supine ROS no headache or dizziness no chest pain cough productive of white sputum no abdomenal pain n,v,d no dysuria hematuria pain rt foot Objective - Vital Signs/Intake and Output Vital Signs (last 24 hours): Temp Pulse Resp BP Pulse Ox 97.6 F 73 20 135/70 99 12/28/17 07:49 12/28/17 07:49 12/28/17 07:49 12/28/17 07:49 12/28/17 07:49 Intake and Output: 12/28/17 12/28/17 06:59 18:59 Intake Total 750 Output Total 1550 Balance -800 - Medications Medications: Current Medications Acetaminophen (Tylenol 325mg Tab) 325 mg PO Q6H PRN PRN Reason: Pain, Mild (1-3) Amlodipine Besylate (Norvasc) 5 mg PO DAILY [facility] Last Admin: 12/27/17 14:45 Dose: 5 mg Aspirin (Ecotrin) 81 mg PO DAILY [facility] Last Admin: 12/27/17 11:09 Dose: Not Given Carvedilol (Coreg) 12.5 mg PO BID [facility] Last Admin: 12/27/17 17:12 Dose: 12.5 mg Cinacalcet (Sensipar) 30 mg PO HS [facility] Last Admin: 12/27/17 21:33 Dose: 30 mg Gabapentin (Neurontin) 300 mg PO DAILY [facility] Last Admin: 12/27/17 11:09 Dose: Not Given Heparin Sodium (Porcine) (Heparin) 5,000 units SC Q8 [facility] Last Admin: 12/28/17 05:35 Dose: 5,000 units Piperacillin Sod/Tazobactam (Sod 3.375 gm/ Sodium Chloride) 100 mls @ 200 mls/ hr IVPB Q8H [facility] PRN Reason: Protocol Last Admin: 12/28/17 03:30 Dose: 200 mls/hr Vancomycin/Sodium Chloride (Vancomycin 1 Gm/Ns 200 Ml) 1 gm in 200 mls @ 133.333 mls/hr IVPB Q24H [facility] PRN Reason: Protocol Stop: 12/30/17 20:31 Last Admin: 12/27/17 21:30 Dose: 133.333 mls/hr Sodium Chloride (Sodium Chloride 0.45%) 1,000 mls @ 50 mls/hr IV .Q20H [facility] Stop: 12/28/17 10:29 Last Admin: 12/27/17 14:47 Dose: 50 mls/hr Insulin Glargine (Lantus) 20 unit SC HS [facility] Last Admin: 12/27/17 21:36 Dose: 20 u Insulin Human Regular (Novolin R) 10 unit SC AC [facility] Last Admin: 12/28/17 08:04 Dose: 10 unit Losartan Potassium (Cozaar) 50 mg PO DAILY [facility] Last Admin: 12/27/17 11:00 Dose: Not Given Magnesium Oxide (Mag-Ox) 400 mg PO BID [facility] Last Admin: 12/27/17 21:35 Dose: 400 mg Mycophenolate Mofetil (Cellcept) 500 mg PO BID [facility] Last Admin: 12/27/17 17:12 Dose: 500 mg Pantoprazole Sodium (Protonix Ec Tab) 40 mg PO DAILY [facility] Last Admin: 12/27/17 11:10 Dose: Not Given Rosuvastatin Calcium (Crestor) 20 mg PO [facility] Last Admin: 12/27/17 21:34 Dose: 20 mg Tacrolimus (Prograf Cap) 2 mg PO DAILY [facility] Last Admin: 12/27/17 14:46 Dose: 2 mg Tacrolimus (Prograf Cap) 1 mg PO [facility] Last Admin: 12/27/17 21:34 Dose: 1 mg - Labs Labs: 12/27/17 07:30 12/28/17 06:37 PT 13.1 SECONDS (9.7-12.2) H 12/24/17 19:45 INR 1.2 12/24/17 19:45 APTT 31 SECONDS (21-34) 12/24/17 19:45 - Constitutional Appears: Well, No Acute Distress - Eye Exam Eye Exam: Normal appearance - Respiratory Exam Respiratory Exam: Clear to Ausculation Bilateral, NORMAL BREATHING PATTERN - Cardiovascular Exam Cardiovascular Exam: REGULAR RHYTHM. absent: JVD - GI/Abdominal Exam GI & Abdominal Exam: Soft. absent: Distended, Tenderness Additional comments: graft rlq ill defined - Extremities Exam Extremities Exam: absent: Calf Tenderness Additional comments: rt foot bandaged - Back Exam Back Exam: absent: CVA tenderness (L), CVA tenderness (R) - Skin Skin Exam: Dry, Warm Assessment and Plan (1) History of kidney transplant Status: Acute (2) Diabetic foot ulcer Status: Chronic (3) CAD (coronary artery disease) Status: Acute (4) History of coronary artery disease Status: Acute (5) Diabetes mellitus Status: Chronic (6) Immunosuppressive management encounter following kidney transplant Status: Chronic - Assessment and Plan (Free Text) Plan: coontinue prest immunosuppression await further vascular and cardiolgy evaluation and treatment
--- NOTE | 2017-12-28 10:39 | CP.PCM.PN ---
Subjective - Date & Time of Evaluation Date of Evaluation: 12/28/17 Time of Evaluation: 10:39 - Subjective Subjective: Pt feels well sp cath no new issues feels comfortable Objective - Vital Signs/Intake and Output Vital Signs (last 24 hours): Temp Pulse Resp BP Pulse Ox 97.6 F 73 20 135/70 99 12/28/17 07:49 12/28/17 07:49 12/28/17 07:49 12/28/17 07:49 12/28/17 07:49 Intake and Output: 12/28/17 12/28/17 06:59 18:59 Intake Total 750 Output Total 1550 Balance -800 - Medications Medications: Current Medications Acetaminophen (Tylenol 325mg Tab) 325 mg PO Q6H PRN PRN Reason: Pain, Mild (1-3) Amlodipine Besylate (Norvasc) 5 mg PO DAILY [facility] Last Admin: 12/27/17 14:45 Dose: 5 mg Aspirin (Ecotrin) 81 mg PO DAILY [facility] Last Admin: 12/27/17 11:09 Dose: Not Given Carvedilol (Coreg) 12.5 mg PO BID [facility] Last Admin: 12/27/17 17:12 Dose: 12.5 mg Cinacalcet (Sensipar) 30 mg PO [facility] Last Admin: 12/27/17 21:33 Dose: 30 mg Gabapentin (Neurontin) 300 mg PO DAILY [facility] Last Admin: 12/27/17 11:09 Dose: Not Given Heparin Sodium (Porcine) (Heparin) 5,000 units SC Q8 [facility] Last Admin: 12/28/17 05:35 Dose: 5,000 units Piperacillin Sod/Tazobactam (Sod 3.375 gm/ Sodium Chloride) 100 mls @ 200 mls/ hr IVPB Q8H [facility] PRN Reason: Protocol Last Admin: 12/28/17 03:30 Dose: 200 mls/hr Vancomycin/Sodium Chloride (Vancomycin 1 Gm/Ns 200 Ml) 1 gm in 200 mls @ 133.333 mls/hr IVPB Q24H [facility] PRN Reason: Protocol Stop: 12/30/17 20:31 Last Admin: 12/27/17 21:30 Dose: 133.333 mls/hr Insulin Glargine (Lantus) 20 unit SC [facility] Last Admin: 12/27/17 21:36 Dose: 20 u Insulin Human Regular (Novolin R) 10 unit SC AC [facility] Last Admin: 12/28/17 08:04 Dose: 10 unit Losartan Potassium (Cozaar) 50 mg PO DAILY [facility] Last Admin: 12/27/17 11:00 Dose: Not Given Magnesium Oxide (Mag-Ox) 400 mg PO BID [facility] Last Admin: 12/27/17 21:35 Dose: 400 mg Mycophenolate Mofetil (Cellcept) 500 mg PO BID [facility] Last Admin: 12/27/17 17:12 Dose: 500 mg Pantoprazole Sodium (Protonix Ec Tab) 40 mg PO DAILY [facility] Last Admin: 12/27/17 11:10 Dose: Not Given Rosuvastatin Calcium (Crestor) 20 mg PO HS [facility] Last Admin: 12/27/17 21:34 Dose: 20 mg Tacrolimus (Prograf Cap) 2 mg PO DAILY [facility] Last Admin: 12/27/17 14:46 Dose: 2 mg Tacrolimus (Prograf Cap) 1 mg PO HS [facility] Last Admin: 12/27/17 21:34 Dose: 1 mg - Labs Labs: 12/27/17 07:30 12/28/17 06:37 PT 13.1 SECONDS (9.7-12.2) H 12/24/17 19:45 INR 1.2 12/24/17 19:45 APTT 31 SECONDS (21-34) 12/24/17 19:45 - Constitutional Appears: Well, No Acute Distress - Eye Exam Eye Exam: Normal appearance - ENT Exam ENT Exam: Mucous Membranes Moist - Respiratory Exam Respiratory Exam: Clear to Ausculation Bilateral - Cardiovascular Exam Cardiovascular Exam: REGULAR RHYTHM, RRR, +S1, +S2. absent: JVD - GI/Abdominal Exam GI & Abdominal Exam: Soft, Normal Bowel Sounds Assessment and Plan - Assessment and Plan (Free Text) Assessment: appreciate cardio input mod rist, ok to proceed with surgery per Dr. Aguirre diabetes; cont meds sp cath; bmp in AM bp stable
[2017-12-28] MEDS: Pantoprazole 40 mg EC Tab PO SCH (10:46)
[2017-12-28] MEDS: Magnesium Oxide 400 mg Tab UD PO SCH ×2 (10:46→18:04)
[2017-12-28] MEDS: Calcium Carbonate 500 mg Chewable Antacid Tab PO PRN ×2 (10:53→14:53)
--- NOTE | 2017-12-28 16:22 | CP.PCM.PN ---
Subjective - Date & Time of Evaluation Date of Evaluation: 12/28/17 Time of Evaluation: 16:17 - Subjective Subjective: Podiatry progress note - Dr. Taylor 67 y/o male with pmhx of Anemia, Diabetes, HTN, Hypercholesterolemia, End Stage Renal Disease, Chronic Kidney Disease (kidney transplant 2014) seen at bedside for diabetic ulceration of right second digit with exposed bone and underlying OM. Patient is AAO x 3 and NAD, resting comfortably in bed at time of visit, Patient says that cardiac catheterization went well yesterday. States that pain is well controlled. Denies any acute overnight events or any new pedal complaints at this time. Denies any recent N/V/F/C/CP/SOB/D/posterior calf pain when squeezed. Patient is aware that he will have amputation of second digit with Dr. Taylor vsErick SANTOYO on Saturday. Objective - Vital Signs/Intake and Output Vital Signs (last 24 hours): Temp Pulse Resp BP Pulse Ox 97.6 F 73 20 135/70 99 12/28/17 07:49 12/28/17 07:49 12/28/17 07:49 12/28/17 10:47 12/28/17 07:49 Intake and Output: 12/28/17 12/28/17 06:59 18:59 Intake Total 750 Output Total 1550 Balance -800 - Medications Medications: Current Medications Acetaminophen (Tylenol 325mg Tab) 325 mg PO Q6H PRN PRN Reason: Pain, Mild (1-3) Amlodipine Besylate (Norvasc) 5 mg PO DAILY [facility] Last Admin: 12/28/17 12:23 Dose: 5 mg Aspirin (Ecotrin) 81 mg PO DAILY [facility] Last Admin: 12/28/17 10:46 Dose: 81 mg Calcium Carbonate (Tums) 500 mg PO AC PRN PRN Reason: heart burn Last Admin: 12/28/17 14:53 Dose: 500 mg Carvedilol (Coreg) 12.5 mg PO BID [facility] Last Admin: 12/28/17 10:47 Dose: 12.5 mg Cinacalcet (Sensipar) 30 mg PO HS [facility] Last Admin: 12/27/17 21:33 Dose: 30 mg Gabapentin (Neurontin) 300 mg PO DAILY [facility] Last Admin: 12/28/17 10:47 Dose: 300 mg Heparin Sodium (Porcine) (Heparin) 5,000 units SC Q8 [facility] Last Admin: 12/28/17 14:51 Dose: 5,000 units Piperacillin Sod/Tazobactam (Sod 3.375 gm/ Sodium Chloride) 100 mls @ 200 mls/ hr IVPB Q8H [facility] PRN Reason: Protocol Last Admin: 12/28/17 11:49 Dose: 200 mls/hr Vancomycin/Sodium Chloride (Vancomycin 1 Gm/Ns 200 Ml) 1 gm in 200 mls @ 133.333 mls/hr IVPB Q24H [facility] PRN Reason: Protocol Stop: 12/30/17 20:31 Last Admin: 12/27/17 21:30 Dose: 133.333 mls/hr Insulin Glargine (Lantus) 20 unit SC HS [facility] Last Admin: 12/27/17 21:36 Dose: 20 u Insulin Human Regular (Novolin R) 10 unit SC AC [facility] Last Admin: 12/28/17 11:50 Dose: 10 unit Losartan Potassium (Cozaar) 50 mg PO DAILY [facility] Last Admin: 12/28/17 10:46 Dose: 50 mg Magnesium Oxide (Mag-Ox) 400 mg PO BID [facility] Last Admin: 12/28/17 10:46 Dose: 400 mg Mycophenolate Mofetil (Cellcept) 500 mg PO BID [facility] Last Admin: 12/28/17 10:46 Dose: 500 mg Pantoprazole Sodium (Protonix Ec Tab) 40 mg PO DAILY [facility] Last Admin: 12/28/17 10:46 Dose: 40 mg Rosuvastatin Calcium (Crestor) 20 mg PO [facility] Last Admin: 12/27/17 21:34 Dose: 20 mg Tacrolimus (Prograf Cap) 2 mg PO DAILY [facility] Last Admin: 12/28/17 10:47 Dose: 2 mg Tacrolimus (Prograf Cap) 1 mg PO [facility] Last Admin: 12/27/17 21:34 Dose: 1 mg - Labs Labs: 12/27/17 07:30 12/28/17 06:37 PT 13.1 SECONDS (9.7-12.2) H 12/24/17 19:45 INR 1.2 12/24/17 19:45 APTT 31 SECONDS (21-34) 12/24/17 19:45 - Constitutional Appears: Well, Non-toxic, No Acute Distress - Extremities Exam Additional comments: RLE focused: Vasc: DP/PT pulses 2/4 b/l. Skin temperature warm to warm from proximal to distal. CFT < 4 seconds to all digits. Neuro: Epicritic and protective sensation grossly diminished Derm: Nonpitting edema noted to 2nd digit, diffuse edema noted to right foot, open lesion to dorsal aspect of right 2nd digit measuring 1cm x1.5cm x 0.5cm with serous drainage, fibrous base, no malodor, no purulent drainage, no ascending cellulitis. Probe to bone positive. Otherwise no open lesions, wounds , maceration, xerosis, abnormal pigmentation or abnormal growths noted. Ortho: no pain on palpation to 2nd digit, previous healed first ray resection of right foot appreciated - Neurological Exam Neurological Exam: Alert, Awake, Oriented x3 - Psychiatric Exam Psychiatric exam: Normal Affect, Normal Mood Assessment and Plan - Assessment and Plan (Free Text) Assessment: 67 y/o male with pmhx of Anemia, Diabetes, HTN, Hypercholesterolemia, End Stage Renal Disease, Chronic Kidney Disease (kidney transplant 2014) seen at bedside for diabetic ulceration of right second digit with exposed bone and underlying OM of second, third and possibly fourth digit Plan: Patient seen and evaluated at bedside Plan discussed in detail with attending Dr. Taylor Charts, labs, vitals reviewed Absent leukocytosis, vital signs stable Continue IV abx per ID MRI R foot: OM of second digit, third digit and metatarsal, likely OM of fourth digit Ulceration on second digit dressed with betadine, DSD Patient for digital amputation vs. TMA with Dr. Taylor on Saturday, patient aware Cardiac clearance per Dr. Aguirre appreciated Podiatry will continue to follow patient while in house
[2017-12-28] MEDS: Vancomycin 1 gm/NS 200 ml 1 GM/200 ML BAG IVPB SCH (20:02)
[2017-12-28] MEDS: (Lantus) Insulin Glargine, Recombinant SC SCH (21:20)
--- NOTE | 2017-12-28 23:55 | CP.PCM.PN ---
Subjective - Date & Time of Evaluation Date of Evaluation: 12/28/17 Time of Evaluation: 23:55 - Subjective Subjective: afebrile, resting comfortably. OFFERS NO COMPLAINTS S/P CC FINDINGS NOTED . PT CLEARED FOR SURGERY BY CARDIOLOGY.(INTERMEDIATE RISK ) RENAL FUNCTION STABLE. PT FOR SURGERY FOOT SATURDAY. PT ON ABX. Objective - Vital Signs/Intake and Output Vital Signs (last 24 hours): Temp Pulse Resp BP Pulse Ox 97.9 F 66 20 124/63 97 12/28/17 23:19 12/28/17 23:19 12/28/17 23:19 12/28/17 23:19 12/28/17 23:19 - Medications Medications: Current Medications Acetaminophen (Tylenol 325mg Tab) 325 mg PO Q6H PRN PRN Reason: Pain, Mild (1-3) Amlodipine Besylate (Norvasc) 5 mg PO DAILY [facility] Last Admin: 12/28/17 12:23 Dose: 5 mg Aspirin (Ecotrin) 81 mg PO DAILY [facility] Last Admin: 12/28/17 10:46 Dose: 81 mg Calcium Carbonate (Tums) 500 mg PO AC PRN PRN Reason: heart burn Last Admin: 12/28/17 14:53 Dose: 500 mg Carvedilol (Coreg) 12.5 mg PO BID [facility] Last Admin: 12/28/17 18:03 Dose: 12.5 mg Cinacalcet (Sensipar) 30 mg PO HS [facility] Last Admin: 12/28/17 21:18 Dose: 30 mg Gabapentin (Neurontin) 300 mg PO DAILY [facility] Last Admin: 12/28/17 10:47 Dose: 300 mg Heparin Sodium (Porcine) (Heparin) 5,000 units SC Q8 [facility] Last Admin: 12/28/17 21:19 Dose: 5,000 units Piperacillin Sod/Tazobactam (Sod 3.375 gm/ Sodium Chloride) 100 mls @ 200 mls/ hr IVPB Q8H [facility] PRN Reason: Protocol Last Admin: 12/28/17 19:00 Dose: 200 mls/hr Vancomycin/Sodium Chloride (Vancomycin 1 Gm/Ns 200 Ml) 1 gm in 200 mls @ 133.333 mls/hr IVPB Q24H [facility] PRN Reason: Protocol Stop: 12/30/17 20:31 Last Admin: 12/28/17 20:02 Dose: 133.333 mls/hr Insulin Glargine (Lantus) 20 unit SC HS [facility] Last Admin: 12/28/17 21:20 Dose: 20 u Insulin Human Regular (Novolin R) 10 unit SC AC [facility] Last Admin: 12/28/17 18:04 Dose: 10 unit Losartan Potassium (Cozaar) 50 mg PO DAILY [facility] Last Admin: 12/28/17 10:46 Dose: 50 mg Magnesium Oxide (Mag-Ox) 400 mg PO BID [facility] Last Admin: 12/28/17 18:04 Dose: 400 mg Mycophenolate Mofetil (Cellcept) 500 mg PO BID [facility] Last Admin: 12/28/17 18:03 Dose: 500 mg Pantoprazole Sodium (Protonix Ec Tab) 40 mg PO DAILY [facility] Last Admin: 12/28/17 10:46 Dose: 40 mg Rosuvastatin Calcium (Crestor) 20 mg PO [facility] Last Admin: 12/28/17 21:19 Dose: 20 mg Tacrolimus (Prograf Cap) 2 mg PO DAILY [facility] Last Admin: 12/28/17 10:47 Dose: 2 mg Tacrolimus (Prograf Cap) 1 mg PO [facility] Last Admin: 12/28/17 21:18 Dose: 1 mg - Labs Labs: 12/27/17 07:30 12/28/17 06:37 PT 13.1 SECONDS (9.7-12.2) H 12/24/17 19:45 INR 1.2 12/24/17 19:45 APTT 31 SECONDS (21-34) 12/24/17 19:45 - Constitutional Appears: No Acute Distress - Head Exam Head Exam: NORMAL INSPECTION - Eye Exam Eye Exam: EOMI, PERRL - ENT Exam ENT Exam: Normal Oropharynx - Neck Exam Neck Exam: Normal Inspection - Respiratory Exam Respiratory Exam: Clear to Ausculation Bilateral - Cardiovascular Exam Cardiovascular Exam: REGULAR RHYTHM, +S1, +S2 - GI/Abdominal Exam GI & Abdominal Exam: Soft, Normal Bowel Sounds - Extremities Exam Extremities Exam: Pedal Edema (RT FOOT IN DRESSING.). absent: Calf Tenderness - Neurological Exam Neurological Exam: Alert, Awake, CN II-XII Intact, Oriented x3 - Psychiatric Exam Psychiatric exam: Normal Mood - Skin Skin Exam: Normal Color, Warm Assessment and Plan (1) Diabetic foot ulcer Status: Chronic (2) Osteomyelitis of right foot Status: Acute (3) Diabetes mellitus Status: Chronic (4) Hypertension Status: Chronic (5) CAD (coronary artery disease) Status: Acute (6) Renal transplant recipient Status: Acute - Assessment and Plan (Free Text) Plan: PATIENT FOR SURGERY- AMPUTATION TMA VS 2ND DIGIT PER PODIATRY AFTER CARDIAC CLEARANCE. CONTINUE IV ZOSYN 3.375 EVERY 8 HOURLY (DECREASE DOSE ) 12/24/17. CONTINUE iv VANCOMYCIN 1 G ONCE A DAY DAILY WHILE AWAITING CULTURES. 12/24/17. FOLLOW-UP VANCO TROUGH LEVEL PRIOR TO THE 4TH DOSE AND KEEP BETWEEN 10 AND 20 TODAY PT ON IMMUNOSUPPRESSIVES PER RENAL. LOCAL WOUND CARE PER PODIATRY..
[2017-12-29] MEDS: Piperacillin/Tazobact 3.375 GM in Sodium Chloride 100 ML IVPB SCH ×3 (04:00→19:26)
[2017-12-29] MEDS: Calcium Carbonate 500 mg Chewable Antacid Tab PO PRN ×2 (09:10→22:28)
[2017-12-29] MEDS: Pantoprazole 40 mg EC Tab PO SCH (09:12)
[2017-12-29] MEDS: Magnesium Oxide 400 mg Tab UD PO SCH ×2 (09:12→17:26)
[2017-12-29] MEDS: (Novolin R) Insulin Human Regular 100 units/ml vial SC SCH ×3 (09:14→16:50)
--- NOTE | 2017-12-29 09:30 | CP.PCM.PN ---
Subjective - Date & Time of Evaluation Date of Evaluation: 12/29/17 Time of Evaluation: 09:28 - Subjective Subjective: Podiatry progress note - Dr. Taylor 67 y/o male with pmhx of Anemia, Diabetes, HTN, Hypercholesterolemia, End Stage Renal Disease, Chronic Kidney Disease (kidney transplant 2014) seen at bedside for diabetic ulceration of right second digit with exposed bone and underlying OM. Patient is AAO x 3 and NAD, resting comfortably in bed at time of visit. States that pain is well controlled at this time. Denies any acute overnight events or any new pedal complaints at this time. Denies any recent N/V/F/C/CP/ SOB/D/posterior calf pain when squeezed. Patient is aware that he will have amputation of second digit with Dr. Taylor vs. YARELIS tomorrow Objective - Vital Signs/Intake and Output Vital Signs (last 24 hours): Temp Pulse Resp BP Pulse Ox 97.9 F 66 20 124/63 97 12/28/17 23:19 12/28/17 23:19 12/28/17 23:19 12/28/17 23:19 12/28/17 23:19 Intake and Output: 12/29/17 12/29/17 06:59 18:59 Intake Total 400 Output Total 0 Balance 400 - Medications Medications: Current Medications Acetaminophen (Tylenol 325mg Tab) 325 mg PO Q6H PRN PRN Reason: Pain, Mild (1-3) Amlodipine Besylate (Norvasc) 5 mg PO DAILY [facility] Last Admin: 12/29/17 09:14 Dose: 5 mg Aspirin (Ecotrin) 81 mg PO DAILY [facility] Last Admin: 12/28/17 10:46 Dose: 81 mg Calcium Carbonate (Tums) 500 mg PO AC PRN PRN Reason: heart burn Last Admin: 12/29/17 09:10 Dose: 500 mg Carvedilol (Coreg) 12.5 mg PO BID [facility] Last Admin: 12/28/17 18:03 Dose: 12.5 mg Cinacalcet (Sensipar) 30 mg PO HS [facility] Last Admin: 12/28/17 21:18 Dose: 30 mg Gabapentin (Neurontin) 300 mg PO DAILY [facility] Last Admin: 12/29/17 09:12 Dose: 300 mg Heparin Sodium (Porcine) (Heparin) 5,000 units SC Q8 [facility] Last Admin: 12/29/17 05:15 Dose: 5,000 units Piperacillin Sod/Tazobactam (Sod 3.375 gm/ Sodium Chloride) 100 mls @ 200 mls/ hr IVPB Q8H [facility] PRN Reason: Protocol Last Admin: 12/29/17 04:00 Dose: 200 mls/hr Vancomycin/Sodium Chloride (Vancomycin 1 Gm/Ns 200 Ml) 1 gm in 200 mls @ 133.333 mls/hr IVPB Q24H [facility] PRN Reason: Protocol Stop: 12/30/17 20:31 Last Admin: 12/28/17 20:02 Dose: 133.333 mls/hr Insulin Glargine (Lantus) 20 unit SC HS [facility] Last Admin: 12/28/17 21:20 Dose: 20 u Insulin Human Regular (Novolin R) 10 unit SC AC [facility] Last Admin: 12/29/17 09:14 Dose: 10 unit Losartan Potassium (Cozaar) 50 mg PO DAILY [facility] Last Admin: 12/28/17 10:46 Dose: 50 mg Magnesium Oxide (Mag-Ox) 400 mg PO BID [facility] Last Admin: 12/29/17 09:12 Dose: 400 mg Mycophenolate Mofetil (Cellcept) 500 mg PO BID [facility] Last Admin: 12/29/17 09:12 Dose: 500 mg Pantoprazole Sodium (Protonix Ec Tab) 40 mg PO DAILY [facility] Last Admin: 12/29/17 09:12 Dose: 40 mg Rosuvastatin Calcium (Crestor) 20 mg PO HS [facility] Last Admin: 12/28/17 21:19 Dose: 20 mg Tacrolimus (Prograf Cap) 2 mg PO DAILY [facility] Last Admin: 12/29/17 09:11 Dose: 2 mg Tacrolimus (Prograf Cap) 1 mg PO HS [facility] Last Admin: 12/28/17 21:18 Dose: 1 mg - Labs Labs: 12/27/17 07:30 12/28/17 06:37 PT 13.1 SECONDS (9.7-12.2) H 12/24/17 19:45 INR 1.2 12/24/17 19:45 APTT 31 SECONDS (21-34) 12/24/17 19:45 - Constitutional Appears: Well, Non-toxic, No Acute Distress - Extremities Exam Additional comments: RLE focused: Vasc: DP/PT pulses 2/4 b/l. Skin temperature warm to warm from proximal to distal. CFT < 4 seconds to all digits. Neuro: Epicritic and protective sensation grossly diminished Derm: Nonpitting edema noted to 2nd digit, diffuse edema noted to right foot, open lesion to dorsal aspect of right 2nd digit measuring 1cm x1.5cm x 0.5cm with serous drainage, fibrous base, no malodor, no purulent drainage, no ascending cellulitis. Probe to bone positive. Otherwise no open lesions, wounds , maceration, xerosis, abnormal pigmentation or abnormal growths noted. Ortho: no pain on palpation to 2nd digit, previous healed first ray resection of right foot appreciated - Neurological Exam Neurological Exam: Alert, Awake, Oriented x3 - Psychiatric Exam Psychiatric exam: Normal Affect, Normal Mood Assessment and Plan - Assessment and Plan (Free Text) Assessment: 67 y/o male with pmhx of Anemia, Diabetes, HTN, Hypercholesterolemia, End Stage Renal Disease, Chronic Kidney Disease (kidney transplant 2014) seen at bedside for diabetic ulceration of right second digit with exposed bone and underlying OM Plan: Patient seen and evaluated at bedside Plan discussed in detail with attending Dr. Taylor Charts, labs, vitals reviewed Absent leukocytosis, vital signs stable Continue IV abx per ID MRI R foot: OM of second digit, third digit and metatarsal, likely OM of fourth digit Ulceration on second digit dressed with betadine, DSD Patient for digital amputation vs. TMA with Dr. Taylor on Saturday, patient aware Cardiac clearance per Dr. Aguirre appreciated Patient to be NPO after midnight except meds Heparin to be held after midnight Podiatry will continue to follow patient while in house
[2017-12-29] MEDS: Vancomycin 1 gm/NS 200 ml 1 GM/200 ML BAG IVPB SCH (20:44)
[2017-12-29] MEDS: (Lantus) Insulin Glargine, Recombinant SC SCH (21:27)
--- NOTE | 2017-12-29 23:42 | CP.PCM.PN ---
Subjective - Date & Time of Evaluation Date of Evaluation: 12/28/17 Time of Evaluation: 16:20 - Subjective Subjective: Patient seen and evaluated Lying down comfortably Not in distress Moderate CAD For foot surgery Zabrina Objective - Vital Signs/Intake and Output Vital Signs (last 24 hours): Temp Pulse Resp BP Pulse Ox 98 F 70 20 155/68 H 98 12/29/17 23:11 12/29/17 23:11 12/29/17 23:11 12/29/17 23:11 12/29/17 23:11 Intake and Output: 12/29/17 12/30/17 18:59 06:59 Intake Total 600 Balance 600 - Medications Medications: Current Medications Acetaminophen (Tylenol 325mg Tab) 325 mg PO Q6H PRN PRN Reason: Pain, Mild (1-3) Amlodipine Besylate (Norvasc) 5 mg PO DAILY [facility] Last Admin: 12/29/17 09:14 Dose: 5 mg Aspirin (Ecotrin) 81 mg PO DAILY [facility] Last Admin: 12/29/17 10:32 Dose: 81 mg Calcium Carbonate (Tums) 500 mg PO AC PRN PRN Reason: heart burn Last Admin: 12/29/17 22:28 Dose: 500 mg Carvedilol (Coreg) 12.5 mg PO BID [facility] Last Admin: 12/29/17 17:26 Dose: 12.5 mg Cinacalcet (Sensipar) 30 mg PO HS [facility] Last Admin: 12/29/17 21:26 Dose: 30 mg Gabapentin (Neurontin) 300 mg PO DAILY [facility] Last Admin: 12/29/17 09:12 Dose: 300 mg Heparin Sodium (Porcine) (Heparin) 5,000 units SC Q8 [facility] Last Admin: 12/29/17 21:27 Dose: 5,000 units Piperacillin Sod/Tazobactam (Sod 3.375 gm/ Sodium Chloride) 100 mls @ 200 mls/ hr IVPB Q8H [facility] PRN Reason: Protocol Last Admin: 12/29/17 19:26 Dose: 200 mls/hr Vancomycin/Sodium Chloride (Vancomycin 1 Gm/Ns 200 Ml) 1 gm in 200 mls @ 133.333 mls/hr IVPB Q24H [facility] PRN Reason: Protocol Stop: 12/30/17 20:31 Last Admin: 12/29/17 20:44 Dose: 133.333 mls/hr Insulin Glargine (Lantus) 20 unit SC HS [facility] Last Admin: 12/29/17 21:27 Dose: 20 u Insulin Human Regular (Novolin R) 10 unit SC AC [facility] Last Admin: 12/29/17 16:50 Dose: Not Given Losartan Potassium (Cozaar) 50 mg PO DAILY [facility] Last Admin: 12/29/17 10:33 Dose: 50 mg Magnesium Oxide (Mag-Ox) 400 mg PO BID [facility] Last Admin: 12/29/17 17:26 Dose: 400 mg Mycophenolate Mofetil (Cellcept) 500 mg PO BID [facility] Last Admin: 12/29/17 17:27 Dose: 500 mg Pantoprazole Sodium (Protonix Ec Tab) 40 mg PO DAILY [facility] Last Admin: 12/29/17 09:12 Dose: 40 mg Rosuvastatin Calcium (Crestor) 20 mg PO HS [facility] Last Admin: 12/29/17 21:26 Dose: 20 mg Tacrolimus (Prograf Cap) 2 mg PO DAILY [facility] Last Admin: 12/29/17 09:11 Dose: 2 mg Tacrolimus (Prograf Cap) 1 mg PO [facility] Last Admin: 12/29/17 21:26 Dose: 1 mg - Labs Labs: 12/27/17 07:30 12/28/17 06:37 PT 13.1 SECONDS (9.7-12.2) H 12/24/17 19:45 INR 1.2 12/24/17 19:45 APTT 31 SECONDS (21-34) 12/24/17 19:45
--- NOTE | 2017-12-29 23:44 | CP.PCM.PN ---
Subjective - Date & Time of Evaluation Date of Evaluation: 12/29/17 Time of Evaluation: 18:40 - Subjective Subjective: Patient seen and evaluated Danica chest pain and dyspnea Not in distress Moderate CAD For foot surgery Saturday Moderate Cardiac risk for foot surgery D/W the patient and who agreed to undergo the surgery Will follow Objective - Vital Signs/Intake and Output Vital Signs (last 24 hours): Temp Pulse Resp BP Pulse Ox 98 F 70 20 155/68 H 98 12/29/17 23:11 12/29/17 23:11 12/29/17 23:11 12/29/17 23:11 12/29/17 23:11 Intake and Output: 12/29/17 12/30/17 18:59 06:59 Intake Total 600 Balance 600 - Medications Medications: Current Medications Acetaminophen (Tylenol 325mg Tab) 325 mg PO Q6H PRN PRN Reason: Pain, Mild (1-3) Amlodipine Besylate (Norvasc) 5 mg PO DAILY [facility] Last Admin: 12/29/17 09:14 Dose: 5 mg Aspirin (Ecotrin) 81 mg PO DAILY [facility] Last Admin: 12/29/17 10:32 Dose: 81 mg Calcium Carbonate (Tums) 500 mg PO AC PRN PRN Reason: heart burn Last Admin: 12/29/17 22:28 Dose: 500 mg Carvedilol (Coreg) 12.5 mg PO BID [facility] Last Admin: 12/29/17 17:26 Dose: 12.5 mg Cinacalcet (Sensipar) 30 mg PO HS [facility] Last Admin: 12/29/17 21:26 Dose: 30 mg Gabapentin (Neurontin) 300 mg PO DAILY [facility] Last Admin: 12/29/17 09:12 Dose: 300 mg Heparin Sodium (Porcine) (Heparin) 5,000 units SC Q8 [facility] Last Admin: 12/29/17 21:27 Dose: 5,000 units Piperacillin Sod/Tazobactam (Sod 3.375 gm/ Sodium Chloride) 100 mls @ 200 mls/ hr IVPB Q8H [facility] PRN Reason: Protocol Last Admin: 12/29/17 19:26 Dose: 200 mls/hr Vancomycin/Sodium Chloride (Vancomycin 1 Gm/Ns 200 Ml) 1 gm in 200 mls @ 133.333 mls/hr IVPB Q24H [facility] PRN Reason: Protocol Stop: 12/30/17 20:31 Last Admin: 12/29/17 20:44 Dose: 133.333 mls/hr Insulin Glargine (Lantus) 20 unit SC HS [facility] Last Admin: 12/29/17 21:27 Dose: 20 u Insulin Human Regular (Novolin R) 10 unit SC AC [facility] Last Admin: 12/29/17 16:50 Dose: Not Given Losartan Potassium (Cozaar) 50 mg PO DAILY [facility] Last Admin: 12/29/17 10:33 Dose: 50 mg Magnesium Oxide (Mag-Ox) 400 mg PO BID [facility] Last Admin: 12/29/17 17:26 Dose: 400 mg Mycophenolate Mofetil (Cellcept) 500 mg PO BID [facility] Last Admin: 12/29/17 17:27 Dose: 500 mg Pantoprazole Sodium (Protonix Ec Tab) 40 mg PO DAILY [facility] Last Admin: 12/29/17 09:12 Dose: 40 mg Rosuvastatin Calcium (Crestor) 20 mg PO HS [facility] Last Admin: 12/29/17 21:26 Dose: 20 mg Tacrolimus (Prograf Cap) 2 mg PO DAILY [facility] Last Admin: 12/29/17 09:11 Dose: 2 mg Tacrolimus (Prograf Cap) 1 mg PO HS [facility] Last Admin: 12/29/17 21:26 Dose: 1 mg - Labs Labs: 12/27/17 07:30 12/28/17 06:37 PT 13.1 SECONDS (9.7-12.2) H 12/24/17 19:45 INR 1.2 12/24/17 19:45 APTT 31 SECONDS (21-34) 12/24/17 19:45
[2017-12-30] MEDS: Piperacillin/Tazobact 3.375 GM in Sodium Chloride 100 ML IVPB SCH ×3 (03:50→19:30)
[2017-12-30 04:16] LABS: HEMOGLOBIN 12.8 g/dL (12.0-18.0); MEAN CELL VOLUME 85.3 fL (80.0-94.0); MEAN CORPUSCULAR HEMOGLOBIN 29.7 pg (27.0-31.0); MEAN CORPUSCULAR HGB CONC 34.8 g/dL (33.0-37.0); MEAN PLATELET VOLUME 7.9 fL (7.2-11.7); RBC 4.32 Mil/uL (4.40-5.90); RED CELL DISTRIBUTION WIDTH 13.4 % (11.5-14.5); WHITE BLOOD COUNT 5.4 K/uL (4.8-10.8)
[2017-12-30 04:20] LABS: INR 1.1; PROTHROMBIN TIME 12.7 SECONDS (9.7-12.2)
[2017-12-30 04:32] LABS: BLOOD UREA NITROGEN 19 mg/dL (9-20); CALCIUM 9.5 mg/dl (8.6-10.4); GFR AFRICAN-AMERICAN > 60; GFR NON-AFRICAN AMERICAN > 60
[2017-12-30] MEDS: Calcium Carbonate 500 mg Chewable Antacid Tab PO PRN ×3 (05:30→21:44)
[2017-12-30] MEDS ORDERED: Bupivacaine 0.25% Inj(30mL) ONE (07:17)
[2017-12-30] MEDS: (Novolin R) Insulin Human Regular 100 units/ml vial SC SCH ×3 (07:30→17:33)
[2017-12-30] MEDS ORDERED: Bupivacaine HCl 0.5% PF (30 ml) Inj ONE (07:45)
[2017-12-30] MEDS ORDERED: Lidocaine 2% Inj (20ml) ONE (07:45)
[2017-12-30] MEDS ORDERED: Propofol 10 mg/ml Inj (20 ML) ONE (07:58)
[2017-12-30] MEDS ORDERED: Lidocaine Hydrochloride 5 ML INJ ONE (07:58)
[2017-12-30] MEDS ORDERED: Midazolam 2 MG/2 ML VIAL ONE (07:58)
[2017-12-30] MEDS: Pantoprazole 40 mg EC Tab PO SCH (09:05)
[2017-12-30] MEDS: Magnesium Oxide 400 mg Tab UD PO SCH ×2 (09:05→17:32)
[2017-12-30] MEDS ORDERED: Oxycodone/Acetaminophen 5/325 mg Tab PO PRN ×2 (10:02)
--- NOTE | 2017-12-30 10:08 | PCM.SURG1 ---
Surgeon's Initial Post Op Note - Surgeon's Notes Surgeon: Dr. Brandi Taylor DPM Beef Pusher: Dr. Bora Treviño DPM PGY-1 Type of Anesthesia: IV Sedation, Local Anesthesia Administered By: Dr. Alexa THAYER Pre-Operative Diagnosis: Right forefoot Osteomyelitis Operative Findings: See dictation. M: 3-0, 2-0 prolene. I: Pre-op: 1:1 2% lidocaine plain:0.5% marcaine plain - 20 cc; Post-op: 10 cc of 0.5% Marcaine plain Post-Operative Diagnosis: Same Operation Performed: Right foot Transmetatarsal Amputation Specimen/Specimens Removed: Right forefoot Estimated Blood Loss: EBL {In ML}: 100 Blood Products Given: N/A Drains Used: [place] Post-Op Condition: Good Date of Surgery/Procedure: 12/30/17 Time of Surgery/Procedure: 10:09
[2017-12-30] MEDS ORDERED: HYDROmorphone 0.5 mg/0.5 ml ISec IVP PRN (10:12)
[2017-12-30] MEDS ORDERED: Lactated Ringer's 1,000 ML IV SCH (10:15)
[2017-12-30 10:25] LABS: HEMOGLOBIN 12.3 g/dL (12.0-18.0)
--- NOTE | 2017-12-30 11:21 | RAD ---
History: Right foot amputation Date: 12/30/2017 Comparison: 12/24/2017 Findings: Status post midfoot amputation. The metatarsals have been resected. The distal aspect of the medial cuneiform has been resected. There is a surgical drain seen distal to the midfoot. There is no acute fracture. Impression: Status post midfoot amputation.
--- NOTE | 2017-12-30 11:48 | CP.PCM.PN ---
Subjective - Date & Time of Evaluation Date of Evaluation: 12/30/17 Time of Evaluation: 11:46 - Subjective Subjective: s/p right TMA no dyspnea, CPs, n, v, fever or chills creat stable at 0.9, FK level pending on same IS meds Objective - Vital Signs/Intake and Output Vital Signs (last 24 hours): Temp Pulse Resp BP Pulse Ox 98.2 F 58 L 13 124/62 100 12/30/17 11:00 12/30/17 11:00 12/30/17 11:00 12/30/17 11:00 12/30/17 11:00 Intake and Output: 12/30/17 12/30/17 06:59 18:59 Intake Total 100 800 Output Total 0 35 Balance 100 765 - Medications Medications: Current Medications Acetaminophen (Tylenol 325mg Tab) 325 mg PO Q6H PRN PRN Reason: Pain, Mild (1-3) Amlodipine Besylate (Norvasc) 5 mg PO DAILY [facility] Last Admin: 12/30/17 09:05 Dose: Not Given Aspirin (Ecotrin) 81 mg PO DAILY [facility] Last Admin: 12/30/17 09:04 Dose: Not Given Calcium Carbonate (Tums) 500 mg PO AC PRN PRN Reason: heart burn Last Admin: 12/30/17 05:30 Dose: 500 mg Carvedilol (Coreg) 12.5 mg PO BID [facility] Last Admin: 12/30/17 09:04 Dose: Not Given Cinacalcet (Sensipar) 30 mg PO HS [facility] Last Admin: 12/29/17 21:26 Dose: 30 mg Gabapentin (Neurontin) 300 mg PO DAILY [facility] Last Admin: 12/30/17 09:05 Dose: Not Given Heparin Sodium (Porcine) (Heparin) 5,000 units SC Q8 [facility] Last Admin: 12/29/17 21:27 Dose: 5,000 units Hydromorphone HCl (Dilaudid) 0.5 mg IVP Q10M PRN PRN Reason: Pain, moderate (4-7) Stop: 12/30/17 12:13 Piperacillin Sod/Tazobactam (Sod 3.375 gm/ Sodium Chloride) 100 mls @ 200 mls/ hr IVPB Q8H [facility] PRN Reason: Protocol Last Admin: 12/30/17 03:50 Dose: 200 mls/hr Vancomycin/Sodium Chloride (Vancomycin 1 Gm/Ns 200 Ml) 1 gm in 200 mls @ 133.333 mls/hr IVPB Q24H [facility] PRN Reason: Protocol Stop: 12/30/17 20:31 Last Admin: 12/29/17 20:44 Dose: 133.333 mls/hr Lactated Ringer's (Lactated Ringer's) 1,000 mls @ 100 mls/hr IV .Q10H [facility] Insulin Glargine (Lantus) 20 unit SC HS [facility] Last Admin: 12/29/17 21:27 Dose: 20 u Insulin Human Regular (Novolin R) 10 unit SC AC [facility] Last Admin: 12/30/17 07:30 Dose: Not Given Losartan Potassium (Cozaar) 50 mg PO DAILY [facility] Last Admin: 12/30/17 09:04 Dose: Not Given Magnesium Oxide (Mag-Ox) 400 mg PO BID [facility] Last Admin: 12/30/17 09:05 Dose: Not Given Mycophenolate Mofetil (Cellcept) 500 mg PO BID [facility] Last Admin: 12/30/17 09:04 Dose: Not Given Ondansetron HCl (Zofran Inj) 4 mg IVP ONCE PRN PRN Reason: Nausea/Vomiting Stop: 12/30/17 12:14 Oxycodone/Acetaminophen (Percocet 5/325 Mg Tab) 1 tab PO Q4H PRN PRN Reason: Pain, moderate (4-7) Stop: 01/02/18 10:03 Oxycodone/Acetaminophen (Percocet 5/325 Mg Tab) 2 tab PO Q4H PRN PRN Reason: Pain, severe (8-10) Stop: 01/02/18 10:03 Pantoprazole Sodium (Protonix Ec Tab) 40 mg PO DAILY [facility] Last Admin: 12/30/17 09:05 Dose: Not Given Rosuvastatin Calcium (Crestor) 20 mg PO [facility] Last Admin: 12/29/17 21:26 Dose: 20 mg Tacrolimus (Prograf Cap) 2 mg PO DAILY [facility] Last Admin: 12/30/17 09:05 Dose: Not Given Tacrolimus (Prograf Cap) 1 mg PO [facility] Last Admin: 12/29/17 21:26 Dose: 1 mg - Labs Labs: 12/30/17 10:21 12/30/17 04:06 PT 12.7 SECONDS (9.7-12.2) H 12/30/17 04:06 INR 1.1 12/30/17 04:06 APTT 44 SECONDS (21-34) H 12/30/17 04:06 - Constitutional Appears: No Acute Distress, Chronically Ill - Head Exam Head Exam: ATRAUMATIC, NORMAL INSPECTION - Eye Exam Eye Exam: EOMI, Normal appearance - Neck Exam Neck Exam: Normal Inspection. absent: Tenderness - Respiratory Exam Respiratory Exam: Clear to Ausculation Bilateral, NORMAL BREATHING PATTERN - Cardiovascular Exam Cardiovascular Exam: REGULAR RHYTHM, +S1 - GI/Abdominal Exam GI & Abdominal Exam: Soft. absent: Tenderness - Extremities Exam Extremities Exam: Tenderness - Neurological Exam Neurological Exam: Alert, CN II-XII Intact - Skin Skin Exam: Dry, Warm Assessment and Plan (1) History of kidney transplant Status: Acute (2) CAD (coronary artery disease) Status: Acute (3) Diabetic foot ulcer Status: Chronic - Assessment and Plan (Free Text) Plan: check FK level same BP meds continue immunosuppressants
--- NOTE | 2017-12-30 13:17 | CP.PCM.PN ---
<Theodore Townsend - Last Filed: 12/30/17 16:12> Subjective - Date & Time of Evaluation Date of Evaluation: 12/30/17 Time of Evaluation: 09:15 - Subjective Subjective: PGY2 Cardiology Progress Note for Dr. Aguirre Patient seen and examined at bedside. No acute distress. Patient denies chest pain, SOB, or LE edema. He's ready for surgery today. 12-point review of systems is otherwise negative without any additional acute complaints. Objective - Vital Signs/Intake and Output Vital Signs (last 24 hours): Temp Pulse Resp BP Pulse Ox 98.2 F 58 L 13 124/62 100 12/30/17 11:00 12/30/17 11:00 12/30/17 11:00 12/30/17 11:00 12/30/17 11:00 Intake and Output: 12/30/17 12/30/17 06:59 18:59 Intake Total 100 800 Output Total 0 35 Balance 100 765 - Medications Medications: Current Medications Acetaminophen (Tylenol 325mg Tab) 325 mg PO Q6H PRN PRN Reason: Pain, Mild (1-3) Amlodipine Besylate (Norvasc) 5 mg PO DAILY [facility] Last Admin: 12/30/17 09:05 Dose: Not Given Aspirin (Ecotrin) 81 mg PO DAILY [facility] Last Admin: 12/30/17 09:04 Dose: Not Given Calcium Carbonate (Tums) 500 mg PO AC PRN PRN Reason: heart burn Last Admin: 12/30/17 05:30 Dose: 500 mg Carvedilol (Coreg) 12.5 mg PO BID [facility] Last Admin: 12/30/17 09:04 Dose: Not Given Cinacalcet (Sensipar) 30 mg PO HS [facility] Last Admin: 12/29/17 21:26 Dose: 30 mg Gabapentin (Neurontin) 300 mg PO DAILY [facility] Last Admin: 12/30/17 09:05 Dose: Not Given Heparin Sodium (Porcine) (Heparin) 5,000 units SC Q8 [facility] Last Admin: 12/29/17 21:27 Dose: 5,000 units Piperacillin Sod/Tazobactam (Sod 3.375 gm/ Sodium Chloride) 100 mls @ 200 mls/ hr IVPB Q8H [facility] PRN Reason: Protocol Last Admin: 12/30/17 12:20 Dose: 200 mls/hr Vancomycin/Sodium Chloride (Vancomycin 1 Gm/Ns 200 Ml) 1 gm in 200 mls @ 133.333 mls/hr IVPB Q24H [facility] PRN Reason: Protocol Stop: 12/30/17 20:31 Last Admin: 12/29/17 20:44 Dose: 133.333 mls/hr Lactated Ringer's (Lactated Ringer's) 1,000 mls @ 100 mls/hr IV .Q10H [facility] Insulin Glargine (Lantus) [address] [facility] Last Admin: 12/29/17 21:27 Dose: 20 u Insulin Human Regular (Novolin R) 10 unit SC AC [facility] Last Admin: 12/30/17 12:19 Dose: 10 unit Losartan Potassium (Cozaar) 50 mg PO DAILY [facility] Last Admin: 12/30/17 09:04 Dose: Not Given Magnesium Oxide (Mag-Ox) 400 mg PO BID [facility] Last Admin: 12/30/17 09:05 Dose: Not Given Mycophenolate Mofetil (Cellcept) 500 mg PO BID [facility] Last Admin: 12/30/17 09:04 Dose: Not Given Oxycodone/Acetaminophen (Percocet 5/325 Mg Tab) 1 tab PO Q4H PRN PRN Reason: Pain, moderate (4-7) Stop: 01/02/18 10:03 Oxycodone/Acetaminophen (Percocet 5/325 Mg Tab) 2 tab PO Q4H PRN PRN Reason: Pain, severe (8-10) Stop: 01/02/18 10:03 Pantoprazole Sodium (Protonix Ec Tab) 40 mg PO DAILY [facility] Last Admin: 12/30/17 09:05 Dose: Not Given Rosuvastatin Calcium (Crestor) [address] [facility] Last Admin: 12/29/17 21:26 Dose: 20 mg Tacrolimus (Prograf Cap) 2 mg PO DAILY [facility] Last Admin: 12/30/17 12:50 Dose: 2 mg Tacrolimus (Prograf Cap) [address] [facility] Last Admin: 12/29/17 21:26 Dose: 1 mg - Labs Labs: 12/30/17 10:21 12/30/17 04:06 PT 12.7 SECONDS (9.7-12.2) H 12/30/17 04:06 INR 1.1 12/30/17 04:06 APTT 44 SECONDS (21-34) H 12/30/17 04:06 - Additional Findings Additional findings: - Constitutional Appears: No Acute Distress, Chronically Ill - Head Exam Head Exam: ATRAUMATIC, NORMAL INSPECTION - Eye Exam Eye Exam: EOMI, Normal appearance - Neck Exam Neck Exam: Normal Inspection. absent: Tenderness - Respiratory Exam Respiratory Exam: Clear to Ausculation Bilateral, NORMAL BREATHING PATTERN - Cardiovascular Exam Cardiovascular Exam: REGULAR RHYTHM, +S1, +S2; absent: Murmur - GI/Abdominal Exam GI & Abdominal Exam: Soft. absent: Tenderness - Extremities Exam Extremities Exam: Tenderness - Neurological Exam Neurological Exam: Alert, CN II-XII Intact - Skin Skin Exam: Dry, Warm Assessment and Plan - Assessment and Plan (Free Text) Assessment: CAD (moderate) -Moderate CAD -Moderate Cardiac risk for foot surgery -Recent abnormal stress test and intermittent chest pressure requires cardiac cath prior to the planned surgery -For foot surgery today 12/30/17 -D/W the patient and who agreed to undergo the surgery Case Discussed with Dr. Timothy Townsend, PGY2 <Sascha Aguirre - Last Filed: 12/30/17 23:08> Objective - Vital Signs/Intake and Output Vital Signs (last 24 hours): Temp Pulse Resp BP Pulse Ox 98.4 F 67 20 132/80 98 12/30/17 16:00 12/30/17 16:00 12/30/17 16:00 12/30/17 17:32 12/30/17 16:00 Intake and Output: 12/30/17 12/31/17 18:59 06:59 Intake Total 1330 Output Total 95 Balance 1235 - Medications Medications: Current Medications Acetaminophen (Tylenol 325mg Tab) 325 mg PO Q6H PRN PRN Reason: Pain, Mild (1-3) Amlodipine Besylate (Norvasc) 5 mg PO DAILY [facility] Last Admin: 12/30/17 09:05 Dose: Not Given Aspirin (Ecotrin) 81 mg PO DAILY [facility] Last Admin: 12/30/17 09:04 Dose: Not Given Calcium Carbonate (Tums) 500 mg PO AC PRN PRN Reason: heart burn Last Admin: 12/30/17 21:44 Dose: 500 mg Carvedilol (Coreg) 12.5 mg PO BID [facility] Last Admin: 12/30/17 17:32 Dose: 12.5 mg Cinacalcet (Sensipar) 30 mg PO HS [facility] Last Admin: 12/30/17 21:36 Dose: 30 mg Gabapentin (Neurontin) 300 mg PO DAILY [facility] Last Admin: 12/30/17 09:05 Dose: Not Given Heparin Sodium (Porcine) (Heparin) 5,000 units SC Q8 [facility] Last Admin: 12/29/17 21:27 Dose: 5,000 units Piperacillin Sod/Tazobactam (Sod 3.375 gm/ Sodium Chloride) 100 mls @ 200 mls/ hr IVPB Q8H [facility] PRN Reason: Protocol Last Admin: 12/30/17 19:30 Dose: 200 mls/hr Insulin Glargine (Lantus) 20 unit SC HS [facility] Last Admin: 12/30/17 21:35 Dose: 20 u Insulin Human Regular (Novolin R) 10 unit SC AC [facility] Last Admin: 12/30/17 17:33 Dose: 10 unit Losartan Potassium (Cozaar) 50 mg PO DAILY [facility] Last Admin: 12/30/17 09:04 Dose: Not Given Magnesium Oxide (Mag-Ox) 400 mg PO BID [facility] Last Admin: 12/30/17 17:32 Dose: 400 mg Mycophenolate Mofetil (Cellcept) 500 mg PO BID [facility] Last Admin: 12/30/17 17:32 Dose: 500 mg Oxycodone/Acetaminophen (Percocet 5/325 Mg Tab) 1 tab PO Q4H PRN PRN Reason: Pain, moderate (4-7) Stop: 01/02/18 10:03 Oxycodone/Acetaminophen (Percocet 5/325 Mg Tab) 2 tab PO Q4H PRN PRN Reason: Pain, severe (8-10) Stop: 01/02/18 10:03 Pantoprazole Sodium (Protonix Ec Tab) 40 mg PO DAILY [facility] Last Admin: 12/30/17 09:05 Dose: Not Given Rosuvastatin Calcium (Crestor) [address] [facility] Last Admin: 12/30/17 21:35 Dose: 20 mg Tacrolimus (Prograf Cap) 2 mg PO DAILY [facility] Last Admin: 12/30/17 12:50 Dose: 2 mg Tacrolimus (Prograf Cap) [address] [facility] Last Admin: 12/30/17 21:36 Dose: 1 mg - Labs Labs: 12/30/17 10:21 12/30/17 04:06 PT 12.7 SECONDS (9.7-12.2) H 12/30/17 04:06 INR 1.1 12/30/17 04:06 APTT 44 SECONDS (21-34) H 12/30/17 04:06 Assessment and Plan - Assessment and Plan (Free Text) Plan: Patient seen and evaluated personally by me Plan of care d/w the resident and as documented
--- NOTE | 2017-12-30 18:14 | CP.PCM.PN ---
Subjective - Date & Time of Evaluation Date of Evaluation: 12/30/17 Time of Evaluation: 18:14 - Subjective Subjective: Pt had surgery in AM feels well no chest pain or sob comfortable with no pain Objective - Vital Signs/Intake and Output Vital Signs (last 24 hours): Temp Pulse Resp BP Pulse Ox 98.2 F 58 L 13 132/80 100 12/30/17 11:00 12/30/17 11:00 12/30/17 11:00 12/30/17 17:32 12/30/17 11:00 Intake and Output: 12/30/17 12/30/17 06:59 18:59 Intake Total 100 1330 Output Total 0 95 Balance 100 1235 - Medications Medications: Current Medications Acetaminophen (Tylenol 325mg Tab) 325 mg PO Q6H PRN PRN Reason: Pain, Mild (1-3) Amlodipine Besylate (Norvasc) 5 mg PO DAILY [facility] Last Admin: 12/30/17 09:05 Dose: Not Given Aspirin (Ecotrin) 81 mg PO DAILY [facility] Last Admin: 12/30/17 09:04 Dose: Not Given Calcium Carbonate (Tums) 500 mg PO AC PRN PRN Reason: heart burn Last Admin: 12/30/17 17:34 Dose: 500 mg Carvedilol (Coreg) 12.5 mg PO BID [facility] Last Admin: 12/30/17 17:32 Dose: 12.5 mg Cinacalcet (Sensipar) 30 mg PO HS [facility] Last Admin: 12/29/17 21:26 Dose: 30 mg Gabapentin (Neurontin) 300 mg PO DAILY [facility] Last Admin: 12/30/17 09:05 Dose: Not Given Heparin Sodium (Porcine) (Heparin) 5,000 units SC Q8 [facility] Last Admin: 12/29/17 21:27 Dose: 5,000 units Piperacillin Sod/Tazobactam (Sod 3.375 gm/ Sodium Chloride) 100 mls @ 200 mls/ hr IVPB Q8H [facility] PRN Reason: Protocol Last Admin: 12/30/17 12:20 Dose: 200 mls/hr Vancomycin/Sodium Chloride (Vancomycin 1 Gm/Ns 200 Ml) 1 gm in 200 mls @ 133.333 mls/hr IVPB Q24H [facility] PRN Reason: Protocol Stop: 12/30/17 20:31 Last Admin: 12/29/17 20:44 Dose: 133.333 mls/hr Lactated Ringer's (Lactated Ringer's) 1,000 mls @ 100 mls/hr IV .Q10H [facility] Insulin Glargine (Lantus) 20 unit SC HS [facility] Last Admin: 12/29/17 21:27 Dose: 20 u Insulin Human Regular (Novolin R) 10 unit SC AC [facility] Last Admin: 12/30/17 17:33 Dose: 10 unit Losartan Potassium (Cozaar) 50 mg PO DAILY [facility] Last Admin: 12/30/17 09:04 Dose: Not Given Magnesium Oxide (Mag-Ox) 400 mg PO BID [facility] Last Admin: 12/30/17 17:32 Dose: 400 mg Mycophenolate Mofetil (Cellcept) 500 mg PO BID [facility] Last Admin: 12/30/17 17:32 Dose: 500 mg Oxycodone/Acetaminophen (Percocet 5/325 Mg Tab) 1 tab PO Q4H PRN PRN Reason: Pain, moderate (4-7) Stop: 01/02/18 10:03 Oxycodone/Acetaminophen (Percocet 5/325 Mg Tab) 2 tab PO Q4H PRN PRN Reason: Pain, severe (8-10) Stop: 01/02/18 10:03 Pantoprazole Sodium (Protonix Ec Tab) 40 mg PO DAILY [facility] Last Admin: 12/30/17 09:05 Dose: Not Given Rosuvastatin Calcium (Crestor) 20 mg PO [facility] Last Admin: 12/29/17 21:26 Dose: 20 mg Tacrolimus (Prograf Cap) 2 mg PO DAILY [facility] Last Admin: 12/30/17 12:50 Dose: 2 mg Tacrolimus (Prograf Cap) 1 mg PO [facility] Last Admin: 12/29/17 21:26 Dose: 1 mg - Labs Labs: 12/30/17 10:21 12/30/17 04:06 PT 12.7 SECONDS (9.7-12.2) H 12/30/17 04:06 INR 1.1 12/30/17 04:06 APTT 44 SECONDS (21-34) H 12/30/17 04:06 - Constitutional Appears: Non-toxic - Eye Exam Eye Exam: Normal appearance - ENT Exam ENT Exam: Mucous Membranes Moist - Respiratory Exam Respiratory Exam: Clear to Ausculation Bilateral - Cardiovascular Exam Cardiovascular Exam: REGULAR RHYTHM, RRR, +S1, +S2. absent: JVD, Rubs - GI/Abdominal Exam GI & Abdominal Exam: Normal Bowel Sounds (foot with dressing and drainage sangenous fluid) Assessment and Plan - Assessment and Plan (Free Text) Assessment: osteo s/p amptutation doing well will need rehab DM; stable cont current management
[2017-12-30 18:54] VITALS: RESP 20
[2017-12-30] MEDS: Vancomycin 1 gm/NS 200 ml 1 GM/200 ML BAG IVPB SCH (21:00)
--- NOTE | 2017-12-30 21:11 | CARD ---
APPROVED REPORT EKG Measurement Heart [id number] <Conclusion> Normal sinus rhythm with sinus arrhythmia Normal ECG
[2017-12-30] MEDS: (Lantus) Insulin Glargine, Recombinant SC SCH (21:35)
--- NOTE | 2017-12-30 21:39 | CP.PCM.PN ---
Subjective - Date & Time of Evaluation Date of Evaluation: 12/30/17 Time of Evaluation: 21:39 - Subjective Subjective: AFEBRILE. S/P TMA SURGERY PER PODIATRY. COMFORTABLE. LABS REVIEWED. VANCO TROUGH 8.8 LOW Objective - Vital Signs/Intake and Output Vital Signs (last 24 hours): Temp Pulse Resp BP Pulse Ox 98.4 F 67 20 132/80 98 12/30/17 16:00 12/30/17 16:00 12/30/17 16:00 12/30/17 17:32 12/30/17 16:00 Intake and Output: 12/30/17 12/31/17 18:59 06:59 Intake Total 1330 Output Total 95 Balance 1235 - Medications Medications: Current Medications Acetaminophen (Tylenol 325mg Tab) 325 mg PO Q6H PRN PRN Reason: Pain, Mild (1-3) Amlodipine Besylate (Norvasc) 5 mg PO DAILY [facility] Last Admin: 12/30/17 09:05 Dose: Not Given Aspirin (Ecotrin) 81 mg PO DAILY [facility] Last Admin: 12/30/17 09:04 Dose: Not Given Calcium Carbonate (Tums) 500 mg PO AC PRN PRN Reason: heart burn Last Admin: 12/30/17 17:34 Dose: 500 mg Carvedilol (Coreg) 12.5 mg PO BID [facility] Last Admin: 12/30/17 17:32 Dose: 12.5 mg Cinacalcet (Sensipar) 30 mg PO [facility] Last Admin: 12/29/17 21:26 Dose: 30 mg Gabapentin (Neurontin) 300 mg PO DAILY [facility] Last Admin: 12/30/17 09:05 Dose: Not Given Heparin Sodium (Porcine) (Heparin) 5,000 units SC Q8 [facility] Last Admin: 12/29/17 21:27 Dose: 5,000 units Piperacillin Sod/Tazobactam (Sod 3.375 gm/ Sodium Chloride) 100 mls @ 200 mls/ hr IVPB Q8H [facility] PRN Reason: Protocol Last Admin: 12/30/17 12:20 Dose: 200 mls/hr Lactated Ringer's (Lactated Ringer's) 1,000 mls @ 100 mls/hr IV .Q10H [facility] Insulin Glargine (Lantus) 20 unit SC [facility] Last Admin: 12/29/17 21:27 Dose: 20 u Insulin Human Regular (Novolin R) 10 unit SC AC [facility] Last Admin: 12/30/17 17:33 Dose: 10 unit Losartan Potassium (Cozaar) 50 mg PO DAILY [facility] Last Admin: 12/30/17 09:04 Dose: Not Given Magnesium Oxide (Mag-Ox) 400 mg PO BID [facility] Last Admin: 12/30/17 17:32 Dose: 400 mg Mycophenolate Mofetil (Cellcept) 500 mg PO BID [facility] Last Admin: 12/30/17 17:32 Dose: 500 mg Oxycodone/Acetaminophen (Percocet 5/325 Mg Tab) 1 tab PO Q4H PRN PRN Reason: Pain, moderate (4-7) Stop: 01/02/18 10:03 Oxycodone/Acetaminophen (Percocet 5/325 Mg Tab) 2 tab PO Q4H PRN PRN Reason: Pain, severe (8-10) Stop: 01/02/18 10:03 Pantoprazole Sodium (Protonix Ec Tab) 40 mg PO DAILY [facility] Last Admin: 12/30/17 09:05 Dose: Not Given Rosuvastatin Calcium (Crestor) 20 mg PO [facility] Last Admin: 12/29/17 21:26 Dose: 20 mg Tacrolimus (Prograf Cap) 2 mg PO DAILY [facility] Last Admin: 12/30/17 12:50 Dose: 2 mg Tacrolimus (Prograf Cap) 1 mg PO [facility] Last Admin: 12/29/17 21:26 Dose: 1 mg - Labs Labs: 12/30/17 10:21 12/30/17 04:06 PT 12.7 SECONDS (9.7-12.2) H 12/30/17 04:06 INR 1.1 12/30/17 04:06 APTT 44 SECONDS (21-34) H 12/30/17 04:06 - Constitutional Appears: No Acute Distress - Head Exam Head Exam: NORMAL INSPECTION - Eye Exam Eye Exam: EOMI, PERRL - ENT Exam ENT Exam: Normal Oropharynx - Neck Exam Neck Exam: Normal Inspection - Respiratory Exam Respiratory Exam: Clear to Ausculation Bilateral - Cardiovascular Exam Cardiovascular Exam: REGULAR RHYTHM, +S1, +S2 - GI/Abdominal Exam GI & Abdominal Exam: Soft, Normal Bowel Sounds - Extremities Exam Extremities Exam: absent: Calf Tenderness, Pedal Edema (RT FOOT IN DRESSING.) - Neurological Exam Neurological Exam: Awake, CN II-XII Intact, Oriented x3 - Psychiatric Exam Psychiatric exam: Normal Mood - Skin Skin Exam: Normal Color, Warm Assessment and Plan (1) Diabetic foot ulcer Status: Chronic (2) Osteomyelitis of right foot Status: Acute (3) Diabetes mellitus Status: Chronic (4) Hypertension Status: Chronic (5) CAD (coronary artery disease) Status: Acute (6) Renal transplant recipient Status: Acute - Assessment and Plan (Free Text) Plan: CONTINUE IV ZOSYN 3.375 EVERY 8 HOURLY (DECREASE DOSE ) 12/24/17. OFF IV VANCOMYCIN . F/U TISSUE CULTURES TO ADJUST ABX. F/U RENAL FUNCTION CLOSELY. PT ON IMMUNOSUPPRESSIVES PER RENAL. LOCAL WOUND CARE PER PODIATRY..
[2017-12-31] MEDS ORDERED: Pantoprazole 40 mg EC Tab PO STA (00:23)
[2017-12-31] MEDS ORDERED: Magnesium Hydroxide Susp 30 ml UD PO ONE (01:42)
[2017-12-31] MEDS: Piperacillin/Tazobact 3.375 GM in Sodium Chloride 100 ML IVPB SCH ×3 (04:10→19:00)
[2017-12-31] MEDS: (Novolin R) Insulin Human Regular 100 units/ml vial SC SCH ×3 (08:09→17:18)
[2017-12-31 08:55] LABS: ALBUMIN 3.6 g/dL (3.5-5.0); BLOOD UREA NITROGEN 17 mg/dL (9-20); CALCIUM 9.3 mg/dl (8.6-10.4); GFR AFRICAN-AMERICAN > 60; GFR NON-AFRICAN AMERICAN > 60
[2017-12-31 09:09] LABS: ALT/SGPT 110 U/L (21-72); AST/SGOT 60 U/L (17-59)
--- NOTE | 2017-12-31 10:09 | CP.PCM.PN ---
Subjective - Date & Time of Evaluation Date of Evaluation: 12/31/17 Time of Evaluation: 10:07 - Subjective Subjective: seen and examined s/p Rt foot tma tmax 100.9 rt foot surgical drain in place no chills sob cp dizziness nausea vomiting diarrhea rash cough dysuria Objective - Vital Signs/Intake and Output Vital Signs (last 24 hours): Temp Pulse Resp BP Pulse Ox 100.6 F H 79 20 150/75 99 12/31/17 00:21 12/31/17 09:23 12/31/17 00:21 12/31/17 09:23 12/31/17 09:23 Intake and Output: 12/31/17 12/31/17 06:59 18:59 Intake Total 750 Output Total 2580 Balance -1830 - Medications Medications: Current Medications Acetaminophen (Tylenol 325mg Tab) 325 mg PO Q6H PRN PRN Reason: Pain, Mild (1-3) Amlodipine Besylate (Norvasc) 5 mg PO DAILY [facility] Last Admin: 12/30/17 09:05 Dose: Not Given Aspirin (Ecotrin) 81 mg PO DAILY [facility] Last Admin: 12/30/17 09:04 Dose: Not Given Calcium Carbonate (Tums) 500 mg PO AC PRN PRN Reason: heart burn Last Admin: 12/30/17 21:44 Dose: 500 mg Carvedilol (Coreg) 12.5 mg PO BID [facility] Last Admin: 12/30/17 17:32 Dose: 12.5 mg Cinacalcet (Sensipar) 30 mg PO [facility] Last Admin: 12/30/17 21:36 Dose: 30 mg Gabapentin (Neurontin) 300 mg PO DAILY [facility] Last Admin: 12/30/17 09:05 Dose: Not Given Heparin Sodium (Porcine) (Heparin) 5,000 units SC Q8 [facility] Last Admin: 12/29/17 21:27 Dose: 5,000 units Piperacillin Sod/Tazobactam (Sod 3.375 gm/ Sodium Chloride) 100 mls @ 200 mls/ hr IVPB Q8H [facility] PRN Reason: Protocol Last Admin: 12/31/17 04:10 Dose: 200 mls/hr Insulin Glargine (Lantus) 20 unit SC [facility] Last Admin: 12/30/17 21:35 Dose: 20 u Insulin Human Regular (Novolin R) 10 unit SC AC [facility] Last Admin: 12/31/17 08:09 Dose: 10 unit Losartan Potassium (Cozaar) 50 mg PO DAILY [facility] Last Admin: 12/30/17 09:04 Dose: Not Given Magnesium Oxide (Mag-Ox) 400 mg PO BID [facility] Last Admin: 12/30/17 17:32 Dose: 400 mg Mycophenolate Mofetil (Cellcept) 500 mg PO BID [facility] Last Admin: 12/30/17 17:32 Dose: 500 mg Oxycodone/Acetaminophen (Percocet 5/325 Mg Tab) 1 tab PO Q4H PRN PRN Reason: Pain, moderate (4-7) Stop: 01/02/18 10:03 Oxycodone/Acetaminophen (Percocet 5/325 Mg Tab) 2 tab PO Q4H PRN PRN Reason: Pain, severe (8-10) Stop: 01/02/18 10:03 Pantoprazole Sodium (Protonix Ec Tab) 40 mg PO DAILY [facility] Last Admin: 12/30/17 09:05 Dose: Not Given Rosuvastatin Calcium (Crestor) 20 mg PO HS [facility] Last Admin: 12/30/17 21:35 Dose: 20 mg Tacrolimus (Prograf Cap) 2 mg PO DAILY [facility] Last Admin: 12/30/17 12:50 Dose: 2 mg Tacrolimus (Prograf Cap) 1 mg PO HS [facility] Last Admin: 12/30/17 21:36 Dose: 1 mg - Labs Labs: 12/30/17 10:21 12/31/17 07:59 PT 12.7 SECONDS (9.7-12.2) H 12/30/17 04:06 INR 1.1 12/30/17 04:06 APTT 44 SECONDS (21-34) H 12/30/17 04:06 - Constitutional Appears: Non-toxic, No Acute Distress, Chronically Ill - Eye Exam Eye Exam: Normal appearance, PERRL - ENT Exam ENT Exam: Mucous Membranes Moist, Normal Exam - Neck Exam Neck Exam: Full ROM, Normal Inspection - Respiratory Exam Respiratory Exam: Clear to Ausculation Bilateral, NORMAL BREATHING PATTERN - Cardiovascular Exam Cardiovascular Exam: REGULAR RHYTHM, RRR - GI/Abdominal Exam GI & Abdominal Exam: Distended (no tenderness over transplant kidney), Soft - Extremities Exam Extremities Exam: Normal Inspection Additional comments: rt foot in dressing. chronic skin changes - Neurological Exam Neurological Exam: Alert, Awake, CN II-XII Intact - Psychiatric Exam Psychiatric exam: Normal Affect, Normal Mood - Skin Skin Exam: Normal Color, Warm Assessment and Plan (1) History of kidney transplant Status: Acute (2) Diabetic foot ulcer Status: Chronic (3) Chronic ulcer of right great toe Status: Acute (4) Osteomyelitis of right foot Status: Acute (5) Hypertension Status: Chronic - Assessment and Plan (Free Text) Assessment: maintain current immunosuppression. maintain norvasc, may increase dose to 10mg daily if bp remains high antibiotics and wound care
[2017-12-31] MEDS: Magnesium Oxide 400 mg Tab UD PO SCH ×2 (10:40→17:17)
[2017-12-31] MEDS: Pantoprazole 40 mg EC Tab PO SCH (10:40)
[2017-12-31] MEDS: Calcium Carbonate 500 mg Chewable Antacid Tab PO PRN (10:41)
--- NOTE | 2017-12-31 11:44 | CP.PCM.PN ---
<Theodore Townsend - Last Filed: 12/31/17 16:06> Subjective - Date & Time of Evaluation Date of Evaluation: 12/31/17 Time of Evaluation: 07:45 - Subjective Subjective: PGY2 Cardiology Progress Note for Dr. Aguirre Patient seen and examined at bedside. No acute distress. Patient denies chest pain, SOB, or LE edema. S/p amputation of R foot POD#1. Pt c/o mild bruising at L-groin cath site. I spoke to him at length and assured him this was a normal finding. 12-point review of systems is otherwise negative without any additional acute complaints. Objective - Vital Signs/Intake and Output Vital Signs (last 24 hours): Temp Pulse Resp BP Pulse Ox 98.1 F 79 20 150/75 99 12/31/17 07:00 12/31/17 09:23 12/31/17 07:00 12/31/17 10:45 12/31/17 09:23 Intake and Output: 12/31/17 12/31/17 06:59 18:59 Intake Total 750 Output Total 2580 Balance -1830 - Medications Medications: Current Medications Acetaminophen (Tylenol 325mg Tab) 325 mg PO Q6H PRN PRN Reason: Pain, Mild (1-3) Amlodipine Besylate (Norvasc) 5 mg PO DAILY [facility] Last Admin: 12/31/17 10:41 Dose: 5 mg Aspirin (Ecotrin) 81 mg PO DAILY [facility] Last Admin: 12/31/17 10:40 Dose: 81 mg Calcium Carbonate (Tums) 500 mg PO AC PRN PRN Reason: heart burn Last Admin: 12/31/17 10:41 Dose: 500 mg Carvedilol (Coreg) 12.5 mg PO BID [facility] Last Admin: 12/31/17 10:45 Dose: 12.5 mg Cinacalcet (Sensipar) 30 mg PO HS [facility] Last Admin: 12/30/17 21:36 Dose: 30 mg Gabapentin (Neurontin) 300 mg PO DAILY [facility] Last Admin: 12/31/17 10:40 Dose: 300 mg Heparin Sodium (Porcine) (Heparin) 5,000 units SC Q8 [facility] Last Admin: 12/29/17 21:27 Dose: 5,000 units Piperacillin Sod/Tazobactam (Sod 3.375 gm/ Sodium Chloride) 100 mls @ 200 mls/ hr IVPB Q8H [facility] PRN Reason: Protocol Last Admin: 12/31/17 04:10 Dose: 200 mls/hr Insulin Glargine (Lantus) 20 unit SC HS [facility] Last Admin: 12/30/17 21:35 Dose: 20 u Insulin Human Regular (Novolin R) 10 unit SC AC [facility] Last Admin: 12/31/17 08:09 Dose: 10 unit Losartan Potassium (Cozaar) 50 mg PO DAILY [facility] Last Admin: 12/31/17 10:40 Dose: 50 mg Magnesium Oxide (Mag-Ox) 400 mg PO BID [facility] Last Admin: 12/31/17 10:40 Dose: 400 mg Mycophenolate Mofetil (Cellcept) 500 mg PO BID [facility] Last Admin: 12/31/17 10:41 Dose: 500 mg Oxycodone/Acetaminophen (Percocet 5/325 Mg Tab) 1 tab PO Q4H PRN PRN Reason: Pain, moderate (4-7) Stop: 01/02/18 10:03 Oxycodone/Acetaminophen (Percocet 5/325 Mg Tab) 2 tab PO Q4H PRN PRN Reason: Pain, severe (8-10) Stop: 01/02/18 10:03 Pantoprazole Sodium (Protonix Ec Tab) 40 mg PO DAILY [facility] Last Admin: 12/31/17 10:40 Dose: 40 mg Rosuvastatin Calcium (Crestor) 20 mg PO [facility] Last Admin: 12/30/17 21:35 Dose: 20 mg Tacrolimus (Prograf Cap) 2 mg PO DAILY [facility] Last Admin: 12/31/17 10:40 Dose: 2 mg Tacrolimus (Prograf Cap) 1 mg PO [facility] Last Admin: 12/30/17 21:36 Dose: 1 mg - Labs Labs: 12/30/17 10:21 12/31/17 07:59 PT 12.7 SECONDS (9.7-12.2) H 12/30/17 04:06 INR 1.1 12/30/17 04:06 APTT 44 SECONDS (21-34) H 12/30/17 04:06 - Additional Findings Additional findings: - Constitutional Appears: No Acute Distress, Chronically Ill - Head Exam Head Exam: ATRAUMATIC, NORMAL INSPECTION - Eye Exam Eye Exam: EOMI, Normal appearance - Neck Exam Neck Exam: Normal Inspection. absent: Tenderness - Respiratory Exam Respiratory Exam: Clear to Ausculation Bilateral, NORMAL BREATHING PATTERN - Cardiovascular Exam Cardiovascular Exam: REGULAR RHYTHM, +S1, +S2; absent: Murmur - GI/Abdominal Exam GI & Abdominal Exam: Soft. absent: Tenderness - Extremities Exam Extremities Exam: Tenderness - Neurological Exam Neurological Exam: Alert, CN II-XII Intact - Skin Skin Exam: Dry, Warm Note: L-groin cath site CDI; mild bruising noted medial to site. Assessment and Plan - Assessment and Plan (Free Text) Assessment: CAD (moderate) 4/3: patient is stable. POD#1 for Right foot Transmetatarsal Amputation -Moderate CAD -Moderate Cardiac risk for foot surgery -Recent abnormal stress test and intermittent chest pressure requires cardiac cath prior to the planned surgery -D/W the patient and who agreed to undergo the surgery Hypertension BP stable at 150/75. Continue Norvasc 5mg PO qD, Coreg 12.5mg PO BID, Losartan 50mg PO qD Case Discussed with Dr. Timothy Townsend, PGY2 <Sascha Aguirre - Last Filed: 12/31/17 23:40> Objective - Vital Signs/Intake and Output Vital Signs (last 24 hours): Temp Pulse Resp BP Pulse Ox 98.5 F 74 20 142/78 96 12/31/17 16:00 12/31/17 16:00 12/31/17 16:00 12/31/17 17:17 12/31/17 16:00 Intake and Output: 12/31/17 01/01/18 18:59 06:59 Intake Total 530 Output Total 815 Balance -285 - Medications Medications: Current Medications Acetaminophen (Tylenol 325mg Tab) 325 mg PO Q6H PRN PRN Reason: Pain, Mild (1-3) Amlodipine Besylate (Norvasc) 5 mg PO DAILY [facility] Last Admin: 12/31/17 10:41 Dose: 5 mg Aspirin (Ecotrin) 81 mg PO DAILY [facility] Last Admin: 12/31/17 10:40 Dose: 81 mg Calcium Carbonate (Tums) 500 mg PO AC PRN PRN Reason: heart burn Last Admin: 12/31/17 10:41 Dose: 500 mg Carvedilol (Coreg) 12.5 mg PO BID [facility] Last Admin: 12/31/17 17:17 Dose: 12.5 mg Cinacalcet (Sensipar) 30 mg PO HS [facility] Last Admin: 12/31/17 21:15 Dose: 30 mg Gabapentin (Neurontin) 300 mg PO DAILY [facility] Last Admin: 12/31/17 10:40 Dose: 300 mg Heparin Sodium (Porcine) (Heparin) 5,000 units SC Q8 [facility] Last Admin: 12/31/17 21:13 Dose: 5,000 units Piperacillin Sod/Tazobactam Sod (Zosyn 2.25 Gm Iv Premix) 2.25 gm in 50 mls @ 100 mls/hr IVPB Q8H [facility] PRN Reason: Protocol Insulin Glargine (Lantus) 20 unit SC HS [facility] Last Admin: 12/31/17 21:14 Dose: 20 u Insulin Human Regular (Novolin R) 10 unit SC AC [facility] Last Admin: 12/31/17 17:18 Dose: 10 unit Losartan Potassium (Cozaar) 50 mg PO DAILY [facility] Last Admin: 12/31/17 10:40 Dose: 50 mg Magnesium Oxide (Mag-Ox) 400 mg PO BID [facility] Last Admin: 12/31/17 17:17 Dose: 400 mg Mycophenolate Mofetil (Cellcept) 500 mg PO BID [facility] Last Admin: 12/31/17 17:17 Dose: 500 mg Oxycodone/Acetaminophen (Percocet 5/325 Mg Tab) 1 tab PO Q4H PRN PRN Reason: Pain, moderate (4-7) Stop: 01/02/18 10:03 Oxycodone/Acetaminophen (Percocet 5/325 Mg Tab) 2 tab PO Q4H PRN PRN Reason: Pain, severe (8-10) Stop: 01/02/18 10:03 Pantoprazole Sodium (Protonix Ec Tab) 40 mg PO DAILY [facility] Last Admin: 12/31/17 10:40 Dose: 40 mg Tacrolimus (Prograf Cap) 2 mg PO DAILY [facility] Last Admin: 12/31/17 10:40 Dose: 2 mg Tacrolimus (Prograf Cap) 1 mg PO [facility] Last Admin: 12/31/17 21:15 Dose: 1 mg - Labs Labs: 12/30/17 10:21 12/31/17 07:59 PT 12.7 SECONDS (9.7-12.2) H 12/30/17 04:06 INR 1.1 12/30/17 04:06 APTT 44 SECONDS (21-34) H 12/30/17 04:06 Assessment and Plan - Assessment and Plan (Free Text) Plan: Patient seen and evaluated Plan of care d/w the workforce development vice president and as documented
--- NOTE | 2017-12-31 15:20 | CP.PCM.PN ---
Subjective - Date & Time of Evaluation Date of Evaluation: 12/31/17 Time of Evaluation: 14:30 - Subjective Subjective: Podiatry progress note - Dr. Taylor 67 y/o male pt seen at bedside today 1 day s/p TMA of right foot. Pt is seen resting comfortably in bed at time of visit, with right leg elevated on pillow. Pt reports minimal pain or discomfort overnight, denies any calf pain. Reports compliance with NWB to the RLE. Denies f/n/v/c/sob/cp/weakness at this time. Does report some acid reflux. No acute events overnight. Objective - Vital Signs/Intake and Output Vital Signs (last 24 hours): Temp Pulse Resp BP Pulse Ox 98.1 F 79 20 150/75 99 12/31/17 07:00 12/31/17 09:23 12/31/17 07:00 12/31/17 10:45 12/31/17 09:23 Intake and Output: 12/31/17 12/31/17 06:59 18:59 Intake Total 750 Output Total 2580 Balance -1830 - Medications Medications: Current Medications Acetaminophen (Tylenol 325mg Tab) 325 mg PO Q6H PRN PRN Reason: Pain, Mild (1-3) Amlodipine Besylate (Norvasc) 5 mg PO DAILY [facility] Last Admin: 12/31/17 10:41 Dose: 5 mg Aspirin (Ecotrin) 81 mg PO DAILY [facility] Last Admin: 12/31/17 10:40 Dose: 81 mg Calcium Carbonate (Tums) 500 mg PO AC PRN PRN Reason: heart burn Last Admin: 12/31/17 10:41 Dose: 500 mg Carvedilol (Coreg) 12.5 mg PO BID [facility] Last Admin: 12/31/17 10:45 Dose: 12.5 mg Cinacalcet (Sensipar) 30 mg PO HS [facility] Last Admin: 12/30/17 21:36 Dose: 30 mg Gabapentin (Neurontin) 300 mg PO DAILY [facility] Last Admin: 12/31/17 10:40 Dose: 300 mg Heparin Sodium (Porcine) (Heparin) 5,000 units SC Q8 [facility] Last Admin: 12/31/17 14:10 Dose: 5,000 units Piperacillin Sod/Tazobactam (Sod 3.375 gm/ Sodium Chloride) 100 mls @ 200 mls/ hr IVPB Q8H [facility] PRN Reason: Protocol Last Admin: 12/31/17 12:12 Dose: 200 mls/hr Insulin Glargine (Lantus) 20 unit SC HS [facility] Last Admin: 12/30/17 21:35 Dose: 20 u Insulin Human Regular (Novolin R) 10 unit SC AC [facility] Last Admin: 12/31/17 12:12 Dose: 10 unit Losartan Potassium (Cozaar) 50 mg PO DAILY [facility] Last Admin: 12/31/17 10:40 Dose: 50 mg Magnesium Oxide (Mag-Ox) 400 mg PO BID [facility] Last Admin: 12/31/17 10:40 Dose: 400 mg Mycophenolate Mofetil (Cellcept) 500 mg PO BID [facility] Last Admin: 12/31/17 10:41 Dose: 500 mg Oxycodone/Acetaminophen (Percocet 5/325 Mg Tab) 1 tab PO Q4H PRN PRN Reason: Pain, moderate (4-7) Stop: 01/02/18 10:03 Oxycodone/Acetaminophen (Percocet 5/325 Mg Tab) 2 tab PO Q4H PRN PRN Reason: Pain, severe (8-10) Stop: 01/02/18 10:03 Pantoprazole Sodium (Protonix Ec Tab) 40 mg PO DAILY [facility] Last Admin: 12/31/17 10:40 Dose: 40 mg Rosuvastatin Calcium (Crestor) 20 mg PO [facility] Last Admin: 12/30/17 21:35 Dose: 20 mg Tacrolimus (Prograf Cap) 2 mg PO DAILY [facility] Last Admin: 12/31/17 10:40 Dose: 2 mg Tacrolimus (Prograf Cap) 1 mg PO [facility] Last Admin: 12/30/17 21:36 Dose: 1 mg - Labs Labs: 12/30/17 10:21 12/31/17 07:59 PT 12.7 SECONDS (9.7-12.2) H 12/30/17 04:06 INR 1.1 12/30/17 04:06 APTT 44 SECONDS (21-34) H 12/30/17 04:06 - Constitutional Appears: Well, Non-toxic, No Acute Distress - Extremities Exam Extremities Exam: absent: Calf Tenderness Additional comments: RLE focused: dressing appears c/d/i Vasc: DP/PT pulses are palpable (2/4), skin temp runs warm to warm, cap refill is brisk to surgical site, neg pedal edema. Neuro: gross and protective pedal sensation are diminished Derm: surgical site appears well coapted with no dehisence of sutures noted, minimal serosanguinous drainage from incision site, neg purulence, neg fluctuance, neg erythema (60 cc sanguinous drainage to MARYAM since surgery yesterday) Ortho: neg tenderness to palp of surg site, neg pain to palpation of post calf. - Neurological Exam Neurological Exam: Alert, Awake, Oriented x3 - Psychiatric Exam Psychiatric exam: Normal Affect, Normal Mood Assessment and Plan - Assessment and Plan (Free Text) Assessment: 67 yo male patient 1 day s/p TMA right foot Plan: Pt S&E at bedside Plan discussed with attending Dr. Taylor in detail Chart, labs and vitals reviewed: tmax overnight 100.6, afebrile currently MARYAM drain left intact, dressing changed with betadine soaked telfa, gauze, DSD, BEATRIS bandage strict nwb to RLE (bedrest), may participate in physical therapy in bed PT recommends RICK continue with iv abx as per ID stable per podiatry, will follow
--- NOTE | 2017-12-31 19:46 | CP.PCM.PN ---
Subjective - Date & Time of Evaluation Date of Evaluation: 12/31/17 Time of Evaluation: 19:46 - Subjective Subjective: Pt reports feeling well no new issues no chest pain or sob Objective - Vital Signs/Intake and Output Vital Signs (last 24 hours): Temp Pulse Resp BP Pulse Ox 98.5 F 74 20 142/78 96 12/31/17 16:00 12/31/17 16:00 12/31/17 16:00 12/31/17 17:17 12/31/17 16:00 Intake and Output: 12/31/17 01/01/18 18:59 06:59 Intake Total 530 Output Total 815 Balance -285 - Medications Medications: Current Medications Acetaminophen (Tylenol 325mg Tab) 325 mg PO Q6H PRN PRN Reason: Pain, Mild (1-3) Amlodipine Besylate (Norvasc) 5 mg PO DAILY [facility] Last Admin: 12/31/17 10:41 Dose: 5 mg Aspirin (Ecotrin) 81 mg PO DAILY [facility] Last Admin: 12/31/17 10:40 Dose: 81 mg Calcium Carbonate (Tums) 500 mg PO AC PRN PRN Reason: heart burn Last Admin: 12/31/17 10:41 Dose: 500 mg Carvedilol (Coreg) 12.5 mg PO BID [facility] Last Admin: 12/31/17 17:17 Dose: 12.5 mg Cinacalcet (Sensipar) 30 mg PO HS [facility] Last Admin: 12/30/17 21:36 Dose: 30 mg Gabapentin (Neurontin) 300 mg PO DAILY [facility] Last Admin: 12/31/17 10:40 Dose: 300 mg Heparin Sodium (Porcine) (Heparin) 5,000 units SC Q8 [facility] Last Admin: 12/31/17 14:10 Dose: 5,000 units Piperacillin Sod/Tazobactam (Sod 3.375 gm/ Sodium Chloride) 100 mls @ 200 mls/ hr IVPB Q8H [facility] PRN Reason: Protocol Last Admin: 12/31/17 12:12 Dose: 200 mls/hr Insulin Glargine (Lantus) 20 unit SC HS [facility] Last Admin: 12/30/17 21:35 Dose: 20 u Insulin Human Regular (Novolin R) 10 unit SC AC [facility] Last Admin: 12/31/17 17:18 Dose: 10 unit Losartan Potassium (Cozaar) 50 mg PO DAILY [facility] Last Admin: 12/31/17 10:40 Dose: 50 mg Magnesium Oxide (Mag-Ox) 400 mg PO BID [facility] Last Admin: 12/31/17 17:17 Dose: 400 mg Mycophenolate Mofetil (Cellcept) 500 mg PO BID [facility] Last Admin: 12/31/17 17:17 Dose: 500 mg Oxycodone/Acetaminophen (Percocet 5/325 Mg Tab) 1 tab PO Q4H PRN PRN Reason: Pain, moderate (4-7) Stop: 01/02/18 10:03 Oxycodone/Acetaminophen (Percocet 5/325 Mg Tab) 2 tab PO Q4H PRN PRN Reason: Pain, severe (8-10) Stop: 01/02/18 10:03 Pantoprazole Sodium (Protonix Ec Tab) 40 mg PO DAILY [facility] Last Admin: 12/31/17 10:40 Dose: 40 mg Rosuvastatin Calcium (Crestor) 20 mg PO HS [facility] Last Admin: 12/30/17 21:35 Dose: 20 mg Tacrolimus (Prograf Cap) 2 mg PO DAILY [facility] Last Admin: 12/31/17 10:40 Dose: 2 mg Tacrolimus (Prograf Cap) 1 mg PO HS [facility] Last Admin: 12/30/17 21:36 Dose: 1 mg - Labs Labs: 12/30/17 10:21 12/31/17 07:59 PT 12.7 SECONDS (9.7-12.2) H 12/30/17 04:06 INR 1.1 12/30/17 04:06 APTT 44 SECONDS (21-34) H 12/30/17 04:06 - Constitutional Appears: Well - Eye Exam Eye Exam: Normal appearance - ENT Exam ENT Exam: Mucous Membranes Moist - Respiratory Exam Respiratory Exam: Clear to Ausculation Bilateral - Cardiovascular Exam Cardiovascular Exam: REGULAR RHYTHM, RRR. absent: JVD Assessment and Plan - Assessment and Plan (Free Text) Assessment: sp amputated toes for osteo plan is to dc to [facility] once ok with podiatry diabetes stable no change in meds
[2017-12-31] MEDS: (Lantus) Insulin Glargine, Recombinant SC SCH (21:14)
--- NOTE | 2017-12-31 21:58 | CP.PCM.PN ---
Subjective - Date & Time of Evaluation Date of Evaluation: 12/31/17 Time of Evaluation: 21:58 - Subjective Subjective: POD # 2 AFEBRILE. S/P TMA SURGERY PER PODIATRY. COMFORTABLE. RT FOOT IN DRESSING +VE JPRATT- DRAINING SANGUINOUS FLUID LABS REVIEWED. LFTS INCREASING ? ZOSYN/ANAESTHESIA. CREATININE 0.9/bun 17. 4/11/17-BONE TISSUE CULTURE NEGATIVE GROWTH FOR 24 HOURS. 12/24/17-WOUND CULTURE RIGHT FOOT ULCER NO GROWTH. Objective - Vital Signs/Intake and Output Vital Signs (last 24 hours): Temp Pulse Resp BP Pulse Ox 98.5 F 74 20 142/78 96 12/31/17 16:00 12/31/17 16:00 12/31/17 16:00 12/31/17 17:17 12/31/17 16:00 Intake and Output: 12/31/17 01/01/18 18:59 06:59 Intake Total 530 Output Total 815 Balance -285 - Medications Medications: Current Medications Acetaminophen (Tylenol 325mg Tab) 325 mg PO Q6H PRN PRN Reason: Pain, Mild (1-3) Amlodipine Besylate (Norvasc) 5 mg PO DAILY [facility] Last Admin: 12/31/17 10:41 Dose: 5 mg Aspirin (Ecotrin) 81 mg PO DAILY [facility] Last Admin: 12/31/17 10:40 Dose: 81 mg Calcium Carbonate (Tums) 500 mg PO AC PRN PRN Reason: heart burn Last Admin: 12/31/17 10:41 Dose: 500 mg Carvedilol (Coreg) 12.5 mg PO BID [facility] Last Admin: 12/31/17 17:17 Dose: 12.5 mg Cinacalcet (Sensipar) 30 mg PO HS [facility] Last Admin: 12/31/17 21:15 Dose: 30 mg Gabapentin (Neurontin) 300 mg PO DAILY [facility] Last Admin: 12/31/17 10:40 Dose: 300 mg Heparin Sodium (Porcine) (Heparin) 5,000 units SC Q8 [facility] Last Admin: 12/31/17 21:13 Dose: 5,000 units Piperacillin Sod/Tazobactam (Sod 3.375 gm/ Sodium Chloride) 100 mls @ 200 mls/ hr IVPB Q8H [facility] PRN Reason: Protocol Last Admin: 04/03/18 12:12 Dose: 200 mls/hr Insulin Glargine (Lantus) 20 unit SC HS [facility] Last Admin: 12/31/17 21:14 Dose: 20 u Insulin Human Regular (Novolin R) 10 unit SC AC [facility] Last Admin: 12/31/17 17:18 Dose: 10 unit Losartan Potassium (Cozaar) 50 mg PO DAILY [facility] Last Admin: 12/31/17 10:40 Dose: 50 mg Magnesium Oxide (Mag-Ox) 400 mg PO BID [facility] Last Admin: 12/31/17 17:17 Dose: 400 mg Mycophenolate Mofetil (Cellcept) 500 mg PO BID [facility] Last Admin: 12/31/17 17:17 Dose: 500 mg Oxycodone/Acetaminophen (Percocet 5/325 Mg Tab) 1 tab PO Q4H PRN PRN Reason: Pain, moderate (4-7) Stop: 01/02/18 10:03 Oxycodone/Acetaminophen (Percocet 5/325 Mg Tab) 2 tab PO Q4H PRN PRN Reason: Pain, severe (8-10) Stop: 01/02/18 10:03 Pantoprazole Sodium (Protonix Ec Tab) 40 mg PO DAILY [facility] Last Admin: 12/31/17 10:40 Dose: 40 mg Tacrolimus (Prograf Cap) 2 mg PO DAILY [facility] Last Admin: 12/31/17 10:40 Dose: 2 mg Tacrolimus (Prograf Cap) 1 mg PO [facility] Last Admin: 12/31/17 21:15 Dose: 1 mg - Labs Labs: 12/30/17 10:21 12/31/17 07:59 PT 12.7 SECONDS (9.7-12.2) H 12/30/17 04:06 INR 1.1 12/30/17 04:06 APTT 44 SECONDS (21-34) H 12/30/17 04:06 - Constitutional Appears: No Acute Distress - Head Exam Head Exam: NORMAL INSPECTION - Eye Exam Eye Exam: EOMI, PERRL. absent: Scleral icterus - ENT Exam ENT Exam: Normal Oropharynx - Neck Exam Neck Exam: Normal Inspection - Respiratory Exam Respiratory Exam: Clear to Ausculation Bilateral - Cardiovascular Exam Cardiovascular Exam: REGULAR RHYTHM, +S1, +S2 - GI/Abdominal Exam GI & Abdominal Exam: Soft, Normal Bowel Sounds - Extremities Exam Extremities Exam: absent: Calf Tenderness (RIGHT FOOT +VE DRESSING. [place] DRAINING SEROSANGUINEOUS DRAINAGE.) Assessment and Plan (1) Diabetic foot ulcer Status: Chronic (2) Osteomyelitis of right foot Status: Acute (3) Diabetes mellitus Status: Chronic (4) Hypertension Status: Chronic (5) CAD (coronary artery disease) Status: Acute (6) Renal transplant recipient Status: Acute - Assessment and Plan (Free Text) Plan: CONTINUE IV ZOSYN DECREASE DOSE TO 2.25 EVERY 8 HOURLY. (DECREASE DOSE ) . OFF IV VANCOMYCIN 12/30/17. F/U TISSUE CULTURES TO ADJUST ABX iN NEXT 24-36 HOURS. F/U RENAL FUNCTION CLOSELY. CASE DISCUSSED WITH STAFF. PATIENT WILL NEED PICC LINE FOR iv ANTIBIOTICS X 3WKS. -F/U WITH ORAL ANTIBIOTICS IF NEEDED AND IF POOR HEALING. F/U LFTS IN AM PT ON IMMUNOSUPPRESSIVES PER RENAL. LOCAL WOUND CARE PER PODIATRY..
[2018-01-01 07:16] LABS: BASO # 0.1 K/uL (0.0-0.2); BASO % 1.2 % (0.0-2.0); EOS # 0.3 K/uL (0.0-0.7); EOS % 3.9 % (0.0-4.0); LYMPH # 1.4 K/uL (1.0-4.3); MEAN CELL VOLUME 85.2 fL (80.0-94.0); MEAN CORPUSCULAR HEMOGLOBIN 29.7 pg (27.0-31.0); MEAN CORPUSCULAR HGB CONC 34.9 g/dL (33.0-37.0); MEAN PLATELET VOLUME 8.1 fL (7.2-11.7); MONO # 0.8 K/uL (0.0-0.8); MONO % 10.2 % (0.0-10.0); NEUT # 5.2 K/uL (1.8-7.0); NEUT % 66.7 % (50.0-75.0); NRBC % 0.1 % (0.0-2.0); RBC 4.03 Mil/uL (4.40-5.90); RED CELL DISTRIBUTION WIDTH 13.7 % (11.5-14.5); WHITE BLOOD COUNT 7.8 K/uL (4.8-10.8)
[2018-01-01 07:46] LABS: ALBUMIN 3.4 g/dL (3.5-5.0); ALT/SGPT 90 U/L (21-72); AST/SGOT 43 U/L (17-59); BILIRUBIN,DIRECT 0.4 mg/dL (0.0-0.4); BLOOD UREA NITROGEN 16 mg/dL (9-20); CALCIUM 9.5 mg/dl (8.6-10.4); GFR AFRICAN-AMERICAN > 60; GFR NON-AFRICAN AMERICAN > 60
[2018-01-01] MEDS: (Novolin R) Insulin Human Regular 100 units/ml vial SC SCH ×3 (08:27→17:04)
[2018-01-01] MEDS: Pantoprazole 40 mg EC Tab PO SCH (09:43)
[2018-01-01] MEDS: Magnesium Oxide 400 mg Tab UD PO SCH ×2 (09:44→17:04)
[2018-01-01] MEDS: Calcium Carbonate 500 mg Chewable Antacid Tab PO PRN ×2 (09:44→17:54)
[2018-01-01] MEDS: Piperacill/Tazo 2.25gm in Dex 2.25 GM/50 ML BAG IVPB SCH ×2 (11:02→17:06)
--- NOTE | 2018-01-01 11:08 | CP.PCM.PN ---
Subjective - Date & Time of Evaluation Date of Evaluation: 01/01/18 Time of Evaluation: 09:30 - Subjective Subjective: Podiatry progress note - Dr. Taylor 67 yo male patient POD#2 R foot TMA. Pt is seeing resting comfortably in bed this morning with R leg elevated on pillow. Pt denies any pain or discomfort at this time. He denies f/n/v/c/sob/cp/weakness or dizziness. Has been compliant with bedrest and nwb to the right foot. Offers no complaints today. Objective - Vital Signs/Intake and Output Vital Signs (last 24 hours): Temp Pulse Resp BP Pulse Ox 98.5 F 77 20 143/69 97 01/01/18 07:00 01/01/18 07:00 01/01/18 07:00 01/01/18 09:43 01/01/18 07:00 Intake and Output: 01/01/18 01/01/18 06:59 18:59 Intake Total 180 Output Total 0 Balance 180 - Medications Medications: Current Medications Acetaminophen (Tylenol 325mg Tab) 325 mg PO Q6H PRN PRN Reason: Pain, Mild (1-3) Amlodipine Besylate (Norvasc) 5 mg PO DAILY [facility] Last Admin: 01/01/18 09:44 Dose: 5 mg Aspirin (Ecotrin) 81 mg PO DAILY [facility] Last Admin: 01/01/18 09:43 Dose: 81 mg Calcium Carbonate (Tums) 500 mg PO AC PRN PRN Reason: heart burn Last Admin: 01/01/18 09:44 Dose: 500 mg Carvedilol (Coreg) 12.5 mg PO BID [facility] Last Admin: 01/01/18 09:43 Dose: 12.5 mg Cinacalcet (Sensipar) 30 mg PO HS [facility] Last Admin: 12/31/17 21:15 Dose: 30 mg Gabapentin (Neurontin) 300 mg PO DAILY [facility] Last Admin: 01/01/18 09:43 Dose: 300 mg Heparin Sodium (Porcine) (Heparin) 5,000 units SC Q8 [facility] Last Admin: 01/01/18 06:35 Dose: 5,000 units Piperacillin Sod/Tazobactam Sod (Zosyn 2.25 Gm Iv Premix) 2.25 gm in 50 mls @ 100 mls/hr IVPB Q8H [facility] PRN Reason: Protocol Last Admin: 01/01/18 11:02 Dose: 100 mls/hr Insulin Glargine (Lantus) 20 unit SC HS [facility] Last Admin: 12/31/17 21:14 Dose: 20 u Insulin Human Regular (Novolin R) 10 unit SC AC [facility] Last Admin: 01/01/18 08:27 Dose: 10 unit Losartan Potassium (Cozaar) 50 mg PO DAILY [facility] Last Admin: 01/01/18 09:44 Dose: 50 mg Magnesium Oxide (Mag-Ox) 400 mg PO BID [facility] Last Admin: 01/01/18 09:44 Dose: 400 mg Mycophenolate Mofetil (Cellcept) 500 mg PO BID [facility] Last Admin: 01/01/18 09:42 Dose: 500 mg Oxycodone/Acetaminophen (Percocet 5/325 Mg Tab) 1 tab PO Q4H PRN PRN Reason: Pain, moderate (4-7) Stop: 01/02/18 10:03 Oxycodone/Acetaminophen (Percocet 5/325 Mg Tab) 2 tab PO Q4H PRN PRN Reason: Pain, severe (8-10) Stop: 01/02/18 10:03 Pantoprazole Sodium (Protonix Ec Tab) 40 mg PO DAILY [facility] Last Admin: 01/01/18 09:43 Dose: 40 mg Tacrolimus (Prograf Cap) 2 mg PO DAILY [facility] Last Admin: 01/01/18 09:43 Dose: 2 mg Tacrolimus (Prograf Cap) 1 mg PO [facility] Last Admin: 12/31/17 21:15 Dose: 1 mg - Labs Labs: 01/01/18 07:01 01/01/18 07:01 PT 12.7 SECONDS (9.7-12.2) H 12/30/17 04:06 INR 1.1 12/30/17 04:06 APTT 44 SECONDS (21-34) H 12/30/17 04:06 - Constitutional Appears: Well, Non-toxic, No Acute Distress - Extremities Exam Extremities Exam: absent: Calf Tenderness Additional comments: RLE focused: dressing appears c/d/i Vasc: DP/PT pulses are palpable (2/4), skin temp runs warm to warm, cap refill is brisk to surgical site, neg pedal edema. Neuro: gross and protective pedal sensation are diminished Derm: surgical site appears well coapted with no dehisence of sutures noted, minimal serosanguinous drainage from incision site, neg purulence, neg fluctuance, neg erythema, 15 cc noted of serosanguinous drainage to MARYAM overnight (minimal drainage on exam today), neg active bleeding Ortho: neg tenderness to palp of surg site, neg pain to palpation of post calf. - Neurological Exam Neurological Exam: Alert, Awake, Oriented x3 - Psychiatric Exam Psychiatric exam: Normal Affect, Normal Mood Assessment and Plan - Assessment and Plan (Free Text) Assessment: 67 yo male patient 2 days s/p TMA right foot Plan: Pt S&E at bedside Plan discussed with attending Dr. Taylor in detail Chart, labs and vitals reviewed: tmax overnight 100.6, afebrile now, no leukocytosis surgical site dressed with xeroform, betadine soaked gauze, DSD and BEATRIS bandage c/w strict nwb to RLE (bedrest), may participate in physical therapy in bed s/p PICC line placement today PT recommends [facility] continue with iv abx as per ID awaiting pathology report from surgery stable per podiatry, will follow
--- NOTE | 2018-01-01 15:13 | CP.PCM.PN ---
Subjective - Date & Time of Evaluation Date of Evaluation: 01/01/18 Time of Evaluation: 15:11 - Subjective Subjective: s/p picc line no acute events no fever lft better on iv ab per ID no pain over allograft no abdominal pain no chest pain no sob no headache no pruritis no urinary complaints no visual changes chronic muscle weakness Objective - Vital Signs/Intake and Output Vital Signs (last 24 hours): Temp Pulse Resp BP Pulse Ox 98.5 F 75 20 145/72 98 01/01/18 07:00 01/01/18 13:00 01/01/18 07:00 01/01/18 13:00 01/01/18 13:00 Intake and Output: 01/01/18 01/01/18 06:59 18:59 Intake Total 730 Output Total 0 Balance 730 - Medications Medications: Current Medications Acetaminophen (Tylenol 325mg Tab) 325 mg PO Q6H PRN PRN Reason: Pain, Mild (1-3) Amlodipine Besylate (Norvasc) 5 mg PO DAILY [facility] Last Admin: 01/01/18 09:44 Dose: 5 mg Aspirin (Ecotrin) 81 mg PO DAILY [facility] Last Admin: 01/01/18 09:43 Dose: 81 mg Calcium Carbonate (Tums) 500 mg PO AC PRN PRN Reason: heart burn Last Admin: 01/01/18 09:44 Dose: 500 mg Carvedilol (Coreg) 12.5 mg PO BID [facility] Last Admin: 01/01/18 09:43 Dose: 12.5 mg Cinacalcet (Sensipar) 30 mg PO [facility] Last Admin: 12/31/17 21:15 Dose: 30 mg Gabapentin (Neurontin) 300 mg PO DAILY [facility] Last Admin: 01/01/18 09:43 Dose: 300 mg Heparin Sodium (Porcine) (Heparin) 5,000 units SC Q8 [facility] Last Admin: 01/01/18 13:21 Dose: 5,000 units Piperacillin Sod/Tazobactam Sod (Zosyn 2.25 Gm Iv Premix) 2.25 gm in 50 mls @ 100 mls/hr IVPB Q8H [facility] PRN Reason: Protocol Last Admin: 01/01/18 11:02 Dose: 100 mls/hr Insulin Glargine (Lantus) 20 unit SC [facility] Last Admin: 04/03/18 21:14 Dose: 20 u Insulin Human Regular (Novolin R) 10 unit SC AC [facility] Last Admin: 01/01/18 12:17 Dose: 10 unit Losartan Potassium (Cozaar) 50 mg PO DAILY [facility] Last Admin: 01/01/18 09:44 Dose: 50 mg Magnesium Oxide (Mag-Ox) 400 mg PO BID [facility] Last Admin: 01/01/18 09:44 Dose: 400 mg Mycophenolate Mofetil (Cellcept) 500 mg PO BID [facility] Last Admin: 01/01/18 09:42 Dose: 500 mg Oxycodone/Acetaminophen (Percocet 5/325 Mg Tab) 1 tab PO Q4H PRN PRN Reason: Pain, moderate (4-7) Stop: 01/02/18 10:03 Oxycodone/Acetaminophen (Percocet 5/325 Mg Tab) 2 tab PO Q4H PRN PRN Reason: Pain, severe (8-10) Stop: 01/02/18 10:03 Pantoprazole Sodium (Protonix Ec Tab) 40 mg PO DAILY [facility] Last Admin: 01/01/18 09:43 Dose: 40 mg Tacrolimus (Prograf Cap) 2 mg PO DAILY [facility] Last Admin: 01/01/18 09:43 Dose: 2 mg Tacrolimus (Prograf Cap) 1 mg PO HS [facility] Last Admin: 12/31/17 21:15 Dose: 1 mg - Labs Labs: 01/01/18 07:01 01/01/18 07:01 PT 12.7 SECONDS (9.7-12.2) H 12/30/17 04:06 INR 1.1 12/30/17 04:06 APTT 44 SECONDS (21-34) H 12/30/17 04:06 - Constitutional Appears: Non-toxic, Chronically Ill - Head Exam Head Exam: ATRAUMATIC, NORMAL INSPECTION - Eye Exam Eye Exam: EOMI - ENT Exam ENT Exam: Mucous Membranes Moist - Neck Exam Neck Exam: Full ROM. absent: Lymphadenopathy - Respiratory Exam Respiratory Exam: Clear to Ausculation Bilateral. absent: Accessory Muscle Use - Cardiovascular Exam Cardiovascular Exam: REGULAR RHYTHM. absent: Rubs - GI/Abdominal Exam GI & Abdominal Exam: Distended. 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
--- NOTE | 2018-01-01 16:51 | CP.PCM.PN ---
Subjective - Date & Time of Evaluation Date of Evaluation: 01/01/18 Time of Evaluation: 16:51 - Subjective Subjective: Alert and oriented x3, no acute pain on the right foot, NAD. Objective - Vital Signs/Intake and Output Vital Signs (last 24 hours): Temp Pulse Resp BP Pulse Ox 98.5 F 75 20 145/72 98 01/01/18 07:00 01/01/18 13:00 01/01/18 07:00 01/01/18 13:00 01/01/18 13:00 Intake and Output: 01/01/18 01/01/18 06:59 18:59 Intake Total 730 Output Total 0 Balance 730 - Medications Medications: Current Medications Acetaminophen (Tylenol 325mg Tab) 325 mg PO Q6H PRN PRN Reason: Pain, Mild (1-3) Amlodipine Besylate (Norvasc) 5 mg PO DAILY [facility] Last Admin: 01/01/18 09:44 Dose: 5 mg Aspirin (Ecotrin) 81 mg PO DAILY [facility] Last Admin: 01/01/18 09:43 Dose: 81 mg Calcium Carbonate (Tums) 500 mg PO [facility] PRN PRN Reason: heart burn Last Admin: 01/01/18 09:44 Dose: 500 mg Carvedilol (Coreg) 12.5 mg PO BID [facility] Last Admin: 01/01/18 09:43 Dose: 12.5 mg Cinacalcet (Sensipar) 30 mg PO HS [facility] Last Admin: 12/31/17 21:15 Dose: 30 mg Gabapentin (Neurontin) 300 mg PO DAILY [facility] Last Admin: 01/01/18 09:43 Dose: 300 mg Heparin Sodium (Porcine) (Heparin) 5,000 units SC Q8 [facility] Last Admin: 01/01/18 13:21 Dose: 5,000 units Piperacillin Sod/Tazobactam Sod (Zosyn 2.25 Gm Iv Premix) 2.25 gm in 50 mls @ 100 mls/hr IVPB Q8H [facility] PRN Reason: Protocol Last Admin: 01/01/18 11:02 Dose: 100 mls/hr Insulin Glargine (Lantus) 20 unit SC [facility] Last Admin: 12/31/17 21:14 Dose: 20 u Insulin Human Regular (Novolin R) 10 unit SC AC [facility] Last Admin: 01/01/18 12:17 Dose: 10 unit Losartan Potassium (Cozaar) 50 mg PO DAILY [facility] Last Admin: 01/01/18 09:44 Dose: 50 mg Magnesium Oxide (Mag-Ox) 400 mg PO BID [facility] Last Admin: 01/01/18 09:44 Dose: 400 mg Mycophenolate Mofetil (Cellcept) 500 mg PO BID [facility] Last Admin: 01/01/18 09:42 Dose: 500 mg Oxycodone/Acetaminophen (Percocet 5/325 Mg Tab) 1 tab PO Q4H PRN PRN Reason: Pain, moderate (4-7) Stop: 01/02/18 10:03 Oxycodone/Acetaminophen (Percocet 5/325 Mg Tab) 2 tab PO Q4H PRN PRN Reason: Pain, severe (8-10) Stop: 01/02/18 10:03 Pantoprazole Sodium (Protonix Ec Tab) 40 mg PO DAILY [facility] Last Admin: 01/01/18 09:43 Dose: 40 mg Tacrolimus (Prograf Cap) 2 mg PO DAILY [facility] Last Admin: 01/01/18 09:43 Dose: 2 mg Tacrolimus (Prograf Cap) 1 mg PO HS [facility] Last Admin: 12/31/17 21:15 Dose: 1 mg - Labs Labs: 01/01/18 07:01 01/01/18 07:01 PT 12.7 SECONDS (9.7-12.2) H 12/30/17 04:06 INR 1.1 12/30/17 04:06 APTT 44 SECONDS (21-34) H 12/30/17 04:06 Assessment and Plan - Assessment and Plan (Free Text) Assessment: Patient with right foot ulcer, s/p amputation, seen and examined. Alert and oriented x3, denies acute complaints of pain or distress. Cleared by podiatry, drainage tubes removed. Advised to continue with zosyn for [address] Burleson. PICC line placed today. Discussed with DR Bauer, agreed [facility] under services of DR Barboza and follow up by DR Burleson, ID.
[2018-01-01 16:57] VITALS: PULSE 76; TEMP 97.8; O2SAT 96
[2018-01-01 17:06] VITALS: BP 143/80
--- NOTE | 2018-01-01 18:41 | CP.PCM.PN ---
Subjective - Date & Time of Evaluation Date of Evaluation: 01/01/18 Time of Evaluation: 16:00 - Subjective Subjective: POD # 3 AFEBRILE. S/P TMA SURGERY PER PODIATRY. PATIENT OFFERS NO COMPLAINTS. S/P PICC LINE JACQUELINE TODAY 01/01/18 COMFORTABLE. RT FOOT IN DRESSING /BEATRIS BANDAGE. JPRATT- REMOVED TODAY BY PODIATRY. LABS REVIEWED. LFTS IMPROVING. rENAL FUNCTIONS STABLE.12/30/17- BONE TISSUE CULTURE NEGATIVE GROWTH FOR 48 HOURS. 12/24/17-WOUND CULTURE RIGHT FOOT ULCER NO GROWTH. Objective - Vital Signs/Intake and Output Vital Signs (last 24 hours): Temp Pulse Resp BP Pulse Ox 97.8 F 76 20 143/80 96 01/01/18 16:00 01/01/18 16:00 01/01/18 16:00 01/01/18 17:03 01/01/18 16:00 Intake and Output: 01/01/18 01/01/18 06:59 18:59 Intake Total 730 Output Total 0 Balance 730 - Labs Labs: 01/01/18 07:01 01/01/18 07:01 PT 12.7 SECONDS (9.7-12.2) H 12/30/17 04:06 INR 1.1 12/30/17 04:06 APTT 44 SECONDS (21-34) H 12/30/17 04:06 - Constitutional Appears: No Acute Distress - Head Exam Head Exam: NORMAL INSPECTION - Eye Exam Eye Exam: EOMI, PERRL - ENT Exam ENT Exam: Normal Oropharynx - Neck Exam Neck Exam: Normal Inspection - Respiratory Exam Respiratory Exam: Clear to Ausculation Bilateral - Cardiovascular Exam Cardiovascular Exam: REGULAR RHYTHM, +S1, +S2 - GI/Abdominal Exam GI & Abdominal Exam: Soft, Normal Bowel Sounds - Extremities Exam Extremities Exam: absent: Calf Tenderness, Pedal Edema (RT FOOT IN DRESSING / BEATRIS BANDAGE.) - Neurological Exam Neurological Exam: Awake, CN II-XII Intact, Oriented x3 - Psychiatric Exam Psychiatric exam: Normal Mood - Skin Skin Exam: Normal Color, Warm Assessment and Plan (1) Diabetic foot ulcer Status: Chronic (2) Osteomyelitis of right foot Status: Acute (3) Diabetes mellitus Status: Chronic (4) Hypertension Status: Chronic (5) CAD (coronary artery disease) Status: Acute (6) Renal transplant recipient Status: Acute - Assessment and Plan (Free Text) Plan: ONTINUE IV ZOSYN DECREASE DOSE TO 2.25 EVERY 8 HOURLY . 12/24/17. CASE DISCUSSED WITH STAFF. PATIENT WILL NEED iv ANTIBIOTICS X 3WKS. -01/01/18 TO 01/22/18 /U WITH ORAL ANTIBIOTICS IF NEEDED AND IF POOR HEALING. F/U CBC/DIFF LFT, CMP,ESR, CRP WEEKLY PT ON IMMUNOSUPPRESSIVES PER RENAL. LOCAL WOUND CARE PER PODIATRY. PICC LINE CAREAS NEEDED..
--- NOTE | 2018-01-01 23:37 | CP.PCM.PN ---
Subjective - Date & Time of Evaluation Date of Evaluation: 01/01/18 Time of Evaluation: 07:05 - Subjective Subjective: Patient seen and evaluated Denies chest pain and dyspnea Objective - Vital Signs/Intake and Output Vital Signs (last 24 hours): Temp Pulse Resp BP Pulse Ox 97.8 F 76 20 143/80 96 01/01/18 16:00 01/01/18 16:00 01/01/18 16:00 01/01/18 17:03 01/01/18 16:00 Intake and Output: 01/01/18 01/02/18 18:59 06:59 Intake Total 730 Output Total 0 Balance 730 - Labs Labs: 01/01/18 07:01 01/01/18 07:01 PT 12.7 SECONDS (9.7-12.2) H 12/30/17 04:06 INR 1.1 12/30/17 04:06 APTT 44 SECONDS (21-34) H 12/30/17 04:06
--- NOTE | 2018-01-03 07:58 | OP ---
PROCEDURE DATE: 12/30/2017 SURGEON: Brandi Taylor DPM SCRAP METAL PROCESSING WORKER: Bora Treviño DPM, PGY-1 ANESTHESIOLOGIST: Dr. Liu. TYPE OF ANESTHESIA: IV sedation with local. PREOPERATIVE DIAGNOSIS: Right forefoot osteomyelitis. POSTOPERATIVE DIAGNOSIS: Right forefoot osteomyelitis. PROCEDURE: Right foot transmetatarsal amputation. INDICATIONS: The patient is a 67-year-old male with the above diagnosis. The patient has exhausted all conservative treatment at this time and now required surgical intervention. The patient signed the consent after careful explanation of risks, benefits, complication, and alternatives for surgical procedure. No guarantees were given nor implied; n.p.o. status was confirmed prior to taking the patient to the OR. PREPARATION: The patient was brought into the operating room and placed on the operating room table in supine position. A timeout was performed for identification of the correct patient and the procedure. After induction of IV sedation, the right lower extremity was then prepped and draped in normal sterile manner and the procedure began; 20 mL of 1:1 mixture of 2% lidocaine plain and 0.5% Marcaine plain was injected in an ankle block fashion to the right lower extremity to obtain local anesthesia. No tourniquet was used during this procedure. DESCRIPTION OF THE PROCEDURE: The attention was directed to the distal aspect of the right foot, just proximal to the level of the MTPJ where an incision was planned using a marking pen. At this time, a #15 blade was used to create a fish-mouth incision circumferentially around when surgeon did a plantar incision made distally to create a long plantar flap. All of the digits 2 through 5 were disarticulated at the level of MTPJ at this time. Next, all soft tissues were freed from the distal aspect of the neck and shaft of the metatarsals 2 through 5 and periosteum was using the martinez elevator. A sagittal saw was utilized at this time to create an angled dorsal, distal, anterior, and proximal cut following the metatarsal parabola to the level of metatarsal 2 through 5 proximal shaft. The proximal margin of the metatarsal 2 through 4 bases were accessed to which demonstrated poor infected bone quality. At this time metatarsal 2 through 4 bases were excised more to metatarsal cuneiform and metatarsal cuboid joint. Metatarsal 5 base was left intact at the metatarsal cuboid joint to preserve . All nonviable soft tissue was then excised from the surgical site using the #15 blade and forceps. All the extensor and flexor tendons were excised from the surgical site. All devitalized bone and tissues then passed off from the field and sent to pathology. The remaining sharp bone edges were then debrided down, smoothened using bone rasp. The site was then irrigated with copious amount of saline solution with bulb syringe. The plantar tissue was then brought up dorsally, and 2-0 and 3-0 Prolene sutures were utilized to place horizontal and simple sutures from the surgical incision site. Distal medial aspect of the surgical site was left open minimally where a MARYAM drain was placed, 0.5% of Marcaine plain was infiltrated surrounding the surgical site. The right foot was then dressed with Adaptic, ABD and Kerlix. POSTOPERATIVE CONDITION: The patient tolerated the anesthesia and procedure well and was escorted to the recovery room with vital signs stable and neurovascular status intact to the right lower extremity. The patient is to be nonweightbearing to the right lower extremity with crutches. The patient will be on where he will be followed up with Podiatry on daily basis. Bora Treviño DPM Brandi Taylor DPM
--- NOTE | 2018-01-13 05:45 | CARDCATH ---
PROCEDURE DATE: 12/27/2017 PROCEDURES: 1. Left heart catheterization. 2. Coronary angiogram. 3. Saphenous vein graft angiogram. 4. Left internal mammary artery angiogram. CLINICAL INDICATIONS: 1. Chest pain. 2. Abnormal cardiac stress test. 3. Diabetes. 4. Hyperlipidemia. 5. History of coronary artery disease, status post CABG. 6. Chronic kidney disease. PERFORMING PHYSICIAN: Sascha Aguirre MD REFERRING PHYSICIAN: Cori Bauer MD. PROCEDURE: After informed consent, the patient was prepped and draped in the usual sterile fashion. A 2% lidocaine was given in the left groin for local anesthesia. Using micropuncture technique, 6-Barbadian sheath was introduced into the left common femoral artery. A 6-Barbadian JL4 diagnostic catheter engaged into left coronary artery. Contrast injected and left coronary angiogram was performed. Then JR4 6-Barbadian diagnostic catheter crossed into left ventricle. LV end-diastolic pressure was measured. Contrast injected and LV angiogram was done. The catheter was pulled back across the aortic valve. Gradient across the aortic valve was measured. Then the same catheter engaged into right coronary artery. Contrast injected and right coronary angiogram was done. Then the catheter engaged into saphenous vein graft angiogram. Contrast injected and saphenous vein graft to obtuse marginal artery angiogram was performed. Using internal mammary 6-Barbadian diagnostic catheter, DAS graft was engaged. Contrast injected and DAS graft angiogram was performed. The patient tolerated the procedure well. Postprocedure dry hemostasis achieved with manual pressure. FINDINGS: 1. Left main coronary artery is patent. 2. Proximal to distal LAD stent is patent; however, mid stent has 50% nonobstructive stenosis. Diagonal branches are patent. 3. Left circumflex is patent. Obtuse marginal 1 branch has a 99% proximal stenosis. 4. Right coronary artery prior stents from proximal to mid RCA are patent. Distal right coronary artery has a 50% nonobstructive stenosis. PDA and PLV branches are patent. 5. DAS graft to LAD has become atretic. 6. Saphenous vein graft to obtuse marginal artery is patent. 7. LV ejection fraction is approximately 60%. Inferior wall is hypokinetic. EDP is 20. No gradient across the aortic valve. IMPRESSION: 1. Moderate coronary artery disease as described above. 2. Normal LV systolic function. 3. I recommend aggressive medical management. Sascha Aguirre MD [facility] # [id number]
== END 2018-01-01 18:31 | DRG 617 ==
LOC: C.ER 16:42 → C.3T 20:42 → C.9E 20:42
PROVIDERS: ADMIT Internal Medicine; ATTEND Internal Medicine
PROC: 4A023N7 Measurement of Cardiac Sampling and Pressure, Left Heart, Percutaneous Approach (ICD-10-PCS; 2017-12-27)
PROC: B2151ZZ Fluoroscopy of Left Heart using Low Osmolar Contrast (ICD-10-PCS; 2017-12-27)
PROC: B2111ZZ Fluoroscopy of Multiple Coronary Arteries using Low Osmolar Contrast (ICD-10-PCS; 2017-12-27)
PROC: 0Y6M0Z9 Detachment at Right Foot, Partial 1st Ray, Open Approach (ICD-10-PCS; 2017-12-30)
PROC: 0Y6M0ZB Detachment at Right Foot, Partial 2nd Ray, Open Approach (ICD-10-PCS; 2017-12-30)
PROC: 0Y6M0ZC Detachment at Right Foot, Partial 3rd Ray, Open Approach (ICD-10-PCS; 2017-12-30)
PROC: 0Y6M0ZD Detachment at Right Foot, Partial 4th Ray, Open Approach (ICD-10-PCS; 2017-12-30)
PROC: 02HV33Z Insertion of Infusion Device into Superior Vena Cava, Percutaneous Approach (ICD-10-PCS; principal; 2018-01-01)
DX: E11.69 Type 2 diabetes mellitus with other specified complication (principal); I12.0 Hypertensive chronic kidney disease with stage 5 chronic kidney disease or end stage renal disease; Z94.0 Kidney transplant status; M86.171 Other acute osteomyelitis, right ankle and foot; M86.9 Osteomyelitis, unspecified; E11.621 Type 2 diabetes mellitus with foot ulcer; E11.51 Type 2 diabetes mellitus with diabetic peripheral angiopathy without gangrene; E11.22 Type 2 diabetes mellitus with diabetic chronic kidney disease; H54.7 Unspecified visual loss; I25.10 Atherosclerotic heart disease of native coronary artery without angina pectoris; L97.519 Non-pressure chronic ulcer of other part of right foot with unspecified severity; N18.2 Chronic kidney disease, stage 2 (mild); Z95.5 Presence of coronary angioplasty implant and graft; Z95.1 Presence of aortocoronary bypass graft; Z89.431 Acquired absence of right foot; N18.6 End stage renal disease; E78.5 Hyperlipidemia, unspecified

== ENCOUNTER 2018-03-06 18:53 | Emergency (ER) | payer MEDICARE, OTHER ==
[2018-03-06 18:53] VITALS: BMI 27.4
[2018-03-06 19:19] VITALS: RESP 20; O2SAT 97
--- NOTE | 2018-03-06 19:28 | C.PDOC ---
History Of Present Illness 67 y/o male with iddm, s/p right transmetatarsal amputation on 12/30/17, c/o pain , swelling and discharge from foot. no fevers. pt reports bg was 61 one hr ago , ate chocolate, last insulin was this morning. Time Seen by Provider: 03/06/18 19:09 Chief Complaint (Nursing): Abnormal Skin Integrity History Per: Patient History/Exam Limitations: no limitations Onset/Duration Of Symptoms: Days (2) Current Symptoms Are (Timing): Still Present Location Of Injury: Right: Foot Quality Of Symptoms: Painful, Swollen, Draining Severity: Mild Past Medical History Reviewed: Historical Data, Nursing Documentation, Vital Signs Vital Signs: Last Vital Signs Temp 98.7 F 03/06/18 21:54 Pulse 72 03/06/18 21:54 Resp 20 03/06/18 21:54 BP 169/71 H 03/06/18 21:54 Pulse Ox 97 03/06/18 21:54 - Medical History PMH: Anemia, Diabetes, HTN, Hypercholesterolemia, End Stage Renal Disease, Chronic Kidney Disease (kidney transplant 2014) Denies: Atrial Fibrillation Surgical History: Appendectomy, CABG (2009), Coronary Stent (x4 (2012)), Endoscopy - [facility] CORONAR ARTERIOGR-2 CATH (08/17/13) DETACHMENT AT RIGHT FOOT, PARTIAL 1ST RAY, OPEN APPROACH (12/24/17) DETACHMENT AT RIGHT FOOT, PARTIAL 2ND RAY, OPEN APPROACH (12/24/17) DETACHMENT AT RIGHT FOOT, PARTIAL 3RD RAY, OPEN APPROACH (12/24/17) DETACHMENT AT RIGHT FOOT, PARTIAL 4TH RAY, OPEN APPROACH (12/24/17) DRAINAGE OF RIGHT FOOT WITH DRAINAGE DEVICE, OPEN APPROACH (04/15/17) DX ULTRASOUND-VASCULAR (03/04/13) FLUOROSCOPY OF LEFT HEART USING LOW OSMOLAR CONTRAST (12/24/17) FLUOROSCOPY OF MULT COR ART USING L OSM CONTRAST (12/24/17) HEMODIALYSIS (08/17/13) INSERTION OF INFUSION DEV INTO SUP VENA CAVA, PERC APPROACH (12/24/17) LEFT HEART CARDIAC CATH (08/17/13) LT HEART ANGIOCARDIOGRAM (08/17/13) MEASURE OF CARDIAC SAMPL & PRESSURE, L HEART, PERC APPROACH (12/24/17) RESECTION OF RIGHT METATARSAL, OPEN APPROACH (07/17/17) TETANUS TOXOID ADMINIST (05/10/15) UP LIMB SFT TIS XRAY NEC (03/04/13) VENOUS CATHETERIZATION FOR RENAL DIALYSIS (03/04/13) Family History: States: Unknown Family Hx - Social History Hx Tobacco Use: No Hx Alcohol Use: No Hx Substance Use: No - Immunization History Hx Tetanus Toxoid Vaccination: Yes Hx Influenza Vaccination: Yes (2016) Hx Pneumococcal Vaccination: Yes (2013) Review Of Systems Constitutional: Negative for: Fever, Chills Skin: Positive for: Other (draining from blister on sole of foot) Physical Exam - Physical Exam Appears: Non-toxic, No Acute Distress Skin: Warm, Dry, Other (quarter sized blister on sole of foot with drainage) Extremity: Other (right foot with transmetatarsal amputation, mildly warm and erythematous, +2 dp pulse. well healed incision, no discharge noted from incisions. scant pitting edema to lower leg. ) Neurological/Psych: Oriented x3, Normal Speech, Normal Cognition ED Course And Treatment - Laboratory Results Result Diagrams: 03/06/18 19:36 03/06/18 19:36 O2 Sat by Pulse Oximetry: 97 - Other Rad X-ray Right Foot X-Ray: Viewed By Me, Read By Radiologist Interpretation: Name: RODRICK AGUIRRE Age: 67Years M Date: 03/06/2018. Requesting Physician: Chely Sands : 1950. [employer] Procedure Ordered As Accession Number of. Images. XR FOOT COMPLETE MIN 3. VIEWS. XR FOOT RIGHT 3 VIEWS. ROUTINE. [id number]. J. 4. Provided Clinical History: s/p transmetatarsal amp. pain and erythema. CONFIDENTIALITY STATEMENT. This report is intended only for the use of the referring physician , and only in accordance with law, If you received this in error, call [phone]. Page 1 of 1. EXAM: XR Right Foot Complete, 3 or More Views. EXAM DATE/ TIME: 03/06/2018 7:20 PM. CLINICAL HISTORY: 67 years old, male; Condition or disease; Foot deformities; Right; Prior surgery; Surgery type: Transmetatersals amputation. ; Additional info: S/P transmetatarsal amp. Pain and erythema. TECHNIQUE: Frontal, lateral and oblique views of the right foot. COMPARISON: CR - FOOT RIGHT GREAT TOE ROUTINE 2016-01-17 14:51. FINDINGS: Bones/joints: Transmetatarsal osteotomy amputation, new since the prior exam. No acute fracture. No dislocation. Soft tissues: Soft tissue swelling in the stump with mild soft tissue air, presumably postsurgical. IMPRESSION: Postsurgical changes as above. Soft tissue swelling in the stump with mild soft tissue air, presumably postsurgical, soft tissue infection. not excluded. Thank you for allowing us to participate in the care of your patient. Dictated and Authenticated by: Silvia White MD. 03/06/2018 8: 35 PM Eastern Time ([place] & [place]) Medical Decision Making Medical Decision Making: podiatry notified when patient arrived; will come see pt in ed. labs and xray ordered. pt's fingerstick 368; sts it was 61 an hour before arrival and he ate chocolate; will wait for cmp result to determine if elevated glucose requires treatment. [id number] pt seen by podiatry, may be sent home; pt's gluocse was 368 on cblood chemistry; not treated in ED as pt will recheck at home and take evening insulin dose. pt to f/u with Dr Taylor next sat. Disposition Discussed With Dr.: Brandi Taylor Doctor Will See Patient In The: Office Counseled Patient/Family Regarding: Studies Performed, Diagnosis, Need For Followup - Disposition Referrals: Brandi Taylor DPM [Staff Provider] - Disposition: HOME/ ROUTINE Disposition Time: 21:50 Condition: STABLE Additional Instructions: Please keep dressing on foot as per podiatry resident. Follow up with Dr Kaufman next Sat; call for an appointment. Return to ER for any worse symptoms. [id number] make sure to check your sugar on arrival home and to take your evening insulin dose. Instructions: Blisters Forms: [facility] (Nepali), General Discharge Instructions - Clinical Impression Clinical Impression: Blister (nonthermal), right foot, initial encounter, Hyperglycemia due to type 1 diabetes mellitus
[2018-03-06 19:39] LABS: BASO # 0.1 K/uL (0.0-0.2); BASO % 1.3 % (0.0-2.0); EOS # 0.2 K/uL (0.0-0.7); EOS % 3.6 % (0.0-4.0); HEMOGLOBIN 13.2 g/dL (12.0-18.0); LYMPH # 1.2 K/uL (1.0-4.3); LYMPH % 20.2 % (20.0-40.0); MEAN CELL VOLUME 85.1 fL (80.0-94.0); MEAN CORPUSCULAR HEMOGLOBIN 29.1 pg (27.0-31.0); MEAN CORPUSCULAR HGB CONC 34.2 g/dL (33.0-37.0); MEAN PLATELET VOLUME 7.7 fL (7.2-11.7); MONO # 0.5 K/uL (0.0-0.8); MONO % 7.8 % (0.0-10.0); NEUT # 4.1 K/uL (1.8-7.0); NEUT % 67.1 % (50.0-75.0); NRBC % 0.1 % (0.0-2.0); RBC 4.53 Mil/uL (4.40-5.90); RED CELL DISTRIBUTION WIDTH 13.9 % (11.5-14.5); WHITE BLOOD COUNT 6.2 K/uL (4.8-10.8)
[2018-03-06 19:52] LABS: ALT/SGPT 31 U/L (21-72)
[2018-03-06 19:54] LABS: ALB/GLOB RATIO 1.1 (1.0-2.1); ALBUMIN 3.9 g/dL (3.5-5.0); AST/SGOT 24 U/L (17-59); BLOOD UREA NITROGEN 28 mg/dL (9-20); CALCIUM 9.7 mg/dl (8.6-10.4); GFR AFRICAN-AMERICAN > 60; GFR NON-AFRICAN AMERICAN > 60
[2018-03-06 21:55] VITALS: BP 169/71; PULSE 72; TEMP 98.7
--- NOTE | 2018-03-07 10:02 | RAD ---
PROCEDURE: Right Foot Radiographs. HISTORY: s/p transmetatarsal amp. pain and erythema COMPARISON: 12/24/2017 FINDINGS: BONES: There has been interval midfoot amputation at the level of the tarsal metatarsal joints. There is no acute fracture. Bone alignment is normal. JOINTS: Normal. SOFT TISSUES: There is soft tissue swelling and postoperative changes in the amputation stump. . OTHER FINDINGS: There are atherosclerotic vascular calcifications. IMPRESSION: Interval midfoot amputation at the level of the tarsometatarsal joints. Postoperative changes and soft tissue swelling in the amputation stump.
--- NOTE | 2018-03-07 10:52 | CON ---
DATE: 03/06/[address] Taylor. HISTORY OF PRESENT ILLNESS: The patient is a 67-year-old male who presents to the emergency department and was seen at bedside by podiatry service, conservative type of complication to right foot which has noted transmetatarsal amputation site surgery occurred on 12/30/2017. The patient is well known to podiatry service and has been following up with Dr. Taylor on outpatient basis, was last seen this past Saturday in her office. The patient reports that in the last few days, he has noted some forefoot pain to central aspect of the transmetatarsal amputation site, grade 4/10 at peak, which occurs during ambulation. The patient cannot adequately visualize the amputation site due to poor vision, but has noted some puffiness and centralized white area, digital aspect of the site. The patient noted this began after he began resuming showering again after the surgery. The patient denies any systematic or constitutional symptoms. Denies any recent nausea, vomiting, fever, chills, chest pain, shortness of breath, or diarrhea. The patient is able to ambulate. Denies any malaise or muscular aches. OBJECTIVE/PHYSICAL EXAMINATION: GENERAL: The patient is alert, awake, and oriented x3, well, nontoxic, and in no acute distress. RIGHT LOWER EXTREMITY FOCUSED EXAM: Neurovascular status intact to the dorsalis pedis and posterior tibial artery. No gross edema noted to the right foot. No noted erythema to right foot. Pedal sensation grossly diminished. DERMATOLOGICAL: Midfoot level amputation noted. Surgical cicatrix noted. Distal flap site well coapted and stable. . Probable no skin crepitus noted. No tender nodules noted at central aspect extending to the plantar distal aspect of the flap. There is an approximately 4 cm x 1.5 cm wide blanched area and mildly serous drainage consistent with a ruptured bulla. Upon incising and inspection, minimal serous content was expunged. Partial thickness ulcerative bed noted with fibrogranular base. No malodor. No purulence noted upon incision of site. Ulcerative bed site consistent with noted wound bulla size. MUSCULOSKELETAL: Pedal muscle strength is graded at 5/5 in all major leg and pedal muscle groups that remain. Silfverskiold test reveals gastrocnemius equinus contracture with ankle joint unable to dorsiflex past 10 degrees with knee extended. 18 degrees of dosiflexion achieved with knee flexed. 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 PLAN: The patient was seen and examined at bedside. Chart labs and vitals were reviewed. The patient is afebrile, absent leukocytosis. Discussed in detail with attending Dr. Taylor, who endorsed the following plan. Right foot radiograph reviewed and evaluated. Amputation site noted with slight air pocket, noted by radiologist. Position of this radiolucency is consistent with cutaneous soft tissue cleft at area of cicatrix coaptation. Bedside incision and drainage performed using #15 blade through epidermal tissue layer of ruptured bulla surface aseptically. Minimal serous content expunged. The patient is to remain full weightbearing to heel in postoperative shoe. Cleansed with saline dressed with Betadine soaked 4 x 4 gauze, ABD pad, and Kerlix. The patient is to followup with attending Dr. Taylor in her office on an outpatient basis. He should be fitted over foam-filled prosthetic shoe. Gayathri Florence DPM [facility]ZAD
== END 2018-03-06 22:05 | disposition home or self-care (01) ==
LOC: C.ER 18:53
DX: S90.821A Blister (nonthermal), right foot, initial encounter (principal); X58.XXXA Exposure to other specified factors, initial encounter; E10.65 Type 1 diabetes mellitus with hyperglycemia; Z79.4 Long term (current) use of insulin

== ENCOUNTER 2018-05-19 08:37 | Day surgery (SDC) | payer MEDICARE, OTHER ==
[2018-05-19] MEDS ORDERED: Bupivacaine 0.25% 20 ML INJ IJ ONE (09:52)
[2018-05-19] MEDS ORDERED: ceFAZolin IV 1 gm in Dextrose 0 GM/0 ML BAG IVPB ONE (09:52)
[2018-05-19] MEDS ORDERED: Lidocaine Hydrochloride 0 ML INJ ONE (09:52)
[2018-05-19] MEDS ORDERED: Midazolam 2 MG/2 ML VIAL ONE (10:11)
[2018-05-19] MEDS ORDERED: Propofol 10 mg/ml Inj (20 ML) ONE (10:11)
[2018-05-19] MEDS ORDERED: (Novolin R) Insulin Human Regular 100 units/ml vial ONE (10:12)
[2018-05-19] MEDS ORDERED: Rocuronium 10 mg/ml (5 ml) ONE (10:15)
[2018-05-19] MEDS ORDERED: Succinylcholine Chloride 20 mg/ml Syr (5 ml) IV ONE (10:15)
[2018-05-19 10:16] LABS: BLOOD UREA NITROGEN 27 mg/dL (9-20); CALCIUM 10.3 mg/dl (8.6-10.4); GFR AFRICAN-AMERICAN > 60; GFR NON-AFRICAN AMERICAN > 60
[2018-05-19 10:29] VITALS: BP 167/65; PULSE 67; RESP 18; TEMP 97.7; O2SAT 96
[2018-05-19 12:28] LABS: ALB/GLOB RATIO 1.4 (1.0-2.1); ALBUMIN 4.2 g/dL (3.5-5.0); ALT/SGPT 33 U/L (21-72); AST/SGOT 18 U/L (17-59); BLOOD UREA NITROGEN 24 mg/dL (9-20); CALCIUM 10.1 mg/dl (8.6-10.4); GFR AFRICAN-AMERICAN > 60; GFR NON-AFRICAN AMERICAN > 60
== END 2018-05-19 13:30 | disposition home or self-care (01) ==
LOC: C.SDS 08:37
PROVIDERS: ATTEND Podiatrist Foot & Ankle Surgery
DX: M21.6X1 Other acquired deformities of right foot (principal); L97.512 Non-pressure chronic ulcer of other part of right foot with fat layer exposed; R73.9 Hyperglycemia, unspecified; Z53.8 Procedure and treatment not carried out for other reasons
CPT/HCPCS: 36415; 80053; 82948; J2001; P000X

== ENCOUNTER 2018-05-26 07:41 | Day surgery (SDC) | payer MEDICARE, OTHER ==
[2018-05-26] MEDS ORDERED: Lidocaine Hydrochloride 10 ML INJ ONE (08:26)
[2018-05-26] MEDS ORDERED: Bacitracin 50,000 UNIT in Sodium Chloride 0.9% Irrig 1,000 ML IR SCH (08:30)
[2018-05-26] MEDS ORDERED: Bupivacaine 0.25% 20 ML INJ IJ ONE (08:38)
[2018-05-26 08:55] LABS: MEAN CELL VOLUME 85.3 fL (80.0-94.0); MEAN CORPUSCULAR HEMOGLOBIN 29.1 pg (27.0-31.0); MEAN CORPUSCULAR HGB CONC 34.1 g/dL (33.0-37.0); MEAN PLATELET VOLUME 7.9 fL (7.2-11.7); RBC 4.45 Mil/uL (4.40-5.90); RED CELL DISTRIBUTION WIDTH 13.7 % (11.5-14.5); WHITE BLOOD COUNT 7.9 K/uL (4.8-10.8)
[2018-05-26] MEDS ORDERED: Midazolam 2 MG/2 ML VIAL ONE (09:07)
[2018-05-26] MEDS ORDERED: Propofol 10 mg/ml Inj (20 ML) ONE (09:08)
[2018-05-26 09:16] LABS: BLOOD UREA NITROGEN 29 mg/dL (9-20); CALCIUM 10.2 mg/dl (8.6-10.4); GFR NON-AFRICAN AMERICAN > 60
[2018-05-26] MEDS ORDERED: ceFAZolin IV 1 gm in Dextrose 2 GM/100 ML BAG IVPB ONE (09:29)
[2018-05-26] MEDS ORDERED: Lidocaine Hydrochloride 5 ML INJ ONE (09:56)
[2018-05-26] MEDS ORDERED: Oxycodone/Acetaminophen 5/325 mg Tab PO PRN ×2 (10:24)
--- NOTE | 2018-05-26 10:24 | PCM.SURG1 ---
Surgeon's Initial Post Op Note - Surgeon's Notes Surgeon: Dr. Taylor Stock Shipper: Dr. Salas PGY-3, Dr. Morse PGY-3 Type of Anesthesia: IV Sedation, Local Anesthesia Administered By: Dr. Crenshaw/ Shelly Pre-Operative Diagnosis: right foot chronic nonhealing wound, equinus deformity Operative Findings: see dictation. 4-0 monocryl,. 4-0 nylon. integra 2x2 graft Post-Operative Diagnosis: same Operation Performed: right achilles tendon lengthening, right foot wound debridement with graft application Specimen/Specimens Removed: none Estimated Blood Loss: EBL {In ML}: 2 Blood Products Given: N/A Drains Used: No Drains Post-Op Condition: Good Date of Surgery/Procedure: 05/26/18 Time of Surgery/Procedure: 10:24
[2018-05-26] MEDS ORDERED: Sodium Chloride 0.9% 1,000 ML IV SCH (10:30)
[2018-05-26] MEDS ORDERED: HYDROmorphone 0.5 mg/0.5 ml ISec IVP PRN (10:30)
[2018-05-26] MEDS ORDERED: Phenylephrine 10 mg/ml Inj ONE (10:41)
[2018-05-26 11:39] VITALS: RESP 18
[2018-05-26 11:46] VITALS: O2SAT 100
[2018-05-26 15:05] VITALS: BP 127/70; PULSE 70; TEMP 97.7
--- NOTE | 2018-05-27 02:09 | OP ---
Copied To: Kristina Salas DPM Attending MD: Brandi Taylor DPM PROCEDURE DATE: 05/26/2018 SURGEON: Brandi Taylor DPM FISCAL CLERK: Kristina Salas DPM, PGY-3; Dr. Atkins PGY-3. TYPE OF ANESTHESIA: IV sedation with local. TRADE PROMOTION ANALYST: Dr. Crenshaw/Dr. Bravo. PREOPERATIVE DIAGNOSES: 1. Right lower extremity equinus deformity. 2. Right foot chronic nonhealing wound. POSTOPERATIVE DIAGNOSES: 1. Right lower extremity equinus deformity. 2. Right foot chronic nonhealing wound. PROCEDURES: 1. Right lower extremity percutaneous Achilles tendon lengthening. 2. Right foot wound debridement with graft application. INDICATIONS: The patient is a 67-year-old male with the above-mentioned diagnoses. The patient has exhausted multiple forms of conservative treatment at this time and now requires surgical intervention. The patient signed the consent after careful explanation of risks, benefits, complications, and alternatives for surgical procedure. No guarantees were given nor implied. N.p.o. status was confirmed prior to bringing the patient to the operating room. The patient was brought into the operating room and placed on the operating room table in a supine position. A time-out was performed for identification of the correct patient and procedure. After induction of IV sedation, the patient received a total of 20 mL of 1:1 mixture of 1% lidocaine plain and 0.25% Marcaine plain in a local block-type fashion. Once local anesthesia was achieved, the right foot and ankle were then prepped and draped in a normal sterile manner and the procedure began. No tourniquet was used during this procedure. PROCEDURE #1: Right percutaneous Achilles tendon lengthening: Attention was directed to the posterior aspect of the ankle. A 2 cm cross troy to the insertion of the Achilles tendon was marked and the posteromedial aspect was marked at this time and at this point at the posteromedial aspect, using a #15 blade, a 1 cm linear incision was made down to the level of the Achilles tendon. The medial half of the Achilles tendon was then released posteriorly. Next, a 4 cm proximal from that incision which is 6 cm proximal from the insertion of the Achilles tendon, another 1 cm liner longitudinal incision was made using a #15 blade on the posteromedial aspect of the Achilles tendon. Incision was made down to the Achilles tendon with care to avoid all neurovascular structures and the medial one-half of the tendon was released posteriorly. Next, 4 cm proximal from the insertion of the Achilles tendon on the posterolateral aspect, a #15 blade was used and a 1 cm linear longitudinal incision was made at the posterolateral aspect of the Achilles tendon down to the level of the tendon with care being taken to identify and retract all neurovascular structures. The lateral one-half of the tendon was then released posteriorly. The incision sites were then copiously irrigated with sterile normal saline. The deformity was assessed at this time and noted to be reduced. The skin was re-approximated with 4-0 nylon. A dressing including Adaptic, 4x4 gauze, and Ced. PROCEDURE #2: Attention was directed to the plantar aspect of the right foot where two ulcerations were located. The first more proximal ulceration measures 2 cm x 2 cm x 0.5 cm and the distal ulceration measures 1.2 cm x 1.5 cm x 0.5 cm with no exposed tendon or bone and a mixed fibrogranular base. Using a #15 blade, the wounds were excisionally debrided and passed off of the operative field. All devitalized and necrotic tissue was then passed off of the operative field and the site was then flushed with copious amounts of normal sterile saline. Next, an Integra Bilayer graft was placed over both ulcerations and 4-0 Monocryl was used to secure the graft in place. The wound was then dressed with saline-soaked gauze, Adaptic, ABD pad, Kerlix, Ced, and Luiz. A postoperative injection of 5 mL of 1% lidocaine plain was given in a local block-type fashion to the right lower extremity. POSTOPERATIVE CONDITION: The patient tolerated the anesthesia and the procedure well and was escorted to the recovery room with vital signs stable and neurovascular status intact to the right lower extremity. The patient will follow up with Dr. Taylor as an outpatient. Kristina Salas DPM Brandi Taylor DPM [facility] # [id number]
== END 2018-05-26 15:20 | disposition home or self-care (01) ==
LOC: C.SDS 07:41
PROVIDERS: ATTEND Podiatrist Foot & Ankle Surgery
DX: M21.6X1 Other acquired deformities of right foot (principal); L97.512 Non-pressure chronic ulcer of other part of right foot with fat layer exposed
CPT/HCPCS: 15002; 27685; 36415; 80048; 82948; 85027; J0690; J2250; J2370; J2704; J3010

== ENCOUNTER 2018-07-14 05:56 | Day surgery (SDC) | payer MEDICARE, OTHER ==
[2018-07-11 11:43] VITALS: BMI 32.3
[2018-07-14] MEDS ORDERED: Lidocaine 2% MPF (5 ml) Inj ONE (07:21)
[2018-07-14] MEDS ORDERED: Bupivacaine 0.25% 20 ML INJ IJ ONE (07:22)
[2018-07-14] MEDS ORDERED: ceFAZolin 1 gm FROZEN Premix 2 GM/100 ML ML IVPB ONE (07:23)
[2018-07-14] MEDS ORDERED: Midazolam 2 MG/2 ML VIAL ONE (07:51)
[2018-07-14] MEDS ORDERED: Propofol 10 mg/ml Inj (20 ML) ONE (07:51)
[2018-07-14] MEDS ORDERED: Phenylephrine 10 mg/ml Inj ONE (08:03)
[2018-07-14] MEDS ORDERED: Mineral Oil Light Sterile 25 ml ONE (08:39)
[2018-07-14] MEDS ORDERED: Oxycodone/Acetaminophen 5/325 mg Tab PO PRN ×2 (09:12)
[2018-07-14] MEDS ORDERED: HYDROmorphone 0.5 mg/0.5 ml ISec IVP PRN (09:19)
--- NOTE | 2018-07-14 09:19 | PCM.SURG1 ---
Surgeon's Initial Post Op Note - Surgeon's Notes Surgeon: Dr. Brandi Taylor DPM Acoustic Sensor Operator: Sera Mtz DPM Type of Anesthesia: IV Sedation, Local Anesthesia Administered By: 10 cc of 1:1 mixture of .25% marcaine and 2% lidocaine Pre-Operative Diagnosis: nonhealing wound of the right plantar foot Operative Findings: see dictations. Injectibles: 10 cc of 1:1 mixture of .25% marcaine and 2% lidocaine. Materials: 2-0 vicryl, 2x2 integra single layer graft Post-Operative Diagnosis: same Operation Performed: right foot wound debridement with application of graft Specimen/Specimens Removed: none Estimated Blood Loss: EBL {In ML}: 2 Blood Products Given: N/A Drains Used: No Drains Post-Op Condition: Good Date of Surgery/Procedure: 07/14/18 Time of Surgery/Procedure: 09:19
[2018-07-14 10:59] VITALS: RESP 18
[2018-07-14 11:01] VITALS: BP 142/63; PULSE 69; TEMP 97.8; O2SAT 99
--- NOTE | 2018-07-16 07:55 | OP ---
PROCEDURE DATE: 07/14/2018 PREOPERATIVE DIAGNOSIS: Nonhealing wound at the right plantar aspect of the foot. POSTOPERATIVE DIAGNOSIS: Nonhealing wound at the right plantar aspect of the foot. PROCEDURE: Right foot wound debridement and placement of skin substitute graft. SURGEON: Brandi Taylor DPM. AUTO WASHER: Sera Mtz, PGY-1. ANESTHESIOLOGIST: Glenn Bravo CRNA. ANESTHESIA: IV sedation with local anesthesia. INDICATIONS: The patient is a 68-year-old male with the above diagnosis. The patient exhausted all conservative treatment at this time and now required surgical intervention. The patient signed the consent after careful explanation of risks, benefits, complications and alternatives for surgical procedures. No guarantees were given nor implied. NPO status was confirmed prior to taking the patient to the OR. PREPARATION: The patient was brought into the operating room and placed on the operating room table in a supine position. Time out was performed for identification of correct patient and procedure. The patient received a total of 10 mL of a 1:1 mixture of 1% lidocaine and 0.25% Marcaine plain in a local block type fashion to the right foot wound. Right foot was then prepped and draped in the normal sterile manner and the procedure began. No tourniquet was used during the procedure. PROCEDURE: Attention was then drawn to the right plantar aspect of the foot were an ulcer was noted with 100% granular base and hyperkeratotic border. The wound was debrided removing all nonviable tissue. The hyperkeratotic skin was debrided using a sterile #15 blade, the wound was further debrided using pickups and a #15 blade until healthy granular tissue was noted. Integra single layer graft measuring 2 x 2 inches was then embedded into the wound base, graft was then secured with the use of 4-0 nylon sutures cotton soaked in mineral oil was then placed over the graft. The area was very well padded using gauze and ABD pad. DSD and Luiz were used to dress the foot. POSTOPERATIVE CONDITION: The patient tolerated the local anesthesia and procedure well and was escorted to the recovery room and neurovascular status to the right foot and vital signs stable. The patient is to weightbear as tolerated to the heel at this time in a surgical shoe. The patient will make an appointment for followup with Dr. Taylor within a week. Sera Mtz Brandi Taylor DPM [facility] # [phone]
== END 2018-07-14 12:52 | disposition home or self-care (01) ==
LOC: C.SDS 05:56
PROVIDERS: ATTEND Podiatrist Foot & Ankle Surgery
DX: E11.621 Type 2 diabetes mellitus with foot ulcer (principal); L97.512 Non-pressure chronic ulcer of other part of right foot with fat layer exposed; I10 Essential (primary) hypertension; Z94.0 Kidney transplant status
CPT/HCPCS: 15004; 15275; 82948; C1781; J0690; J2250; J2370; J2704; J3010

== ENCOUNTER 2018-08-11 05:43 | Day surgery (SDC) | payer MEDICARE, OTHER ==
[2018-08-11] MEDS ORDERED: Lidocaine Hydrochloride 10 ML INJ ONE (07:35)
[2018-08-11] MEDS ORDERED: Bupivacaine 0.25% 20 ML INJ IJ ONE (07:35)
[2018-08-11] MEDS ORDERED: ceFAZolin 1 gm in NS 1 GM/100 ML BAG IVPB ONE (07:35)
[2018-08-11] MEDS ORDERED: Propofol 10 mg/ml Inj (20 ML) ONE (07:40)
[2018-08-11] MEDS ORDERED: Midazolam 2 MG/2 ML VIAL ONE (07:40)
[2018-08-11] MEDS ORDERED: Mineral Oil Light Sterile 25 ml ONE (08:05)
[2018-08-11] MEDS ORDERED: Oxycodone/Acetaminophen 5/325 mg Tab PO PRN ×2 (08:35)
--- NOTE | 2018-08-11 08:39 | PCM.SURG1 ---
Surgeon's Initial Post Op Note - Surgeon's Notes Surgeon: Dr. Barndi Taylor, DPM Supervisor Major Appliance Assembly: Dr. Chrystal Tejeda, PGY1, dr. Titi Brooks, PGY2 Type of Anesthesia: IV Sedation, Local Anesthesia Administered By: Dr. Franklin Pre-Operative Diagnosis: Right Plantar Foot Non-healing Wound Operative Findings: see dictation. I: 10 cc 1:1 mixture of 1% Lidocaine plain and 0.25% Marcaine plain. M: Integra Bilayer graft, 4-0 Monocryl Post-Operative Diagnosis: same Operation Performed: Right Plantar foot wound debridement with graft application Specimen/Specimens Removed: none Estimated Blood Loss: EBL {In ML}: 5 Blood Products Given: N/A Drains Used: No Drains Post-Op Condition: Good Date of Surgery/Procedure: 08/11/18 Time of Surgery/Procedure: 08:39
[2018-08-11] MEDS ORDERED: HYDROmorphone 0.5 mg/0.5 ml ISec IVP PRN (08:45)
[2018-08-11 09:57] VITALS: BMI 28.2
[2018-08-11 11:42] VITALS: BP 155/60; PULSE 66; RESP 18; TEMP 97.8; O2SAT 98
--- NOTE | 2018-08-14 06:31 | OP ---
PROCEDURE DATE: 08/11/2018 SURGEON: Brandi Taylor DPM EVENT PROMOTER: Chrystal Tejeda, PGY-1 PATIENT'S AGE: 68. PATIENT'S SEX: Male. ANESTHESIOLOGIST: Brandon Franklin DO ANESTHESIA: IV sedation with local anesthesia. PREOPERATIVE DIAGNOSIS: Right plantar foot nonhealing ulceration. POSTOPERATIVE DIAGNOSIS: Right plantar foot nonhealing ulceration. PROCEDURE: Right foot wound debridement with removal of all nonviable soft tissue, application of Integra bilayer graft. INDICATIONS: The patient is a 68-year-old male with the above diagnosis. The patient exhausted all conservative treatment at this time and now requires surgical intervention. The patient signed the consent after careful explanation of risks, benefits, complications, and alternatives for the surgical procedure. No guarantees were given nor implied. N.p.o. status was confirmed prior to taking the patient to the OR. PREPARATION: The patient was brought into the operating room and placed on the operating room table in a supine position. A time-out was performed for identification of the correct patient and procedure. The patient received a total of 5 mL of 1:1 mixture of 1% lidocaine plain and 0.5% Marcaine plain in a V block-type fashion proximal to the wound. Right foot was then prepped and draped in normal sterile manner, and the procedure began. No tourniquet was used during the procedure. DESCRIPTION OF PROCEDURE: Attention was drawn to the right foot wound measuring approximately 3 cm x 3 cm. The wound was debrided, removing all nonviable tissue using the #15 blade. The wound was debrided with care being taken to avoid neurovascular structures. Upon debridement, granular tissue was noted at the wound site. Healthy bleeding tissue was noted to the wound space. The wound was then copiously irrigated with sterile saline. At this time, mesh Integra bilayer graft was then measured to size of the wound. The graft was then secured with the use of 4-0 Monocryl sutures along the edges of the wound. The wound was then dressed with mineral oil-soaked cotton ball gauze and Kerlix. POSTOPERATIVE CONDITION: The patient tolerated the local anesthesia and procedure well and was escorted to the recovery room with neurovascular status intact to the right foot and vital signs stable. The patient is to remain nonweightbearing at this time. The patient will remain in-house and Podiatry will continue to follow. Brandi Taylor DPM
== END 2018-08-11 12:55 | disposition home or self-care (01) ==
LOC: C.SDS 05:43
PROVIDERS: ATTEND Podiatrist Foot & Ankle Surgery
DX: L97.512 Non-pressure chronic ulcer of other part of right foot with fat layer exposed (principal)
CPT/HCPCS: 15004; 15275; 82948; 97116; 97162; C1781; G8978; G8979; G8980; J0690; J2250; J2704; J3010

== ENCOUNTER 2018-12-31 04:57 | Emergency (ER) | payer MEDICARE, OTHER ==
--- NOTE | 2018-12-31 05:04 | C.PDOC ---
History Of Present Illness 68 year old male is brought to the ED by EMS for evaluation of hypoglycemia. Patient is an insulin dependent diabetic, used too much insulin. Patient received 1 AMP of D50 and patient is back to baseline. Patient denies fever, chills, CP, SOB, palpitations. Time Seen by Provider: 12/31/18 05:03 History Per: Patient, EMS History/Exam Limitations: no limitations Onset/Duration Of Symptoms: Hrs Current Symptoms Are (Timing): Still Present Current Diabetic Medications: Insulin Causative (Exacerbating) Factor(s): Accidentially Took To Much Medication Treatment Prior To Provider Evaluation: D50W Given Response To Treatment: Good Response Recent travel outside of the [place]: No Additional History Per: Patient, EMS Past Medical History Reviewed: Historical Data, Nursing Documentation, Vital Signs - Medical History PMH: Anemia, Diabetes, HTN, Hypercholesterolemia, End Stage Renal Disease, Chronic Kidney Disease (kidney transplant 2014) Denies: Atrial Fibrillation Surgical History: Appendectomy, CABG (2009), Coronary Stent (x4 (2012)), End oscopy - [facility] Procedures CORONAR ARTERIOGR-2 CATH (08/17/13) DETACHMENT AT RIGHT FOOT, PARTIAL 1ST RAY, OPEN APPROACH (12/24/17) DETACHMENT AT RIGHT FOOT, PARTIAL 2ND RAY, OPEN APPROACH (12/24/17) DETACHMENT AT RIGHT FOOT, PARTIAL 3RD RAY, OPEN APPROACH (12/24/17) DETACHMENT AT RIGHT FOOT, PARTIAL 4TH RAY, OPEN APPROACH (12/24/17) DRAINAGE OF RIGHT FOOT WITH DRAINAGE DEVICE, OPEN APPROACH (04/15/17) DX ULTRASOUND-VASCULAR (03/04/13) FLUOROSCOPY OF LEFT HEART USING LOW OSMOLAR CONTRAST (12/24/17) FLUOROSCOPY OF MULT COR ART USING L OSM CONTRAST (12/24/17) HEMODIALYSIS (08/17/13) INSERTION OF INFUSION DEV INTO SUP VENA CAVA, PERC APPROACH (12/24/17) LEFT HEART CARDIAC CATH (08/17/13) LT HEART ANGIOCARDIOGRAM (08/17/13) MEASURE OF CARDIAC SAMPL & PRESSURE, L HEART, PERC APPROACH (12/24/17) RESECTION OF RIGHT METATARSAL, OPEN APPROACH (04/15/17) TETANUS TOXOID ADMINIST (05/10/15) UP LIMB SFT TIS XRAY NEC (03/04/13) VENOUS CATHETERIZATION FOR RENAL DIALYSIS (03/04/13) Family History: States: Unknown Family Hx - Social History Hx Tobacco Use: No Hx Alcohol Use: No - Immunization History Hx Tetanus Toxoid Vaccination: Yes Hx Influenza Vaccination: Yes (2017) Hx Pneumococcal Vaccination: Yes (2013) Review Of Systems Constitutional: Negative for: Fever, Chills Cardiovascular: Negative for: Chest Pain Respiratory: Negative for: Shortness of Breath Gastrointestinal: Negative for: Nausea, Vomiting, Abdominal Pain Skin: Negative for: Rash Neurological: Negative for: Weakness, Numbness, Headache Physical Exam - Physical Exam Appears: Non-toxic, No Acute Distress Skin: Warm, Dry Head: Normacephalic Eye(s): bilateral: Normal Inspection Oral Mucosa: Moist Neck: Supple Chest: Symmetrical Cardiovascular: Rhythm Regular Respiratory: No Rales, No Rhonchi, No Wheezing Gastrointestinal/Abdominal: Soft, No Tenderness, No Guarding, No Rebound Extremity: Other (right toes amputated) Extremity: Left: Other (CABG scar ), Bilateral: Atraumatic, Normal Color And Temperature, Normal ROM Pulses: Left Dorsalis Pedis: Normal, Right Dorsalis Pedis: Normal Neurological/Psych: Oriented x3, Normal Speech, Normal Cognition Gait: Steady ED Course And Treatment - Laboratory Results Result Diagrams: 12/31/18 05:10 12/31/18 05:10 O2 Sat by Pulse Oximetry: 100 (ON RA) Pulse Ox Interpretation: Normal Progress Note: Plan: - Labs. - UA Disposition Counseled Patient/Family Regarding: Studies Performed, Diagnosis - Disposition Disposition Time: 05:04 Condition: FAIR - Clinical Impression Clinical Impression: Hypoglycemia due to insulin - Scribe Statement The provider has reviewed the documentation as recorded by the Scribe [place] Duque All medical record entries made by the Scribe were at my direction and personally dictated by me. I have reviewed the chart and agree that the record accurately reflects my personal performance of the history, physical exam, medical decision making, and the department course for this patient. I have also personally directed, reviewed, and agree with the discharge instructions and disposition. Physician Patient Turnover Patient Signed Over To: Sascha Castanon DO Handoff Comments: pending repeat bs and dispo
[2018-12-31 05:13] VITALS: BMI 29.0
[2018-12-31 05:24] LABS: BASO % 0.4 % (0.0-2.0); EOS # 0.1 K/uL (0.0-0.7); EOS % 1.3 % (0.0-4.0); HEMOGLOBIN 14.3 g/dL (12.0-18.0); LYMPH # 0.7 K/uL (1.0-4.3); LYMPH % 7.2 % (20.0-40.0); MEAN CELL VOLUME 86.1 fL (80.0-94.0); MEAN CORPUSCULAR HGB CONC 33.7 g/dL (33.0-37.0); MEAN PLATELET VOLUME 7.9 fL (7.2-11.7); MONO # 0.6 K/uL (0.0-0.8); MONO % 6.3 % (0.0-10.0); NEUT # 8.5 K/uL (1.8-7.0); NEUT % 84.8 % (50.0-75.0); PLATELET COUNT 168 K/uL (130-400); RBC 4.92 Mil/uL (4.40-5.90); RED CELL DISTRIBUTION WIDTH 13.6 % (11.5-14.5)
[2018-12-31 05:27] LABS: URINE BACTERIA RARE (<OCC); URINE BILIRUBIN NEGATIVE (NEGATIVE); URINE BLOOD NEGATIVE (NEGATIVE); URINE CLARITY Clear (Clear); URINE COLOR Straw (YELLOW); URINE GLUCOSE (UA) 1+ mg/dL (Normal); URINE LEUKOCYTE ESTERASE NEG Leu/uL (Negative); URINE PROTEIN NEGATIVE (NEGATIVE); URINE UROBILINOGEN NORMAL mg/dL (0.2-1.0)
[2018-12-31 05:52] LABS: ALB/GLOB RATIO 1.5 (1.0-2.1); ALBUMIN 4.7 g/dL (3.5-5.0); BLOOD UREA NITROGEN 25 mg/dL (9-20); GFR NON-AFRICAN AMERICAN > 60; LIPASE 33 U/L (23-300)
[2018-12-31 06:15] LABS: BANDS 3 % (0-2); EOSINOPHIL 2 % (0-4); LYMPHOCYTE 8 % (20-40); MONOCYTE 6 % (0-10); NEUTROPHIL 81 % (50-75); PLATELET ESTIMATE NORMAL (NORMAL); TOTAL CELLS COUNTED 100
[2018-12-31 06:16] LABS: ALT/SGPT 18 U/L (21-72); AST/SGOT 40 U/L (17-59)
[2018-12-31 06:52] VITALS: O2SAT 97
[2018-12-31 08:39] VITALS: BP 157/73; PULSE 85; RESP 16; TEMP 97.5
== END 2018-12-31 09:41 | disposition home or self-care (01) ==
LOC: C.ER 04:57
DX: E10.649 Type 1 diabetes mellitus with hypoglycemia without coma (principal); Z79.4 Long term (current) use of insulin; I12.0 Hypertensive chronic kidney disease with stage 5 chronic kidney disease or end stage renal disease; N18.6 End stage renal disease; E78.00 Pure hypercholesterolemia, unspecified; Z94.0 Kidney transplant status